=== PATIENT | male | born 1985 | race Two or more races ===

== ENCOUNTER 2024-06-27 13:08 | Outpatient (AMB) | payer MEDICAID, SELFPAY ==
[2024-06-27 13:15] VITALS: BP 140/90; PULSE 99; RESP 19; O2SAT 99
--- NOTE | 2024-06-27 13:26 | A.OFFVISCC_ITS ---
Vital Signs 06/27/24 13:15 BP 140/90 H Blood Pressure Location Rt brachial Position Sitting Respiration 19 Pulse 99 Pulse Source Pulse Oximeter Pulse Oximetry (%) 99 Intake Visit Reasons: Walk in Allergies No Known Allergies Allergy (Verified 06/27/24 13:39) HPI HPI Walk in: Details: Patient presents as walk for evaluation and treatment of alcohol use disorder He reports he was recently admitted to [facility] for severe alcohol withdrawal with DTs. He was discharged on 06/25. Reports he was drinking btwn 1-3 sleeves prior to admission Drinking more recently --over the last few months increased 15nips daily rumchata Reports he was on his way to [facility] --never admitted because he collapsed Reports history of pressed pills states his last was a month ago Reports IN use, denies any history of IV use denies heroin use Reports one lifetime overdose in 2015 from pressed pills Reports he entered treatment after that and abstained form opiate use for 4 years until he broke his ankle in 2019 and was prescribed pain medications. Denies any other substance use Review of Systems Const Reports difficulty sleeping and Reports malaise Psych Reports anxiety Physical Exam Vital Signs: Last Vital Signs Pulse 99 06/27/24 13:15 Resp 19 06/27/24 13:15 BP 140/90 H 06/27/24 13:15 Pulse Ox 99 06/27/24 13:15 Assessment & Plan Assessment & Plan (1) Alcohol use disorder, severe, dependence: Code(s): F10.20 - Alcohol dependence, uncomplicated Category: Medical Plan: * naltrexone 50mg QD--reviewed dosing, side effects, and medication interactions (opiates) * gabapentin 100mg BID PRN anxiety * follow up 2 weeks Orders: Orders AMB 14 Panel Urine Drug Screen 06/27/24 Z51.81 - Encounter for therapeutic drug level monitoring Medications: New naltrexone take 1/2 tab daily for 3 days, then increase to one tab daily 50 mg PO DAILY 30 tabs 0RF gabapentin 100 mg PO BEDTIME 10 caps 0RF MAT Intake Nursing Intake Reason for visit: establish care Are you currently using?: No What are you taking?: Patient states prior to his recent ICU stay at [facility] last week he was using pressed pills and drinking 1-2 sleeves of vodka a day. When was your last use?: 1 week ago What is your source of income?: unemployed Current PCP: During appt we made an appt with [facility] Primary [place] Referral Source: Family Substance Abuse History Substance Abuse History (includes route, frequency and quantity): Fentanyl, Buprenorphine/naloxone, Methadone, Cocaine and Alcohol Age of first use: 25 Details: Patient states he currently has only been using fake oxys and drinking daily. Has tried and used cocaine in the past but states A long time ago Social History Do you have a support system?: Family which he also acknowledges contributes to his anxiety Current mode of transportation?: Family Where are you currently residing?: In a home with his father IV Drug Use Have you ever shared needles?: No Have you ever belonged to a needle exchange program?: No Do you buy needles at a pharmacy?: No Have you ever overdosed?: No Have you ever been hospitalized for an overdose?: No Was Naloxone administered?: Not applicable Recovery History Have you had any periods of recovery?: Yes What is your longest time in recovery?: 3 1/2 years When was the last time you were in recovery?: Last year Have you ever had inpatient treatment for your substance abuse disorder?: Yes Have you been in an inpatient detoxification program?: Yes Have you been in an inpatient Rehab/[place] house?: No Have you been in an outpatient Methadone Maintenance program?: Yes Have you been in an outpatient Suboxone Maintenance program?: Yes Have you been in an AA/NA support program?: No Have you had a Recovery Support Call Taker?: No Have you had Peer Support?: No Behavioral Health History Do you have a current provider? If so, who?: No, patient endorces interest in a therapist History of self harming thoughts?: No History of homicidal or suicidal intentions?: No Medical Conditions Endocarditis?: No Skin Infection: No Seizure related to withdrawal or overdose: No Head or brain injury: No Hepatitis A (if yes, have you been treated?): No Hepatitis B (if yes, have you been treated?): No Hepatitis C (if yes, have you been treated?): No HIV (if yes, have you been treated?): No TB (if yes, have you been treated?): No Legal History History of incarceration: No Currently on parole or probation: No Court mandated programs: No Pending court cases: No DCF involvement: No
--- OUTSIDE RECORDS SUMMARY | 2024-06-27 15:29 | XMS_ITS | Clinical Summary ---
Author Organization [facility] Address [address] [place] [address] Care Team Providers Care Checker Name Role Phone Patient, Has No Pcp Or Ref Primary Care Provider Unavailable Allergies No known active allergies Medications folic acid (FOLVITE) 1 mg tablet Take 1 tablet (1 mg total) by mouth once a day. 30 tablet 5 07/26/19 25 Active sertraline (ZOLOFT) 50 mg tablet Take 1 tablet (50 mg total) by mouth once a day. 30 tablet 5 Active thiamine mononitrate (VITAMIN B1) 100 mg tablet Take 1 tablet (100 mg total) by mouth once a day. 30 tablet 5 Active thiamine HCl (VITAMIN B1) 100 mg tablet Take 100 mg by mouth once a day. 06/25/19 Discontinu ed(Stop Taking at Discharge) magnesium hydroxide (MILK OF MAGNESIA) 400 mg/5 mL suspension Take 2,400 mg by mouth once a day. 06/25/19 Discontinu ed(Stop Taking at Discharge) calcium carbonate (TUMS) 200 mg calcium (500 mg) chewable tablet Chew and swallow 1 tablet by mouth once a day. 06/25/19 Discontinu ed(Stop Taking at Discharge) acetaminophen (TYLENOL) 325 mg tablet Take 650 mg by mouth every 6 hours as needed for pain. 06/25/19 Discontinu ed(Stop Taking at Discharge) bismuth subsalicylate (PEPTO BISMOL) 262 mg/15 mL suspension Take 30 mL by mouth every 6 hours as needed for indigestion . 06/25/19 Discontinu ed(Stop Taking at Discharge) diphenoxylate-atr opine (LOMOTIL) 2.5-0.025 mg per tablet Take 1 tablet by mouth 4 times a day as needed for diarrhea. 06/25/19 Discontinu ed(Stop Taking at Discharge) guaiFENesin (ROBITUSSIN) 100 mg/5 mL syrup Take 200 mg by mouth 3 times a day as needed for congestion. 06/25/19 25 Discontinu ed(Stop Taking at Discharge) ondansetron (Zofran) 4 mg tablet Take 4 mg by mouth every 8 hours as needed for nausea or vomiting. 06/25/19 25 Discontinu ed(Stop Taking at Discharge) Active Problems No known active problems Resolved Problems Problem Noted Date Diagnosed Date Resolved Date Pancreatitis 06/16/2024 06/25/2024 Acute respiratory failure with hypoxia 06/16/2024 06/25/2024 Toxic metabolic encephalopathy 06/15/2024 06/25/2024 Alcohol withdrawal delirium 06/15/2024 06/25/2024 Hypokalemia 06/15/2024 06/25/2024 Hypomagnesemia 06/15/2024 06/25/2024 Hyponatremia 06/15/2024 06/25/2024 Encounters Date Type Department Care Team Description 06/16/2024 8:47 AM EST Anesthesia Event [facility] [id number] [facility] [address] [place] [id number] Aurora Beckett MD 06/15/2024 12:22 AM EST - 06/25/2024 6:18 PM EST Hospital Encounter [facility] [id number] [facility] [address] [place] [id number] Edvin Beck MD Sultan, Danielle A., Gabe Nobles MD Girgenrath, Tanya, MD Gallant, Joseph J., MD Jones, Evan W, MD Wong, William W., Delirium tremens (HCC) (Primary Dx); Hypomagnesemia; Hypokalemia; Toxic metabolic encephalopathy; Alcohol withdrawal syndrome with complication (HCC) Discharge Disposition: Home or Self Care () from Last 3 Months Immunizations Name Administration Dates Next Due INFLUENZA, SPLIT VIRUS, TRIVALENT, PF 06/25/2024 (Deferred: Patient Refused) Social History Tobacco Use Types Packs/Day Years Used Date Smoking Tobacco: Every Day Cigarettes Cigars Tobacco Cessation:Ready to Q uit: Not Asked Comments:Per family members Alcohol Use Standard Drinks/Week Comments Yes 0 (1 standard drink = 0.6 oz pur e alcohol) Sex and Gender Information Value Date Recorded Sex Assigned at Male 06/19/2024 3:20 PM EST Legal Sex Male 12:20 AM EST Gender Identity Not on file Sexual Orientation Not on file Last Filed Vital Signs Vital Sign Reading Time Taken Comments Blood Pressure 150/102 06/25/2024 4:00 PM EST Pulse 97 06/25/2024 4:00 PM EST Temperature 36.5 ??C (97.7 ??F) 06/25/2024 4:00 PM ES T Respiratory Rate 27 06/25/2024 4:00 PM EST Oxygen Saturation 100% 06/25/2024 4:00 PM EST Inhaled Oxygen Concentration - - Weight 61.9 kg (136 lb 7.4 oz) 06/25/2024 4:54 A M EST Height 175.3 cm (5' 9.02 ) 06/20/2024 8:20 AM ES T Body Mass Index 20.14 06/20/2024 8:20 AM EST Plan of Treatment Health Maintenance Due Date Last Done Comments HIV Screening 1986 Hepatitis C Screening 1986 Pneumococcal Vaccine: Pediat fabiana (0-5 Years) and At-Risk Patients (6-64 Years) (1 of 2 - PCV) 1992 Varicella Vaccines (1 of 2 - 13+ 2-dose series) 1999 Hepatitis B Vaccines (1 of 3 - 19+ 3-dose series) 2005 COVID-19 Vaccine (3 - 2023- season) 2024, 04/02/2021 Influenza Vaccine (#1) 2024 Alcohol/Substance Use Screening 06/05/2024 Depression Screening and Follow-Up 06/05/2024 Social Drivers of Health Annual Screening 06/05/2024 DTaP,Tdap,and Td Vaccines (2 - Td or Tdap) 05/18/2030 05/18/2020 RSV Vaccine (60+ years old a nd patients) (1 - 1-dose 75+ series) 2061 Procedures * Due to [place] state law, this organization might not be sharing negative HIV tests. Procedure Name Priority Date/Time Associated Diagnosis Comments MAGNESIUM STAT 06/25/2024 4:53 AM EST BASIC METABOLIC PANEL STAT 06/25/2024 4:53 AM EST SMEAR REVIEW Routine 06/24/2024 3:08 AM EST BASIC METABOLIC PANEL Routine 06/24/2024 3:08 AM EST MAGNESIUM Routine 06/24/2024 3:08 AM EST PHOSPHORUS Routine 06/24/2024 3:08 AM EST CBC Routine 06/24/2024 3:08 AM EST POCT GLUCOSE Routine 06/23/2024 11:19 AM EST POCT GLUCOSE Routine 06/23/2024 10:09 AM EST POCT GLUCOSE Routine 06/22/2024 12:03 PM EST BASIC METABOLIC PANEL Routine 06/22/2024 2:54 AM EST MAGNESIUM Routine 06/22/2024 2:54 AM EST PHOSPHORUS Routine 06/22/2024 2:54 AM EST SMEAR REVIEW Routine 06/21/2024 3:36 PM EST CBC Timed 06/21/2024 3:36 PM EST BASIC METABOLIC PANEL Timed 06/21/2024 3:36 PM EST PHOSPHORUS Routine 06/21/2024 3:06 AM EST MAGNESIUM Routine 06/21/2024 3:06 AM EST BASIC METABOLIC PANEL Routine 06/21/2024 3:06 AM EST POCT GLUCOSE Routine 06/21/2024 1:13 AM EST POCT GLUCOSE Routine 06/20/2024 8:14 PM EST EXTUBATE PATIENT Routine 06/20/2024 10:03 AM EST SMEAR REVIEW Routine 06/20/2024 3:35 AM EST PHOSPHORUS Routine 06/20/2024 3:35 AM EST MAGNESIUM Routine 06/20/2024 3:35 AM EST CBC AUTO DIFFERENTIAL Routine 06/20/2024 3:35 AM EST COMPREHENSIVE METABOLIC PANEL Routine 06/20/2024 3:35 AM EST MANUAL DIFFERENTIAL Routine 06/19/2024 3 :40 AM EST RENAL FUNCTION PANEL Routine 06/19/2024 3:40 AM EST MAGNESIUM Routine 06/19/2024 3:40 AM EST CBC AUTO DIFFERENTIAL Routine 06/19/2024 3:40 AM EST POCT GLUCOSE Routine 06/18/2024 8:19 PM EST SMEAR REVIEW Routine 06/18/2024 3:26 AM EST CBC Routine 06/18/2024 3:26 AM EST PHOSPHORUS Routine 06/18/2024 3:26 AM EST MAGNESIUM Routine 06/18/2024 3:26 AM EST BASIC METABOLIC PANEL Routine 06/18/2024 3:26 AM EST POCT I-STAT VENOUS BLOOD GAS Routine 06/17/2024 7:55 AM EST TRIGLYCERIDES Add-On 06/17/2024 7:52 AM EST LIPASE Add-On 06/17/2024 7:52 AM EST PHOSPHORUS Timed 06/17/2024 7:52 AM EST BASIC METABOLIC PANEL Timed 06/17/2024 7:52 AM EST MAGNESIUM Timed 06/17/2024 7:52 AM EST POCT GLUCOSE Routine 06/17/2024 4:16 AM EST POCT I-STAT VENOUS BLOOD GAS Routine 06/17/2024 4:15 AM EST PHOSPHORUS Timed 06/17/2024 12:06 AM EST CBC Timed 06/17/2024 12:06 AM EST BASIC METABOLIC PANEL Timed 06/17/2024 12:06 AM EST MAGNESIUM Timed 06/17/2024 12:06 AM EST POCT GLUCOSE Routine 06/17/2024 12:05 AM EST POCT GLUCOSE Routine 06/16/2024 9:06 PM EST URINE CULTURE (URETHRAL CATHETER), HOLD Routine 06/16/2024 6:25 PM EST URINALYSIS (URETHRAL CATHETER) W/REFLEX TO MICROSCOPIC Routine 06/16/2024 6:25 PM EST UA (URETHRAL CATHETER) W/REFLEX TO MICROSCOPIC PANEL (HOLD CULTURE) Routine 06/16/2024 6:25 PM EST MAGNESIUM Timed 06/16/2024 4:35 PM EST BASIC METABOLIC PANEL Timed 06/16/2024 4:35 PM EST POCT I-STAT VENOUS BLOOD GAS Routine 06/16/2024 11:48 AM EST POCT GLUCOSE Routine 06/16/2024 11:44 AM EST POCT GLUCOSE Routine 06/16/2024 11:41 AM EST BETAHYDROXYBUTYRATE Add-On 06/16/2024 10:28 AM EST CK STAT Add-on 06/16/2024 10:28 AM EST BASIC METABOLIC PANEL STAT 06/16/2024 10:28 AM EST PROPOXYPHENE SCREEN, URINE Add-On 06/16 9:37 AM EST METHADONE SCREEN W/CONFIRMATION, URINE Add-On 06/16/2024 9:37 AM EST BENZODIAZEPINE QUALITATIVE SCREEN, URINE Add-On 06/16/2024 9:37 AM EST BARBITURATE SCREEN, URINE Add-On 2024 9:37 AM EST PHENCYCLIDINE (PCP) SCREEN, URINE Add-On 06/16/2024 9:37 AM EST MARIJUANA (THC) SCREEN, URINE Add-On 06/16/2024 9:37 AM EST MORPHINE AND CODEINE CONFIRMATION, URINE Add-On 06/16/2024 9:37 AM EST COCAINE SCREEN, URINE Add-On 06/16/2024 9:37 AM EST AMPHETAMINE SCREEN, URINE Add-On 2024 9:37 AM EST COMPREHENSIVE DRUG SCREEN, URINE Routine 06/16/2024 9:37 AM EST OSMOLALITY STAT 06/16/2024 9:37 AM EST ACETAMINOPHEN LEVEL STAT 06/16/2024 9 :37 AM EST SALICYLATE LEVEL Routine 06/16/2024 9:37 AM EST OSMOLALITY GAP STAT 06/16/2024 9:37 AM EST POCT I-STAT ARTERIAL BLOOD GAS Routine 06/16/2024 9:29 AM EST MVL QS - COVID-19, FLU A/B & RSV RNA PCR, SYMPTOMATIC Routine 06/16/2024 9:29 AM EST POCT GLUCOSE Routine 06/16/2024 9:28 AM EST BLOOD CULTURE Routine 06/16/2024 9:00 AM EST BLOOD CULTURE Routine 06/16/2024 9:00 AM EST PROLACTIN STAT 06/16/2024 8:57 AM EST CK STAT 06/16/2024 8:57 AM EST MRSA/S AUREUS PCR, NASAL Routine 025 8:44 AM EST RESPIRATORY CULTURE W/GRAM STAIN STAT 06/16/2024 8:41 AM EST XR CHEST 1 VW STAT 06/16/2024 8:20 AM EST AN ETT DUMMY PERFORMABLE Routine 025 8:15 AM EST UT INSERT EMERGENCY ENDOTRACH AIRWAY Routine 06/16/2024 8:15 AM EST HC EMERGENCY INTUBATION Routine 06/16/19 25 8:15 AM EST LACTIC ACID, PLASMA STAT 06/16/2024 7 :34 AM EST POCT I-STAT VENOUS BLOOD GAS Routine 06/16/2024 7:21 AM EST POCT GLUCOSE Routine 06/16/2024 7:19 AM EST POCT GLUCOSE Routine 06/16/2024 4:36 AM EST LIPASE Add-On 06/16/2024 3:42 AM EST PROTIME-INR Routine 06/16/2024 3:42 AM EST PHOSPHORUS Routine 06/16/2024 3:42 AM EST MAGNESIUM Routine 06/16/2024 3:42 AM EST HEPATIC FUNCTION PANEL Routine 3:42 AM EST CBC Routine 06/16/2024 3:42 AM EST BASIC METABOLIC PANEL Routine 06/16/2024 3:42 AM EST POCT GLUCOSE Routine 06/16/2024 1:00 AM EST POCT GLUCOSE Routine 06/15/2024 8:04 PM EST ECG 12-LEAD STAT 06/15/2024 5:49 PM EST TROPONIN T HIGH SENSITIVITY Routine 06/15/2024 5:33 PM EST CBC AUTO DIFFERENTIAL Routine 06/15/2024 5:33 PM EST PHOSPHORUS Routine 06/15/2024 5:33 PM EST MAGNESIUM Routine 06/15/2024 5:33 PM EST BASIC METABOLIC PANEL Routine 06/15/2024 5:33 PM EST POCT GLUCOSE Routine 06/15/2024 5:06 PM EST BASIC METABOLIC PANEL STAT 06/15/2024 1:25 PM EST MAGNESIUM STAT 06/15/2024 10:07 AM EST BASIC METABOLIC PANEL STAT 06/15/2024 10:07 AM EST XR CHEST 1 VW STAT 06/15/2024 7:41 AM EST BASIC METABOLIC PANEL STAT 06/15/2024 7:[address] HEAD WO CONTRAST STAT 06/15/2024 1 :26 AM EST MAGNESIUM STAT 06/15/2024 12:50 AM EST COMPREHENSIVE METABOLIC PANEL STAT 06/15/2024 12:50 AM EST CBC AUTO DIFFERENTIAL STAT 06/15/2024 12:50 AM EST ECG 12-LEAD Routine 06/15/2024 12:36 AM EST HEART & VASCULAR - SCANNED 06/15/2024 from Last 3 Months Results * Due to [place] state law, this organization might not be sharing negative HIV tests. * Magnesium (06/25/2024 4:53 AM EST) Only the most recent of14 resultswithin the time period is included. MG 2.0 1.6 - 2.4 mg/dL 06/25/2024 5:55 AM EST [facility] Blood Structure of peripheral vein / Unknown Venipuncture / Unknown 06/25/2024 4:53 AM EST 06/25/2024 5:26 AM EST us Mikey Rivas NP LAB BLOOD ORDER MADELYN Final Result [facility] [address] [place] [id number], [place] * (ABNORMAL) Basic metabolic panel (06/25/2024 4:53 AM EST) Only the most recent of15 resultswithin the time period is included. NA 137 135 - 145 mmol/L 06/25/2024 5:55 AM EST [facility] K 3.6 3.5 - 5.3 mmol/L 06/25/2024 5:55 AM EST [facility] Cl 105 98 - 107 mmol/L 06/25/2024 5:55 AM EST [facility] CO2 21(L) 22 - 32 mmol/L 06/25/2024 5:55 AM EST [facility] BUN 8 7 - 23 mg/dL 06/25/2024 5:55 AM [facility] Creatinine 0.59(L) 0.60 - 1.30 mg/dL 06/25/2024 5:55 AM EST [facility] Glucose 103(H) 65 - 99 mg/dL 06/25/2024 5:55 AM [facility] Calcium 8.8 8.6 - 10.5 mg/dL 06/25/2024 5:55 AM [facility] Anion Gap 11 5 - 15 06/25/2024 5:55 AM [facility] eGFR >90 >=60 mL/min/1 .73m2 06/25/2024 5:55 AM [facility] Comment:The estimated glomer ular filtration rate (eGFR) is calculated using a new formula developed by the NKF-ASN task force to eliminate race-based correction factors. The new formula uses serum/plasma creatinine, age, and gender to determine eGFR. A value below 60mls/min might indicate kidney disease and will be flagged. For additional information, see Jewel nuñez al, Am J Kidney Dis. 2021;79(2):268- 288, A Unifying Approach for GFR estimation: Recommendations of the NKF-ASN Task Force on Reassessing the Inclusion of Race in Diagnosing Kidney Disease . Blood Structure of peripheral vein / Unknown Venipuncture / Unknown 06/25/2024 4:53 AM EST 06/25/2024 5:26 AM EST Mikey Rivas COMMUNITY ASSISTANT LAB BLOOD ORDER MADELYN Final Result Performing Organization Address City/[facility] Co de Phone Number [facility] [address] [place] [address], [place] * (ABNORMAL) Smear Review (06/24/2024 3:08 AM EST) Only the most recent of4 resultswithin the time period is included. Platelet Estimate Increase d(A) Adequate 06/24/2024 4:13 AM EST [facility] RBC Morphology Present( A) Normal, No clinically significant RBC morphology present (ICSH guidelines, 2015). 06/24/2024 4:13 AM EST [facility] Macrocytes 2+(A) Not Present 06/24/2024 4:13 AM EST [facility] Blood Structure of peripheral vein / Unknown Venipuncture / Unknown 06/24/2024 3:08 AM EST 06/24/2024 3:35 AM EST us Domonique Desai COMMUNITY ASSISTANT LAB BLOOD ORDERABLES Final R esult Performing Organization Address City/[facility] Co de Phone Number [facility] [address] [place] [id number], [place] * (ABNORMAL) CBC (06/24/2024 3:08 AM EST) Only the most recent of5 resultswithin the time period is included. WBC 7.4 3.8 - 10.8 10*3/uL 06/24/2024 4:13 AM EST [facility] RBC 3.84(L) 4.20 - 5.80 10*6/uL 06/24/2024 4:13 AM EST [facility] Hemoglobin 14.4 13.2 - 17.1 g/dL 06/24/2024 4:13 AM EST [facility] Hematocrit 39.7 38.5 - 50.0 % 06/24/2024 4:13 AM EST [facility] MCV 103.4(H) 80.0 - 100.0 fL 06/24/2024 4:13 AM EST [facility] MCH 37.5(H) 27.0 - 33.0 pg 06/24/2024 4:13 AM EST [facility] MCHC 36.3(H) 32.0 - 36.0 g/dL 06/24/2024 4:13 AM EST [facility] RDW 11.7 11.0 - 15.0 % 06/24/2024 4:13 AM EST [facility] Platelets 546(H) 140 - 400 10*3/uL 06/24/2024 4:13 AM EST [facility] MPV 8.8 7.5 - 12.5 fL 06/24/2024 4:13 AM EST [facility] Comment:A smear review has carmen medina added. Clinician review and interpretation will be needed once the report is final. Blood Structure of peripheral vein / Unknown Venipuncture / Unknown 06/24/2024 3:08 AM EST 06/24/2024 3:35 AM EST us Domonique Desai COMMUNITY ASSISTANT LAB BLOOD ORDERABLES Final R esult [facility] [address] [place] [address], * Phosphorus (06/24/2024 3:08 AM EST) Only the most recent of9 resultswithin the time period is included. Phosphorus 3.4 2.5 - 4.5 mg/dL 06/24/2024 4:20 AM EST [facility] Blood Structure of peripheral vein / Unknown Venipuncture / Unknown 06/24/2024 3:08 AM EST 06/24/2024 3:35 AM EST us Domonique Desai COMMUNITY ASSISTANT LAB BLOOD ORDERABLES Final R esult Performing Organization Address City/[facility]/ZIP Co de Phone Number [facility] [address] [place] [address], [place] * (ABNORMAL) POCT Glucose, interfaced (06/23/2024 11:19 AM EST) Only the most recent of17 resultswithin the time period is included. Glucose, POCT 167(H) 70 - 99 mg/dL 06/23/2024 11:20 AM EST [facility] Comment: The accountant property has not determined the efficacy of this test in Critically ill patients. ??[facility] defines Critically ill patients for the purpose of blood glucose monitoring (BGM) by glucometer, as patients meeting one or more of the following criteria: Hypotension- non-ICU patients (systolic blood pressure Less than 90 mmHg) due to shock Hypotension -ICU patients ??(Mean Arterial Pressure (MAP) <60 mmHg or systolic blood pressure < 90 mmHg due to shock Patients receiving Vasopressors (phenylephrine, vasopressin or norepinephrine) Anasarca In all locations, BGM test results should not be relied upon in the above situations, unless these results confirmed with lab-based glucose values. Blood 06/23/2024 11:1 9 AM EST 06/23/2024 11:20 AM EST us Alberto Rucker DO LAB POCT ORDERABLES - DEVICE Final Result Performing Organization Address City/[facility]/ZIP Co de Phone Number [facility] [address] [place] [address], [place] * (ABNORMAL) CBC Auto Differential (06/20/2024 3:35 AM EST) Only the most recent of4 resultswithin the time period is included. WBC 4.1 3.8 - 10.8 10*3/uL 06/20/2024 5:40 AM [facility] RBC 3.68(L) 4.20 - 5.80 10*6/uL 06/20/2024 5:40 AM [facility] Hemoglobin 13.5 13.2 - 17.1 g/dL 06/20/2024 5:40 AM [facility] Hematocrit 39.4 38.5 - 50.0 % 06/20/2024 5:40 AM [facility] MCV 107.1(H) 80.0 - 100.0 fL 06/20/2024 5:40 AM [facility] MCH 36.7(H) 27.0 - 33.0 pg 06/20/2024 5:40 AM [facility] MCHC 34.3 32.0 - 36.0 g/dL 06/20/2024 5:40 AM [facility] RDW 11.7 11.0 - 15.0 % 06/20/2024 5:40 AM [facility] Platelets 274 140 - 400 10*3/uL 06/20/2024 5:40 AM [facility] MPV 9.4 7.5 - 12.5 fL 06/20/2024 5:40 AM [facility] Neutrophil % 49.9 % 06/20/2024 5:40 AM [facility] Immature Grans % 0.5 0.0 - 0.9 % 06/20/2024 5:40 AM [facility] Lymphocyte % 21.5 % 06/20/2024 5:40 AM [facility] Monocyte % 23.7 % 06/20/2024 5:40 AM [facility] Eosinophil % 3.4 % 06/20/2024 5:40 AM EST [facility] Basophil % 1.0 % 06/20/2024 5:40 AM EST [facility] Neutrophil # 2.06 1.50 - 7.80 10*3/uL 06/20/2024 5:40 AM EST [facility] Immature Grans # <0.03 <=0.03 10*3/uL 06/20/2024 5:40 AM EST [facility] Lymphocyte # 0.90 0.85 - 3.90 10*3/uL 06/20/2024 5:40 AM EST [facility] Monocyte # 1.00(H) 0.20 - 0.95 10*3/uL 06/20/2024 5:40 AM EST [facility] Eosinophil # 0.10 0.02 - 0.50 10*3/uL 06/20/2024 5:40 AM EST [facility] Basophil # <0.03 0.00 - 0.20 10*3/uL 06/20/2024 5:40 AM EST [facility] nRBC % 0.0 /100 WBCs 06/20/2024 5:40 AM EST [facility] nRBC # <0.01 <0.01 10*3/uL 06/20/2024 5:40 AM EST [facility] Blood Structure of peripheral vein / Unknown Venipuncture / Unknown 06/20/2024 3:35 AM EST 06/20/2024 4:12 AM EST us Darrel Blackwell NP LAB BLOOD ORDERABLES Fi nal Result [facility] [address] [place] [address], * (ABNORMAL) Comprehensive metabolic panel (06/20/2024 3:35 AM EST) Only the most recent of2 resultswithin the time period is included. NA 139 135 - 145 mmol/L 06/20/2024 4:47 AM [facility] K 4.0 3.5 - 5.3 mmol/L 06/20/2024 4:47 AM [facility] Cl 107 98 - 107 mmol/L 06/20/2024 4:47 AM [facility] CO2 23 22 - 32 mmol/L 06/20/2024 4:47 AM [facility] Anion Gap 9 5 - 15 06/20/2024 4:47 AM [facility] Glucose 161(H) 65 - 99 mg/dL 06/20/2024 4:47 AM [facility] Creatinine 0.55(L) 0.60 - 1.30 mg/dL 06/20/2024 4:47 AM [facility] Calcium 8.6 8.6 - 10.5 mg/dL 06/20/2024 4:47 AM [facility] Total Protein 6.8 6.0 - 8.0 g/dL 06/20/2024 4:47 AM [facility] Albumin 3.2(L) 3.5 - 5.2 g/dL 06/20/2024 4:47 AM [facility] Bilirubin, Total 0.2 0.2 - 1.2 mg/dL 06/20/2024 4:47 AM [facility] Alkaline Phosphatase 104 35 - 129 U/L 06/20/2024 4:47 AM [facility] AST 20 10 - 40 U/L 06/20/2024 4:47 AM [facility] ALT 16 10 - 40 U/L 06/20/2024 4:47 AM [facility] BUN 11 7 - 23 mg/dL 06/20/2024 4:47 AM [facility] eGFR >90 >=60 mL/min/1 .73m2 06/20/2024 4:47 AM EST [facility] Comment:The estimated glomer ular filtration rate (eGFR) is calculated using a new formula developed by the NKF-ASN task force to eliminate race-based correction factors. The new formula uses serum/plasma creatinine, age, and gender to determine eGFR. A value below 60mls/min might indicate kidney disease and will be flagged. For additional information, see Jewel et al, Am J Kidney Dis. 2021;79(2):268- 288, A Unifying Approach for GFR estimation: Recommendations of the [employer]-ASN Task Force on Reassessing the Inclusion of Race in Diagnosing Kidney Disease . Globulin, Total 3.6 2.1 - 4.2 g/dL 06/20/2024 4:47 AM EST [facility] A/G Ratio 0.9(L) 1.5 - 3.0 06/20/2024 4:47 AM EST [facility] Blood Structure of peripheral vein / Unknown Venipuncture / Unknown 06/20/2024 3:35 AM EST 06/20/2024 4:11 AM EST us Darrel Blackwell NP LAB BLOOD ORDERABLES Fi nal Result [facility] [address] [place] [address], [place] * (ABNORMAL) Manual Differential (06/19/2024 3:40 AM EST) Neutrophil %, Manual 61 % 06/19/2024 5:22 AM EST [facility] Comment:WBC: vacuolated poly s Lymphocyte %, Manual 17 % 06/19/2024 5:22 AM EST [facility] Monocyte %, Manual 12 % 06/19/2024 5:22 AM EST [facility] Eosinophil %, Manual 5 % 06/19/2024 5:22 AM EST [facility] Basophil %, Manual 1 % 06/19/2024 5:22 AM [facility] Reactive Lymphocyte % 4 0 - 6 % 06/19/2024 5:22 AM EST [facility] Total Neutrophil #, Manual 3.48 1.50 - 7.80 10*3/uL 06/19/2024 5:22 AM EST [facility] Total Lymph #, Manual 1.20 0.85 - 3.90 10*3/uL 06/19/2024 5:22 AM EST [facility] Monocyte #, Manual 0.68 0.20 - 0.95 10*3/uL 06/19/2024 5:22 AM EST [facility] Eosinophil #, Manual 0.29 0.02 - 0.50 10*3/uL 06/19/2024 5:22 AM EST [facility] Basophil #, Manual 0.06 0.00 - 0.20 10*3/uL 06/19/2024 5:22 AM [facility] Reactive Lymphocytes # 0.23 10*3/uL 06/19/2024 5:22 AM [facility] Platelet Estimate Adequate Adequate 06/19/2024 5:22 AM [facility] RBC Morphology Present(A) Normal, No clinically significant RBC morphology present (ICSH guidelines, 2015). 06/19/2024 5:22 AM EST [facility] Anisocytosis 2+(A) Not Present 06/19/2024 5:22 AM [facility] Macrocytes 2+(A) Not Present 06/19/2024 5:22 AM [facility] Total Cells Counted 117 06/19/2024 5:22 AM [facility] Blood Structure of peripheral vein / Unknown Venipuncture / Unknown 06/19/2024 3:40 AM EST 06/19/2024 3:48 AM EST us Winston ESTRADA LAB BLOOD ORDERABLES Fi nal Result [facility] [address] [place] [address], * (ABNORMAL) Renal Function Panel (06/19/2024 3:40 AM EST) NA 139 135 - 145 mmol/L 06/19/2024 4:34 AM EST [facility] K 4.1 3.5 - 5.3 mmol/L 06/19/2024 4:34 AM EST [facility] Cl 105 98 - 107 mmol/L 06/19/2024 4:34 AM EST [facility] CO2 21(L) 22 - 32 mmol/L 06/19/2024 4:34 AM EST [facility] Anion Gap 13 5 - 15 06/19/2024 4:34 AM EST [facility] Glucose 161(H) 65 - 99 mg/dL 06/19/2024 4:34 AM EST [facility] BUN 9 7 - 23 mg/dL 06/19/2024 4:34 AM EST [facility] Creatinine 0.61 0.60 - 1.30 mg/dL 06/19/2024 4:34 AM EST [facility] Calcium 8.6 8.6 - 10.5 mg/dL 06/19/2024 4:34 AM EST [facility] Phosphorus 3.8 2.5 - 4.5 mg/dL 06/19/2024 4:34 AM EST [facility] Albumin 3.3(L) 3.5 - 5.2 g/dL 06/19/2024 4:34 AM EST [facility] eGFR >90 >=60 mL/min/1. 73m2 06/19/2024 4:34 AM EST [facility] Comment:The estimated glomer ular filtration rate (eGFR) is calculated using a new formula developed by the NKF-ASN task force to eliminate race-based correction factors. The new formula uses serum/plasma creatinine, age, and gender to determine eGFR. A value below 60mls/min might indicate kidney disease and will be flagged. For additional information, see Jewel et al, Am J Kidney Dis. 2021;79(2):268- 288, A Unifying Approach for GFR estimation: Recommendations of the NKF-ASN Task Force on Reassessing the Inclusion of Race in Diagnosing Kidney Disease . Blood Structure of peripheral vein / Unknown Venipuncture / Unknown 06/19/2024 3:40 AM EST 06/19/2024 3:48 AM EST us Winston ESTRADA LAB BLOOD ORDERABLES Fi nal Result [facility] [address] [place] [id number], [place] * (ABNORMAL) POCT I-STAT Venous Blood Gas, interfaced (06/17/2024 7:55 AM EST) Only the most recent of4 resultswithin the time period is included. Sample Type, POCT Venous 06/17/2024 7:57 AM EST [facility] pH, POCT 7.43(H) 7.31 - 7.41 pH 06/17/2024 7:57 AM EST [facility] pCO2, POCT 33.0(L) 41 - 51 mm Hg 06/17/2024 7:57 AM EST [facility] pO2, POCT 42(H) 35 - 40 mm Hg 06/17/2024 7:57 AM EST [facility] Base Excess, POCT -3(L) 0 - 3 mmol/L 06/17/2024 7:57 AM EST [facility] HCO3, POCT 21.8(L) 23 - 28 mmol/L 06/17/2024 7:57 AM EST [facility] TCO2, POCT 23(L) 24 - 29 mmol/L 06/17/2024 7:57 AM EST [facility], [facility] Saturated O2, POCT 79(H) 70 - 75 % 06/17/2024 7:57 AM EST [facility], [facility] FIO2, POCT 30 % 06/17/2024 7:57 AM EST [facility], [facility] Patient Temp, POCT 38.1 degrees 06/17/2024 7:57 AM EST [facility], [facility] Isaias's Test, POCT N/A 06/17/2024 7:57 AM EST [facility], [facility] Blood 06/17/2024 7:55 AM EST 06/17/2024 7:57 AM EST us Jeison Hogue MD LAB POCT ORDERABLES - DEVICE Fin al Result Performing Organization Address City/[facility]/ZIP Co de Phone Number [facility], [facility]OC [address] [place] [address], [place] * Triglyceride (06/17/2024 7:52 AM EST) Triglycerides 69 <=149 mg/dL 06/17/2024 12:32 PM EST [facility] Blood Structure of peripheral vein / Unknown Venipuncture / Unknown 06/17/2024 7:52 AM EST 06/17/2024 7:55 AM EST us Mikey Rivas NP LAB BLOOD ORDER MADELYN Final Result [facility] [address] [place] [address], [place] * (ABNORMAL) Lipase (06/17/2024 7:52 AM EST) Only the most recent of2 resultswithin the time period is included. Lipase 150(H) 13 - 60 U/L 06/17/2024 12:32 PM EST [facility] Blood Structure of peripheral vein / Unknown Venipuncture / Unknown 06/17/2024 7:52 AM EST 06/17/2024 7:55 AM EST us Mikey Rivas COMMUNITY ASSISTANT LAB BLOOD ORDER MADELYN Final Result [facility] [address] [place] [address], [place] * (ABNORMAL) Urinalysis (Urethral Catheter) w/Reflex to Microscopic (Hold Culture). (06/16/2024 6:25 PM EST) Color, Urine Dark Yellow Colorless, Light Yellow, Yellow, Dark Yellow 06/16/2024 7:12 PM EST [facility] Clarity, Urine Clear Clear 06/16/2024 7:12 PM EST [facility] Specific [place], Urine 1.028 1.005 - 1.030 06/16/2024 7:12 PM EST [facility] pH, Urine 5.0 4.6 - 8.0 06/16/2024 7:12 PM EST [facility] Protein, Urine 1+(A) Negative 06/16/2024 7:12 PM EST [facility] Glucose, Urine Negative Negative 06/16/2024 7:12 PM EST [facility] Ketones, Urine Negative Negative 06/16/2024 7:12 PM EST [facility] Bilirubin, Urine Negative Negative 06/16/2024 7:12 PM EST [facility] Blood, Urine Negative Negative 06/16/2024 7:12 PM EST [facility] Nitrite, Urine Negative Negative 06/16/2024 7:12 PM EST [facility] Urobilinogen, Urine Normal Normal 06/16/2024 7:12 PM EST [facility] Leukocyte Esterase, Urine 1+(A) Negative 06/16/2024 7:12 PM EST [facility] WBC, Urine 16(H) 0 - 2 /HPF 06/16/2024 7:12 PM EST [facility] RBC, Urine 7(H) 0 - 2 /HPF 06/16/2024 7:12 PM EST [facility] Hyaline Casts, Urine 0 0 - 2 /LPF 06/16/2024 7:12 PM EST [facility] Squamous Epithelial Cells, Urine <1 /HPF 06/16/2024 7:12 PM EST [facility] Bacteria, Urine Rare(A) None /HPF /HPF 06/16/2024 7:12 PM EST [facility] Mucus, Urine Rare /LPF 06/16/2024 7:12 PM EST [facility] Urine Indwelling urinary catheter / Unknown Non-Blood Collection / Unknown 06/16/2024 6:25 PM EST 06/16/2024 6:45 PM EST Mikey Rivas COMMUNITY ASSISTANT LAB URINE ORDER MADELYN Final Result [facility] [address] [place] [address], * Urine Culture (Urethral Catheter), HOLD (06/16/2024 6:25 PM EST) Extra Tube Hold for add-ons. 06/16/2024 11:05 PM EST [facility] Comment:Auto resulted. Urine Indwelling urinary catheter / Unknown Non-Blood Collection / Unknown 06/16/2024 6:25 PM EST 06/16/2024 6:45 PM EST Mikey Rivas COMMUNITY ASSISTANT LAB URINE ORDER MADELYN Final Result [facility] [address] [place] [id number], * (ABNORMAL) Betahydroxybutyrate (06/16/2024 10:28 AM EST) Pathologist [facility] Beta-Hydroxybu tyrate 1.00(H) <=0.27 mmol/L 06/16/2024 12:27 PM EST [facility] Blood Structure of peripheral vein / Unknown Venipuncture / Unknown 06/16/2024 10:28 AM EST 06/16/2024 10:28 AM EST Mikey Rivas COMMUNITY ASSISTANT LAB BLOOD ORDER MADELYN Final Result Performing Organization Address [facility] Co de Phone Number [facility] [address] [place] [address], * Creatine Kinase (06/16/2024 10:28 AM EST) Only the most recent of2 resultswithin the time period is included. Pathologist [facility] CK 342 49 - 348 U/L 06/16/2024 11:00 AM EST [facility] Blood Structure of peripheral vein / Unknown Venipuncture / Unknown 06/16/2024 10:28 AM EST 06/16/2024 10:28 AM EST Mikey Rivas COMMUNITY ASSISTANT LAB BLOOD ORDER MADELYN Final Result Performing Organization Address City/[facility]/ZIP Co de Phone Number [facility] [address] [place] [address], * (ABNORMAL) Methadone Screen w/Confirmation, Urine (06/16/2024 9:37 AM EST) Pathologist [facility] Methadone Metabolite Screen, Urine POSITIVE( A) <100 ng/mL 06/19/2024 6:34 AM EST [facility] EDDP, Urine 1608(H) <100 ng/mL 06/19/2024 6:34 AM EST [employer] Comment: See Note 1 Methadone, Urine 948(H) <100 ng/mL 06/19/2024 6:34 AM EST [employer] Comment: See Note 1 See Note 2 Note 1 This test was developed and its analytical performance characteristics have been determined by [employer]. It has not been cleared or approved by the FDA. This assay has been validated pursuant to the CLIA regulations and is used for clinical purposes. Note 2 This drug testing is for medical treatment only. ?? Analysis was performed as non-forensic testing and these results should be used only by healthcare providers to render diagnosis or treatment, or to monitor progress of medical conditions. For assistance with interpreting these drug results, please contact a [employer] Toxicology Specialist: [phone] ( ), M-F, 8am-6pm EST. Urine Catheter / Unknown Non-Blood Collection / Unknown 06/16/2024 9:37 AM EST 06/16/2024 9:55 AM EST [facility] - 06/19/2024 6:34 AM EST [facility] Received Date: Mikey Rivas COMMUNITY ASSISTANT LAB URINE ORDER MADELYN Final Result [facility] [address] [facility] [address], [place] [address], [place] [phone] [facility] [address] [facility] [address], [place] [address], * Morphine and Codeine Confirmation, Urine (06/16/2024 9:37 AM EST) Codeine, Urine NEGATIVE <50 ng/mL 06/19/2024 3:19 PM EST [employer] Comment: See Note 1 Hydrocodone, Urine NEGATIVE <50 ng/mL 06/19/2024 3:19 PM EST [employer] Comment: See Note 1 Hydromorphone, Urine NEGATIVE <50 ng/mL 06/19/2024 3:19 PM EST [employer] Comment: See Note 1 Morphine, Urine NEGATIVE <50 ng/mL 01/15/202 5 3:19 PM EST [employer] Comment: See Note 1 Norhydrocodone, Urine NEGATIVE <50 ng/mL 06/19/2024 3:19 PM EST [employer] Comment: See Note 1 See Note 2 Note 1 This test was developed and its analytical performance characteristics have been determined by [employer]. It has not been cleared or approved by the FDA. This assay has been validated pursuant to the CLIA regulations and is used for clinical purposes. Note 2 This drug testing is for medical treatment only. ?? Analysis was performed as non-forensic testing and these results should be used only by healthcare providers to render diagnosis or treatment, or to monitor progress of medical conditions. For assistance with interpreting these drug results, please contact a [employer] Toxicology Specialist: [phone] ( ), M-F, 8am-6pm EST. Urine Catheter / Unknown Non-Blood Collection / Unknown 06/16/2024 9:37 AM EST 06/16/2024 9:55 AM EST Narrative [facility] [place] - 06/19/2024 3:19 PM EST [facility] Received Date: Mikey Rivas NP LAB URINE ORDER MADELYN Final Result [facility] [place] [address] [facility] [address] [address], [place] [address], [facility] [address] [facility] [address], [place] [address], [place] [phone] * Comprehensive Drug Panel, Urine (06/16/2024 9:37 AM EST) [facility] Comprehensive Drug Screen Urine DRUGS DETECTED 06/16/2024 4:36 PM EST [employer] Comment: DIPHENHYDRAMINE PHENOBARBITAL METHADONE AND METABOLITE Urine Catheter / Unknown Non-Blood Collection / Unknown 06/16/2024 9:37 AM EST 06/16/2024 9:55 AM EST Narrative [facility] [place] - 06/16/2024 4:36 PM EST [facility] Received Date: Cj Jackson COMMUNITY ASSISTANT LAB URINE ORDERABLES Final Resul t [facility] [address] [facility] [address], [place] [address], [place] [phone] [facility] [address] [facility] [address], [place] [address], [place] [phone] * (ABNORMAL) Barbiturate Screen, Urine (06/16/2024 9:37 AM EST) Barbiturate Screen, Urine Presumptive Positive(A) Negative 06/16/2024 1:30 PM EST [facility] Comment: Detection limit of 200 ng/mL of Secobarbital. Drug results are to be used only for medical purposes. ??Unconfirmed screening results must not be used for non-medical purposes. Detection limit of 200 ng/mL of Secobarbital. Drug results are to be used only for medical purposes. ??Unconfirmed screening results must not be used for non-medical purposes. Urine Catheter / Unknown Non-Blood Collection / Unknown 06/16/2024 9:37 AM EST 06/16/2024 9:55 AM EST Mikey Rivas COMMUNITY ASSISTANT LAB URINE ORDER MADELYN Final Result [facility] [address] [place] [address], * Propoxyphene Screen, Urine (06/16/2024 9:37 AM EST) Propoxyphene Screen, Urine NEGATIVE <300 ng/mL 06/17/2024 5:52 AM EST [employer] Comment: See Note 2 Note 1 This drug testing is for medical treatment only. ?? Analysis was performed as non-forensic testing and these results should be used only by healthcare providers to render diagnosis or treatment, or to monitor progress of medical conditions. For assistance with interpreting these drug results, please contact a [employer] Toxicology Specialist: [phone] ( ), M-F, 8am-6pm EST. Note 2 This drug testing is for medical treatment only. ?? The results are presumptive; based only on screening methods, and they have not been confirmed by a definitive method. Analysis was performed as non-forensic testing and these results should be used only by healthcare providers to render diagnosis or treatment, or to monitor progress of medical conditions. For assistance with interpreting these drug results, please contact a [employer] Toxicology Specialist: [phone] ( ), M-F, 8am-6pm EST. Urine Catheter / Unknown Non-Blood Collection / Unknown 06/16/2024 9:37 AM EST 06/16/2024 9:55 AM EST Narrative [facility] [place] - 06/17/2024 5:52 AM EST [facility] Received Date: Mikey Rivas NP LAB URINE ORDER MADELYN Final Result Performing Organization Address City/[facility] Co de Phone Number [facility] [address] [facility] [address] [facility] [address], [place] [address], [place] [phone] [employer] [facility] [address] [facility] [address], [place] [address], [place] [phone] * Marijuana Qualitative Screen, Urine (06/16/2024 9:37 AM EST) Marijuana Screen, Urine Negative Negative 06/16/2024 1:30 PM EST [facility] Comment: Detection limit of 50 ng/mL of 69-Ixm-aqxup-4-JCM-9-carboxylic acid. Drug results are to be used only for medical purposes. ??Unconfirmed screening results must not be used for non-medical purposes. Urine Catheter / Unknown Non-Blood Collection / Unknown 06/16/2024 9:37 AM EST 06/16/2024 9:55 AM EST Mikey Rivas NP LAB URINE ORDER MADELYN Final Result Performing Organization Address City/[facility]/ZIP Co de Phone Number [facility] [address] [place] [address], * Osmolality Gap (06/16/2024 9:37 AM EST) NA 137 135 - 145 mmol/L 06/16/2024 11:08 AM EST [facility] BUN 10 7 - 23 mg/dL 06/16/2024 11:08 AM EST [facility] Glucose 95 65 - 99 mg/dL 06/16/2024 11:08 AM EST [facility] Osmolality 282 279 - 295 mOsm/kg 06/16/2024 11:08 AM EST [facility] Osmolality Calculated 283 mOSM/kg 06/16/2024 11:08 AM EST [facility] Osmolality Gap <10 <10 mOSM/kg 06/16/2024 11:08 AM EST [facility] Blood Structure of peripheral vein / Unknown Venipuncture / Unknown 06/16/2024 9:37 AM EST 06/16/2024 9:54 AM EST Cj Paz COMMUNITY ASSISTANT LAB BLOOD ORDERABLES Final Resul t Performing Organization Address City/[facility]/ZIP Co de Phone Number [facility] [address] [place] [address], * Phencyclidine (PCP) Screen, Urine (06/16/2024 9:37 AM EST) Phencyclidine Screen, Urine NEGATIVE <25 ng/mL 06/17/2024 5:52 AM EST [facility] [employer] [facility] [facility] Comment: See Note 2 Urine Catheter / Unknown Non-Blood Collection / Unknown 06/16/2024 9:37 AM EST 06/16/2024 9:55 AM EST Narrative [facility] [place] - 06/17/2024 5:52 AM EST [facility] Received Date: Mikey Rivas COMMUNITY ASSISTANT LAB URINE ORDER MADELYN Final Result [facility] [address] [facility] [address], [place] [address], [place] [phone] [employer] [facility] [address], [place] [address], [place] [phone] * Cocaine Qualitative, Urine (06/16/2024 9:37 AM EST) Cocaine Metabolite Screen, Urine Negative Negative 06/16/2024 1:30 PM EST [facility] [facility] Comment: Detection limit of 300 ng/mL of Benzoylecgonine. Drug results are to be used only for medical purposes. ??Unconfirmed screening results must not be used for non-medical purposes. Urine Catheter / Unknown Non-Blood Collection / Unknown 06/16/2024 9:37 AM EST 06/16/2024 9:55 AM EST Mikey Rivas COMMUNITY ASSISTANT LAB URINE ORDER MADELYN Final Result Performing Organization Address [facility]/ZIP Co de Phone Number [facility] [facility] [address] [place] [address], * (ABNORMAL) Benzodiazepine Qualitative Screen, Urine (06/16/2024 9:37 AM EST) Benzodiazepine Screen, Urine Presumptive Positive(A) Negative 06/16/2024 1:30 PM EST [facility] [facility] Comment: Detection limit of 200 ng/mL of Nordiazepam. Drug results are to be used only for medical purposes. ??Unconfirmed screening results must not be used for non-medical purposes. Urine Catheter / Unknown Non-Blood Collection / Unknown 06/16/2024 9:37 AM EST 06/16/2024 9:55 AM EST Mikey Rivas COMMUNITY ASSISTANT LAB URINE ORDER MADELYN Final Result [facility] [address] [place] [address], [place] * Amphetamine Qualitative, Urine (06/16/2024 9:37 AM EST) Amphetamine Screen, Urine Negative Negative 06/16/2024 1:30 PM EST [facility] Comment: Detection limit of 1000 ng/mL of d-Methamphetamine. Drug results are to be used only for medical purposes. ??Unconfirmed screening results must not be used for non-medical purposes. Urine Catheter / Unknown Non-Blood Collection / Unknown 06/16/2024 9:37 AM EST 06/16/2024 9:55 AM EST Mikey Rivas COMMUNITY ASSISTANT LAB URINE ORDER MADELYN Final Result Performing Organization Address City/[facility]/ZIP Co de Phone Number [facility] [address] [place] [address], * Osmolality, Serum (06/16/2024 9:37 AM EST) Osmolality 280 279 - 295 mOsm/kg 06/16/2024 10:46 AM EST [facility] Blood Structure of peripheral vein / Unknown Venipuncture / Unknown 06/16/2024 9:37 AM EST 06/16/2024 9:54 AM EST Cj Paz COMMUNITY ASSISTANT LAB BLOOD ORDERABLES Final Resul t [facility] [address] [place] [address], [place] * Acetaminophen Level (06/16/2024 9:37 AM EST) Acetaminophen <5.0 <10.0 ug/mL 06/16/2024 10:41 AM EST [facility] Comment:Expected Range with Therapeutic Dosin-30 ug/mL Blood Structure of peripheral vein / Unknown Venipuncture / Unknown 06/16/2024 9:37 AM EST 06/16/2024 9:54 AM EST Cj Paz NP LAB BLOOD ORDERABLES Final Resul t Performing Organization Address City/[facility] Co de Phone Number [facility] [address] [place] [phone], [place] * Salicylate Level (06/16/2024 9:37 AM EST) Salicylate <1 <3 mg/dL 06/16/2024 10:41 AM EST [facility] Comment:Expected Range with Therapeutic Dosin-30 mg/dL Blood Structure of peripheral vein / Unknown Venipuncture / Unknown 06/16/2024 9:37 AM EST 06/16/2024 9:54 AM EST Cj Paz NP LAB BLOOD ORDERABLES Final Resul t Performing Organization Address [facility] Co de Phone Number [facility] [address] [place] [phone], [place] * COVID-19, Flu A/B & RSV RNA PCR, Symptomatic (06/16/2024 9:29 AM EST) PCR, SARS CoV-2 RNA Not Detected Not Detected [employer] 06/16/2024 11:18 AM EST [facility] Comment:A Not Detected (Nega tive) test result is indicative of the absence of SARS-CoV-2 RNA at the level of LoD (Limit of Detection). A negative result does not rule out the possibility of COVID-19 and should not be used as the sole basis for treatment or patient management decisions. If COVID-19 is still suspected, based on exposure history together with other clinical findings, re-testing should be considered. Flu A RNA PCR Not Detected Not Detected [employer] 06/16/2024 11:18 AM EST [facility] Comment:Negative results do not preclude infection and should not be used as the sole basis for diagnosis, treatment or other patient management decisions. Negative results must be combined with clinical observations, patient history, and/or epidemiological information. Flu B RNA PCR Not Detected Not Detected [employer] 06/16/2024 11:18 AM EST [facility] Comment:Negative results do not preclude infection and should not be used as the sole basis for diagnosis, treatment or other patient management decisions. Negative results must be combined with clinical observations, patient history, and/or epidemiological information. RSV RNA PCR Not Detected Not Detected [employer] 06/16/2024 11:18 AM EST [facility] Comment:Negative results do not preclude infection and should not be used as the sole basis for diagnosis, treatment or other patient management decisions. Negative results must be combined with clinical observations, patient history, and/or epidemiological information. Swab (Nares) Non-Blood Collection / Unknown 06/16/2024 9:29 AM EST 06/16/2024 9:54 AM EST Narrative [facility] - 06/16/2024 11:18 AM EST This test was developed, validated and its performance characteristics determined by [facility] Clinical Labs. This test has not been cleared or approved by the U.S. Food and Drug Administration (FDA). FDA Policy for Diagnostic Tests for Coronavirus Disease-2019 during the Public Health Emergency issued August 19, 2019, is followed. Cj Paz NP LAB BODY FLUIDS AND STOOLS ORDER MADELYN Final Result [facility] CLINICAL PATHOLOGY LABORATORY [address] [place] [id number], * (ABNORMAL) POCT I-STAT Arterial Blood Gas, interfaced (06/16/2024 9:29 AM EST) Sample Type, POCT Arterial 06/16/2024 9:32 AM EST [facility], POC pH, POCT 7.47(H) 7.35 - 7.45 06/16/2024 9:32 AM EST [facility], POC pCO2, POCT 26.8(L) 35 - 45 mmHg 06/16/2024 9:32 AM EST [facility] pO2, POCT 116(H) 80 - 105 mmHg 06/16/2024 9:32 AM EST [facility] Base Excess, POCT -4(L) 0 - 3 mmol/L 06/16/2024 9:32 AM EST [facility] HCO3, POCT 19.4(L) 21 - 28 mmol/L 06/16/2024 9:32 AM EST [facility] TCO2, POCT 20(L) 23 - 27 mmol/L 06/16/2024 9:32 AM EST [facility] Saturated O2, POCT 99(H) 95 - 98 % 06/16/2024 9:32 AM EST [facility] FIO2, POCT 50 % 06/16/2024 9:32 AM EST [facility], POC Tidal Volume, POCT 450 ml 06/16/2024 9:32 AM EST [facility], [facility] Isaias's Test, POCT PASS 06/16/2024 9:32 AM EST [facility], [facility] Blood 06/16/2024 9:29 AM EST 06/16/2024 9:32 AM EST us Sal Adler MD LAB POCT ORDERABLES - DEVIC E Final Result Performing Organization Address City/State/[facility] Co de Phone Number [facility] [address] [place] [address], * Blood Culture, Peripheral #2 (06/16/2024 9:00 AM EST) Only the most recent of2 resultswithin the time period is included. Culture No growth after 5 days 06/21/2024 1:31 PM EST [facility] Blood Structure of peripheral vein / Unknown Venipuncture / Unknown 06/16/2024 9:00 AM EST 06/16/2024 9:12 AM EST Narrative [facility] - 06/21/2024 1:31 PM EST [facility] Received Date: MICRO NUMBER: [id number] SPECIMEN QUALITY: Adequate SOURCE: BLOOD VENOUS, PERIPHERAL STATUS: FINAL COMMENT: Aerobic and anaerobic bottle received. Mikey Rivas NP LAB MICROBIOLOG Y - GENERAL ORDERABLES Final Result [facility] [address], [place] [address], [facility] [address] [facility] [address], [place] [address], * Prolactin (06/16/2024 8:57 AM EST) Pathologist [facility] Prolactin 9.10 4.04 - 15.20 ng/mL 06/16/2024 11:22 AM EST [facility] Blood Structure of peripheral vein / Unknown Venipuncture / Unknown 06/16/2024 8:57 AM EST 06/16/2024 9:12 AM EST Mikey Rivas NP LAB BLOOD ORDER MADELYN Final Result [facility] LABORATORY [address] [place] [address], * MRSA/S aureus PCR, Nasal (06/16/2024 8:44 AM EST) [facility] MRSA PCR, Nasal NOT DETECTED NOT DETECTED 06/17/2024 3:29 PM EST [facility] S. aureus PCR, Nasal NOT DETECTED NOT DETECTED 06/17/2024 3:29 PM EST [facility] Swab Nasal structure / Unknown Non-Blood Collection / Unknown 06/16/2024 8:44 AM EST 06/16/2024 9:12 AM EST Narrative [facility] - 06/17/2024 3:29 PM EST [facility] Received Date: Mikey Rivas COMMUNITY ASSISTANT LAB BODY FLUIDS AND STOOLS ORDERABLES Final Result [facility] [address] [facility], [place] [address], [place] [phone] [facility] [employer] [facility] [address] [facility] [address], [place] [address], [place] [phone] * (ABNORMAL) Respiratory Culture w/Gram Stain (06/16/2024 8:41 AM EST) Culture Growth of normal oropharyngeal yayo 06/18/2024 2:14 PM EST [facility] [employer] Gram Stain Many White Blood Cells Seen(A) 06/18/2024 2:14 PM EST [facility] [facility] Gram Stain No epithelial cells seen(A) 06/18/2024 2:14 PM EST [facility] Gram Stain Few Gram Positive Cocci(A) 06/18/2024 2:14 PM EST [facility] Sputum Sputum / Unknown Non-Blood Collection / Unknown 06/16/2024 8:41 AM EST 06/16/2024 9:11 AM EST Narrative [facility] [facility] - 06/18/2024 2:14 PM EST [facility] Received Date: MICRO NUMBER: [id number] SPECIMEN QUALITY: Adequate SOURCE: SPUTUM EXPECTORATED SPUTUM STATUS: FINAL Mikey Rivas COMMUNITY ASSISTANT LAB MICROBIOLOG Y - GENERAL ORDERABLES Final Result [facility] [address] [facility] [address], [place] [address], [place] [phone] [facility] [address] [facility] [address], [place] [address], [place] [phone] * X-Ray Chest 1 View (06/16/2024 8:20 AM EST) Only the most recent of2 resultswithin the time period is included. Anatomical Region Laterality Modality Body Computed Radiogr aphy 06/16/2024 3:59 PM EST Impressions 06/16/2024 4:00 PM EST Devices: New ETT 2.5 cm above the mariam. New OGT with tip in the lateral gastric fundus and directed cephalad. Side-port 3 cm below the EG junction. Slightly worse consolidation collapse LLL. No effusions. Right lung clear. If this radiology report contains a blank impression section, it is an incomplete radiology report. ??Please contact the interpreting radiologist or applicable radiology division as soon as possible to obtain the completed interpretation. ? Workstation ID: [id number] Narrative 06/16/2024 4:00 PM EST COMPARISON: ??One day ago FINDINGS AND Resulting Agency Comment [id number] Procedure Note Sal Goodman MD - 06/16/2024 COMPARISON: One day ago FINDINGS AND IMPRESSION: Devices: New ETT 2.5 cm above the mariam. New OGT with tip in the lateralgastric fundus and directed cephalad. Side-port 3 cm below the EGjunction. Slightly worse consolidation collapse LLL. No effusions. Rightlung clear. If this radiology report contains a blank impression section, it is anincomplete radiology report. Please contact the interpreting radiologistor applicable radiology division as soon as possible to obtain thecompleted interpretation. Workstation ID: [id number] Betina Granados Sabino COMMUNITY ASSISTANT IMG XR PROCEDURES Final Result * HC EMERGENCY INTUBATION, UT INSERT EMERGENCY ENDOTRACH AIRWAY, AN ETT DUMMY PERFORMABLE (06/16/2024 8:15 AM EST) Aurora Schuster MD - 06/16/2024 8:15 AM EST Aurora Beckett MD ? 06/16/2024 ??8:58 AM Airway Date/Time: 06/16/2024 8:15 AM Urgency: emergent Airway not difficult Tube change: no Patient location at the time of the procedure: ICU Anesthesia Staff: Authorized by: Aurora Beckett MD ?? Performed by: Aurora Beckett MD Anesthesiologist: Aurora Beckett MD INTERMODAL OWNER OPERATOR TRUCK DRIVER: Rut Petersen CRNA Performed: anesthesiologist I was present during this procedure. Preanesthetic Checklist 2 patient identifiers IV checked site marked monitors and equipment checked pre-op evaluation all elements of maximal sterile barrier technique followed patient position confirmed Emergent Airway Documentation The procedure was performed in an emergent situation Verbal consent not obtained Patient identity confirmed by: arm band Consent given by: Indications and Patient Condition Indications for airway management: airway protection and respiratory distress Spontaneous ventilation: present Preoxygenated: yes Patient position: sniffing MILS not maintained throughout Mask difficulty assessment: 1 - vent by mask No planned trial extubation Final Airway Details Final airway type: endotracheal airway Successful airway: ETT Cuffed: yes Successful intubation technique: video laryngoscopy Endotracheal tube insertion site: oral Blade: Tacos Blade size: #4 ETT size (mm): 8.0 Measured from: gums ETT to gums (cm): 23 Number of attempts at approach: 1 Ventilation between attempts: none Number of other approaches attempted: 0 Medications Given propofol (DIPRIVAN) bolus - intravenous 130 mg - 06/16/2024 8:15:00 AM succinylcholine (ANECTINE) 200 mg/10 mL IV syringe - intravenous 120 mg - 06/16/2024 8:15:00 AM Additional Comments Vital signs stable post intubation Patient is negative for COVID-19. Aurora Beckett MD ANESTHESIA ORDERABLES Final Resu lt * Lactic Acid, Plasma (06/16/2024 7:34 AM EST) Lactic Acid 1.0 0.5 - 1.9 mmol/L 06/16/2024 8:06 AM EST [facility] Comment: Sepsis Screening: Initial Lactate Level >2.0 mmol/L - Repeat Lactate Level within 3 hours. Initial Lactate Level >4.0 mmol/L - Repeat Lactate Level within 3 hours, Initiate Septic Shock Protocol. Blood Structure of peripheral vein / Unknown Venipuncture / Unknown 06/16/2024 7:34 AM EST 06/16/2024 7:36 AM EST Mikey Rivas COMMUNITY ASSISTANT LAB BLOOD ORDER MADELYN Final Result [facility] PATHOLOG[facility] LAB[facility] [address] [place] [address], [place] * Protime-INR (06/16/2024 3:42 AM EST) Pathologist [facility] PT 11.0 9.6 - 12.4 Seconds 06/16/2024 4:19 AM EST [facility] LAB[facility] INR 1.0 0.9 - 1.1 06/16/2024 4:19 AM EST [facility] LAB[facility] Comment:The optimal therapeu tic INR range for patients treated with Vitamin K antagonists (VKAS, e.g., Warfarin) is 2.0 to 3.5. Discuss the desired range with your doctor/care team. Blood Structure of peripheral vein / Unknown Venipuncture / Unknown 06/16/2024 3:42 AM EST 06/16/2024 3:46 AM EST us Marci ESTRADA LAB BLOOD ORDERABLES Final Res ult Performing Organization Address City/State/[facility] Co de Phone Number [facility] PATHOLOG[facility] LABOR[facility]ORY [address] [place] [phone], [place] * (ABNORMAL) Hepatic Function Panel (06/16/2024 3:42 AM EST) Pathologist [facility] Total Protein 6.9 6.0 - 8.0 g/dL 06/16/2024 4:27 AM EST [facility] Albumin 3.7 3.5 - 5.2 g/dL 06/16/2024 4:27 AM EST [facility] Globulin, Total 3.2 2.1 - 4.2 g/dL 06/16/2024 4:27 AM EST [facility] Bilirubin, Total 1.2 0.2 - 1.2 mg/dL 06/16/2024 4:27 AM EST [facility] Bilirubin, Direct 0.5(H) <=0.4 mg/dL 06/16/2024 4:27 AM EST [facility] Alkaline Phosphatase 112 35 - 129 U/L 06/16/2024 4:27 AM EST [facility] AST 47(H) 10 - 40 U/L 06/16/2024 4:27 AM EST [facility] ALT 43(H) 10 - 40 U/L 06/16/2024 4:27 AM EST [facility] Bilirubin, Indirect 0.70 <=0.70 mg/dL 06/16/2024 4:27 AM EST [facility] A/G Ratio 1.2(L) 1.5 - 3.0 06/16/2024 4:27 AM EST [facility] Blood Structure of peripheral vein / Unknown Venipuncture / Unknown 06/16/2024 3:42 AM EST 06/16/2024 3:46 AM EST Marci ESTRADA LAB BLOOD ORDERABLES Final Res ult Performing Organization Address [facility] Co de Phone Number [facility] PATHOLOG[facility] LAB[facility]ORY [address] [place] [address], * ECG 12 lead (06/15/2024 5:49 PM EST) Only the most recent of2 resultswithin the time period is included. Ventricular Rate EKG 97 BPM MUSE EKG Atrial Rate 97 BPM MUSE EKG UT Interval 136 ms MUSE EKG QRS Interval 72 ms MUSE EKG QT Interval 390 ms MUSE EKG QTC Interval 495 ms MUSE EKG P Veyo 67 degrees MUSE EKG R Veyo 26 degrees MUSE EKG T Wave Veyo -26 degrees MUSE EKG 06/15/2024 5:49 PM EST 06/16/2024 5:47 PM EST Impressions MUSE EKG - 06/16/2024 5:47 PM EST NORMAL SINUS RHYTHM ST-T ABNORMALITIES CONSIDER ISCHEMIA PROLONGED QTC ABNORMAL ECG Confirmed by Heath Williamson ([id number]) on 06/16/2024 5:47:05 PM Quita Augustine PA ECG ORDERABLES Final Res ult Performing Organization Address City/[facility] Co de Phone Number MUSE EKG * Troponin T, High Sensitivity (06/15/2024 5:33 PM EST) Troponin T High Sensitivity <6 <=21 ng/L 06/15/2024 6:30 PM EST [facility] Comment: 3+ hemolysis; the result may be Falsely Decreased. Oh-[id number]-T level of 52 ng/L or higher at 0-hour at presentation is recommended by the ESC 0/1-hour algorithm for identifying patients at high risk for ruling in acute myocardial infarction (AMI) in the appropriate clinical context. Repeat troponin testing 1-3 hours after the initial sample may be helpful in assessing for ongoing myocardial injury. Troponin elevations can be seen in several other non-infarct conditions, and the change (delta) should be evaluated in line with the 4th [place] Definition of AMI. Troponin baseline and serial elevation for a significant delta should be interpreted with clinical presentation, history, signs and symptoms, ECG, and biomarker concentrations. For inpatient setting: Value <12ng/L is considered negative for all genders. 0-1hr: A delta change of <3 will be considered negative/flat if chest pain onset >3 hours 0-3hr: A delta change of <7 will be considered negative/flat Blood Structure of peripheral vein / Unknown Venipuncture / Unknown 06/15/2024 5:33 PM EST 06/15/2024 5:40 PM EST Quita ESTRADA LAB BLOOD ORDERABLES Rachel boyer Result [facility] [address] [place] [address], * CT Head WO Contrast (06/15/2024 1:26 AM EST) Anatomical Region Laterality Modality Head and Neck Computed Tomogra phy 06/15/2024 1:37 AM EST Impressions 06/15/2024 1:39 AM EST Evaluation is markedly degraded by motion and streak artifact. ??Within these limitations no intraparenchymal hemorrhage or large territorial infarct is noted.. If this radiology report contains a blank impression section, it is an incomplete radiology report. ??Please contact the interpreting radiologist or applicable radiology division as soon as possible to obtain the completed interpretation. ? Workstation ID: [id number] Up-to-date CT equipment and radiation dose reduction techniques were employed. CTDIvol: 48.0 mGy. DLP: 868 mGy-cm. Narrative 06/15/2024 1:39 AM EST EXAMINATION: ?? CT head without contrast INDICATION: Altered mental status. TECHNIQUE: Noncontrast CT head was performed. Coronal and sagittal reformats were created. COMPARISON: None. FINDINGS: Evaluation is markedly degraded by motion and streak artifact. There is no midline shift. There is no evidence of intracranial hemorrhage or focal mass lesion. The ventricles, cisterns and other CSF containing spaces are normal in size. The parenchyma is normal in contour and moore-white matter differentiation is preserved. There are no focal osseous lesions. The visualized paranasal sinuses are well-aerated. Resulting Agency Comment [id number] Procedure Note Joseph Corona - 06/15/2024 EXAMINATION: CT head without contrast INDICATION: Altered mental status. TECHNIQUE: Noncontrast CT head was performed. Coronal and sagittal reformats werecreated. COMPARISON: None. FINDINGS: Evaluation is markedly degraded by motion and streak artifact. There is no midline shift. There is no evidence of intracranial hemorrhageor focal mass lesion. The ventricles, cisterns and other CSF containing spaces are normal insize. The parenchyma is normal in contour and moore-white matterdifferentiation is preserved. There are no focal osseous lesions. The visualized paranasal sinuses arewell- aerated. IMPRESSION: Evaluation is markedly degraded by motion and streak artifact. Withinthese limitations no intraparenchymal hemorrhage or large territorialinfarct is noted.. If this radiology report contains a blank impression section, it is anincomplete radiology report. Please contact the interpreting radiologistor applicable radiology division as soon as possible to obtain thecompleted interpretation. Workstation ID: [id number] Up-to-date CT equipment and radiation dose reduction techniques wereemployed. CTDIvol: 48.0 mGy. DLP: 868 mGy-cm. 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
--- OUTSIDE RECORDS SUMMARY | 2024-06-27 15:29 | XMS_ITS | Clinical Summary ---
Author Organization [facility] Address [address] [place] [address] Phone Care Team Providers Care Lawnmower Mechanic Name Role Phone Physician, Pcp Unknown Primary Care Provider Vivian vailable Allergies No known active allergies Medications No known medications Encounters Date Type Department Care Team Description 06/12/2024 3:46 PM EST - 06/12/2024 3:57 PM EST Emergency [facility] Emergency [address] [place] [address] Discharge Disposition: Home or Self Care from Last 3 Months Social History Tobacco Use Types Packs/Day Years Used Date Smoking Tobacco: Never Assessed Sex and Gender Information Value Date Recorded Sex Assigned at Not on file Gender Identity Not on file Sexual Orientation Not on file Obstetrics History Plan of Treatment Health Maintenance Due Date Last Done Comments Hepatitis B Vaccines (1 of 3 - 19+ 3-dose series) 2005 Cholesterol Screening (Lipid Panel) 05/03/2022 Depression Screening 05/03/2022 Hepatitis C Screening 05/03/2022 Social Influencers of Health Screening 05/03/2022 COVID-19 Vaccine (3 - 2023-2 5 season) 2024 04/23/2021, 04/02/2021 Influenza Vaccine (#1) 2024 DTaP,Tdap,and Td Vaccines (2 - Td or Tdap) 05/18/2030 05/18/2020 HIV Screening Completed 01/01/2009 HIB Vaccines Aged Out No longer eligi ble based on patient's age to complete this topic HPV Vaccines Aged Out No longer eligi ble based on patient's age to complete this topic Hepatitis A Vaccines Aged Out No long er eligible based on patient's age to complete this topic IPV Vaccines Aged Out No longer eligi ble based on patient's age to complete this topic MMR Vaccines Aged Out No longer eligi ble based on patient's age to complete this topic Meningococcal ACWY Vaccine Aged Out N o longer eligible based on patient's age to complete this topic Pneumococcal Vaccine: Pediatrics (0 to 5 Years) and At-Risk Patients (6 to 64 Years) Aged Out No longer eligible b ased on patient's age to complete this topic RSV Immunization Patients Under 20 months Aged Out No longer eligible b ased on patient's age to complete this topic Varicella Vaccines Aged Out No longer eligible based on patient's age to complete this topic Care Teams Lawnmower Mechanic Relationship Specialty Start Date End Date Physician, Pcp Unknown PCP - General 06/12/24
--- OUTSIDE RECORDS SUMMARY | 2024-06-27 15:29 | XMS_ITS | Encounter Summary ---
Author Organization [facility] Address [address] [place] [address] Care Team Providers Care Gateman Name Role Phone Physician, Pcp Unknown Primary Care Provider Vivian vailable Reason for Visit * Reason Comments Alcohol Intoxication Encounter Details Date Type Department Care Team (Late st Contact Info) Description 06/12/2024 3:46 PM EST - 06/12/2024 3:57 PM EST Emergency [facility] Emergency [address] [place] [address] Discharge Disposition: Home or Self Care Social History Tobacco Use Types Packs/Day Years Used Date Smoking Tobacco: Never Assessed Sex and Gender Information Value Date Recorded Sex Assigned at Not on file Gender Identity Not on file Sexual Orientation Not on file documented as of this encounter Discharge Disposition Disposition Code Departure Means Destination Comment s Home or Self Care documented in this encounter Progress Notes * Demi Paz RN - 06/12/2024 3:51 PM EST Pt refusing to stay on stretcher, states he wants to leave, sister is in waiting room to bring him home, pt ambulating to exit of ER without difficulty * Demi Paz RN - 06/12/2024 3:46 PM EST Pt brought in by ambulance stating his friend was worried about him because he was tweaking out and having difficulty walking, pt admits to two nips prior to arrival documented in this encounter Plan of Treatment Not on file documented as of this encounter Visit Diagnoses Not on filedocumented in this encounter Care Teams Gateman Relationship Specialty Start Date End Date Physician, Pcp Unknown PCP - General 06/12/24 documented as of this encounter
--- OUTSIDE RECORDS SUMMARY | 2024-06-27 15:29 | XMS_ITS | Referral Summary ---
Author Organization [facility] Address [address] [place] [address] Care Team Providers Care Career Development Coordinator Name Role Phone Patient, Has No Pcp Or Ref Primary Care Provider Unavailable Encounters Date Type Department Care Team Description 06/15/2024 12:22 AM EST - 06/25/2024 6:18 PM EST Hospital Encounter [place] [address] [facility] [address] [place] [id number] Edvin Beck MD Sultan, Danielle A., Gabe Nobles MD Girgenrath, Tanya, MD Gallant, Joseph J., MD Jones, Evan W, MD Wong, William W., Delirium tremens (HCC) (Primary Dx); Hypomagnesemia; Hypokalemia; Toxic metabolic encephalopathy; Alcohol withdrawal syndrome with complication (HCC) Discharge Disposition: Home or Self Care () 06/16/2024 8:47 AM EST Anesthesia Event [place] [address] [facility] [address] [place] [id number] Aurora Beckett MD from Last 3 Months Allergies No known active allergies Medications folic [...] mg by mouth once a day. 06/25/19 25 Discontinu ed(Stop Taking at Discharge) magnesium hydroxide [...] a day as needed for congestion. 06/25/19 Discontinu ed(Stop Taking at Discharge) ondansetron (Zofran) 4 mg tablet Take 4 mg by mouth every 8 hours as needed for nausea or vomiting. 06/25/19 Discontinu ed(Stop Taking at Discharge) Active Problems No known active problems Resolved Problems Problem Noted Date Diagnosed Date Resolved Date Pancreatitis 06/16/2024 06/25/2024 Acute respiratory failure with hypoxia 06/16/2024 06/25/2024 Toxic metabolic encephalopathy 06/15/2024 06/25/2024 Alcohol withdrawal delirium 06/15/2024 06/25/2024 Hypokalemia 06/15/2024 06/25/2024 Hypomagnesemia 06/15/2024 06/25/2024 Hyponatremia 06/15/2024 06/25/2024 Immunizations Name Administration Dates Next Due INFLUENZA, [...] 36.5 ??C (97.7 ??F) 06/25/2024 4:[address] Respiratory Rate 27 06/25/2024 4:00 PM EST Oxygen Saturation 100% 06/25/2024 4:00 PM EST Inhaled Oxygen Concentration - - Weight 61.9 kg (136 lb 7.4 oz) 06/25/2024 4:54 A M EST Height 175.3 cm (5' 9.02 ) 06/20/2024 8:20 AM ES T Body Mass Index 20.14 06/20/2024 8:20 AM EST Plan of Treatment Not on file Procedures * Due to [place] state law, this organization might not be [...] AM EST MRSA/S AUREUS PCR, NASAL Routine 8:44 AM EST RESPIRATORY CULTURE W/GRAM STAIN STAT 06/16/2024 8:41 AM EST XR CHEST 1 VW STAT 06/16/2024 8:20 AM EST AN ETT DUMMY PERFORMABLE Routine 8:15 AM EST IN INSERT EMERGENCY ENDOTRACH AIRWAY Routine 06/16/2024 8:15 AM EST HC EMERGENCY INTUBATION Routine 06/16/19 8:15 AM EST LACTIC ACID, PLASMA STAT [...] Last 3 Months Results * Due to [place] state law, this organization might not be sharing negative HIV tests. * Magnesium (06/25/2024 4:53 AM EST) Only the most recent of14 resultswithin the time period is included. MG 2.0 1.6 - 2.4 mg/dL 06/25/2024 5:55 AM EST [facility] Blood Structure of peripheral vein / Unknown Venipuncture / Unknown 06/25/2024 4:53 AM EST 06/25/2024 5:26 AM EST us Mikey Rivas REPTILE KEEPER LAB BLOOD ORDER MADELYN Final Result Performing Organization Address City/State/[facility] Co de Phone Number [facility] [address] [place] [id number], * (ABNORMAL) Basic metabolic panel (06/25/2024 4:53 AM EST) Only the most recent of15 resultswithin the time period is included. NA 137 135 - 145 mmol/L 06/25/2024 5:55 AM EST [facility] K 3.6 3.5 - 5.3 mmol/L 06/25/2024 5:55 AM EST [facility] Cl 105 98 - 107 mmol/L 06/25/2024 5:55 AM EST [facility] CO2 21(L) 22 - 32 mmol/L 06/25/2024 5:55 AM EST [facility] BUN 8 7 - 23 mg/dL 06/25/2024 5:55 AM EST [facility] Creatinine 0.59(L) 0.60 - 1.30 mg/dL 06/25/2024 5:55 AM EST [facility] Glucose 103(H) 65 - 99 mg/dL 06/25/2024 5:55 AM EST [facility] Calcium 8.8 8.6 - 10.5 mg/dL 06/25/2024 5:55 AM EST [facility] Anion Gap 11 5 - 15 06/25/2024 5:55 AM EST [facility] eGFR >90 >=60 mL/min/1 .73m2 06/25/2024 5:55 AM EST [facility] Comment:The estimated glomer ular filtration rate (eGFR) is calculated using a new formula developed by the NKF-ASN task force to eliminate race-based correction factors. The new formula uses serum/plasma creatinine, age, and gender to determine eGFR. A value below 60mls/min might indicate kidney disease and will be flagged. For additional information, see Holloway et al, Am J Kidney Dis. 2021;79(2):268- 288, A Unifying Approach for GFR estimation: Recommendations of the NKF-ASN Task Force on Reassessing the Inclusion of Race in Diagnosing Kidney Disease . Blood Structure of peripheral vein / Unknown Venipuncture / Unknown 06/25/2024 4:53 AM EST 06/25/2024 5:26 AM EST us Mikey Rivas REPTILE KEEPER LAB BLOOD ORDER MADELYN Final Result [facility] [address] [place] [address], * (ABNORMAL) Smear Review (06/24/2024 3:08 AM EST) Only the most recent of4 resultswithin the time period is included. Platelet Estimate Increase d(A) Adequate 06/24/2024 4:13 AM EST [facility] RBC Morphology Present( A) Normal, No clinically significant RBC morphology present (ICSH guidelines, 2015). 06/24/2024 4:13 AM EST [facility] Macrocytes 2+(A) Not Present 06/24/2024 4:13 AM EST [facility] Blood Structure of peripheral vein / Unknown Venipuncture / Unknown 06/24/2024 3:08 AM EST 06/24/2024 3:35 AM EST Domonique Desai REPTILE KEEPER LAB BLOOD ORDERABLES Final R esult [facility] [address] [place] [address], [place] * (ABNORMAL) CBC (06/24/2024 3:08 AM EST) Only the most recent of5 resultswithin the time period is included. WBC 7.4 3.8 - 10.8 10*3/uL 06/24/2024 4:13 AM [facility] RBC 3.84(L) 4.20 - 5.80 10*6/uL 06/24/2024 4:13 AM [facility] Hemoglobin 14.4 13.2 - 17.1 g/dL 06/24/2024 4:13 AM [facility] Hematocrit 39.7 38.5 - 50.0 % 06/24/2024 4:13 AM [facility] MCV 103.4(H) 80.0 - 100.0 fL 06/24/2024 4:13 AM EST [facility] MCH 37.5(H) 27.0 - 33.0 pg 06/24/2024 4:13 AM [facility] MCHC 36.3(H) 32.0 - 36.0 g/dL 06/24/2024 4:13 AM [facility] RDW 11.7 11.0 - 15.0 % 06/24/2024 4:13 AM [facility] Platelets 546(H) 140 - 400 10*3/uL 06/24/2024 4:13 AM EST [facility] MPV 8.8 7.5 - 12.5 fL 06/24/2024 4:13 AM EST [facility] Comment:A smear review has b een added. Clinician review and interpretation will be needed once the report is final. Blood Structure of peripheral vein / Unknown Venipuncture / Unknown 06/24/2024 3:08 AM EST 06/24/2024 3:35 AM EST Domonique Desai REPTILE KEEPER LAB BLOOD ORDERABLES Final R [facility] Performing Organization Address City/[facility]/ZIP Co de Phone Number [facility] [address] [place] [id number], [place] * Phosphorus (06/24/2024 3:08 AM EST) Only the most recent of9 resultswithin the time period is included. Phosphorus 3.4 2.5 - 4.5 mg/dL 06/24/2024 4:20 AM EST [facility] Blood Structure of peripheral vein / Unknown Venipuncture / Unknown 06/24/2024 3:08 AM EST 06/24/2024 3:35 AM EST Domonique Desai REPTILE KEEPER LAB BLOOD ORDERABLES Final R [facility] Performing Organization Address City/[facility]/ZIP Co de Phone Number [facility] [address] [place] [id number], [place] * (ABNORMAL) POCT Glucose, interfaced (06/23/2024 11:19 AM EST) Only the most recent of17 resultswithin the time period is included. Glucose, POCT 167(H) 70 - 99 mg/dL 06/23/2024 11:20 AM EST [facility] Comment: The rn l and d has not determined the efficacy of this test in Critically ill patients. ??[facility] defines Critically ill patients for the purpose [...] LAB POCT ORDERABLES - DEVICE Final Result [facility] [address] [place] [address], [place] * (ABNORMAL) CBC Auto Differential (06/20/2024 3:35 AM EST) Only the most recent of4 resultswithin the time period is included. WBC 4.1 3.8 - 10.8 10*3/uL 06/20/2024 5:40 AM EST [facility] RBC 3.68(L) 4.20 - 5.80 10*6/uL 06/20/2024 5:40 AM EST [facility] Hemoglobin 13.5 13.2 - 17.1 g/dL 06/20/2024 5:40 AM EST [facility] Hematocrit 39.4 38.5 - 50.0 % 06/20/2024 5:40 AM EST [facility] MCV 107.1(H) 80.0 - 100.0 fL 06/20/2024 5:40 AM EST [facility] MCH 36.7(H) 27.0 - 33.0 pg 06/20/2024 5:40 AM EST [facility] MCHC 34.3 32.0 - 36.0 g/dL 06/20/2024 5:40 AM [facility] RDW 11.7 11.0 - 15.0 % 06/20/2024 5:40 AM [facility] Platelets 274 140 - 400 10*3/uL 06/20/2024 5:40 AM [facility] MPV 9.4 7.5 - 12.5 fL 06/20/2024 5:40 AM [facility] Neutrophil % 49.9 % 06/20/2024 5:40 AM [facility] Immature Grans % 0.5 0.0 - 0.9 % 06/20/2024 5:40 AM [facility] Lymphocyte % 21.5 % 06/20/2024 5:40 AM [facility] Monocyte % 23.7 % 06/20/2024 5:40 AM [facility] Eosinophil % 3.4 % 06/20/2024 5:40 AM [facility] Basophil % 1.0 % 06/20/2024 5:40 AM [facility] Neutrophil # 2.06 1.50 - 7.80 10*3/uL 06/20/2024 5:40 AM [facility] Immature Grans # <0.03 <=0.03 10*3/uL 06/20/2024 5:40 AM [facility] Lymphocyte # 0.90 0.85 - 3.90 10*3/uL 06/20/2024 5:40 AM [facility] Monocyte # 1.00(H) 0.20 - 0.95 10*3/uL 06/20/2024 5:40 AM [facility] Eosinophil # 0.10 0.02 - 0.50 10*3/uL 06/20/2024 5:40 AM EST [facility] Basophil # <0.03 0.00 - 0.20 10*3/uL 06/20/2024 5:40 AM EST [facility] nRBC % 0.0 /100 WBCs 06/20/2024 5:40 AM EST [facility] nRBC # <0.01 <0.01 10*3/uL 06/20/2024 5:40 AM EST [facility] Blood Structure of peripheral vein / Unknown Venipuncture / Unknown 06/20/2024 3:35 AM EST 06/20/2024 4:12 AM EST us Darrel Blackwell NP LAB BLOOD ORDERABLES Fi nal Result [facility] [address] [place] [address], [place] * (ABNORMAL) Comprehensive metabolic panel (06/20/2024 3:35 AM EST) Only the most recent of2 resultswithin the time period is included. NA 139 135 - 145 mmol/L 06/20/2024 4:47 AM EST [facility] K 4.0 3.5 - 5.3 mmol/L 06/20/2024 4:47 AM EST [facility] Cl 107 98 - 107 mmol/L 06/20/2024 4:47 AM EST [facility] CO2 23 22 - 32 mmol/L 06/20/2024 4:47 AM EST [facility] Anion Gap 9 5 - 15 06/20/2024 4:47 AM EST [facility] Glucose 161(H) 65 - 99 mg/dL 06/20/2024 4:47 AM EST [facility] Creatinine 0.55(L) 0.60 - 1.30 mg/dL 06/20/2024 4:47 AM EST [facility] Calcium 8.6 8.6 - 10.5 mg/dL 06/20/2024 4:47 AM [facility] Total Protein 6.8 6.0 - 8.0 g/dL 06/20/2024 4:47 AM [facility] Albumin 3.2(L) 3.5 - 5.2 g/dL 06/20/2024 4:47 AM [facility] Bilirubin, Total 0.2 0.2 - 1.2 mg/dL 06/20/2024 4:47 AM [facility] Alkaline Phosphatase 104 35 - 129 U/L 06/20/2024 4:47 AM [facility] AST 20 10 - 40 U/L 06/20/2024 4:47 AM [facility] ALT 16 10 - 40 U/L 06/20/2024 4:47 AM [facility] BUN 11 7 - 23 mg/dL 06/20/2024 4:47 AM [facility] eGFR >90 >=60 mL/min/1 .73m2 06/20/2024 4:47 AM [facility] Comment:The estimated glomer ular filtration [...] 2.1 - 4.2 g/dL 06/20/2024 4:47 AM [facility] A/G Ratio 0.9(L) 1.5 - 3.0 06/20/2024 4:47 AM EST [facility] Blood Structure of peripheral vein / Unknown Venipuncture / Unknown 06/20/2024 3:35 AM EST 06/20/2024 4:11 AM EST us Darrel Blackwell REPTILE KEEPER LAB BLOOD ORDERABLES Fi nal Result [facility] [address] [place] [address], [place] * (ABNORMAL) Manual Differential (06/19/2024 3:40 AM EST) Neutrophil %, Manual 61 % 06/19/2024 5:22 AM EST [facility] Comment:WBC: vacuolated poly s Lymphocyte %, Manual 17 % 06/19/2024 5:22 AM EST [facility] Monocyte %, Manual 12 % 06/19/2024 5:22 AM EST [facility] Eosinophil %, Manual 5 % 06/19/2024 5:22 AM EST [facility] Basophil %, Manual 1 % 06/19/2024 5:22 AM EST [facility] Reactive Lymphocyte % 4 0 - 6 % 06/19/2024 5:22 AM EST [facility] Total Neutrophil #, Manual 3.48 1.50 - 7.80 10*3/uL 06/19/2024 5:22 AM EST [facility] Total Lymph #, Manual 1.20 0.85 - 3.90 10*3/uL 06/19/2024 5:22 AM EST [facility] Monocyte #, Manual 0.68 0.20 - 0.95 10*3/uL 06/19/2024 5:22 AM EST [facility] Eosinophil #, Manual 0.29 0.02 - 0.50 10*3/uL 06/19/2024 5:22 AM EST [facility] Basophil #, Manual 0.06 0.00 - 0.20 10*3/uL 06/19/2024 5:22 AM EST [facility] Reactive Lymphocytes # 0.23 10*3/uL 06/19/2024 5:22 AM EST [facility] Platelet Estimate Adequate Adequate 06/19/2024 5:22 AM EST [facility] RBC Morphology Present(A) Normal, No clinically significant RBC morphology present (ICSH guidelines, 2015). 06/19/2024 5:22 AM EST [facility] Anisocytosis 2+(A) Not Present 06/19/2024 5:22 AM EST [facility] Macrocytes 2+(A) Not Present 06/19/2024 5:22 AM EST [facility] Total Cells Counted 117 06/19/2024 5:22 AM EST [facility] Blood Structure of peripheral vein / Unknown Venipuncture / Unknown 06/19/2024 3:40 AM EST 06/19/2024 3:48 AM EST us Winston ESTRADA LAB BLOOD ORDERABLES Fi nal Result [facility] [address] [place] [address], * (ABNORMAL) Renal Function Panel (06/19/2024 3:40 AM EST) NA 139 135 - 145 mmol/L 06/19/2024 4:34 AM EST [facility] K 4.1 3.5 - 5.3 mmol/L 06/19/2024 4:34 AM EST [facility] Cl 105 98 - 107 mmol/L 06/19/2024 4:34 AM EST [facility] CO2 21(L) 22 - 32 mmol/L 06/19/2024 4:34 AM EST [facility] Anion Gap 13 5 - 15 06/19/2024 4:34 AM EST [facility] Glucose 161(H) 65 - 99 mg/dL 06/19/2024 4:34 AM EST [facility] BUN 9 7 - 23 mg/dL 06/19/2024 4:34 AM EST [facility] Creatinine 0.61 0.60 - 1.30 mg/dL 06/19/2024 4:34 AM EST [facility] Calcium 8.6 8.6 - 10.5 mg/dL 06/19/2024 4:34 AM EST [facility] Phosphorus 3.8 2.5 - 4.5 mg/dL 06/19/2024 4:34 AM EST [facility] Albumin 3.3(L) 3.5 - 5.2 g/dL 06/19/2024 4:34 AM EST [facility] eGFR >90 >=60 mL/min/1. 73m2 06/19/2024 4:34 AM EST [facility] Comment:The estimated glomer ular filtration rate (eGFR) is calculated using a new formula developed by the NKF-ASN task force to eliminate race-based correction factors. The new formula uses serum/plasma creatinine, age, and gender to determine eGFR. A value below 60mls/min might indicate kidney disease and will be flagged. For additional information, see Holloway et al, Am J Kidney Dis. 2021;79(2):268- 288, A Unifying Approach for GFR estimation: Recommendations of the NKF-ASN Task Force on Reassessing the Inclusion of Race in Diagnosing Kidney Disease . Blood Structure of peripheral vein / Unknown Venipuncture / Unknown 06/19/2024 3:40 AM EST 06/19/2024 3:48 AM EST us Winston ESTRADA LAB BLOOD ORDERABLES Fi nal Result [facility] [address] [facility] [place] [address], [place] * (ABNORMAL) POCT I-STAT Venous Blood Gas, interfaced (06/17/2024 7:55 AM EST) Only the most recent of4 resultswithin the time period is included. Sample Type, POCT Venous 06/17/2024 7:57 AM EST [facility] pH, POCT 7.43(H) 7.31 - 7.41 pH 06/17/2024 7:57 AM EST [facility] pCO2, POCT 33.0(L) 41 - 51 mm Hg 06/17/2024 7:57 AM EST [facility] pO2, POCT 42(H) 35 - 40 mm Hg 06/17/2024 7:57 AM EST [facility] Base Excess, POCT -3(L) 0 - 3 mmol/L 06/17/2024 7:57 AM EST [facility] HCO3, POCT 21.8(L) 23 - 28 mmol/L 06/17/2024 7:57 AM EST [facility] TCO2, POCT 23(L) 24 - 29 mmol/L 06/17/2024 7:57 AM EST [facility] Saturated O2, POCT 79(H) 70 - 75 % 06/17/2024 7:57 AM EST [facility] FIO2, POCT 30 % 06/17/2024 7:57 AM EST [facility] Patient Temp, POCT 38.1 degrees 06/17/2024 7:57 AM EST [facility] Isaias's Test, POCT N/A 06/17/2024 7:57 AM EST [facility] Blood 06/17/2024 7:55 AM EST 06/17/2024 7:57 AM EST us Jeison Houge MD LAB POCT ORDERABLES - DEVICE Fin al Result Performing Organization Address [facility] de Phone Number [facility] [address] [place] [address], [place] * Triglyceride (06/17/2024 7:52 AM EST) Triglycerides 69 <=149 mg/dL 06/17/2024 12:32 PM EST [facility] Blood Structure of peripheral vein / Unknown Venipuncture / Unknown 06/17/2024 7:52 AM EST 06/17/2024 7:55 AM EST Mikey Rivas REPTILE KEEPER LAB BLOOD ORDER MADELYN Final Result Performing Organization Address [facility] de Phone Number [facility] [address] [place] [address], [place] * (ABNORMAL) Lipase (06/17/2024 7:52 AM EST) Only the most recent of2 resultswithin the time period is included. Lipase 150(H) 13 - 60 U/L 06/17/2024 12:32 PM EST [facility] Blood Structure of peripheral vein / Unknown Venipuncture / Unknown 06/17/2024 7:52 AM EST 06/17/2024 7:55 AM EST Mikey Rivas REPTILE KEEPER LAB BLOOD ORDER MADELYN Final Result Performing Organization Address [facility] Co de Phone Number [facility] [address] [place] [address], [place] * (ABNORMAL) Urinalysis (Urethral Catheter) w/Reflex to Microscopic (Hold Culture). (06/16/2024 6:25 PM EST) Color, Urine Dark Yellow Colorless, Light Yellow, Yellow, Dark Yellow 06/16/2024 7:12 PM EST [facility] Clarity, Urine Clear Clear 06/16/2024 7:12 PM EST [facility] Specific [place], Urine 1.028 1.005 - 1.030 06/16/2024 7:12 PM [facility] pH, Urine 5.0 4.6 - 8.0 06/16/2024 7:12 PM [facility] Protein, Urine 1+(A) Negative 06/16/2024 7:12 PM [facility] Glucose, Urine Negative Negative 06/16/2024 7:12 PM EST [facility] Ketones, Urine Negative Negative 06/16/2024 7:12 PM [facility] Bilirubin, Urine Negative Negative 06/16/2024 7:12 PM [facility] Blood, Urine Negative Negative 06/16/2024 7:12 PM [facility] Nitrite, Urine Negative Negative 06/16/2024 7:12 PM [facility] Urobilinogen, Urine Normal Normal 06/16/2024 7:12 PM [facility] Leukocyte Esterase, Urine 1+(A) Negative 06/16/2024 7:12 PM [facility] WBC, Urine 16(H) 0 - 2 /HPF 06/16/2024 7:12 PM [facility] RBC, Urine 7(H) 0 - 2 /HPF 06/16/2024 7:12 PM [facility] Hyaline Casts, Urine 0 0 - 2 /LPF 06/16/2024 7:12 PM [facility] Squamous Epithelial Cells, Urine <1 /HPF 06/16/2024 7:12 PM [facility] Bacteria, Urine Rare(A) None /HPF /HPF 06/16/2024 7:12 PM [facility] Mucus, Urine Rare /LPF 06/16/2024 7:12 PM EST [facility] Urine Indwelling urinary catheter / Unknown Non-Blood Collection / Unknown 06/16/2024 6:25 PM EST 06/16/2024 6:45 PM EST Mikey Rivas [facility] URINE ORDER MADELYN Final Result Performing Organization Address City/[facility]/ZIP Co de Phone Number [facility] [address] [place] [id number], [place] * Urine Culture (Urethral Catheter), HOLD (06/16/2024 6:25 PM EST) Extra Tube Hold for add-ons. 06/16/2024 11:05 PM EST [facility] Comment:Auto resulted. Urine Indwelling urinary catheter / Unknown Non-Blood Collection / Unknown 06/16/2024 6:25 PM EST 06/16/2024 6:45 PM EST Mikey Rivas [facility] URINE ORDER MADELYN Final Result Performing Organization Address [facility] Co de Phone Number [facility] PATHOLOGY LABORATORY [address] [place] [address], [place] * (ABNORMAL) Betahydroxybutyrate (06/16/2024 10:28 AM EST) Beta-Hydroxybu tyrate 1.00(H) <=0.27 mmol/L 06/16/2024 12:27 PM EST [facility] PATHOLOGY LABORAT[facility] Blood Structure of peripheral vein / Unknown Venipuncture / Unknown 06/16/2024 10:28 AM EST 06/16/2024 10:28 AM EST Mikey Rivas REPTILE KEEPER LAB BLOOD ORDER MADELYN Final Result Performing Organization Address City/[facility]/ZIP Co de Phone Number [facility] CLINICAL PATHOLOGY LABORATORY [address] [place] [address], [place] * Creatine Kinase (06/16/2024 10:28 AM EST) Only the most recent of2 resultswithin the time period is included. CK 342 49 - 348 U/L 06/16/2024 11:00 AM EST [facility]ICAL PATH[facility] LABORAT[facility] Blood Structure of peripheral vein / Unknown Venipuncture / Unknown 06/16/2024 10:28 AM EST 06/16/2024 10:28 AM EST Mikey Rivas REPTILE KEEPER LAB BLOOD ORDER MADELYN Final Result [facility] CL[facility]ICAL PATHOLOGY LABORATORY [address] [place] [address], * (ABNORMAL) Methadone Screen w/Confirmation, Urine (06/16/2024 9:37 AM EST) Pathologist [facility] Methadone Metabolite Screen, Urine POSITIVE( A) <100 ng/mL 06/19/2024 6:34 AM EST [facility] EDDP, Urine 1608(H) <100 ng/mL 06/19/2024 6:34 AM EST [facility] Comment: See Note 1 Methadone, Urine 948(H) <100 ng/mL 06/19/2024 6:34 AM EST [facility] Comment: See Note 1 See Note 2 Note 1 This test was developed and its analytical performance characteristics have been determined by [employer]. It has not been cleared or approved [...] interpreting these drug results, please contact a [facility] Toxicology Specialist: [phone] ( ), M-F, 8am-6pm EST. Urine Catheter / Unknown Non-Blood Collection / Unknown 06/16/2024 9:37 AM EST 06/16/2024 9:55 AM EST Narrative [facility] [place] - 06/19/2024 6:34 AM EST [facility] Received Date: Mikey Rivas NP LAB URINE ORDER MADELYN Final Result [facility] [address] [facility] 3rd Floor, [place] [address], [facility] 200 [facility] [address] Floor, [place] [address], * Morphine and Codeine Confirmation, Urine (06/16/2024 9:37 AM EST) Codeine, Urine NEGATIVE <50 ng/mL 06/19/2024 3:19 PM EST [facility] Comment: See Note 1 Hydrocodone, Urine NEGATIVE <50 ng/mL 06/19/2024 3:19 PM EST [facility] Comment: See Note 1 Hydromorphone, Urine NEGATIVE <50 ng/mL 06/19/2024 3:19 PM EST [facility] Comment: See Note 1 Morphine, Urine NEGATIVE <50 ng/mL 3:19 PM EST [facility] Comment: See Note 1 Norhydrocodone, Urine NEGATIVE <50 ng/mL 06/19/2024 3:19 PM EST [facility] Comment: See Note 1 See Note 2 Note 1 This test was developed and its analytical performance characteristics have been determined by [employer]. It has not been cleared or approved [...] interpreting these drug results, please contact a [facility] Toxicology Specialist: [phone] ( ), M-F, 8am-6pm EST. Urine Catheter / Unknown Non-Blood Collection / Unknown 06/16/2024 9:37 AM EST 06/16/2024 9:55 AM EST Narrative [facility] - 06/19/2024 3:19 PM EST [facility] Received Date:[id number] Mikey Rivas REPTILE KEEPER LAB URINE ORDER MADELYN Final Result Performing Organization Address City/[facility]/ZIP Co de Phone Number [facility] [place] [address], [place] [address], [place] [phone] [facility] [address], [place] [address], [place] [phone] * Comprehensive Drug Panel, Urine (06/16/2024 9:37 AM EST) Comprehensive Drug Screen Urine DRUGS DETECTED 06/16/2024 4:36 PM EST [facility] Comment: DIPHENHYDRAMINE PHENOBARBITAL METHADONE AND METABOLITE Urine Catheter / Unknown Non-Blood Collection / Unknown 06/16/2024 9:37 AM EST 06/16/2024 9:55 AM EST Narrative [facility] - 06/16/2024 4:36 PM EST [facility] Received Date:[id number] Cj Paz REPTILE KEEPER LAB URINE ORDERABLES Final Resul t Performing Organization Address City/[facility]/ZIP Co de Phone Number [facility] [address], [place] [address], [place] [phone] [facility] [address], [place] [address], [place] [phone] * (ABNORMAL) Barbiturate Screen, Urine (06/16/2024 9:37 AM EST) Barbiturate Screen, Urine Presumptive Positive(A) Negative 06/16/2024 1:30 PM EST [facility] Comment: Detection limit of [...] EST 06/16/2024 9:55 AM EST Mikey Rivas REPTILE KEEPER LAB URINE ORDER MADELYN Final Result [facility] PATH[facility] LABORATORY [address] [place] [address], * Propoxyphene Screen, Urine (06/16/2024 9:37 AM EST) Propoxyphene Screen, Urine NEGATIVE <300 ng/mL 06/17/2024 5:52 AM EST [facility] Comment: See Note 2 Note 1 This drug testing is for medical treatment only. ?? Analysis was performed as non-forensic testing and these results should be used only by healthcare providers to render diagnosis or treatment, or to monitor progress of medical conditions. For assistance with interpreting these drug results, please contact a [facility] Toxicology Specialist: [phone] ( ), M-F, 8am-6pm EST. Note [...] interpreting these drug results, please contact a [facility] Toxicology Specialist: [phone] ( ), M-F, 8am-6pm EST. Urine Catheter / Unknown Non-Blood Collection / Unknown 06/16/2024 9:37 AM EST 06/16/2024 9:55 AM EST Narrative [facility] [place] - 06/17/2024 5:52 AM EST [facility] Received Date: Mikey Rivas REPTILE KEEPER LAB URINE ORDER MADELYN Final Result [facility]IEGLER [address] [facility] [address] Floor, [place] [address], [place] [phone] [facility] 200 [facility] [address]rd Floor, [place] [address], [place] [phone] * Marijuana Qualitative Screen, Urine (06/16/2024 9:37 AM EST) Marijuana Screen, Urine Negative Negative 06/16/2024 1:30 PM EST [facility] CL[facility]ICAL PATHOLOG[facility] LABORAT[facility] Comment: Detection limit of 50 ng/mL of 04-Vfd-[id number]-4-FKD-0-carboxylic acid. Drug results are to be used only for medical purposes. ??Unconfirmed screening results must not be used for non-medical purposes. Urine Catheter / Unknown Non-Blood Collection / Unknown 06/16/2024 9:37 AM EST 06/16/2024 9:55 AM EST Mikey Rivas REPTILE KEEPER LAB URINE ORDER MADELYN Final Result [facility] CL[facility]ICAL PATHOLOGY LABORATORY [address] [place] [address], * Osmolality Gap (06/16/2024 9:37 AM EST) NA 137 135 - 145 mmol/L 06/16/2024 11:08 AM EST [facility] BUN 10 7 - 23 mg/dL 06/16/2024 11:08 AM EST [facility] Glucose 95 65 - 99 mg/dL 06/16/2024 11:08 AM EST [facility] Osmolality 282 279 - 295 mOsm/kg 06/16/2024 11:08 AM EST [facility] LAB[facility] Osmolality Calculated 283 mOSM/kg 06/16/2024 11:08 AM EST [facility] PATH[facility] LABORATORY Osmolality Gap <10 <10 mOSM/kg 06/16/2024 11:08 AM EST [facility] PATH[facility] LAB[facility]AT[facility] Blood Structure of peripheral vein / Unknown Venipuncture / Unknown 06/16/2024 9:37 AM EST 06/16/2024 9:54 AM EST Cj Jackson REPTILE KEEPER LAB BLOOD ORDERABLES Final Resul t [facility] PATHOLOGY LABORATORY [address] [place] [address], [place] * Phencyclidine (PCP) Screen, Urine (06/16/2024 9:37 AM EST) Phencyclidine Screen, Urine NEGATIVE <25 ng/mL 06/17/2024 5:52 AM EST [facility] Comment: See Note 2 Urine Catheter / Unknown Non-Blood Collection / Unknown 06/16/2024 9:37 AM EST 06/16/2024 9:55 AM EST Narrative [facility] 06/17/2024 5:52 AM EST [facility] Received Date: Mikey Rivas REPTILE KEEPER LAB URINE ORDER MADELYN Final Result [facility] [place] [address] [facility] [address], [place] [address], [place] [phone] [facility] 200 [facility] [address] Floor, [place] [address], [place] [phone] * Cocaine Qualitative, Urine (06/16/2024 9:37 AM EST) Cocaine Metabolite Screen, Urine Negative Negative 06/16/2024 1:30 PM EST [facility] Comment: Detection limit of 300 ng/mL of Benzoylecgonine. Drug results are to be used only for medical purposes. ??Unconfirmed screening results must not be used for non-medical purposes. Urine Catheter / Unknown Non-Blood Collection / Unknown 06/16/2024 9:37 AM EST 06/16/2024 9:55 AM EST Mikey Rivas REPTILE KEEPER LAB URINE ORDER MADELYN Final Result Performing Organization Address [facility] Co de Phone Number [facility] [address] [place] [address], * (ABNORMAL) Benzodiazepine Qualitative Screen, Urine (06/16/2024 9:37 AM EST) Benzodiazepine Screen, Urine Presumptive Positive(A) Negative 06/16/2024 1:30 PM EST [facility] Comment: Detection limit of 200 ng/mL of Nordiazepam. Drug results are to be used only for medical purposes. ??Unconfirmed screening results must not be used for non-medical purposes. Urine Catheter / Unknown Non-Blood Collection / Unknown 06/16/2024 9:37 AM EST 06/16/2024 9:55 AM EST Mikey Rivas REPTILE KEEPER LAB URINE ORDER MADELYN Final Result Performing Organization Address [facility] de Phone Number [facility] [address] [place] [address], * Amphetamine Qualitative, Urine (06/16/2024 9:37 AM EST) Amphetamine Screen, Urine Negative Negative 06/16/2024 1:30 PM EST [facility] Comment: Detection limit of 1000 ng/mL of d-Methamphetamine. Drug results are to be used only for medical purposes. ??Unconfirmed screening results must not be used for non-medical purposes. Urine Catheter / Unknown Non-Blood Collection / Unknown 06/16/2024 9:37 AM EST 06/16/2024 9:55 AM EST Mikey Rivas REPTILE KEEPER LAB URINE ORDER MADELYN Final Result Performing Organization Address [facility] Co de Phone Number [facility] [address] [place] [address], * Osmolality, Serum (06/16/2024 9:37 AM EST) Osmolality 280 279 - 295 mOsm/kg 06/16/2024 10:46 AM EST [facility] PATH[facility] LABORAT[facility] Blood Structure of peripheral vein / Unknown Venipuncture / Unknown 06/16/2024 9:37 AM EST 06/16/2024 9:54 AM EST us Cj Paz NP LAB BLOOD ORDERABLES Final Resul t Performing Organization Address [facility] Co de Phone Number [facility] CL[facility]ICAL PATHOLOGY LABORATORY [address] [place] [address], * Acetaminophen Level (06/16/2024 9:37 AM EST) Acetaminophen <5.0 <10.0 ug/mL 06/16/2024 10:41 AM EST [facility] Comment:Expected Range with Therapeutic Dosin-30 ug/mL Blood Structure of peripheral vein / Unknown Venipuncture / Unknown 06/16/2024 9:37 AM EST 06/16/2024 9:54 AM EST us Cj Paz NP LAB BLOOD ORDERABLES Final Resul t Performing Organization Address [facility]/ZIP Co de Phone Number [facility] PATH[facility] LABORATORY [address] [place] [address], [place] * Salicylate Level (06/16/2024 9:37 AM EST) Salicylate <1 <3 mg/dL 06/16/2024 10:41 AM EST [facility] Comment:Expected Range with Therapeutic Dosin-30 mg/dL Blood Structure of peripheral vein / Unknown Venipuncture / Unknown 06/16/2024 9:37 AM EST 06/16/2024 9:54 AM EST us Cj Paz NP LAB BLOOD ORDERABLES Final Resul t [facility] LABORATORY [address] [place] [address], [place] * COVID-19, Flu A/B & RSV RNA PCR, Symptomatic (06/16/2024 9:29 AM EST) PCR, SARS CoV-2 RNA Not Detected Not Detected [employer] 06/16/2024 11:18 AM EST [facility] Comment:A Not Detected (Nega [...] Detected [employer] 06/16/2024 11:18 AM EST [facility] Comment:Negative results do not preclude infection and should not be used as the sole basis for diagnosis, treatment or other patient management decisions. Negative results must be combined with clinical observations, patient history, and/or epidemiological information. Flu B RNA PCR Not Detected Not Detected [employer] GEN[employer] 06/16/2024 11:18 AM EST [facility] Comment:Negative results do not preclude infection and should not be used as the sole basis for diagnosis, treatment or other patient management decisions. Negative results must be combined with clinical observations, patient history, and/or epidemiological information. RSV RNA PCR Not Detected Not Detected [employer] 06/16/2024 11:18 AM EST [facility] Comment:Negative results do not preclude infection and should not be used as the sole basis for diagnosis, treatment or other patient management decisions. Negative results must be combined with clinical observations, patient history, and/or epidemiological information. Swab (Nares) Non-Blood Collection / Unknown 06/16/2024 9:29 AM EST 06/16/2024 9:54 AM EST [facility] CLINICAL PATHOLOGY LABORATORY - 06/16/2024 11:18 AM EST This test was developed, validated and its performance characteristics determined by [facility] Clinical Labs. This test has not been cleared or approved by the U.S. Food and Drug Administration (FDA). FDA Policy for Diagnostic Tests for Coronavirus Disease-2019 during the Public Health Emergency issued August 19, 2019, is followed. us Cj Paz NP LAB BODY FLUIDS AND STOOLS ORDER MADELYN Final Result [facility] [address] [place] [address], [place] * (ABNORMAL) POCT I-STAT Arterial Blood Gas, interfaced (06/16/2024 9:29 AM EST) Sample Type, POCT Arterial 06/16/2024 9:32 AM EST [facility] pH, POCT 7.47(H) 7.35 - 7.45 06/16/2024 9:32 AM EST [facility] pCO2, POCT 26.8(L) 35 - 45 mmHg 06/16/2024 9:32 AM EST [facility] pO2, POCT 116(H) 80 - 105 mmHg 06/16/2024 9:32 AM EST [facility] Base Excess, POCT -4(L) 0 - 3 mmol/L 06/16/2024 9:32 AM EST [facility] HCO3, POCT 19.4(L) 21 - 28 mmol/L 06/16/2024 9:32 AM EST [facility] TCO2, POCT 20(L) 23 - 27 mmol/L 06/16/2024 9:32 AM EST [facility] Saturated O2, POCT 99(H) 95 - 98 % 06/16/2024 9:32 AM EST [facility] FIO2, POCT 50 % 06/16/2024 9:32 AM EST [facility] Tidal Volume, POCT 450 ml 06/16/2024 9:32 AM EST [facility] Isaias's Test, POCT PASS 06/16/2024 9:32 AM EST [facility] Blood 06/16/2024 9:29 AM EST 06/16/2024 9:32 AM EST Sal Adler MD LAB POCT ORDERABLES - DEVIC E Final Result Performing Organization Address City/[facility] Co de Phone Number [facility] [address] [place] [address], * Blood Culture, Peripheral #2 (06/16/2024 9:00 AM EST) Only the most recent of2 resultswithin the time period is included. Culture No growth after 5 days 06/21/2024 1:31 PM EST [facility] Blood Structure of peripheral vein / Unknown Venipuncture / Unknown 06/16/2024 9:00 AM EST 06/16/2024 9:12 AM EST Narrative [facility] [place] - 06/21/2024 1:31 PM EST [facility] Received Date: MICRO NUMBER: [id number] SPECIMEN QUALITY: Adequate SOURCE: BLOOD VENOUS, PERIPHERAL STATUS: FINAL COMMENT: Aerobic and anaerobic bottle received. Mikey Rivas NP LAB MICROBIOLOG Y - GENERAL ORDERABLES Final Result Performing Organization Address City/[facility]/ZIP Co de Phone Number [facility] [place] [address] [facility] [address], [place] [address], [place] [phone] [facility] [address] [facility] [address], [place] [address], [place] [phone] * Prolactin (06/16/2024 8:57 AM EST) Prolactin 9.10 4.04 - 15.20 ng/mL 06/16/2024 11:22 AM EST [facility] PATHOLOGY LABORATORY Blood Structure of peripheral vein / Unknown Venipuncture / Unknown 06/16/2024 8:57 AM EST 06/16/2024 9:12 AM EST Mikey Rivas REPTILE KEEPER LAB BLOOD ORDER MADELYN Final Result [facility] [address] [place] [address], * MRSA/S aureus PCR, Nasal (06/16/2024 8:44 AM EST) MRSA PCR, Nasal NOT DETECTED NOT DETECTED 06/17/2024 3:29 PM EST [facility] S. aureus PCR, Nasal NOT DETECTED NOT DETECTED 06/17/2024 3:29 PM EST [facility] Swab Nasal structure / Unknown Non-Blood Collection / Unknown 06/16/2024 8:44 AM EST 06/16/2024 9:12 AM EST [facility]arrative [facility] - 06/17/2024 3:29 PM EST [facility] Received Date: Mikey Rivas REPTILE KEEPER LAB BODY FLUIDS AND STOOLS ORDERABLES Final Result [facility] [address] [facility] [address], [place] [address], [place] [phone] [facility] [address] [facility] [address]rd Floor, [place] [address], [place] [phone] * (ABNORMAL) Respiratory Culture w/Gram Stain (06/16/2024 8:41 AM EST) Culture Growth of normal oropharyngeal yayo 06/18/2024 2:14 PM EST [facility] Gram Stain Many White Blood Cells Seen(A) 06/18/2024 2:14 PM EST [facility] Gram Stain No epithelial cells seen(A) 06/18/2024 2:14 PM EST [facility] [employer] Gram Stain Few Gram Positive Cocci(A) 06/18/2024 2:14 PM EST [facility] Sputum Sputum / Unknown Non-Blood Collection / Unknown 06/16/2024 8:41 AM EST 06/16/2024 9:11 AM EST Narrative [facility] - 06/18/2024 2:14 PM EST [facility] Received Date: MICRO NUMBER: [id number] SPECIMEN QUALITY: Adequate SOURCE: SPUTUM EXPECTORATED SPUTUM STATUS: FINAL Mikey Rivas NP LAB MICROBIOLOG Y - GENERAL ORDERABLES Final Result [facility] [address] [facility] [address]rd Floor, [place] [address], [facility] [address] [facility] [address], [place] [address], * X-Ray Chest 1 View (06/16/2024 8:20 [...] obtain the completed interpretation. ? Workstation ID: [id number] Narrative 06/16/2024 4:00 PM EST COMPARISON: ??One day ago FINDINGS AND Resulting Agency Comment [id number] Procedure Note Sal Goodman MD - 06/16/2024 [...] possible to obtain thecompleted interpretation. Workstation ID: [id number] us Betinali Stewartmanuel Gallo REPTILE KEEPER IMG XR PROCEDURES Final Result * HC EMERGENCY INTUBATION, IN INSERT EMERGENCY ENDOTRACH AIRWAY, AN ETT DUMMY PERFORMABLE (58:15 AM EST) Aurroa Schuster MD - 06/16/2024 8:15 AM EST Aurora Beckett MD ? 06/16/2024 ??8:58 AM Airway Date/Time: 06/16/2024 8:15 AM Urgency: emergent Airway not difficult Tube change: no Patient location at the time of the procedure: ICU Anesthesia Staff: Authorized by: Aurora Beckett MD ?? Performed by: Aurora Beckett MD Anesthesiologist: Aurora Beckett MD PADDING GLUER: Rut Petersen CRNA Performed: anesthesiologist I was [...] - 1.9 mmol/L 06/16/2024 8:06 AM EST [facility] Comment: Sepsis Screening: Initial Lactate Level >2.0 mmol/L - Repeat Lactate Level within 3 hours. Initial Lactate Level >4.0 mmol/L - Repeat Lactate Level within 3 hours, Initiate Septic Shock Protocol. Blood Structure of peripheral vein / Unknown Venipuncture / Unknown 06/16/2024 7:34 AM EST 06/16/2024 7:36 AM EST Mikey Rivas REPTILE KEEPER LAB BLOOD ORDER MADELYN Final Result Performing Organization Address [facility] Co de Phone Number [facility] LAB[facility]ATORY [address] [place] [address], * Protime-INR (06/16/2024 3:42 AM EST) PT 11.0 9.6 - 12.4 Seconds 06/16/2024 4:19 AM EST [facility] INR 1.0 0.9 - 1.1 06/16/2024 4:19 AM EST [facility] Comment:The optimal therapeu tic INR range for patients treated with Vitamin K antagonists (VKAS, e.g., Warfarin) is 2.0 to 3.5. Discuss the desired range with your doctor/care team. Blood Structure of peripheral vein / Unknown Venipuncture / Unknown 06/16/2024 3:42 AM EST 06/16/2024 3:46 AM EST Marci Huitron PA LAB BLOOD ORDERABLES Final Res ult [facility] [address] [place] [address], [place] * (ABNORMAL) Hepatic Function Panel (06/16/2024 3:42 AM EST) Total Protein 6.9 6.0 - 8.0 g/dL 06/16/2024 4:27 AM EST [facility] Albumin 3.7 3.5 - 5.2 g/dL 06/16/2024 4:27 AM EST [facility] Globulin, Total 3.2 2.1 - 4.2 g/dL 06/16/2024 4:27 AM EST [facility] Bilirubin, Total 1.2 0.2 - 1.2 mg/dL 06/16/2024 4:27 AM EST [facility] Bilirubin, Direct 0.5(H) <=0.4 mg/dL 06/16/2024 4:27 AM EST [facility] Alkaline Phosphatase 112 35 - 129 U/L 06/16/2024 4:27 AM EST [facility] AST 47(H) 10 - 40 U/L 06/16/2024 4:27 AM EST [facility] ALT 43(H) 10 - 40 U/L 06/16/2024 4:27 AM EST [facility] Bilirubin, Indirect 0.70 <=0.70 mg/dL 06/16/2024 4:27 AM EST [facility] A/G Ratio 1.2(L) 1.5 - 3.0 06/16/2024 4:27 AM EST [facility] Blood Structure of peripheral vein / Unknown Venipuncture / Unknown 06/16/2024 3:42 AM EST 06/16/2024 3:46 AM EST us Marci ESTRADA LAB BLOOD ORDERABLES Final Res ult [facility] [address] [place] [address], [place] * ECG 12 lead (06/15/2024 5:49 PM EST) Only the most recent of2 resultswithin the time period is included. Ventricular Rate EKG 97 BPM MUSE EKG Atrial Rate 97 BPM MUSE EKG IN Interval 136 ms MUSE EKG QRS Interval 72 ms MUSE EKG QT Interval 390 ms MUSE EKG QTC Interval 495 ms MUSE EKG P [place] 67 degrees MUSE EKG R [place] 26 degrees MUSE EKG T Wave [place] -26 degrees MUSE EKG 06/15/2024 5:49 PM EST 06/16/2024 5:47 PM EST Impressions MUSE EKG - 06/16/2024 5:47 PM EST NORMAL SINUS RHYTHM ST-T ABNORMALITIES CONSIDER ISCHEMIA PROLONGED QTC ABNORMAL ECG Confirmed by Heath Williamson ([id number]) on 06/16/2024 5:47:05 PM [facility] ESTRADA ECG ORDERABLES Final Res ult MUSE EKG * Troponin T, High Sensitivity (06/15/2024 5:33 PM EST) Pathologist [facility] Troponin T High Sensitivity <6 <=21 ng/L 06/15/2024 6:30 PM EST [facility] Comment: 3+ hemolysis; the result may be Falsely Decreased. Bj-[id number]-B level of 52 ng/L or higher at [...] be evaluated in line with the 4th Home Definition of AMI. Troponin baseline and serial [...] [facility] BLOOD ORDERABLES Rachel boyer Result [facility] [address] [place] [address], [place] * CT Head WO Contrast (06/15/2024 1:26 [...] obtain the completed interpretation. ? Workstation ID: [id number] Up-to-date CT equipment and radiation dose reduction [...] paranasal sinuses are well-aerated. Resulting Agency Comment [id number] Procedure Note Joseph Corona 06/15/2024 EXAMINATION: CT head without contrast INDICATION: [...] possible to obtain thecompleted interpretation. Workstation ID: [id number] Up-to-date CT equipment and radiation dose reduction techniques wereemployed. CTDIvol: 48.0 mGy. DLP: 868 mGy-cm. Edvin Beck MD IM CT PROCEDURES Final Result * HEART & VASCULAR - SCANNED (06/15/2024) Anatomical Region Laterality Modality Other Onbase Scan [place] SCANNED PROCEDURES Final Resu lt from Last 3 Months Insurance [facility] Advance Directives Documents on File Type Date Recorded Patient Automatic Vulcanizing Lead Operator Expl [facility] Health Care Proxy 06/25/2024 2:59 PM 06-25 * Full Code (Latest Code Status on File) Date Activated Date Inactivated Comments 06/15/2024 5:11 PM 06/25/2024 8:23 PM Care Teams Career Development Coordinator Relationship Specialty Start Date End Date Patient, Has No Pcp Or Ref DO NOT EDIT THIS RECORD VIA PROVIDER ON THE FLY PCP - General Blood Coordinator 06/19/24
--- OUTSIDE RECORDS SUMMARY | 2024-06-27 15:30 | XMS_ITS | Encounter Summary ---
Author Organization [facility] Address [address] [place] [address] Care Team Providers Care Hide Trimmer Name Role Phone Unavailable Primary Care Provider Unavailabl e Reason for Visit * Auth/Cert (Routine) Specialty Diagnoses / Procedures Referred By Contac t Referred To Contact Diagnoses Hypokalemia Hypomagnesemia Delirium tremens (HCC) Toxic metabolic encephalopathy Referral ID Status Reason Start Date Expiration Date Visits Re quested Visits Authorized [id number] Encounter Details Date Type Department Care Team (Late st Contact Info) Description 06/16/2024 8:47 AM EST Anesthesia Event [facility] Critical Care Unit [address] [place], [place] [id number] Aurora Beckett MD [address] [place] [address] [id number] Anesthesia Record Procedure Summary Procedure Name Responsible Anesthesiologist Anesthesia Start Time Anesthesia Stop Time INTUBATION Events Date Time Event Comment 06/16/2024 0848 An Intubation Meds Name Total propofol (DIPRIVAN) bolus 130 mg succinylcholine (ANECTINE) 200 mg/10 mL IV syringe 120 mg * Agents No agents on file. * Blood No blood administrations on file. Lines, Drains, and Airways No LDAs on file. documented in this encounter Social History Tobacco Use Types Packs/Day Years Used Date Smoking Tobacco: Unknown Alcohol Use Standard Drinks/Week Comments Yes 0 (1 standard drink = 0.6 oz pur e alcohol) Sex and Gender Information Value Date Recorded Sex Assigned at Male 06/19/2024 3:20 PM EST Legal Sex Male 12:20 AM EST Gender Identity Not on file Sexual Orientation Not on file documented as of this encounter OR Notes * Anesthesia Procedure Notes - Aurora Beckett MD - 06/16/2024 8:54 AM EST Associated Order(s): Airway Patient: Brooks Mullen : 1985 Airway Date/Time: 06/16/2024 8:15 AM Urgency: emergent Airway not difficult Tube change: no Patient location at the time of the procedure: ICU Anesthesia Staff: Authorized by: Aurora Beckett MD Performed by: Aurora Beckett MD Anesthesiologist: Aurora Beckett MD PHARMACEUTICAL COMPOUNDING SUPERVISOR: Rut Petersen CRNA Performed: anesthesiologist I was [...] is negative for COVID-19. Aurora Beckett MD Date: 06/16/2024 Time: 8:54 AM documented in this encounter Plan of Treatment Not on file documented as of this encounter Procedures * Due to [place] state law, this organization might not be sharing negative HIV tests. Procedure Name Priority Date/Time Associated Diagnosis Comments AN ETT DUMMY PERFORMABLE Routine 06/16/2024 8:15 AM EST MT INSERT EMERGENCY ENDOTRACH AIRWAY Routine 06/16/2024 8:15 AM EST HC EMERGENCY INTUBATION Routine 06/16/2024 8:15 AM EST documented in this encounter Results * Due to [place] state law, this organization might not be sharing negative HIV tests. * HC EMERGENCY INTUBATION, MT INSERT EMERGENCY ENDOTRACH AIRWAY, AN ETT DUMMY PERFORMABLE (58:15 AM EST) Aurora Schuster MD - 06/16/2024 8:15 AM EST Aurora Beckett MD ? 06/16/2024 ??8:58 AM Airway Date/Time: 06/16/2024 8:15 AM Urgency: emergent Airway not difficult Tube change: no Patient location at the time of the procedure: ICU Anesthesia Staff: Authorized by: Aurora Beckett MD ?? Performed by: Aurora Beckett MD Anesthesiologist: Aurora Beckett MD PHARMACEUTICAL COMPOUNDING SUPERVISOR: Rut Petersen CRNA Performed: anesthesiologist I was [...] post intubation Patient is negative for COVID-19. us Aurora Beckett MD ANESTHESIA ORDERABLES Final Resu lt documented in this encounter Visit Diagnoses Not on filedocumented in this encounter Administered Medications Inactive Administered Medications - up to 3 most recent administrations Medication Order MAR Action Action Date Dose Rate Site propofoL (DIPRIVAN) injection intravenous, One-time injection, Starting on 06/16/24 at 0815, Until 06/16/24 at 0815, Anesthesia Intra-op Given 06/16/2024 8:15 AM EST 130 mg succinylcholine (ANECTINE) injection intravenous, One-time injection, Starting on 06/16/24 at 0815, Until 06/16/24 at 0815, Anesthesia Intra-op Given 06/16/2024 8:15 AM EST 120 mg documented in this encounter
--- OUTSIDE RECORDS SUMMARY | 2024-06-27 15:30 | XMS_ITS | Encounter Summary ---
Author Organization [facility] Address [address] [place] [address] Care Team Providers Care Instructor Private Name Role Phone Patient, Has No Pcp Or Ref Primary Care Provider Unavailable Reason for Referral * Physical Therapy (Routine) - Pending Review Specialty Diagnoses / Procedures Referred By Chetna martinez Referred To Contact Physical Therapy Diagnoses Delirium tremens (HCC) Quita Augustine PA [address] [place], [place] [id number] Phone: tel: fax: Referral ID Status Reason Start Date Expiration Date Visits Requested Visits Authorized [id number] Pending Review Specialty Services Required 06/25/2024 12/25/2025 6 6 Reason for Visit * Reason Comments Alcohol Intoxication * Auth/Cert (Routine) Specialty Diagnoses / Procedures Referred By Chetna martinez Referred To Contact Diagnoses Hypokalemia Hypomagnesemia Delirium tremens (HCC) Toxic metabolic encephalopathy Referral ID Status Reason Start Date Expiration Date Visits Re quested Visits Authorized [id number] [phone] Encounter Details Date Type Department Care Team (Latest Contact Info) Description 06/15/2024 12:22 AM EST - 06/25/2024 6:18 PM EST Hospital Encounter [facility] 2 Critical Care Unit [address] [place] [address] Edvin Beck MD [address] [place] [phone] Anaya Carias DO [address] [place] [phone] Gabe Lorenzo MD [address] [place] [phone] Charissa Dimas MD [address] [place], [place] [id number] Sal Adler MD [address] [place] [address] Jeison Hogue MD [address] [place] [address] Alberto Rucker DO [address] [place] [phone] Delirium tremens (HCC) (Primary Dx); Hypomagnesemia; Hypokalemia; Toxic metabolic encephalopathy; Alcohol withdrawal syndrome with complication (HCC) Discharge Disposition: Home or Self Care () Social History Tobacco Use Types Packs/Day Years [...] on file documented as of this encounter Last Filed Vital Signs Vital Sign Reading [...] Mass Index 20.14 06/20/2024 8:20 AM EST documented in this encounter Discharge Summaries * NATALIE Alves - 06/25/2024 4:02 PM EST Images from the original note were not included. DISCHARGE SUMMARY [facility] DISCHARGE INFORMATION: Date and Time of Admission: 06/15/2024 5:11 PM Date of Discharge: 06/25/2023 5:00 PM DISCHARGE DIAGNOSIS: Problem List Resolved Problems * (Principal) RESOLVED: Toxic metabolic encephalopathy RESOLVED: Acute respiratory failure with hypoxia (HCC) RESOLVED: Alcohol withdrawal delirium (HCC) RESOLVED: Hypokalemia RESOLVED: Hypomagnesemia RESOLVED: Hyponatremia RESOLVED: Pancreatitis ATTENDING PHYSICIAN ON DISCHARGE: Attending Provider: Jeison Hogue MD [phone] FOLLOW-UPS AND SCHEDULED APPOINTMENTS: No future appointments. 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 None DISCHARGE MEDICATIONS: Discharge Medication list: Discharge Medications New Medications Sig Disp Refill folic acid 1 mg tablet Commonly known as: FOLVITE Start taking on: June 26, 2024 Take 1 tablet (1 mg total) by mouth once a day. 30 tablet 0 sertraline 50 mg tablet Commonly known as: ZOLOFT Start taking on: June 26, 2024 Take 1 tablet (50 mg total) by mouth once a day. 30 tablet 0 thiamine mononitrate 100 mg tablet Commonly known as: VITAMIN B1 Start taking on: June 26, 2024 Take 1 tablet (100 mg total) by mouth once a day. 30 tablet 0 Stopped Medications acetaminophen 325 mg tablet Commonly known as: TYLENOL bismuth subsalicylate 262 mg/15 mL suspension Commonly known as: PEPTO BISMOL calcium carbonate 200 mg calcium (500 mg) chewable tablet Commonly known as: TUMS diphenoxylate-atropine 2.5-0.025 mg per tablet Commonly known as: LOMOTIL guaiFENesin 100 mg/5 mL syrup Commonly known as: ROBITUSSIN magnesium hydroxide 400 mg/5 mL suspension Commonly known as: MILK OF MAGNESIA thiamine HCl 100 mg tablet Commonly known as: VITAMIN B1 Zofran 4 mg tablet Generic drug: ondansetron ALLERGIES: Patient has no known allergies. IMMUNIZATION HISTORY: There is no immunization history for the selected administration types on file for this patient. PRESENTATION INFORMATION: HISTORY OF PRESENT ILLNESS: HISTORY OF PRESENT ILLNESS: 39 y/o M with a history of alcohol use disorder who presents from [facility] in [place] with concern for acute alcohol withdrawal. Patient noted to be altered with tremors refractory to Ativan 6mg IM prior to transport. Found to be tachycardic, hypertensive, and altered on arrival to the ED. Head CT negative for acute intracranial process. Labs notable for hypokalemia, hypomagnesemia, and hyponatremia s/p repletion. AGMA s/p 2L LR, gap subsequently closed. Started on CIWA w/ Valium and received ~85 mg. Escalated to severe CIWA with phenobarbital for scores >30 with improvement in symptoms and mentation. Admitted to CCU for further management of severe ETOH withdrawal. PAST MEDICAL HISTORY: Past Medical History: Diagnosis Date Alcohol use disorder PAST SURGICAL HISTORY: History reviewed. No pertinent surgical history. PAST FAMILY HISTORY: No family history on file. PAST SOCIAL HISTORY: Social History Socioeconomic History Marital status: Unknown Spouse name: Not on file Number of children: Not on file Years of education: Not on file Highest education level: Not on file Occupational History Not on file Tobacco Use Smoking status: Every Day Types: Cigarettes, Cigars Smokeless tobacco: Not on file Tobacco comments: Per family members Vaping Use Vaping status: Every Day Substance and Sexual Activity Alcohol use: Yes Drug use: Not on file Sexual activity: Not on file Other Topics Concern Not on file Social History Narrative Not on file HOSPITAL COURSE: ICU Course by System from 06/15/2024 to 06/25/24 Nervous Hx of AUD, unknown quantity of consumption or last drink given severe encephalopathy on admission. Presenting from [facility] with concern for alcohol withdrawal after he was found to be altered and tremulous. Received Ativan 6 mg IM without improvement prior to transport by EMS. A&Ox1 on arrival and noted to be tremulous with tongue fasciculations. Low concern for seizure activity contributing to ams, prolactin and CK (-). Received ~85 mg Valium and started on severe CIWA with phenobarbital for scores >30. Head CT limited by motion artifact but otherwise grossly unremarkable. Continued severe CIWA protocol with phenobarb. Given high dose thiamine and folic acid. Noted to have bilateral c onjunctivitis, treated with erythromycin ointment. Intubated 06/16 for worsening mentation and respiratory alkalosis. Sedated with propofol/fentanyl initially. Fentanyl D/C'd. Precedex added, weaned off Propofol as able. PRN APAP. Standing Valium changed to chlordiazepoxide then back to valium once extubated, now weaned off all benzodiazepines. Awake, follows commands. PT recommending discharge home with walker and assist from family, and outpatient PT. Medications to start on discharge - folic acid, thiamine, Zoloft Respiratory Initially presented oxygenating appropriately on 2L. Course complicated by worsening neurologic suppression, ultimately requiring intubation for severe metabolic alkalosis pH 7.64/18. CXR with retrocardiac infiltrate suspicious for aspiration pneumonia. Failed SBT for tachypnea, increased WOB, and low Vt.. Successfully extubated on 06/20. Stable on room air. Circulatory No known Hx. Tachycardic and hypertensive iso alcohol W/D. Lactate deferred. HS trop flat. EKG withNSR, T wave inversions in V3-V5. VS improved on ICU admission. Given 2L IVF resuscitation. Hemodynamically stable. Digestive Presents with elevated alk phos 136, AST/ALT 88/66, tbili 1.5, lipase 199 - unclear if pt is havingabd pain given encephalopathy, though will treat empirically as pancreatitis 2nd to ETOH abuse, given LFTs downtrending on repeat OGT placed and TF started with intubation. UP: famotidine bid. Bowel regimen: on hold due to diarrhea, ? opiate withdrawal. Continue Imodium prn for diarrhea. Added Banatrol 1pkt 3 times a day. Diarrhea now resolved. Renal/Genitourinary No known Hx. Baseline Cr unknown. Labs on presentation notable for multiple electrolyte derangements including hypokalemia with K 2.9, hypomagnesemia, and hyponatremia likely iso chronic alcohol use.Also noted to have AG 19 which subsequently closed. Received 2L LR and electrolyte repletion in theED. Monitored electrolytes and repleted PRN. Developed severe AGMA with pH 7.65/18/19, AG 16, [id number], etiology unclear with ASA, APAP, LA, osmolar gap, and BUN all normal, could be related to significant diarrhea coupled with mild starvation ketoacidosis with BHB 1.0. Electrolyte derangements resolved. Mandujano removed following extubation. Endocrine/Metabolic No known Hx. At risk for stress hyperglycemia in the setting of acute illness. Glucose maintained on ICU glycemic protocol. No insulin requirement. Hematologic No known Hx. H&H slightly elevated on presentation. Thrombocytopenic with plts 99 likely iso chronic alcohol use. No evidence of active bleeding on exam. CBC and coags monitored. DVT prophylaxis with Lovenox. Infectious/Inflammatory Initially presented afebrile without leukocytosis. Course complicated worsening mentation leading to aspiration, febrile to 102.6, tachycardia, CXR with retrocardiac infiltrate. Mini RVP (-). Suspectsevere sepsis iso aspiration pneumonia. Blood NGTD. Sputum nml yayo. Unasyn from 06/16 to 06/21. DISCHARGE DAY INFORMATION: DISCHARGE PHYSICAL EXAM: Vital signs: Blood pressure 151/94, pulse 92, temperature 36.5 ??C (97.7 ??F), temperature source Oral, resp. rate 20, height 1.753 m (5' 9.02 ), weight 61.9 kg (136 lb 7.4 oz), SpO2 100%. General appearance: No acute distress, resting comfortable in bed HEENT: Normocephalic, atraumatic. PERRL, EOMI. Mucous membranes moist Neck: Supple, no JVD Lungs: No respiratory distress. CTA B/L Cardiovascular: Regular rate and rhythm. No murmurs. 2+ radial and DP pulses Abdomen: Soft, non-tender, non-distended. Normoactive bowel sounds Extremities: Moves all four extremities spontaneously. No LE edema. Skin: Warm & dry. No rashes Neuro: Alert, oriented to self, hospital, date, situation. Full strength throughout LAB AND RADIOLOGY: LABS: Results from last 7 days Lab Units 06/24/24 0308 06/21/24 1536 06/20/24 0335 06/19/24 0340 WBC 10*3/uL 7.4 6.4 4.1 5.7 HEMOGLOBIN g/dL 14.4 13.2 13.5 13.7 HEMATOCRIT % 39.7 37.8* 39.4 40.3 PLATELETS 10*3/uL 546* 379 274 162 Results from last 7 days Lab Units 06/25/24 0453 06/24/24 0308 06/22/24 0254 06/21/24 1536 06/21/24 0306 06/20/24 0335 06/19/24 0340 SODIUM mmol/L 137 138 137 138 139 139 139 POTASSIUM mmol/L 3.6 3.1* 4.0 3.7 4.0 4.0 4.1 CHLORIDE mmol/L 105 104 106 105 101 107 105 CARBON DIOXIDE mmol/L 21* 20* 20* 21* 20* 23 21* BUN mg/dL 8 8 12 12 12 11 9 CREATININE mg/dL 0.59* 0.59* 0.61 0.58* 0.58* 0.55* 0.61 GLUCOSE mg/dL 103* 95 153* 114* 110* 161* 161* Results from last 7 days Lab Units 06/20/24 0335 06/19/24 0340 ALBUMIN g/dL 3.2* 3.3* TOTAL BILIRUBIN mg/dL 0.2 -- ALKALINE PHOSPHATASE U/L 104 -- ALT U/L 16 -- AST U/L 20 -- IMAGING: No results found. GLOBAL PLAN OF CARE CONSULTS: IP CONSULT TO SOCIAL WORK IP CONSULT TO NUTRITION SERVICES IP CONSULT TO IV THERAPY NURSE IP CONSULT TO IV THERAPY NURSE PROCEDURES: . Active Lines Name Placement date Placement time Site Days Peripheral IV 06/21/24 Ultrasound-Guided Anterior;Right Upper arm 06/21/24 0939 Upper arm 4 , Active Drains None , Active Airways None VENT SETTINGS (LAST 12 HOURS): QUALITY Telemetry: plan to discontinue telemetry today CONDITION: Good ADVANCED CARE PLANNING Code Status: Full Code Medical Decision Maker: Medical Decision Maker: Patient Why does patient lack capacity?: Encephalopathy/Delirium What is the anticipated duration the HCP will be invoked?: Unknown/Until condition resolves I spent 40 minutes performing discharge day services (e.g. examination, discussion of hospital course, follow up care and planning) as appropriate Signature: NATALIE Alves Electronic Signature Cosigned by Jeison Hogue MD at 06/26/2024 6:51 AM EST Associated attestation - Jeison Hogue MD - 06/26/2024 6:51 AM EST I saw and evaluated the patient on the date of discharge. I reviewed and agree with the SKID WRAPPER/PA's documentation. Brooks Mullen : 1985 CSN: [id number] documented in this encounter Discharge Instructions * Discharge Instructions* NATALIE Alves - 06/25/2024 4:00 PM EST You were provided resources for additional assistance with alcohol cessation. You were started on Zoloft due to self-reported depression and anxiety. You should call the referral number provided to arrange an appointment with a new PCP for continuation of this medication. You should also contact anoutpatient physical therapy office for continued treatment. * Discharge Instr - Diet* NATALIE Alves - 06/25/2024 3:15 PM EST Regular Diet * Attachments The following attachments cannot be sent through Care Everywhere. * Alcohol Abuse and Alcoholism Discharge Instructions (Iranian) * Alcohol Withdrawal Discharge Instructions (Iranian) * Alcohol Withdrawal (Iranian) documented in this encounter Medications at Time of Discharge folic acid (FOLVITE) 1 mg tablet Take 1 tablet (1 mg total) by mouth once a day. 30 tablet 06/26/2024 07/26/2024 sertraline (ZOLOFT) 50 mg tablet Take 1 tablet (50 mg total) by mouth once a day. 30 tablet 06/26/2024 thiamine mononitrate (VITAMIN B1) 100 mg tablet Take 1 tablet (100 mg total) by mouth once a day. 30 tablet 06/26/2024 documented as of this encounter Progress Notes * Jeison Hogue MD - 06/25/2024 9:48 AM EST ICU ATTENDING PROGRESS NOTE PATIENT SUMMARY: 39M w/ PMHx ETOH use disorder who presented from [facility] in [place] w/ CC of ETOH withdrawal delirium refractory to outpatient management. Admitted to CCU for further management. 06/25/24 Hospital LOS: 10 days Subjective 24 HOUR INTERVAL HISTORY: 06/24 Days: - on transfer - pt reports chronic anxiety/depression, started on zoloft - transitioned to PO valium CIWA, d/c'd standing valium - PT recc'd several more sessions inpatient - highest ciwa 8 Seen and examined at bedside. No new acute complaints on 12 system ROS. Objective VS Past 24 Hours ([High] [Low] (Last Recorded Value)): Temp: [36 ??C (96.8 ??F)-37.4 ??C (99.4 ??F)] 36.5 ??C (97.7 ??F) Heart Rate: [83-120] 97 Resp: [13-34] 30 BP: (109-166)/(76-107) 151/93 SpO2: [98 %-100 %] 99 % Physical Exam Constitutional: General: He is not in acute distress. Appearance: He is ill-appearing. He is not toxic-appearing. Eyes: General: No scleral icterus. Right eye: No discharge. Left eye: No discharge. Conjunctiva/sclera: Conjunctivae normal. Cardiovascular: Rate and Rhythm: Normal rate and regular rhythm. Heart sounds: No murmur heard. No gallop. Pulmonary: Effort: Pulmonary effort is normal. No respiratory distress. Breath sounds: No stridor. No wheezing, rhonchi or rales. Abdominal: General: Bowel sounds are normal. There is no distension. Palpations: Abdomen is soft. Tenderness: There is no abdominal tenderness. There is no guarding. Musculoskeletal: Cervical back: Normal range of motion. No rigidity. Right lower leg: No edema. Left lower leg: No edema. Skin: General: Skin is warm. Capillary Refill: Capillary refill takes less than 2 seconds. Coloration: Skin is not jaundiced. Neurological: General: No focal deficit present. Mental Status: He is alert and oriented to person, place, and time. Mental status is at baseline. Psychiatric: Mood and Affect: Mood normal. Behavior: Behavior normal. : I/Os 24 Hours: I/O this shift: In: 200 [P.O.:200] Out: - I/O last 3 completed shifts: In: 960 [P.O.:960] Out: 550 [Urine:550] Labs: I have personally reviewed the patient???s laboratory results from the last 24 hours. Diagnostics & Labs Component Value Date WBC 7.4 06/24/2024 HGB 14.4 06/24/2024 HCT 39.7 06/24/2024 PLT 546 (H) 06/24/2024 Diagnostics & Labs Component Value Date NA 137 06/25/2024 K 3.6 06/25/2024 CL 105 06/25/2024 CO2 21 (L) 06/25/2024 BUN 8 06/25/2024 CREATININE 0.59 (L) 06/25/2024 GLUCOSE 103 (H) 06/25/2024 Diagnostics & Labs Component Value Date AST 20 06/20/2024 ALT 16 06/20/2024 INR 1.0 06/16/2024 BILITOT 0.2 06/20/2024 BILIDIR 0.5 (H) 06/16/2024 TP 6.8 06/20/2024 Imaging: I have personally reviewed the patient???s chest imaging from the last 24 hours. Today, I have personally visualized the real-time EKG tracing and pulse oximetry tracing. HOSPITAL PROBLEMS: Principal Problem: Toxic metabolic encephalopathy Active Problems: Alcohol withdrawal delirium (HCC) Hypokalemia Hypomagnesemia Hyponatremia Pancreatitis Acute respiratory failure with hypoxia (HCC) ASSESSMENT AND PLAN: * 39M with delirium tremens, significantly improved since admission to the ICU. NEUROLOGY #ETOH withdrawal #Opioid withdrawal #Acute encephalopathy Severe withdrawal and persistent scores > 30 requiring high doses of phenobarbital and valium, ultimately with reduced LOC leading to ETT to maintain airway patency. Now extubated and back to baseline mental status. PT evaluated 06/24 and did not clear for discharge. -follow-up -stop clonidine patch -stop CIWA protocol, now >10 days since presentation -continue maintenance dose folic acid and thiamine daily -completed 3 days high dose thiamine on 06/18 -continue sertraline 50 daily (new med this admission) RESPIRATORY #Acute hypoxemic respiratory failure - intubated 06/16, extubated 06/20 #Aspiration PNA/pneumonitis -now weaned to room air CARDIAC -hemodynamic monitoring GASTROINTESTINAL #Alcoholic transaminitis #Pancreatitis, mild -tolerating regular PO diet -continues with loose stools GENITOURINARY #AGMA - resolved #NAGMA likely due to GI losses -BMP MWF -correct electrolytes as indicated INFECTIOUS DISEASE #Sepsis #Aspiration PNA BCX 06/16 sterile. SCX 06/16 with normal yayo. MRSA pcr negative. MiniRVP negative. No fever for >72 hours -completed 5 days of Unasyn on 06/21/24 -completed 7 days of erythromycin ointment to eyes ENDOCRINE -daily glucose checks -CBC MWF HEMATOLOGY #Macrocytosis #Thrombocytopenia - resolved -dvt prophylaxis with lovenox -CBC tomorrow * Full Code I have discussed the plan of care with: Inter-professional team The complexity of management and decision making for the subsequent care of this patient was of high intensity. Care during the described time interval was provided by me. I have reviewed this patient's available data, including medical history, events of note, physical examination and test results, and have overseen the activities of other members of the care team under my direct supervision (e.g. house officers, physician assistants, nurse practitioners). Jeison Hogue M.D. Pulmonary and Critical Care * Alberto Rucker DO - 06/24/2024 9:51 AM EST ICU ATTENDING DAILY PROGRESS NOTE 06/24/24 Hospital LOS: 9 days Code Status: Full Code Medical Decision Maker: Medical Decision Maker: Other - Reviewed/Updated Capacity to make own decisions and HCA Why does patient lack capacity?: Encephalopathy/Delirium What is the anticipated duration the HCP will be invoked?: Unknown/Until condition resolves PATIENT SUMMARY: 39M w/ PMHx ETOH use disorder who presented from [facility] in [place] w/ CC of ETOH withdrawal delirium refractory to outpatient management. Admitted to CCU for further management. Subjective 24 HOUR INTERVAL HISTORY: 06/24 -more lucid this morning, OOB to chair Objective VS FOR PAST 24 Hours ([High] [Low] (Last Recorded Value)): Temp: [37 ??C (98.6 ??F)-37.5 ??C (99.5 ??F)] 37.5 ??C (99.5 ??F) Heart Rate: [98-127] 98 Resp: [15-36] 35 BP: (127-175)/(76-106) 154/101 SpO2: [96 %-100 %] 100 % I/Os LAST 24 HOURS: I/O last 3 completed shifts: In: 1050.5 [P.O.:600; I.V.:250.5; IV Piggyback:200] Out: 350 [Urine:350] Physical Exam: Constitutional: Appearance: He is normal weight. HENT: Head: Normocephalic. Mouth/Throat: Mouth: Mucous membranes are moist. Eyes: Pupils: Pupils are equal, round, and reactive to light. Cardiovascular: Rate and Rhythm: Normal rate and regular rhythm. Heart sounds: Normal heart sounds. Pulmonary: Effort: Pulmonary effort is normal. No respiratory distress. Breath sounds: Normal breath sounds. No wheezing. Abdominal: General: Abdomen is flat. Bowel sounds are normal. Palpations: Abdomen is soft. Musculoskeletal: Right lower leg: No edema. Left lower leg: No edema. Skin: General: Skin is warm. Neurological: Mental Status: He is disoriented. Active Airways None . Active Lines Name Placement date Placement time Site Days Peripheral IV 06/21/24 Ultrasound-Guided Anterior;Right Upper arm 06/21/24 0939 Upper arm 3 Peripheral IV 06/23/24 Anterior;Right Hand 06/23/24 1641 Hand less than 1 Active Drains None MEDICATIONS: acetaminophen, 650 mg, oral, q6h PRN cloNIDine, 1 patch, transdermal, Every Monday And Patch Placement, 1 patch, transdermal, 3x daily diazePAM, 10 mg, intravenous, q2h PRN diazePAM, 20 mg, intravenous, q1h PRN diazePAM, 5 mg, intravenous, q8h BONG diazePAM, 5 mg, intravenous, q2h PRN enoxaparin, 40 mg, subcutaneous, Daily folic acid, 1 mg, oral, Daily haloperidol lactate, 5 mg, intravenous, q6h PRN influenza, 0.5 mL, intramuscular, Prior to Discharge loperamide, 2 mg, oral, 4x daily PRN melatonin, 9 mg, oral, Nightly PRN sodium chloride, 2.5-10 mL, intravenous, See admin instructions And sodium chloride, 2.5-10 mL, intravenous, q12h BONG thiamine, 100 mg, oral, Daily LAB: I have personally reviewed the patient???s laboratory results from the last 24 hours. Diagnostics & Labs Component Value Date WBC 7.4 06/24/2024 HGB 14.4 06/24/2024 HCT 39.7 06/24/2024 PLT 546 (H) 06/24/2024 Diagnostics & Labs Component Value Date NA 138 06/24/2024 K 3.1 (L) 06/24/2024 CL 104 06/24/2024 CO2 20 (L) 06/24/2024 BUN 8 06/24/2024 CREATININE 0.59 (L) 06/24/2024 GLUCOSE 95 06/24/2024 Diagnostics & Labs Component Value Date AST 20 06/20/2024 ALT 16 06/20/2024 INR 1.0 06/16/2024 BILIDIR 0.5 (H) 06/16/2024 BILITOT 0.2 06/20/2024 TP 6.8 06/20/2024 IMAGING: I have personally reviewed the patient???s chest imaging from the last 24 hours. Today I have personally visualized the real-time EKG tracing and pulse oximetry tracing. HOSPITAL PROBLEMS: Principal Problem: Toxic metabolic encephalopathy Active Problems: Alcohol withdrawal delirium (HCC) Hypokalemia Hypomagnesemia Hyponatremia Pancreatitis Acute respiratory failure with hypoxia (HCC) ASSESSMENT AND PLAN: * 39M with delirium tremens, significantly improved since admission to the ICU. NEUROLOGY #ETOH withdrawal #Opioid withdrawal #Acute encephalopathy Severe withdrawal and persistent scores > 30 requiring high doses of phenobarbital and valium, ultimately with reduced LOC leading to ETT to maintain airway patency, since extubated -cont clonidine patch 0.3 -continue CIWA protocol with prn valium -continue valium 5 q8h scheduled -continue maintenance dose folic acid and thiamine daily -completed 3 days high dose thiamine on 06/18 RESPIRATORY #Acute hypoxemic respiratory failure - intubated 06/16, extubated 06/20 #Aspiration PNA/pneumonitis -wean supplemental oxygen for goal SpO2 92-96% -antibiotics as below CARDIAC -hemodynamic monitoring GASTROINTESTINAL #Alcoholic transaminitis #Pancreatitis, mild -advance diet GENITOURINARY #AGMA - resolved #NAGMA likely due to GI losses -CMP tomorrow -correct electrolytes as indicated INFECTIOUS DISEASE #Sepsis #Aspiration PNA BCX 06/16 NGTD. SCX 06/16 with normal yayo. MRSA pcr negative. MiniRVP negative. Fever curve downtrending. -continue Unasyn, completed 5 days 06/21/24 -erythromycin ointment to eyes ENDOCRINE -daily glucose checks HEMATOLOGY #Macrocytosis #Thrombocytopenia - resolved -dvt prophylaxis with lovenox -CBC tomorrow * Global Plan of Care: Global Issues Mobility Level That Needs to Be Ordered: 7 Medical Decision Maker: Patient Disposition: Transfer IV Infusions Reviewed?: Yes I have discussed the plan of care with: Inter-professional team The complexity of management and decision making for the subsequent care of this patient was of moderate intensity. I have seen and evaluated the patient. Time reflects my time spent in full attention to the management of this patient's care where I was immediately available to the patient. It is exclusive of any time spent teaching or performing procedures. I agree with the resident/fellow's documentation as derrick nded/augmented. Alberto Rucker DO Brooks Melendezsterling : 1985 CSN: [id number] * NATALIE Gomez - 06/24/2024 8:07 AM EST CRITICAL CARE PROGRESS NOTE PATIENT SUMMARY: 39M w/ PMHx ETOH use disorder who presented from [facility] in [place] w/ CC of ETOH withdrawal delirium refractory to outpatient management. Admitted to CCU for further management. Hospital LOS: 9 days Subjective 24 HOUR INTERVAL HISTORY: 06/23 Days: - weaned off precedex - passed bedside swallow, regular diet - stopped IVF - d/c'd ICU glycemic, will assess with BMP - recurrent diarrhea, low K+ -- added immodium Objective VITAL SIGNS FOR PAST 24 Hours ([High] [Low] (Last Recorded Value)): Temp: [37 ??C (98.6 ??F)-37.4 ??C (99.3 ??F)] 37.4 ??C (99.3 ??F) Heart Rate: [81-127] 102 Resp: [15-36] 31 BP: (127-175)/(76-106) 157/100 SpO2: [96 %-100 %] 97 % I/Os LAST 24 HOURS: No intake/output data recorded. I/O last 3 completed shifts: In: 1050.5 [P.O.:600; I.V.:250.5; IV Piggyback:200] Out: 350 [Urine:350] PHYSICAL EXAM: Physical Exam Vitals and nursing note reviewed. Constitutional: General: He is not in acute distress. Appearance: He is ill-appearing. He is not toxic-appearing. HENT: Head: Normocephalic and atraumatic. Cardiovascular: Rate and Rhythm: Normal rate and regular rhythm. Pulses: Normal pulses. Heart sounds: Normal heart sounds. No murmur heard. Pulmonary: Effort: Pulmonary effort is normal. No respiratory distress. Breath sounds: Normal breath sounds. Abdominal: General: Bowel sounds are normal. There is no distension. Palpations: Abdomen is soft. Tenderness: There is no abdominal tenderness. Musculoskeletal: Right lower leg: No edema. Left lower leg: No edema. Skin: General: Skin is warm and dry. Neurological: General: No focal deficit present. Mental Status: He is alert and oriented to person, place, and time. . Active Lines Name Placement date Placement time Site Days Peripheral IV 06/21/24 Ultrasound-Guided Anterior;Right Upper arm 06/21/24 0939 Upper arm 2 Peripheral IV 06/23/24 Anterior;Right Hand 06/23/24 1641 Hand less than 1 MEDICATIONS: All medications reviewed. LAB: I have personally reviewed the patient's lab results from the past 24 hours. Results from last 7 days Lab Units 06/24/24 0308 06/22/24 0254 06/21/24 1536 06/21/24 0306 SODIUM mmol/L 138 137 138 139 POTASSIUM mmol/L 3.1* 4.0 3.7 4.0 CHLORIDE mmol/L 104 106 105 101 CARBON DIOXIDE mmol/L 20* 20* 21* 20* BUN mg/dL 8 12 12 12 CREATININE mg/dL 0.59* 0.61 0.58* 0.58* GLUCOSE mg/dL 95 153* 114* 110* ANION GAP 14 11 12 18* MAGNESIUM mg/dL 1.9 2.1 -- 2.1 PHOSPHORUS mg/dL 3.4 3.6 -- 3.9 CALCIUM mg/dL 8.7 8.5* 8.6 9.3 Results from last 7 days Lab Units 06/24/24 0308 06/21/24 1536 06/20/24 0335 WBC 10*3/uL 7.4 6.4 4.1 HEMOGLOBIN g/dL 14.4 13.2 13.5 HEMATOCRIT % 39.7 37.8* 39.4 PLATELETS 10*3/uL 546* 379 274 Results from last 7 days Lab Units 06/20/24 0335 06/19/24 0340 ALBUMIN g/dL 3.2* 3.3* TOTAL BILIRUBIN mg/dL 0.2 -- AST U/L 20 -- ALT U/L 16 -- ALKALINE PHOSPHATASE U/L 104 -- IMAGING/OTHER STUDIES: I have personally reviewed the patient's imaging results None to report HOSPITAL PROBLEMS: Principal Problem: Toxic metabolic encephalopathy Active Problems: Alcohol withdrawal delirium (HCC) Hypokalemia Hypomagnesemia Hyponatremia Pancreatitis Acute respiratory failure with hypoxia (HCC) Assessment & Plan Nervous History of alcohol use disorder -- last drink 06/14, unknown how much daily, or if any prior withdrawal seizures. Presenting from [facility] with concern for alcohol withdrawal after he was found altered,hallucinating and tremulous, with rising CIWA scores. CTH negative for acute process. Received multiple doses of valium and phenobarb, ultimately required intubation due to worsening mentation and severe metabolic alkalosis. Suspect toxic metabolic encephalopathy secondary to ETOH withdrawal. Weaned off sedation and extubated 06/20. Became increasingly agitated, delirious overnight 06/20, requiringprecedex. Later weaned off precedex 06/23, mentation has since been clearing. Of note, pt stated they take methadone and was positive on his drug screen. However he was found tohave received a dose at [facility] prior to presentation, and there is no record of him having it dispensed previously. - wean off precedex as able - continue haldol PRN, clonidine patch 0.3 - d/c standing valium - continue CIWA with PO valium - continue folic acid/thiamine - erythromycin eye ointment for B/L conjunctivitis - d/c 1:1 Respiratory Initially presented oxygenating appropriately on 2L. Course complicated by worsening neurologic suppression, ultimately requiring intubation for severe metabolic alkalosis pH 7.64/. CXR with retrocardiac infiltrate suspicious for aspiration pneumonia. Initially failing SBT for tachypnea, was able to be extubated to [place] 06/20. - Maintain SpO2 > 92% Circulatory Presents tachycardic, hypertensive in the setting of severe ETOH withdrawal and dehydration. Troponin <6, EKG with sinus tach, TWI V1-V4. Given 2L IVF resuscitation. Since HDS. - Maintain SBP >90 Digestive Presents with abnormal LFTs, likely iso chronic ETOH abuse - downtrending on repeat. Developed diarrhea, possibly iso opiate withdrawal. Responding well to imodium and banatrol. Passed repeat bedsideswallow 06/23, tolerating a diet. - Regular diet Renal / Genitourinary Presents with baseline sCr 0.9, severe electrolyte derangements with hypokalemia, hypomagnesemia, and hypocalcemia. Severe AGMA with pH 7.65/, GAP 16, sHCO3 13 on arrival -- etiology unclear with asa, apap, LA, osmolar gap, bun are all normal, could be related to significant diarrhea coupled with mild starvation ketoacidosis with bhb 1.0. - BMP, Mg, Phos MWF Musculoskeletal Skin wound was found as per physical exam findings. WOCN consulted and recomendations have been appreciated. Please refer to WOCN notes for accurate staging and tx plan. All tx recommendations are confirmed on the patient's active orders list. Endocrine / Metabolic Without known endocrinopathies. At risk for derangements in the setting of critical illness. Has not had any insulin requirements while inpatient, monitoring glucose on BMP. - glucose as per BMP Hematologic Macrocytic anemia, with elevated MCV. H/H 17/46 -- likely 2/2 hemoconcentration. Thrombocytopenic to 90s w/ normal INR. Low concern for active bleeding. - MWF CBC - DVT prophy w/ lovenox Infectious / Inflammatory Initially presented afebrile without leukocytosis. Course complicated by worsening mentation leading to aspiration, febrile to 102.6, tachycardia, CXR with retrocardiac infiltrate. Mini RVP negative.MRSA negative. Suspect severe sepsis iso aspiration pneumonia, started on unasyn. Respiratory culture w/ growth of normal yayo. Blood cultures negative. Completed course of unasyn 06/21. - Monitor off abx GLOBAL PLAN OF CARE: Code Status: Full Code Global Issues Mobility Level That Needs to Be Ordered: 7 Medical Decision Maker: Patient Disposition: Transfer IV Infusions Reviewed?: Yes FLUIDS/ELECTROLYTES/NUTRITION VTE PROPHYLAXIS Current Facility-Administered Medications Medication enoxaparin DISCHARGE PLANNING/PLACEMENT: I have discussed the plan of care with: Patient and Attending The complexity of management and decision making for the subsequent care of this patient was of high intensity. Care during the described time interval was provided by me. I have reviewed this patient's available data, including medical history, events of note, physical examination and test results as part of my evaluation SIGNATURE: NATALIE Gomez Electronic Signature Brooks Mullen : 1985 CSN: [id number] * Alberto Ruckre DO - 06/23/2024 9:37 AM EST ICU ATTENDING DAILY PROGRESS NOTE 06/23/24 Hospital LOS: 8 days Code Status: Full Code Medical Decision Maker: Medical Decision Maker: Other - Reviewed/Updated Capacity to make own decisions and HCA Why does patient lack capacity?: Encephalopathy/Delirium What is the anticipated duration the HCP will be invoked?: Unknown/Until condition resolves PATIENT SUMMARY: 39M w/ PMHx ETOH use disorder who presented from [facility] in [place] w/ CC of ETOH withdrawal delirium refractory to outpatient management. Admitted to CCU for further management. Subjective 24 HOUR INTERVAL HISTORY: 06/23 He is hungry this morning Objective VS FOR PAST 24 Hours ([High] [Low] (Last Recorded Value)): Temp: [36 ??C (96.8 ??F)-37 ??C (98.6 ??F)] 36.9 ??C (98.4 ??F) Heart Rate: [66-88] 81 Resp: [17-33] 19 BP: (135-167)/(76-103) 157/101 SpO2: [95 %-99 %] 98 % I/Os LAST 24 HOURS: I/O last 3 completed shifts: In: 2251.8 [I.V.:2051.8; IV Piggyback:200] Out: 1275 [Urine:1275] Physical Exam: Constitutional: Appearance: He is normal weight. HENT: Head: Normocephalic. Mouth/Throat: Mouth: Mucous membranes are moist. Eyes: Pupils: Pupils are equal, round, and reactive to light. Cardiovascular: Rate and Rhythm: Normal rate and regular rhythm. Heart sounds: Normal heart sounds. Pulmonary: Effort: Pulmonary effort is normal. No respiratory distress. Breath sounds: Normal breath sounds. No wheezing. Abdominal: General: Abdomen is flat. Bowel sounds are normal. Palpations: Abdomen is soft. Musculoskeletal: Right lower leg: No edema. Left lower leg: No edema. Skin: General: Skin is warm. Neurological: Mental Status: He is disoriented. Active Airways None . Active Lines Name Placement date Placement time Site Days Peripheral IV 06/21/24 Ultrasound-Guided Anterior;Right Upper arm 06/21/24 0939 Upper arm 1 Active Drains None MEDICATIONS: acetaminophen (OFIRMEV) IV, 1,000 mg, intravenous, q8h PRN cloNIDine, 1 patch, transdermal, Every Monday And Patch Placement, 1 patch, transdermal, 3x daily dexmedetomidine, 0.2-1.5 mcg/kg/hr, intravenous, Titrated dextrose, 15 g, oral, q15min PRN Or dextrose, 6.25 g, intravenous, q15min PRN Or dextrose, 12.5 g, intravenous, q15min PRN Or dextrose, 25 g, intravenous, q15min PRN dextrose 5% and lactated Ringer's (LR), , intravenous, Continuous dextrose 5% and sodium chloride 0.9% (NS), , intravenous, Continuous PRN diazePAM, 10 mg, intravenous, q2h PRN diazePAM, 20 mg, intravenous, q1h PRN diazePAM, 5 mg, intravenous, q8h BONG diazePAM, 5 mg, intravenous, q2h PRN enoxaparin, 40 mg, subcutaneous, Daily folic acid injection, 1 mg, intravenous, Daily haloperidol lactate, 5 mg, intravenous, q6h PRN influenza, 0.5 mL, intramuscular, Prior to Discharge insulin lispro, 1-20 Units, subcutaneous, See admin instructions insulin regular (ICU infusion guideline), 0.5-20 Units/hr, intravenous, Continuous PRN sodium chloride, 2.5-10 mL, intravenous, See admin instructions And sodium chloride, 2.5-10 mL, intravenous, q12h BONG LAB: I have personally reviewed the patient???s laboratory results from the last 24 hours. Diagnostics & Labs Component Value Date WBC 6.4 06/21/2024 HGB 13.2 06/21/2024 HCT 37.8 (L) 06/21/2024 PLT 379 06/21/2024 Diagnostics & Labs Component Value Date NA 137 06/22/2024 K 4.0 06/22/2024 CL 106 06/22/2024 CO2 20 (L) 06/22/2024 BUN 12 06/22/2024 CREATININE 0.61 06/22/2024 GLUCOSE 153 (H) 06/22/2024 Diagnostics & Labs Component Value Date AST 20 06/20/2024 ALT 16 06/20/2024 INR 1.0 06/16/2024 BILIDIR 0.5 (H) 06/16/2024 BILITOT 0.2 06/20/2024 TP 6.8 06/20/2024 IMAGING: I have personally reviewed the patient???s chest imaging from the last 24 hours. Today I have personally visualized the real-time EKG tracing and pulse oximetry tracing. HOSPITAL PROBLEMS: Principal Problem: Toxic metabolic encephalopathy Active Problems: Alcohol withdrawal delirium (HCC) Hypokalemia Hypomagnesemia Hyponatremia Pancreatitis Acute respiratory failure with hypoxia (HCC) ASSESSMENT AND PLAN: * 39M with delirium tremens. NEUROLOGY #ETOH withdrawal #Opioid withdrawal #Acute encephalopathy Severe withdrawal and persistent scores > 30 requiring high doses of phenobarbital and valium, ultimately with reduced LOC leading to ETT to maintain airway patency, since extubated -wean off precedex gtt today -cont clonidine patch 0.3 -continue CIWA protocol with prn valium -continue valium 5 q8h scheduled -haldol prn -continue maintenance dose folic acid and thiamine daily -completed 3 days high dose thiamine on 06/18 RESPIRATORY #Acute hypoxemic respiratory failure - intubated 06/16, extubated 06/20 #Aspiration PNA/pneumonitis -wean supplemental oxygen for goal SpO2 92-96% -antibiotics as below CARDIAC -hemodynamic monitoring GASTROINTESTINAL #Alcoholic transaminitis #Pancreatitis, mild -advance diet GENITOURINARY #AGMA - resolved #NAGMA likely due to GI losses -repeat BMP this afternoon -CMP tomorrow -correct electrolytes as indicated -mandujano removed 06/20 INFECTIOUS DISEASE #Sepsis #Aspiration PNA BCX 06/16 NGTD. SCX 06/16 with normal yayo. MRSA pcr negative. MiniRVP negative. Fever curve downtrending. -continue Unasyn, completed 5 days 06/21/24 -erythromycin ointment to eyes ENDOCRINE -daily glucose checks HEMATOLOGY #Macrocytosis #Thrombocytopenia - resolved -dvt prophylaxis with lovenox -CBC tomorrow * Global Plan of Care: Global Issues Mobility Level That Needs to Be Ordered: 7 Ready to Start Nutrition: Will start nutrition today Medical Decision Maker: Other - Reviewed/Updated Capacity to make own decisions and HCA Why does patient lack capacity?: Encephalopathy/Delirium What is the anticipated duration the HCP will be invoked?: Unknown/Until condition resolves Disposition: Keep IV Infusions Reviewed?: Yes I have discussed the plan of care with: Inter-professional team The complexity of management and decision making for the subsequent care of this patient was of high intensity. I have seen and evaluated the patient. Time reflects my time spent in full attention to the management of this patient's care where I was immediately available to the patient. It is exclusive of any time spent teaching or performing procedures. I agree with the resident/fellow's documentation as derrick nded/augmented. DO Brooks Salazar : 1985 CSN: [id number] * NATALIE Gomez - 06/23/2024 6:38 AM EST CRITICAL CARE PROGRESS NOTE PATIENT SUMMARY: 39M w/ PMHx ETOH use disorder who presented from [facility] in [place] w/ CC of ETOH withdrawal delirium refractory to outpatient management. Admitted to CCU for further management. Hospital LOS: 8 days Subjective 24 HOUR INTERVAL HISTORY: 06/22 Days: - slowly weaning precedex - very delirious, requiring frequent redirection - R. Leg pain, APAP w/o effect, trialled 1x dose of toradol w/ effect - PT eval ordered - highest ciwa overnight 3 Objective VITAL SIGNS FOR PAST 24 Hours ([High] [Low] (Last Recorded Value)): Temp: [36 ??C (96.8 ??F)-37 ??C (98.6 ??F)] 36.5 ??C (97.7 ??F) Heart Rate: [66-88] 70 Resp: [17-34] 27 BP: (135-167)/(76-103) 167/103 SpO2: [95 %-99 %] 97 % I/Os LAST 24 HOURS: I/O this shift: In: 597.2 [I.V.:597.2] Out: 700 [Urine:700] I/O last 3 completed shifts: In: 2270 [I.V.:2070; IV Piggyback:200] Out: 975 [Urine:975] PHYSICAL EXAM: Physical Exam Constitutional: General: He is not in acute distress. Appearance: He is ill-appearing. He is not toxic-appearing. HENT: Head: Normocephalic and atraumatic. Mouth/Throat: Mouth: Mucous membranes are moist. Cardiovascular: Rate and Rhythm: Regular rhythm. Tachycardia present. Pulses: Normal pulses. Heart sounds: Normal heart sounds. No murmur heard. Pulmonary: Effort: Pulmonary effort is normal. No respiratory distress. Breath sounds: Normal breath sounds. Abdominal: General: Bowel sounds are normal. There is no distension. Palpations: Abdomen is soft. Tenderness: There is no abdominal tenderness. Musculoskeletal: Right lower leg: No edema. Left lower leg: No edema. Skin: General: Skin is warm and dry. Neurological: General: No focal deficit present. Mental Status: He is alert. He is disoriented. . Active Lines Name Placement date Placement time Site Days Peripheral IV 06/21/24 Ultrasound-Guided Anterior;Right Upper arm 06/21/24 0939 Upper arm 2 MEDICATIONS: All medications reviewed. LAB: I have personally reviewed the patient's lab results from the past 24 hours. Results from last 7 days Lab Units 06/22/24 0254 06/21/24 1536 06/21/24 0306 06/20/24 0335 SODIUM mmol/L 137 138 139 139 POTASSIUM mmol/L 4.0 3.7 4.0 4.0 CHLORIDE mmol/L 106 105 101 107 CARBON DIOXIDE mmol/L 20* 21* 20* 23 BUN mg/dL 12 12 12 11 CREATININE mg/dL 0.61 0.58* 0.58* 0.55* GLUCOSE mg/dL 153* 114* 110* 161* ANION GAP 11 12 18* 9 MAGNESIUM mg/dL 2.1 -- 2.1 2.1 PHOSPHORUS mg/dL 3.6 -- 3.9 3.3 CALCIUM mg/dL 8.5* 8.6 9.3 8.6 Results from last 7 days Lab Units 06/21/24 1536 06/20/24 0335 06/19/24 0340 WBC 10*3/uL 6.4 4.1 5.7 HEMOGLOBIN g/dL 13.2 13.5 13.7 HEMATOCRIT % 37.8* 39.4 40.3 PLATELETS 10*3/uL 379 274 162 Results from last 7 days Lab Units 06/20/24 0335 06/19/24 0340 ALBUMIN g/dL 3.2* 3.3* TOTAL BILIRUBIN mg/dL 0.2 -- AST U/L 20 -- ALT U/L 16 -- ALKALINE PHOSPHATASE U/L 104 -- IMAGING/OTHER STUDIES: I have personally reviewed the patient's imaging results None to report HOSPITAL PROBLEMS: Principal Problem: Toxic metabolic encephalopathy Active Problems: Alcohol withdrawal delirium (HCC) Hypokalemia Hypomagnesemia Hyponatremia Pancreatitis Acute respiratory failure with hypoxia (HCC) Assessment & Plan Nervous History of alcohol use disorder -- last drink 06/14, unknown how much daily, or if any prior withdrawal seizures. Presenting from [facility] with concern for alcohol withdrawal after he was found altered,hallucinating and tremulous, with rising CIWA scores. CTH negative for acute process. Received multiple doses of valium and phenobarb, ultimately required intubation due to worsening mentation and severe metabolic alkalosis. Suspect toxic metabolic encephalopathy secondary to ETOH withdrawal. Weaned off sedation and extubated 06/20. Became increasingly agitated, delirious overnight 06/20, requiringprecedex. Of note, pt stated they take methadone and was positive on his drug screen. However he was found tohave received a dose at [facility] prior to presentation, and there is no record of him having it dispensed previously. - wean off precedex as able - continue haldol PRN, clonidine patch 0.3, standing Valium 5mg q8h - continue CIWA with IV valium - transition to folic acid PO - erythromycin eye ointment for B/L conjunctivitis - 1:1 for safety Respiratory Initially presented oxygenating appropriately on 2L. Course complicated by worsening neurologic suppression, ultimately requiring intubation for severe metabolic alkalosis pH 7.64/. CXR with retrocardiac infiltrate suspicious for aspiration pneumonia. Initially failing SBT for tachypnea, was able to be extubated to [place] 06/20. - Maintain SpO2 > 92% Circulatory Presents tachycardic, hypertensive in the setting of severe ETOH withdrawal and dehydration. Troponin <6, EKG with sinus tach, TWI V1-V4. Given 2L IVF resuscitation. Since HDS. - monitor hemodynamics Digestive Presents with abnormal LFTs, likely iso chronic ETOH abuse - downtrending on repeat. Developed diarrhea, possibly iso opiate withdrawal. Responding well to imodium and banatrol. Passed repeat bedsideswallow 06/23, tolerating a diet. - Regular diet Renal / Genitourinary Presents with baseline sCr 0.9, severe electrolyte derangements with hypokalemia, hypomagnesemia, and hypocalcemia. Severe AGMA with pH 7.65/, GAP 16, sHCO3 13 -- etiology unclear with asa, apap, LA, osmolar gap, bun are all normal, could be related to significant diarrhea coupled with mild sta rvation ketoacidosis with bhb 1.0. - BMP, Mg, Phos MWF - d/c D5LR Musculoskeletal Skin wound was found as per physical exam findings. WOCN consulted and recomendations have been appreciated. Please refer to WOCN notes for accurate staging and tx plan. All tx recommendations are confirmed on the patient's active orders list. Endocrine / Metabolic Without known endocrinopathies. At risk for derangements in the setting of critical illness. - d/c ICU glycemic, monitor on BMP Hematologic Macrocytic anemia, with elevated MCV. H/H 17/46 -- likely 2/2 hemoconcentration. Thrombocytopenic to 90s w/ normal INR. Low concern for active bleeding. - MWF CBC - DVT prophy w/ lovenox Infectious / Inflammatory Initially presented afebrile without leukocytosis. Course complicated by worsening mentation leading to aspiration, febrile to 102.6, tachycardia, CXR with retrocardiac infiltrate. Mini RVP negative.MRSA negative. Suspect severe sepsis iso aspiration pneumonia, started on unasyn. Respiratory culture w/ growth of normal yayo. Blood cultures NGTD. Completed course of unasyn 06/21. - Monitor off abx - Follow-up blood cultures GLOBAL PLAN OF CARE: Code Status: Full Code Global Issues Mobility Level That Needs to Be Ordered: 7 Ready to Start Nutrition: Will start nutrition today Medical Decision Maker: Other - Reviewed/Updated Capacity to make own decisions and HCA Why does patient lack capacity?: Encephalopathy/Delirium What is the anticipated duration the HCP will be invoked?: Unknown/Until condition resolves Disposition: Keep FLUIDS/ELECTROLYTES/NUTRITION Current Fluids/Electrolytes/TPN Stop dextrose 5% and lactated Ringer's (LR) premix infusion intravenous, Continuous -- VTE PROPHYLAXIS Current Facility-Administered Medications Medication enoxaparin DISCHARGE PLANNING/PLACEMENT: I have discussed the plan of care with: Patient and Attending This patient is critically ill with acute organ failure, present and threatened. Today, I personally spent 90 minutes performing and managing evaluation and management services for this critically ill patient with life-threatening organ failure, Neurological Failure: I performed frequent, serial assessments to enable emergent intervention in managing acute neurological deterioration. Care during the described time interval was provided by me. I have reviewed this patient's available data, including medical history, events of note, physical examination and test results as part of my evaluation SIGNATURE: NATALIE Gomez Electronic Signature Brooks Mullen : 1985 CSN: [id number] * Alberto Rucker DO - 06/22/2024 10:24 AM EST ICU ATTENDING DAILY PROGRESS NOTE 06/22/24 Hospital LOS: 7 days Code Status: Full Code Medical Decision Maker: Medical Decision Maker: Other - Reviewed/Updated Capacity to make own decisions and HCA Why does patient lack capacity?: Encephalopathy/Delirium What is the anticipated duration the HCP will be invoked?: Unknown/Until condition resolves PATIENT SUMMARY: 39M w/ PMHx ETOH use disorder who presented from [facility] in [place] w/ CC of ETOH withdrawal delirium refractory to outpatient management. Admitted to CCU for further management. Subjective 24 HOUR INTERVAL HISTORY: 06/22 -awake and calm Objective VS FOR PAST 24 Hours ([High] [Low] (Last Recorded Value)): Temp: [36.1 ??C (97 ??F)-38.1 ??C (100.6 ??F)] 36.1 ??C (97 ??F) Heart Rate: [76-95] 82 Resp: [17-40] 21 BP: (126-161)/(83-108) 159/97 SpO2: [94 %-98 %] 97 % I/Os LAST 24 HOURS: I/O last 3 completed shifts: In: 1939.8 [I.V.:1839.8; IV Piggyback:100] Out: 700 [Urine:700] Physical Exam Constitutional: Appearance: He is normal weight. HENT: Head: Normocephalic. Mouth/Throat: Mouth: Mucous membranes are moist. Eyes: Pupils: Pupils are equal, round, and reactive to light. Cardiovascular: Rate and Rhythm: Normal rate and regular rhythm. Heart sounds: Normal heart sounds. Pulmonary: Effort: Pulmonary effort is normal. No respiratory distress. Breath sounds: Normal breath sounds. No wheezing. Abdominal: General: Abdomen is flat. Bowel sounds are normal. Palpations: Abdomen is soft. Musculoskeletal: Right lower leg: No edema. Left lower leg: No edema. Skin: General: Skin is warm. Neurological: Mental Status: He is disoriented. : Active Airways None . Active Lines Name Placement date Placement time Site Days Peripheral IV 06/21/24 Ultrasound-Guided Anterior;Right Upper arm 06/21/24 0939 Upper arm 1 Peripheral IV 06/22/24 Anterior;Left Forearm 06/22/24 0959 Forearm less than 1 Active Drains Drain Duration External Urinary Catheter external male catheter 1 day MEDICATIONS: cloNIDine, 1 patch, transdermal, Every Monday And Patch Placement, 1 patch, transdermal, 3x daily dexmedetomidine, 0.2-1.5 mcg/kg/hr, intravenous, Titrated dextrose, 15 g, oral, q15min PRN Or dextrose, 6.25 g, intravenous, q15min PRN Or dextrose, 12.5 g, intravenous, q15min PRN Or dextrose, 25 g, intravenous, q15min PRN dextrose 5% and lactated Ringer's (LR), , intravenous, Continuous dextrose 5% and sodium chloride 0.9% (NS), , intravenous, Continuous PRN diazePAM, 10 mg, intravenous, q2h PRN diazePAM, 20 mg, intravenous, q1h PRN diazePAM, 5 mg, intravenous, q8h BONG diazePAM, 5 mg, intravenous, q2h PRN enoxaparin, 40 mg, subcutaneous, Daily erythromycin, 0.5 inch, both eyes, q6h BONG folic acid injection, 1 mg, intravenous, Daily haloperidol lactate, 5 mg, intravenous, q6h PRN influenza, 0.5 mL, intramuscular, Prior to Discharge insulin lispro, 1-20 Units, subcutaneous, See admin instructions insulin regular (ICU infusion guideline), 0.5-20 Units/hr, intravenous, Continuous PRN sodium chloride, 2.5-10 mL, intravenous, See admin instructions And sodium chloride, 2.5-10 mL, intravenous, q12h BONG thiamine, 100 mg, intravenous, Daily LAB: I have personally reviewed the patient???s laboratory results from the last 24 hours. Diagnostics & Labs Component Value Date WBC 6.4 06/21/2024 HGB 13.2 06/21/2024 HCT 37.8 (L) 06/21/2024 PLT 379 06/21/2024 Diagnostics & Labs Component Value Date NA 137 06/22/2024 K 4.0 06/22/2024 CL 106 06/22/2024 CO2 20 (L) 06/22/2024 BUN 12 06/22/2024 CREATININE 0.61 06/22/2024 GLUCOSE 153 (H) 06/22/2024 Diagnostics & Labs Component Value Date AST 20 06/20/2024 ALT 16 06/20/2024 INR 1.0 06/16/2024 BILIDIR 0.5 (H) 06/16/2024 BILITOT 0.2 06/20/2024 TP 6.8 06/20/2024 IMAGING: I have personally reviewed the patient???s chest imaging from the last 24 hours. Today I have personally visualized the real-time EKG tracing and pulse oximetry tracing. HOSPITAL PROBLEMS: Principal Problem: Toxic metabolic encephalopathy Active Problems: Alcohol withdrawal delirium (HCC) Hypokalemia Hypomagnesemia Hyponatremia Pancreatitis Acute respiratory failure with hypoxia (HCC) ASSESSMENT AND PLAN: * 39M with delirium tremens. NEUROLOGY #ETOH withdrawal #Opioid withdrawal #Acute encephalopathy Severe withdrawal and persistent scores > 30 requiring high doses of phenobarbital and valium, ultimately with reduced LOC leading to ETT to maintain airway patency. CTH negative at the time of admission though degraded by motion artifact. Remains encephalopathic/delirious since extubation. Appears to be hallucinating. Precedex started overnight. 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 -repeat BMP this afternoon -CMP tomorrow -correct electrolytes as indicated -mandujano removed 06/20 INFECTIOUS DISEASE #Sepsis #Aspiration PNA BCX 06/16 NGTD. SCX 06/16 with normal yayo. MRSA pcr negative. MiniRVP negative. Fever curve downtrending. -continue Unasyn, completed 5 days 06/21/24 -erythromycin ointment to eyes ENDOCRINE -daily glucose checks HEMATOLOGY #Macrocytosis #Thrombocytopenia - resolved -dvt prophylaxis with lovenox -CBC tomorrow * Global Plan of Care: Global Issues Mobility Level That Needs to Be Ordered: 6 Ready to Start Nutrition: Enteral nutrition is not indicated while awaiting dysphagia evaluation Medical Decision Maker: Other - Reviewed/Updated Capacity to make own decisions and HCA Why does patient lack capacity?: Encephalopathy/Delirium What is the anticipated duration the HCP will be invoked?: Unknown/Until condition resolves Disposition: Keep IV Infusions Reviewed?: Yes I have discussed the plan of care with: Inter-professional team This patient is critically ill with acute organ failure, present and threatened. Today, I personally spent 37 minutes performing and managing evaluation and management services for this critically ill patient with life-threatening organ failure, Neurological Failure: I performed frequent, serial assessments to enable emergent intervention in the prevention and management of intracranial pressure with risk of imminent neurological compromise and . I have seen and evaluated the patient. Time reflects my time spent in full attention to the management of this patient's care where I was immediately available to the patient. It is exclusive of any time spent teaching or performing procedures. I agree with the resident/fellow's documentation as derrick nded/augmented. Alberto Rucker DO Brooks Mullen : 1985 CSN: [id number] * NATALIE Gomez - 06/22/2024 8:27 AM EST CRITICAL CARE PROGRESS NOTE PATIENT SUMMARY: 39M w/ PMHx ETOH use disorder who presented from [facility] in [place] w/ CC of ETOH withdrawal delirium refractory to outpatient management. Admitted to CCU for further management. Hospital LOS: 7 days Subjective 24 HOUR INTERVAL HISTORY: 06/21 - weaning precedex - hallucinating - started haldol - started clonidine patch - D5LR at 75 while NPO - cbc holiday - higher ciwa 7 Objective VITAL SIGNS FOR PAST 24 Hours ([High] [Low] (Last Recorded Value)): Temp: [36.1 ??C (97 ??F)-38.1 ??C (100.6 ??F)] 36.1 ??C (97 ??F) Heart Rate: [76-95] 78 Resp: [17-40] 34 BP: (126-161)/(83-108) 157/99 SpO2: [94 %-99 %] 97 % I/Os LAST 24 HOURS: I/O this shift: In: 97.6 [I.V.:97.6] Out: - I/O last 3 completed shifts: In: 193.8 [I.V.:1839.8; IV Piggyback:100] Out: 700 [Urine:700] PHYSICAL EXAM: Physical Exam Vitals and nursing note reviewed. Constitutional: General: He is not in acute distress. Appearance: He is ill-appearing. He is not toxic-appearing. Comments: Drowsy, wakes to voice HENT: Head: Normocephalic and atraumatic. Mouth/Throat: Mouth: Mucous membranes are dry. Eyes: Pupils: Pupils are equal, round, and reactive to light. Cardiovascular: Rate and Rhythm: Normal rate and regular rhythm. Pulses: Normal pulses. Heart sounds: Normal heart sounds. No murmur heard. Pulmonary: Effort: Pulmonary effort is normal. No respiratory distress. Breath sounds: Normal breath sounds. Abdominal: General: Bowel sounds are normal. There is no distension. Palpations: Abdomen is soft. Tenderness: There is no abdominal tenderness. Musculoskeletal: Right lower leg: No edema. Left lower leg: No edema. Skin: General: Skin is warm and dry. Neurological: General: No focal deficit present. Mental Status: He is disoriented. Comments: Answers orientation questions appropriately however stated he just went out to smoke a pack . Active Lines Name Placement date Placement time Site Days Peripheral IV 06/21/24 Anterior;Proximal;Right Forearm 06/21/24 0312 Forearm 1 Peripheral IV 06/21/24 Ultrasound-Guided Anterior;Right Upper arm 06/21/24 0939 Upper arm less than1 , Active Drains Drain Duration External Urinary Catheter external male catheter 1 day MEDICATIONS: All medications reviewed. LAB: I have personally reviewed the patient's lab results from the past 24 hours. Results from last 7 days Lab Units 06/22/24 0254 06/21/24 1536 06/21/24 0306 06/20/24 0335 SODIUM mmol/L 137 138 139 139 POTASSIUM mmol/L 4.0 3.7 4.0 4.0 CHLORIDE mmol/L 106 105 101 107 CARBON DIOXIDE mmol/L 20* 21* 20* 23 BUN mg/dL 12 12 12 11 CREATININE mg/dL 0.61 0.58* 0.58* 0.55* GLUCOSE mg/dL 153* 114* 110* 161* ANION GAP 11 12 18* 9 MAGNESIUM mg/dL 2.1 -- 2.1 2.1 PHOSPHORUS mg/dL 3.6 -- 3.9 3.3 CALCIUM mg/dL 8.5* 8.6 9.3 8.6 Results from last 7 days Lab Units 06/21/24 1536 06/20/24 0335 06/19/24 0340 WBC 10*3/uL 6.4 4.1 5.7 HEMOGLOBIN g/dL 13.2 13.5 13.7 HEMATOCRIT % 37.8* 39.4 40.3 PLATELETS 10*3/uL 379 274 162 Results from last 7 days Lab Units 06/20/24 0335 06/19/24 0340 06/16/24 0342 ALBUMIN g/dL 3.2* 3.3* 3.7 TOTAL BILIRUBIN mg/dL 0.2 -- 1.2 DIRECT BILIRUBIN mg/dL -- -- 0.5* AST U/L 20 -- 47* ALT U/L 16 -- 43* ALKALINE PHOSPHATASE U/L 104 -- 112 Results from last 7 days Lab Units 06/16/24 0342 INR 1.0 Results from last 7 days Lab Units 06/16/24 0734 LACTIC ACID mmol/L 1.0 IMAGING/OTHER STUDIES: I have personally reviewed the patient's imaging results None to report HOSPITAL PROBLEMS: Principal Problem: Toxic metabolic encephalopathy Active Problems: Alcohol withdrawal delirium (HCC) Hypokalemia Hypomagnesemia Hyponatremia Pancreatitis Acute respiratory failure with hypoxia (HCC) Assessment & Plan Nervous History of alcohol use disorder -- last drink 06/14, unknown how much daily, or if any prior withdrawal seizures. Presenting from [facility] with concern for alcohol withdrawal after he was found altered,hallucinating and tremulous, with rising CIWA scores. CTH negative for acute process. Received multiple doses of valium and phenobarb, ultimately required intubation due to worsening mentation and severe metabolic alkalosis. Suspect toxic metabolic encephalopathy secondary to ETOH withdrawal. Weaned off sedation and extubated 06/20. Became increasingly agitated, delirious overnight 06/20, requiringprecedex. Patient states that he takes methadone, and was positive on his drug screen. Found to have receiveda dose at [facility] prior to presentation, and there is no record of him receiving prior doses at other facilities. - wean off precedex as able - continue haldol PRN, clonidine patch 0.3, standing Valium 5mg q8h - continue CIWA with IV valium - continue IV folic and thiamine supplementation - erythromycin eye ointment for B/L conjunctivitis - 1:1 for safety Respiratory Initially presented oxygenating appropriately on 2L. Course complicated by worsening neurologic suppression, ultimately requiring intubation for severe metabolic alkalosis pH 7.64/18/19. CXR with retrocardiac infiltrate suspicious for aspiration pneumonia. Initially failing SBT for tachypnea, was able to be extubated to [place] 06/20. - Maintain SpO2 > 92% Circulatory Presents tachycardic, hypertensive in the setting of severe ETOH withdrawal and dehydration. Troponin <6, EKG with sinus tach, TWI V1-V4. Given 2L IVF resuscitation. Since HDS. - monitor hemodynamics Digestive Presents with abnormal LFTs, likely iso chronic ETOH abuse - downtrending on repeat. Developed diarrhea, possibly iso opiate withdrawal. Responding well to imodium and banatrol. 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 Severe AGMA with pH 7.65/18/19, GAP 16, sHCO3 13 -- etiology unclear with asa, apap, LA, osmolar gap, bun are all normal, could be related to significant diarrhea coupled with mild sta rvation ketoacidosis with bhb 1.0. - BMP, Mg, Phos daily, replete PRN - Continue D5LR 75/hr Musculoskeletal Skin wound was found as per physical exam findings. [facility] consulted and recomendations have been appreciated. Please refer to [facility] notes for accurate staging and tx plan. All tx recommendations are confirmed on the patient's active orders list. Endocrine / Metabolic Without known endocrinopathies. At risk for derangements in the setting of critical illness. - ICU glycemic protocol Hematologic Macrocytic anemia, with elevated MCV. H/H 17/46 -- likely 2/2 hemoconcentration. Thrombocytopenic to 90s w/ normal INR. Low concern for active bleeding. - MWF CBC - DVT prophy w/ enoxaparin Infectious / Inflammatory Initially presented afebrile without leukocytosis. Course complicated by worsening mentation leading to aspiration, febrile to 102.6, tachycardia, CXR with retrocardiac infiltrate. Mini RVP negative.MRSA negative. Suspect severe sepsis iso aspiration pneumonia, started on unasyn. Respiratory culture w/ growth of normal yayo. Blood cultures NGTD. Completed course of unasyn 06/21. - Monitor off abx - Follow-up blood cultures GLOBAL PLAN OF CARE: Code Status: Full Code Global Issues Mobility Level That Needs to Be Ordered: 6 Ready to Start Nutrition: Enteral nutrition is not indicated while awaiting dysphagia evaluation Medical Decision Maker: Other - Reviewed/Updated Capacity to make own decisions and HCA Why does patient lack capacity?: Encephalopathy/Delirium What is the anticipated duration the HCP will be invoked?: Unknown/Until condition resolves Disposition: Keep IV Infusions Reviewed?: Yes FLUIDS/ELECTROLYTES/NUTRITION Current Fluids/Electrolytes/TPN Stop dextrose 5% and lactated Ringer's (LR) premix infusion intravenous, Continuous -- VTE PROPHYLAXIS Current Facility-Administered Medications Medication enoxaparin DISCHARGE PLANNING/PLACEMENT: I have discussed the plan of care with: Attending This patient is critically ill with acute organ failure, present and threatened. Today, I personally spent 80 minutes performing and managing evaluation and management services for this critically ill patient with life-threatening organ failure, Neurological Failure: I performed frequent, serial assessments to enable emergent intervention in managing acute neurological deterioration. Care during the described time interval was provided by me. I have reviewed this patient's available data, including medical history, events of note, physical examination and test results as part of my evaluation SIGNATURE: NATALIE Gomez Electronic Signature Brooks Mullen : 1985 CSN: [id number] * Jeison Hogue MD - 06/21/2024 10:09 AM EST ICU ATTENDING PROGRESS NOTE PATIENT SUMMARY: 39M w/ PMHx ETOH use disorder who presented from [facility] in [place] w/ CC of ETOH withdrawal delirium refractory to outpatient management. Admitted to CCU for further management. 06/21/24 Hospital LOS: 6 days Subjective 24 HOUR INTERVAL HISTORY: 06/20 - extubated to [place] - restarted CIWA - added standing valium in place of librium - added 1:1 for safety Overnight: -Fentanyl x2 -Started Precedex Objective VS Past 24 Hours ([High] [Low] (Last Recorded Value)): Temp: [36.8 ??C (98.2 ??F)-38.3 ??C (100.9 ??F)] 38.3 ??C (100.9 ??F) Heart Rate: [83-135] 95 Resp: [18-41] 25 BP: (129-169)/(94-123) 149/99 SpO2: [92 %-100 %] 99 % Physical Exam Constitutional: General: He is not in acute distress. Appearance: He is normal weight. He is ill-appearing and toxic-appearing. Eyes: General: No scleral icterus. Right eye: No discharge. Left eye: No discharge. Conjunctiva/sclera: Conjunctivae normal. Cardiovascular: Rate and Rhythm: Regular rhythm. Tachycardia present. Heart sounds: No murmur heard. No gallop. Pulmonary: Effort: Pulmonary effort is normal. No respiratory distress. Breath sounds: No stridor. Rhonchi and rales present. No wheezing. Abdominal: General: Bowel sounds are normal. There is no distension. Palpations: Abdomen is soft. Tenderness: There is no abdominal tenderness. There is no guarding. Musculoskeletal: Cervical back: Normal range of motion. No rigidity. Right lower leg: No edema. Left lower leg: No edema. Skin: General: Skin is warm. Capillary Refill: Capillary refill takes less than 2 seconds. Coloration: Skin is not jaundiced. Neurological: Mental Status: He is alert. Comments: Awake and intermittently interactive but overall delirious with intermittent hallucinations : I/Os 24 Hours: I/O this shift: In: 144.2 [I.V.:44.2; IV Piggyback:100] Out: - I/O last 3 completed shifts: In: 1243.4 [I.V.:236.7; IV Piggyback:626.7] Out: 990 [Urine:990] Labs: I have personally reviewed the patient???s laboratory results from the last 24 hours. Diagnostics & Labs Component Value Date WBC 4.1 06/20/2024 HGB 13.5 06/20/2024 HCT 39.4 06/20/2024 PLT 274 06/20/2024 Diagnostics & Labs Component Value Date NA 139 06/21/2024 K 4.0 06/21/2024 CL 101 06/21/2024 CO2 20 (L) 06/21/2024 BUN 12 06/21/2024 CREATININE 0.58 (L) 06/21/2024 GLUCOSE 110 (H) 06/21/2024 Diagnostics & Labs Component Value Date AST 20 06/20/2024 ALT 16 06/20/2024 INR 1.0 06/16/2024 BILITOT 0.2 06/20/2024 BILIDIR 0.5 (H) 06/16/2024 TP 6.8 06/20/2024 Imaging: I have personally reviewed the patient???s chest imaging from the last 24 hours. Today, I have personally visualized the real-time EKG tracing and pulse oximetry tracing. HOSPITAL PROBLEMS: Principal Problem: Toxic metabolic encephalopathy Active Problems: Alcohol withdrawal delirium (HCC) Hypokalemia Hypomagnesemia Hyponatremia Pancreatitis Acute respiratory failure with hypoxia (HCC) ASSESSMENT AND PLAN: * NEUROLOGY #ETOH withdrawal #Opioid withdrawal #Acute encephalopathy Severe withdrawal and persistent scores > 30 requiring high doses of phenobarbital and valium, ultimately with reduced LOC leading to ETT to maintain airway patency. CTH negative at the time of admission though degraded by motion artifact. Remains encephalopathic/delirious since extubation. Appears to be hallucinating. Precedex started overnight. 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 -start D5LR 75/hr while NPO -repeat BMP this afternoon -CMP tomorrow -correct electrolytes as indicated -mandujano removed 06/20 INFECTIOUS DISEASE #Sepsis #Aspiration PNA BCX 06/16 NGTD. SCX 06/16 with normal yayo. MRSA pcr negative. MiniRVP negative. Fever curve downtrending. -continue Unasyn, completes 5 days today -erythromycin ointment to eyes ENDOCRINE -daily glucose checks HEMATOLOGY #Macrocytosis #Thrombocytopenia - resolved -dvt prophylaxis with lovenox -CBC tomorrow * Global Issues Restraint Need Reviewed: Not needed Mobility Level That Needs to Be Ordered: 6 Urinary Catheter Indicated Today: Not Needed Medical Decision Maker: Other - Reviewed/Updated Capacity to make own decisions and HCA Why does patient lack capacity?: Encephalopathy/Delirium What is the anticipated duration the HCP will be invoked?: Unknown/Until condition resolves Disposition: Keep IV Infusions Reviewed?: Yes Full Code I have discussed the plan of care with: Inter-professional team This patient is critically ill with acute organ failure, present and threatened. Today, I personally spent 38 minutes performing and managing evaluation and management services for this critically ill patient with life-threatening organ failure, Neurological Failure: I performed frequent, serial assessments to enable emergent intervention in managing acute neurological deterioration. Care during the described time interval was provided by me. I have reviewed this patient's available data, including medical history, events of note, physical examination and test results, and have overseen the activities of other members of the care team under my direct supervision (e.g. house officers, physician assistants, nurse practitioners). Jeison Hogue M.D. Pulmonary and Critical Care * NATALIE North - 06/21/2024 8:04 AM EST CRITICAL CARE PROGRESS NOTE PATIENT SUMMARY: 39M w/ PMHx ETOH use disorder who presented from [facility] in [place] w/ CC of ETOH withdrawal delirium refractory to outpatient management. Admitted to CCU for further management. Hospital LOS: 6 days Subjective 24 HOUR INTERVAL HISTORY: 06/20 - extubated to [place] - restarted CIWA - added standing valium in place of librium - added 1:1 for safety Overnight: -Fentanyl x2 -Started Precedex Objective VITAL SIGNS FOR PAST 24 Hours ([High] [Low] (Last Recorded Value)): Temp: [36.8 ??C (98.2 ??F)-38.2 ??C (100.8 ??F)] 37.5 ??C (99.5 ??F) Heart Rate: [83-135] 123 Resp: [18-41] 33 BP: (129-169)/(94-123) 164/96 SpO2: [92 %-100 %] 97 % Set FiO2 (O2%): [30 %] 30 % I/Os LAST 24 HOURS: No intake/output data recorded. I/O last 3 completed shifts: In: 1232.8 [I.V.:226.1; IV Piggyback:626.7] Out: 990 [Urine:990] PHYSICAL EXAM: Physical Exam Vitals and nursing note reviewed. HENT: Head: Normocephalic and atraumatic. Right Ear: External ear normal. Left Ear: External ear normal. Eyes: Pupils: Pupils are equal, round, and reactive to light. Comments: Conjunctivitis Cardiovascular: Rate and Rhythm: Normal rate and regular rhythm. Heart sounds: Normal heart sounds. Pulmonary: Breath sounds: Rhonchi present. Comments: Tachypnea, rhonchi present Abdominal: General: Bowel sounds are normal. Genitourinary: Comments: deferred Musculoskeletal: Cervical back: Neck supple. Right lower leg: No edema. Left lower leg: No edema. Skin: General: Skin is warm and dry. Capillary Refill: Capillary refill takes less than 2 seconds. Neurological: Mental Status: He is alert. Comments: Alert, hallucinating, intermittently following commands . Active Lines Name Placement date Placement time Site Days Peripheral IV 06/20/24 Anterior;Left Forearm 06/20/24 0130 Forearm 1 Peripheral IV 06/21/24 Anterior;Proximal;Right Forearm 06/21/24 0312 Forearm less than 1 Peripheral IV 06/21/24 Posterior;Right;Lateral Forearm 06/21/24 0558 Forearm less than 1 , Active Drains None , Active Airways None VENT SETTINGS (LAST 12 HOURS): MEDICATIONS: Scheduled Meds:diazePAM, 5 mg, intravenous, q8h BONG enoxaparin, 40 mg, subcutaneous, Daily erythromycin, 0.5 inch, both eyes, q6h BONG folic acid injection, 1 mg, intravenous, Daily influenza, 0.5 mL, intramuscular, Prior to Discharge insulin lispro, 1-20 Units, subcutaneous, See admin instructions sodium chloride, 2.5-10 mL, intravenous, See admin instructions And sodium chloride, 2.5-10 mL, intravenous, q12h BONG thiamine, 100 mg, intravenous, Daily Continuous Infusions:dexmedetomidine, 0.2-1.5 mcg/kg/hr, Last Rate: 1.1 mcg/kg/hr (06/21/24 0714) dextrose 5% and sodium chloride 0.9% (NS), , Last Rate: Stopped (06/16/24 1745) insulin regular (ICU infusion guideline), 0.5-20 Units/hr PRN Meds:.PRN medications: dextrose OR dextrose OR dextrose OR dextrose, dextrose 5% and sodium chloride 0.9% (NS), diazePAM, diazePAM, diazePAM, haloperidol lactate, insulin regular (ICUinfusion guideline) LAB: I have personally reviewed the patient's lab results from the past 24 hours. Results from last 7 days Lab Units 06/20/24 0335 06/19/24 0340 06/18/24 0326 06/17/24 0006 06/16/24 0342 WBC 10*3/uL 4.1 5.7 7.0 7.9 7.7 HEMOGLOBIN g/dL 13.5 13.7 12.2* 12.8* 15.8 HEMATOCRIT % 39.4 40.3 36.1* 35.9* 42.4 PLATELETS 10*3/uL 274 162 97* 71* 86* Results from last 7 days Lab Units 06/21/24 0306 06/20/24 0335 06/19/24 0340 06/18/24 0326 06/17/24 0752 SODIUM mmol/L 139 139 139 136 139 POTASSIUM mmol/L 4.0 4.0 4.1 4.1 4.6 CHLORIDE mmol/L 101 107 105 106 108* CARBON DIOXIDE mmol/L 20* 23 21* 18* 21* BUN mg/dL 12 11 9 9 10 CREATININE mg/dL 0.58* 0.55* 0.61 0.54* 0.61 GLUCOSE mg/dL 110* 161* 161* 140* 107* Results from last 7 days Lab Units 06/20/24 0335 06/19/24 0340 06/16/24 0342 06/15/24 0050 ALBUMIN g/dL 3.2* 3.3* 3.7 4.2 TOTAL BILIRUBIN mg/dL 0.2 -- 1.2 1.5* DIRECT BILIRUBIN mg/dL -- -- 0.5* -- ALKALINE PHOSPHATASE U/L 104 -- 112 136* ALT U/L 16 -- 43* 66* AST U/L 20 -- 47* 88* Results from last 7 days Lab Units 06/16/24 0342 INR 1.0 Results from last 7 days Lab Units 06/16/24 0734 LACTIC ACID mmol/L 1.0 IMAGING/OTHER STUDIES: I have personally reviewed the patient's imaging results No radiology results in the last 2 days HOSPITAL PROBLEMS: Principal Problem: Toxic metabolic encephalopathy Active Problems: Alcohol withdrawal delirium (HCC) Hypokalemia Hypomagnesemia Hyponatremia Pancreatitis Acute respiratory failure with hypoxia (HCC) Assessment & Plan Nervous History of alcohol use disorder -- last drink 06/14, unknown how much daily, or if any prior withdrawal seizures. Presenting from [facility] with concern for alcohol withdrawal after he was found altered,hallucinating and tremulous, with rising CIWA scores. CTH negative for acute process. Received multiple doses of valium and phenobarb, ultimately required intubation due to worsening mentation and severe metabolic alkalosis. Suspect toxic metabolic encephalopathy secondary to ETOH withdrawal. Weaned off sedation and extubated 06/20. Became increasingly agitated, delirious overnight 06/20, requiringprecedex. Patient states that he takes methadone, and was positive on his drug screen. Found to have receiveda dose at [facility] prior to presentation, and there is no record of him receiving prior doses at other facilities. - wean off precedex as able - start haldol PRN - start clonidine patch 0.3 - continue standing Valium 5mg q8h - restart CIWA with IV valium - continue IV folic and thiamine supplementation - erythromycin eye ointment for B/L conjunctivitis - 1:1 for his safety Respiratory Initially presented oxygenating appropriately on 2L. Course complicated by worsening neurologic suppression, ultimately requiring intubation for severe metabolic alkalosis pH 7.64/18/19. CXR with retrocardiac infiltrate suspicious for aspiration pneumonia. Initially failing SBT for tachypnea, was able to be extubated to [place] 06/20. - Maintain SpO2 > 92%, requiring 2L at this time Circulatory Presents tachycardic, hypertensive in the setting of severe ETOH withdrawal and dehydration. Troponin <6, EKG with sinus tach, TWI V1-V4. Given 2L IVF resuscitation. Since HDS. - monitor hemodynamics Digestive Presents with abnormal LFTs, likely iso chronic ETOH abuse - downtrending on repeat. Developed diarrhea, possibly iso opiate withdrawal. Responding well to imodium and banatrol. 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 Severe AGMA with pH 7.65/18/19, GAP 16, sHCO3 13 -- etiology unclear with asa, apap, LA, osmolar gap, bun are all normal, could be related to significant diarrhea coupled with mild sta rvation ketoacidosis with bhb 1.0. - BMP, Mg, Phos daily, replete PRN - repeat this afternoon - D5LR at 75/hr today Musculoskeletal Skin wound was found as per physical exam findings. WOCN consulted and recomendations have been appreciated. Please refer to WOCN notes for accurate staging and tx plan. All tx recommendations are confirmed on the patient's active orders list. Endocrine / Metabolic Without known endocrinopathies. At risk for derangements in the setting of critical illness. - ICU glycemic protocol Hematologic Macrocytic anemia, with elevated MCV. H/H -- likely 2/2 hemoconcentration. Thrombocytopenic to 90s w/ normal INR. Low concern for active bleeding. - Daily CBC - DVT prophy w/ enoxaparin Infectious / Inflammatory Initially presented afebrile without leukocytosis. Course complicated by worsening mentation leading to aspiration, febrile to 102.6, tachycardia, CXR with retrocardiac infiltrate. Mini RVP negative.MRSA negative. Suspect severe sepsis iso aspiration pneumonia, started on unasyn. Respiratory culture w/ growth of normal yayo. Blood cultures NGTD. - finished unasyn 06/21 - Follow up blood cultures GLOBAL PLAN OF CARE: Code Status: Full Code Global Issues Mobility Level That Needs to Be Ordered: 6 Medical Decision Maker: Other - Reviewed/Updated Capacity to make own decisions and HCA Why does patient lack capacity?: Encephalopathy/Delirium What is the anticipated duration the HCP will be invoked?: Unknown/Until condition resolves Disposition: Keep IV Infusions Reviewed?: Yes FLUIDS/ELECTROLYTES/NUTRITION VTE PROPHYLAXIS Current Facility-Administered Medications Medication enoxaparin DISCHARGE PLANNING/PLACEMENT: I have discussed the plan of care with: Patient, Attending, and Inter- professional team This patient is critically ill with acute organ failure, present and threatened. Today, I personally spent 72 minutes performing and managing evaluation and management services for this critically ill patient with life-threatening organ failure, Neurological Failure: I performed frequent, serial assessments to enable emergent intervention in managing acute neurological deterioration. Care during the described time interval was provided by me. I have reviewed this patient's available data, including medical history, events of note, physical examination and test results as part of my evaluation SIGNATURE: NATALIE North Electronic Signature Brooks Mullen : 1985 CSN: [id number] * Jeison Hogue MD - 06/20/2024 10:39 AM EST ICU ATTENDING PROGRESS NOTE PATIENT SUMMARY: 39M w/ PMHx ETOH use disorder who presented from [facility] in [place] w/ CC of ETOH withdrawal delirium refractory to outpatient management. Admitted to CCU for further management. 06/20/24 Hospital LOS: 5 days Subjective 24 HOUR INTERVAL HISTORY: 06/19 Days: - tolerating SBT however tachypneic to 30s so deferred extubation - restarted prop, continued precedex - d/c'd phenobarb protocol - decreased banatrol to BID, pt had 500cc stool output, increased to TID Overnight: -Back on vent due to tachypnea and decreased Vt Objective VS Past 24 Hours ([High] [Low] (Last Recorded Value)): Temp: [37.5 ??C (99.5 ??F)-38.3 ??C (100.9 ??F)] 38.1 ??C (100.6 ??F) Heart Rate: [69-93] 90 Resp: [14-38] 38 BP: (122-157)/(80-117) 147/117 SpO2: [92 %-100 %] 99 % Set FiO2 (O2%): [30 %] 30 % Physical Exam: PE prior to extubation Constitutional: General: He is not in acute distress. Appearance: He is normal weight. He is ill-appearing. HENT: Head: Normocephalic and atraumatic. Nose: Nose normal. Mouth/Throat: Mouth: Mucous membranes are moist. Pharynx: Oropharynx is clear. Comments: ETT Eyes: General: No scleral icterus. Conjunctiva/sclera: Conjunctivae normal. Pupils: Pupils are equal, round, and reactive to light. Cardiovascular: Rate and Rhythm: Normal rate and regular rhythm. Pulses: Normal pulses. Heart sounds: No murmur heard. Pulmonary: Effort: Pulmonary effort is normal. Breath sounds: Rhonchi present. Comments: Intubated, ventilated, coarse breath sounds at the bases Abdominal: General: Abdomen is flat. Bowel sounds are normal. There is no distension. Palpations: Abdomen is soft. Tenderness: There is no abdominal tenderness. Musculoskeletal: Right lower leg: No edema. Left lower leg: No edema. Skin: General: Skin is warm and dry. Neurological: Comments: Sedated, opens eyes to voice, follows commands I/Os 24 Hours: I/O this shift: In: 639.2 [I.V.:159.2; IV Piggyback:100] Out: 190 [Urine:190] I/O last 3 completed shifts: In: 2359.5 [I.V.:577.5; IV Piggyback:300] Out: 1617 [Urine:1092; Stool:525] Labs: I have personally reviewed the patient???s laboratory results from the last 24 hours. Diagnostics & Labs Component Value Date WBC 4.1 06/20/2024 HGB 13.5 06/20/2024 HCT 39.4 06/20/2024 PLT 274 06/20/2024 Diagnostics & Labs Component Value Date NA 139 06/20/2024 K 4.0 06/20/2024 CL 107 06/20/2024 CO2 23 06/20/2024 BUN 11 06/20/2024 CREATININE 0.55 (L) 06/20/2024 GLUCOSE 161 (H) 06/20/2024 Diagnostics & Labs Component Value Date AST 20 06/20/2024 ALT 16 06/20/2024 INR 1.0 06/16/2024 BILITOT 0.2 06/20/2024 BILIDIR 0.5 (H) 06/16/2024 TP 6.8 06/20/2024 Imaging: I have personally reviewed the patient???s chest imaging from the last 24 hours. Today, I have personally visualized the real-time EKG tracing and pulse oximetry tracing. HOSPITAL PROBLEMS: Principal Problem: Toxic metabolic encephalopathy Active Problems: Alcohol withdrawal delirium (HCC) Hypokalemia Hypomagnesemia Hyponatremia Pancreatitis Acute respiratory failure with hypoxia (HCC) ASSESSMENT AND PLAN: * NEUROLOGY #ETOH withdrawal #Opioid withdrawal #Acute encephalopathy #Sedation Severe withdrawal and persistent scores > 30 requiring high doses of phenobarbital and valium, ultimately with reduced LOC leading to ETT to maintain airway patency. CTH negative at the time of admission though degraded by motion artifact. -stopped propofol with extubation this morning -wean off precedex gtt as tolerated -restart CIWA protocol with prn valium -start valium 5 q8h scheduled. Had to stop librium taper with loss of enteral access -continue maintenance dose folic acid and thiamine daily -completed 3 days high dose thiamine on 06/18 RESPIRATORY #Acute hypoxemic respiratory failure - intubated 06/16, extubated 06/20 #Aspiration PNA/pneumonitis Intubated 06/16 in the setting of respiratory distress due to polysubstance withdrawal. Evidence of blood in the mouth per anesthesia at time of intubation. There is a retrocardiac consolidation on repeat CXR and there are copious purulent secretions in in the ETT. -passed SBT this morning and extubated to nasal cannula -wean supplemental oxygen for goal SpO2 92-96% CARDIAC -hemodynamic monitoring GASTROINTESTINAL #Alcoholic transaminitis #Pancreatitis, mild -stop SUP with extubation -NPO, EXPEDITION SUPERVISOR tomorrow 24 hours post-extubation -remove rectal tube GENITOURINARY #AGMA - resolved #NAGMA likely due to GI losses -remove mandujano -CMP tomorrow -correct electrolytes as indicated INFECTIOUS DISEASE #Sepsis #Aspiration PNA BCX 06/16 NGTD. SCX 06/16 with normal yayo. MRSA pcr negative. MiniRVP negative. Fever curve downtrending. -continue Unasyn, day 1 06/16, planned to end 06/21 -erythromycin ointment to eyes ENDOCRINE -daily glucose checks HEMATOLOGY #Macrocytosis #Thrombocytopenia -dvt prophylaxis with lovenox -CBC tomorrow * Global Issues Restraint Need Reviewed: Not needed Mobility Level That Needs to Be Ordered: 6 Urinary Catheter Indicated Today: Not Needed Medical Decision Maker: Patient Disposition: Keep IV Infusions Reviewed?: Yes Full Code I have discussed the plan of care with: Inter-professional team This patient is critically ill with acute organ failure, present and threatened. Today, I personally spent 42 minutes performing and managing evaluation and management services for this critically ill patient with life-threatening organ failure, Neurological Failure: I performed frequent, serial assessments to enable emergent intervention in managing acute neurological deterioration. Respiratory Failure: I made serial acute adjustments, and evaluations for further adjustments, to life saving oxygenation support to manage, prevent worsening and/or hasten recovery of acute life-threatening hypoxemia. Care during the described time interval was provided by me. I have reviewed this patient's available data, including medical history, events of note, physical examination and test results, and have overseen the activities of other members of the care team under my direct supervision (e.g. house officers, physician assistants, nurse practitioners). Jeison Hogue M.D. Pulmonary and Critical Care * NATALIE North - 06/20/2024 7:23 AM EST CRITICAL CARE PROGRESS NOTE PATIENT SUMMARY: 39M w/ PMHx ETOH use disorder who presented from [facility] in [place] w/ CC of ETOH withdrawal delirium refractory to outpatient management. Admitted to CCU for further management. Hospital LOS: 5 days Subjective 24 HOUR INTERVAL HISTORY: 06/19 Days: - tolerating SBT however tachypneic to 30s so deferred extubation - restarted prop, continued precedex - d/c'd phenobarb protocol - decreased banatrol to BID, pt had 500cc stool output, increased to TID Overnight: -Back on vent due to tachypnea and decreased Vt Objective VITAL SIGNS FOR PAST 24 Hours ([High] [Low] (Last Recorded Value)): Temp: [37.3 ??C (99.1 ??F)-38.1 ??C (100.6 ??F)] 38 ??C (100.4 ??F) Heart Rate: [64-87] 84 Resp: [14-38] 24 BP: (122-152)/(80-104) 142/93 SpO2: [92 %-100 %] 94 % Set FiO2 (O2%): [30 %] 30 % I/Os LAST 24 HOURS: No intake/output data recorded. I/O last 3 completed shifts: In: 2359.5 [I.V.:577.5; IV Piggyback:300] Out: 1617 [Urine:1092; Stool:525] PHYSICAL EXAM: Physical Exam Vitals and nursing note reviewed. HENT: Head: Normocephalic and atraumatic. Right Ear: External ear normal. Left Ear: External ear normal. Mouth/Throat: Comments: ETT and OGT in place Eyes: Pupils: Pupils are equal, round, and reactive to light. Cardiovascular: Rate and Rhythm: Normal rate and regular rhythm. Heart sounds: Normal heart sounds. Pulmonary: Comments: tachypnea Abdominal: General: Bowel sounds are normal. Genitourinary: Comments: Mandujano in place Musculoskeletal: Cervical back: Neck supple. Right lower leg: No edema. Left lower leg: No edema. Skin: General: Skin is warm and dry. Capillary Refill: Capillary refill takes less than 2 seconds. Neurological: Mental Status: He is alert. Comments: Alert, follows commands appropriately while sedated . Active Lines Name Placement date Placement time Site Days Peripheral IV 06/16/24 Posterior;Right Forearm 06/16/24 1222 Forearm 3 Peripheral IV 06/19/24 Anterior;Right Forearm 06/19/24 0400 Forearm 1 Peripheral IV 06/20/24 Anterior;Left Forearm 06/20/24 0130 Forearm less than 1 , Active Drains Drain Duration GASTROINTESTINAL TUBES (Single Lumen) OG - Bryan Sump 16 Center mouth 3 days Rectal tube fecal management system 3 days Urethral Catheter 16 Fr. 3 days , Active Airways Airway Duration ETT 3 days VENT SETTINGS (LAST 12 HOURS): Ventilation Day(s): 4 Vent Mode: Volume control/assist control S RR: 14 breaths per minute A RR: 23 Per Minute Set PEEP/CPAP (cm H2O): 5 cm H2O Set FiO2 (O2%): 30 % S VT: 450 mL NE SUP: 5 cm H20 Set I:E: 1:2.9 MV Exp: 9.6 L/min MAP (cm H2O): 13.26 cm H2O Plateau Pressure (cm H2O): 17 cm H2O PEEP (cm H2O): 4.7 cm H2O I:E Ratio: 1:1.2 Set Tinsp: 1.1 sec Vt Spontaneous (mL): 0 mL A VT: 477 mL MEDICATIONS: Scheduled Meds:amino acids-protein hydrolysate, 1 packet, gastric tube, Daily ampicillin-sulbactam, 3 g, intravenous, q6h BONG banana ahhchp-CZQ-rapiq, 1 packet, gastric tube, 3x daily chlordiazePOXIDE, 25 mg, gastric tube, q6h BONG enoxaparin, 40 mg, subcutaneous, Daily erythromycin, 0.5 inch, both eyes, q6h BONG famotidine, 20 mg, oral, 2x daily folic acid, 1 mg, oral, Daily influenza, 0.5 mL, intramuscular, Prior to Discharge insulin lispro, 1-20 Units, subcutaneous, See admin instructions sodium chloride, 2.5-10 mL, intravenous, See admin instructions And sodium chloride, 2.5-10 mL, intravenous, q12h BONG thiamine, 100 mg, gastric tube, Daily Continuous Infusions:dexmedetomidine, 0.2-1.5 mcg/kg/hr, Last Rate: 1.2 mcg/kg/hr (06/20/24 0410) dextrose 5% and sodium chloride 0.9% (NS), , Last Rate: Stopped (06/16/24 1745) insulin regular (ICU infusion guideline), 0.5-20 Units/hr propofol, 5-50 mcg/kg/min, Last Rate: 30 mcg/kg/min (06/20/24 0706) PRN Meds:.PRN medications: acetaminophen, dextrose OR dextrose OR dextrose OR dextrose,dextrose 5% and sodium chloride 0.9% (NS), insulin regular (ICU infusion guideline), propofol LAB: I have personally reviewed the patient's lab results from the past 24 hours. Results from last 7 days Lab Units 06/20/24 0335 06/19/24 0340 06/18/24 0326 06/17/24 0006 06/16/24 0342 WBC 10*3/uL 4.1 5.7 7.0 7.9 7.7 HEMOGLOBIN g/dL 13.5 13.7 12.2* 12.8* 15.8 HEMATOCRIT % 39.4 40.3 36.1* 35.9* 42.4 PLATELETS 10*3/uL 274 162 97* 71* 86* Results from last 7 days Lab Units 06/20/24 0335 06/19/24 0340 06/18/24 0326 06/17/24 0752 06/17/24 0006 SODIUM mmol/L 139 139 136 139 137 POTASSIUM mmol/L 4.0 4.1 4.1 4.6 3.3* CHLORIDE mmol/L 107 105 106 108* 108* CARBON DIOXIDE mmol/L 23 21* 18* 21* 18* BUN mg/dL 11 9 9 10 9 CREATININE mg/dL 0.55* 0.61 0.54* 0.61 0.65 GLUCOSE mg/dL 161* 161* 140* 107* 114* Results from last 7 days Lab Units 06/20/24 0335 06/19/24 0340 06/16/24 0342 06/15/24 0050 ALBUMIN g/dL 3.2* 3.3* 3.7 4.2 TOTAL BILIRUBIN mg/dL 0.2 -- 1.2 1.5* DIRECT BILIRUBIN mg/dL -- -- 0.5* -- ALKALINE PHOSPHATASE U/L 104 -- 112 136* ALT U/L 16 -- 43* 66* AST U/L 20 -- 47* 88* Results from last 7 days Lab Units 06/16/24 0342 INR 1.0 Results from last 7 days Lab Units 06/16/24 0734 LACTIC ACID mmol/L 1.0 IMAGING/OTHER STUDIES: I have personally reviewed the patient's imaging results No radiology results in the last 2 days HOSPITAL PROBLEMS: Principal Problem: Toxic metabolic encephalopathy Active Problems: Alcohol withdrawal delirium (HCC) Hypokalemia Hypomagnesemia Hyponatremia Pancreatitis Acute respiratory failure with hypoxia (HCC) Assessment & Plan Nervous History of alcohol use disorder -- last drink 06/14, unknown how much daily, or if any prior withdrawal seizures. Presenting from [facility] with concern for alcohol withdrawal after he was found altered,hallucinating and tremulous, with rising CIWA scores. CTH negative for acute process. Received multiple doses of valium and phenobarb, ultimately required intubation due to worsening mentation and severe metabolic alkalosis. Suspect toxic metabolic encephalopathy secondary to ETOH withdrawal. Weaned off sedation and extubated 06/20. - weaned off sedation - transition from librium to standing Valium IV, 5 q8h - restart CIWA with IV valium - continue IV folic and thiamine supplementation - erythromycin eye ointment for B/L conjunctivitis Respiratory Initially presented oxygenating appropriately on 2L. Course complicated by worsening neurologic suppression, ultimately requiring intubation for severe metabolic alkalosis pH 7.64/1819. CXR with retrocardiac infiltrate suspicious for aspiration pneumonia. Initially failing SBT for tachypnea, was able to be extubated to [place] 06/20. - Maintain SpO2 > 92% - extubated to [place] Circulatory Presents tachycardic, hypertensive in the setting of severe ETOH withdrawal and dehydration. Troponin <6, EKG with sinus tach, TWI V1-V4. Given 2L IVF resuscitation. Since HDS. - Maintain MAP > 65 Digestive Presents with abnormal LFTs, likely iso chronic ETOH abuse - downtrending on repeat. Developed diarrhea, possibly iso opiate withdrawal. Responding well to imodium and banatrol. - Diet:EXPEDITION SUPERVISOR tomorrow morning - d/c SUP - Bowel regimen: on hold d/t diarrhea, remove rectal tube if able Renal / Genitourinary Presents with baseline sCr 0.9, severe electrolyte derangements with hypokalemia, hypomagnesemia, and hypocalcemia. Severe AGMA with pH 7.65/, GAP 16, sHCO3 13 -- etiology unclear with asa, apap, LA, osmolar gap, bun are all normal, could be related to significant diarrhea coupled with mild sta rvation ketoacidosis with bhb 1.0. -BMP, Mg, Phos daily, replete PRN - remove mandujano today Musculoskeletal Skin wound was found as per physical exam findings. WOCN consulted and recomendations have been appreciated. Please refer to WOCN notes for accurate staging and tx plan. All tx recommendations are confirmed on the patient's active orders list. Endocrine / Metabolic Without known endocrinopathies. At risk for derangements in the setting of critical illness. -ICU glycemic protocol Hematologic Macrocytic anemia, with elevated MCV. H/H 17/46 -- likely 2/2 hemoconcentration. Thrombocytopenic to 90s w/ normal INR. Low concern for active bleeding. -Daily CBC -DVT prophy w/ enoxaparin Infectious / Inflammatory Initially presented afebrile without leukocytosis. Course complicated by worsening mentation leading to aspiration, febrile to 102.6, tachycardia, CXR with retrocardiac infiltrate. Mini RVP negative.MRSA negative. Suspect severe sepsis iso aspiration pneumonia, started on unasyn. Respiratory culture w/ growth of normal yayo. Blood cultures NGTD. -Continue unasyn- ends 06/22 -Follow up blood cultures GLOBAL PLAN OF CARE: Code Status: Full Code Global Issues Restraint Need Reviewed: Not needed Mobility Level That Needs to Be Ordered: 6 Urinary Catheter Indicated Today: Not Needed Medical Decision Maker: Patient Disposition: Keep IV Infusions Reviewed?: Yes FLUIDS/ELECTROLYTES/NUTRITION VTE PROPHYLAXIS Current Facility-Administered Medications Medication enoxaparin DISCHARGE PLANNING/PLACEMENT: I have discussed the plan of care with: Patient, Attending, and Inter- professional team This patient is critically ill with acute organ failure, present and threatened. Today, I personally spent 68 minutes performing and managing evaluation and management services for this critically ill patient with life-threatening organ failure, Respiratory Failure: I made serial acute adjustments, and evaluations for further adjustments, to life saving oxygenation support to manage, prevent worsening and/or hasten recovery of acute life-threatening hypoxemia. Care during the described time interval was provided by me. I have reviewed this patient's available data, including medical history, events of note, physical examination and test results as part of my evaluation SIGNATURE: NATALIE North Electronic Signature Brooks Mullen : 1985 CSN: [id number] * Jeison Hogue MD - 06/19/2024 9:34 AM EST ICU ATTENDING + FELLOW PROGRESS NOTE PATIENT SUMMARY: 39M w/ PMHx ETOH use disorder who presented from [facility] in [place] w/ CC of ETOH withdrawal delirium refractory to outpatient management. Admitted to CCU for further management. 06/19/24 Hospital LOS: 4 days Subjective 24 HOUR INTERVAL HISTORY: 06/18 -failed SBT due to tachypnea -weaning propofol off -starting precedex -changed BZD Valium to Librium -start Banatrol Awakens some this AM, denies pain, follows some commands. ROS otherwise unobtainable. Objective VS Past 24 Hours ([High] [Low] (Last Recorded Value)): Temp: [37.3 ??C (99.1 ??F)-38 ??C (100.4 ??F)] 37.4 ??C (99.3 ??F) Heart Rate: [63-93] 69 Resp: [14-32] 18 BP: (113-145)/(81-99) 128/94 SpO2: [97 %-100 %] 98 % Set FiO2 (O2%): [30 %] 30 % I/Os 24 Hours: I/O this shift: In: 398.6 [I.V.:44.6] Out: 150 [Urine:150] I/O last 3 completed shifts: In: 2500.4 [I.V.:420.4; IV Piggyback:500] Out: 2470 [Urine:2170; Stool:300] Physical Exam Vitals reviewed. Constitutional: General: He is not in acute distress. Appearance: He is normal weight. He is ill-appearing. HENT: Head: Normocephalic and atraumatic. Nose: Nose normal. Mouth/Throat: Mouth: Mucous membranes are moist. Pharynx: Oropharynx is clear. Comments: ETT Eyes: General: No scleral icterus. Conjunctiva/sclera: Conjunctivae normal. Pupils: Pupils are equal, round, and reactive to light. Cardiovascular: Rate and Rhythm: Normal rate and regular rhythm. Pulses: Normal pulses. Heart sounds: No murmur heard. Pulmonary: Effort: Pulmonary effort is normal. Breath sounds: Rhonchi present. Comments: Intubated, ventilated, coarse breath sounds at the bases Abdominal: General: Abdomen is flat. Bowel sounds are normal. There is no distension. Palpations: Abdomen is soft. Tenderness: There is no abdominal tenderness. Musculoskeletal: Right lower leg: No edema. Left lower leg: No edema. Skin: General: Skin is warm and dry. Neurological: Comments: Sedated, opens eyes to voice, follows commands : . Active Lines Name Placement date Placement time Site Days Peripheral IV 06/16/24 Left;Posterior Hand 06/16/24 0752 Hand 3 Peripheral IV 06/16/24 Posterior;Right Forearm 06/16/24 1222 Forearm 2 Peripheral IV 06/19/24 Anterior;Right Forearm 06/19/24 0400 Forearm less than 1 Active Drains Drain Duration GASTROINTESTINAL TUBES (Single Lumen) OG - Bryan Sump 16 Center mouth 3 days Urethral Catheter 16 Fr. 3 days Rectal tube fecal management system 2 days Ventilation Day(s): 3 Vent Mode: Continuous positive airway pressure/pressure support S RR: 14 breaths per minute A RR: 29 Per Minute Set PEEP/CPAP (cm H2O): 5 cm H2O Set FiO2 (O2%): 30 % S VT: 450 mL NE SUP: 5 cm H20 Set I:E: 1:2.9 MV Exp: 6.6 L/min MAP (cm H2O): 7.65 cm H2O Plateau Pressure (cm H2O): 16 cm H2O PEEP (cm H2O): 5.3 cm H2O I:E Ratio: 1:1.4 Set Tinsp: 1.1 sec Static Compliance (mL/cm H2O): 42 Vt Spontaneous (mL): 377 mL A VT: 249 mL acetaminophen, 650 mg, gastric tube, q6h PRN amino acids-protein hydrolysate, 1 packet, gastric tube, Daily ampicillin-sulbactam, 3 g, intravenous, q6h BONG banana [id number], 1 packet, gastric tube, 3x daily chlordiazePOXIDE, 25 mg, gastric tube, q6h BONG dexmedetomidine, 0.2-1.5 mcg/kg/hr, intravenous, Titrated dextrose, 15 g, oral, q15min PRN Or dextrose, 6.25 g, intravenous, q15min PRN Or dextrose, 12.5 g, intravenous, q15min PRN Or dextrose, 25 g, intravenous, q15min PRN dextrose 5% and sodium chloride 0.9% (NS), , intravenous, Continuous PRN enoxaparin, 40 mg, subcutaneous, Daily erythromycin, 0.5 inch, both eyes, q6h BONG famotidine, 20 mg, oral, 2x daily folic acid, 1 mg, oral, Daily influenza, 0.5 mL, intramuscular, Prior to Discharge insulin lispro, 1-20 Units, subcutaneous, See admin instructions insulin regular (ICU infusion guideline), 0.5-20 Units/hr, intravenous, Continuous PRN loperamide, 2 mg, oral, 4x daily PRN PHENobarbital, 32.5 mg, intravenous, q30min PRN Or PHENobarbital, 65 mg, intravenous, q30min PRN Or PHENobarbital, 130 mg, intravenous, q30min PRN Or PHENobarbital, 260 mg, intravenous, q30min PRN propofol, 5-50 mcg/kg/min, intravenous, Continuous PRN sodium chloride, 2.5-10 mL, intravenous, See admin instructions And sodium chloride, 2.5-10 mL, intravenous, q12h BONG thiamine, 100 mg, gastric tube, Daily Labs: I have personally reviewed the patient???s laboratory results from the last 24 hours. Diagnostics & Labs Component Value Date WBC 5.7 06/19/2024 HGB 13.7 06/19/2024 HCT 40.3 06/19/2024 PLT 162 06/19/2024 Diagnostics & Labs Component Value Date NA 139 06/19/2024 K 4.1 06/19/2024 CL 105 06/19/2024 CO2 21 (L) 06/19/2024 BUN 9 06/19/2024 CREATININE 0.61 06/19/2024 GLUCOSE 161 (H) 06/19/2024 Diagnostics & Labs Component Value Date AST 47 (H) 06/16/2024 ALT 43 (H) 06/16/2024 INR 1.0 06/16/2024 BILITOT 1.2 06/16/2024 BILIDIR 0.5 (H) 06/16/2024 TP 6.9 06/16/2024 Imaging: I have personally reviewed the patient???s chest imaging from the last 24 hours. Today, I have personally visualized the real-time EKG tracing and pulse oximetry tracing. HOSPITAL PROBLEMS: Principal Problem: Toxic metabolic encephalopathy Active Problems: Alcohol withdrawal delirium (HCC) Hypokalemia Hypomagnesemia Hyponatremia Pancreatitis Acute respiratory failure with hypoxia (HCC) ASSESSMENT AND PLAN: * NEUROLOGY #ETOH withdrawal #Opioid withdrawal #Acute encephalopathy #Sedation Severe withdrawal and persistent scores > 30 requiring high doses of phenobarbital and valium, ultimately with reduced LOC leading to ETT to maintain airway patency. CTH negative at the time of admission though degraded by motion artifact. -RASS goal -1 -current sedation - propofol gtt 10, weaned off but became agitated so continuing low dose for now.Precedex gtt titrated for goal RASS. -started chlordiazepoxide 25 q6h on 06/18 with planned taper pending response; will transition to IVvalium once loses PO access with extubation -continue maintenance dose folic acid and thiamine daily -completed 3 days high dose thiamine on 06/18 RESPIRATORY #Acute hypoxemic respiratory failure - intubated 06/16 #Aspiration PNA/pneumonitis Intubated 06/16 in the setting of respiratory distress due to polysubstance withdrawal. Evidence of blood in the mouth per anesthesia at time of intubation. There is a retrocardiac consolidation on repeat CXR and there are copious purulent secretions in in the ETT. -minimal vent settings - VCAC 14/450/5/30%. Adjust settings for goal SpO2>92% -failed SBT today due to tachypnea and agitation -continue daily SBT CARDIAC -hemodynamic monitoring GASTROINTESTINAL #Alcoholic transaminitis #Pancreatitis, mild -SUP with pepcid -tolerating tube feeds at goal -banatrol scheduled -bowel reg on hold -rectal tube for liquid stools GENITOURINARY #AGMA - resolved #NAGMA likely due to GI losses -continue mandujano per ICU sedation protocol -CMP tomorrow -correct electrolytes as indicated INFECTIOUS DISEASE #Sepsis #Aspiration PNA BCX 06/16 NGTD. SCX 06/16 with normal yayo to date. MRSA pcr negative. MiniRVP negative. Fever curveimproving. -continue Unasyn, day 1 06/16, planned to end 06/21 -erythromycin ointment to eyes ENDOCRINE -ICU glycemic protocol HEMATOLOGY #Macrocytosis #Thrombocytopenia -dvt prophylaxis with lovenox -CBC tomorrow * Global Issues Restraint Need Reviewed: Needed based on comprehensive team assessment as less restrictive options insufficient Mobility Level That Needs to Be Ordered: 3 Urinary Catheter Indicated Today: Indicated Reason for Continuing Urinary Catheter: ICU sedation protocol Medical Decision Maker: Other - Reviewed/Updated Capacity to make own decisions and HCA Why does patient lack capacity?: Encephalopathy/Delirium What is the anticipated duration the HCP will be invoked?: Unknown/Until condition resolves Disposition: Keep IV Infusions Reviewed?: Yes Full Code I have discussed the plan of care with: Inter-professional team This patient is critically ill with acute organ failure, present and threatened. Today, I personally spent 41 minutes performing and managing evaluation and management services for this critically ill patient with life-threatening organ failure, Neurological Failure: I performed frequent, serial assessments to enable emergent intervention in managing acute neurological deterioration. Respiratory Failure: I made serial acute adjustments, and evaluations for further adjustments, to life saving oxygenation support to manage, prevent worsening and/or hasten recovery of acute life-threatening hypoxemia. Care during the described time interval was provided by me. I have reviewed this patient's available data, including medical history, events of note, physical examination and test results, and have overseen the activities of other members of the care team under my direct supervision (e.g. house officers, physician assistants, nurse practitioners). Jeison Hogue M.D. Pulmonary and Critical [facility] : 1985 CSN: [id number] * NATALIE Gomez - 06/19/2024 7:36 AM EST CRITICAL CARE PROGRESS NOTE PATIENT SUMMARY: 39M w/ PMHx ETOH use disorder who presented from [facility] in [place] w/ CC of ETOH withdrawal delirium refractory to outpatient management. Admitted to CCU for further management. Hospital LOS: 4 days Subjective 24 HOUR INTERVAL HISTORY: 06/18 -failed SBT due to tachypnea -weaning propofol off -starting precedex -changed BZD Valium to Librium -start Banatrol Objective VITAL SIGNS FOR PAST 24 Hours ([High] [Low] (Last Recorded Value)): Temp: [37.3 ??C (99.1 ??F)-38.3 ??C (100.9 ??F)] 37.3 ??C (99.1 ??F) Heart Rate: [63-109] 64 Resp: [14-32] 16 BP: (113-145)/(81-99) 126/83 SpO2: [97 %-100 %] 99 % Set FiO2 (O2%): [30 %] 30 % I/Os LAST 24 HOURS: No intake/output data recorded. I/O last 3 completed shifts: In: 2500.4 [I.V.:420.4; IV Piggyback:500] Out: 2470 [Urine:2170; Stool:300] PHYSICAL EXAM: Physical Exam Vitals and nursing note reviewed. Constitutional: General: He is not in acute distress. Appearance: He is not ill-appearing or toxic-appearing. HENT: Head: Normocephalic and atraumatic. Mouth/Throat: Mouth: Mucous membranes are moist. Eyes: Pupils: Pupils are equal, round, and reactive to light. Cardiovascular: Rate and Rhythm: Normal rate and regular rhythm. Pulses: Normal pulses. Heart sounds: Normal heart sounds. No murmur heard. Pulmonary: Effort: Pulmonary effort is normal. No respiratory distress. Breath sounds: Normal breath sounds. Abdominal: General: Bowel sounds are normal. There is distension. Palpations: Abdomen is soft. Tenderness: There is no abdominal tenderness. Musculoskeletal: Right lower leg: No edema. Left lower leg: No edema. Skin: General: Skin is warm and dry. Neurological: General: No focal deficit present. Comments: Moving all extremities appropriately, following commands . Active Lines Name Placement date Placement time Site Days Peripheral IV 06/16/24 Left;Posterior Hand 06/16/24 0752 Hand 3 Peripheral IV 06/16/24 Posterior;Right Forearm 06/16/24 1222 Forearm 2 Peripheral IV 06/19/24 Anterior;Right Forearm 06/19/24 0400 Forearm less than 1 , Active Drains Drain Duration GASTROINTESTINAL TUBES (Single Lumen) OG - Bryan Sump 16 Center mouth 3 days Urethral Catheter 16 Fr. 3 days Rectal tube fecal management system 2 days , Active Airways Airway Duration ETT 3 days VENT SETTINGS (LAST 12 HOURS): Ventilation Day(s): 3 Vent Mode: Continuous positive airway pressure/pressure support S RR: 14 breaths per minute A RR: 29 Per Minute Set PEEP/CPAP (cm H2O): 5 cm H2O Set FiO2 (O2%): 30 % S VT: 450 mL NE SUP: 5 cm H20 Set I:E: 1:2.9 MV Exp: 6.6 L/min MAP (cm H2O): 7.65 cm H2O Plateau Pressure (cm H2O): 16 cm H2O PEEP (cm H2O): 5.3 cm H2O I:E Ratio: 1:1.4 Set Tinsp: 1.1 sec Static Compliance (mL/cm H2O): 42 Vt Spontaneous (mL): 377 mL A VT: 249 mL MEDICATIONS: All medications reviewed. LAB: I have personally reviewed the patient's lab results from the past 24 hours. Results from last 7 days Lab Units 06/19/24 0340 06/18/24 0326 06/17/24 0752 SODIUM mmol/L 139 136 139 POTASSIUM mmol/L 4.1 4.1 4.6 CHLORIDE mmol/L 105 106 108* CARBON DIOXIDE mmol/L 21* 18* 21* BUN mg/dL 9 9 10 CREATININE mg/dL 0.61 0.54* 0.61 GLUCOSE mg/dL 161* 140* 107* ANION GAP 13 12 10 MAGNESIUM mg/dL 2.1 1.8 2.1 PHOSPHORUS mg/dL 3.8 3.4 2.4* CALCIUM mg/dL 8.6 7.7* 8.0* Results from last 7 days Lab Units 06/19/24 0340 06/18/24 0326 06/17/24 0006 WBC 10*3/uL 5.7 7.0 7.9 HEMOGLOBIN g/dL 13.7 12.2* 12.8* HEMATOCRIT % 40.3 36.1* 35.9* PLATELETS 10*3/uL 162 97* 71* Results from last 7 days Lab Units 06/19/24 0340 06/16/24 0342 06/15/24 0050 ALBUMIN g/dL 3.3* 3.7 4.2 TOTAL BILIRUBIN mg/dL -- 1.2 1.5* DIRECT BILIRUBIN mg/dL -- 0.5* -- AST U/L -- 47* 88* ALT U/L -- 43* 66* ALKALINE PHOSPHATASE U/L -- 112 136* Results from last 7 days Lab Units 06/16/24 0342 INR 1.0 Results from last 7 days Lab Units 06/16/24 0734 LACTIC ACID mmol/L 1.0 IMAGING/OTHER STUDIES: I have personally reviewed the patient's imaging results None to report HOSPITAL PROBLEMS: Principal Problem: Toxic metabolic encephalopathy Active Problems: Alcohol withdrawal delirium (HCC) Hypokalemia Hypomagnesemia Hyponatremia Pancreatitis Acute respiratory failure with hypoxia (HCC) Assessment & Plan Nervous History of alcohol use disorder -- last drink 06/14, unknown how much daily, or if any prior withdrawal seizures. Presenting from [facility] with concern for alcohol withdrawal after he was found altered,hallucinating and tremulous, with rising CIWA scores. CTH negative for acute process. Received multiple doses of valium and phenobarb, ultimately required intubation due to worsening mentation and severe metabolic alkalosis. Suspect toxic metabolic encephalopathy secondary to ETOH withdrawal. Comp tox +EDDP and methadone. -analgesia/sedation: Continue Propofol - wean as able Continue Precedex D/c phenobarb protocol PRN Tylenol -RASS 0 -continue librium 25mg q6h - consider transition to valium if planning to extubate -completed high-dose thiamine, continues on regular supplementation -continue folic acid -erythromycin eye ointment for B/L conjunctivitis Respiratory Initially presented oxygenating appropriately on 2L. Course complicated by worsening neurologic suppression, ultimately requiring intubation for severe metabolic alkalosis pH 7.64/18. CXR with retrocardiac infiltrate suspicious for aspiration pneumonia. Failing daily SBT for tachypnea. -Maintain SpO2 > 92% -Daily SBT Circulatory Presents tachycardic, hypertensive in the setting of severe ETOH withdrawal and dehydration. Troponin <6, EKG with sinus tach, TWI V1-V4. Given 2L IVF resuscitation. Since HDS. -Maintain MAP > 65 Digestive Presents with abnormal LFTs, likely iso chronic ETOH abuse - downtrending on repeat. Developed diarrhea, possibly iso opiate withdrawal. Responding well to imodium and banatrol. -Diet: Osmolite continuous 40cc/hr -SUP w/ famotidine BID -Bowel regimen: on hold d/t diarrhea -Continue banatrol TID for diarrhea -Repeat HFP in AM Renal / Genitourinary Presents with baseline sCr 0.9, severe electrolyte derangements with hypokalemia, hypomagnesemia, and hypocalcemia. Severe AGMA with pH 7.65/18, GAP 16, sHCO3 13 -- etiology unclear with asa, apap, LA, osmolar gap, bun are all normal, could be related to significant diarrhea coupled with mild sta rvation ketoacidosis with bhb 1.0. Currently with NAGMA likely 2/2 GI losses -BMP, Mg, Phos daily, replete PRN -Maintain mandujano Musculoskeletal Skin wound was found as per physical exam findings. [facility] consulted and recomendations have been appreciated. Please refer to [facility] notes for accurate staging and tx plan. All tx recommendations are confirmed on the patient's active orders list. Endocrine / Metabolic Without known endocrinopathies. At risk for derangements in the setting of critical illness. -ICU glycemic protocol Hematologic Macrocytic anemia, with elevated MCV. H/H 17/46 -- likely 2/2 hemoconcentration. Thrombocytopenic to 90s w/ normal INR. Low concern for active bleeding. -Daily CBC -DVT prophy w/ enoxaparin Infectious / Inflammatory Initially presented afebrile without leukocytosis. Course complicated by worsening mentation leading to aspiration, febrile to 102.6, tachycardia, CXR with retrocardiac infiltrate. Mini RVP negative.MRSA negative. Suspect severe sepsis iso aspiration pneumonia, started on unasyn. Respiratory culture w/ growth of normal yayo. Blood cultures NGTD. -Continue unasyn -Follow up blood cultures GLOBAL PLAN OF CARE: Code Status: Full Code Global Issues Restraint Need Reviewed: Needed based on comprehensive team assessment as less restrictive options insufficient Mobility Level That Needs to Be Ordered: 3 Urinary Catheter Indicated Today: Indicated Reason for Continuing Urinary Catheter: ICU sedation protocol Medical Decision Maker: Other - Reviewed/Updated Capacity to make own decisions and HCA Why does patient lack capacity?: Encephalopathy/Delirium What is the anticipated duration the HCP will be invoked?: Unknown/Until condition resolves Disposition: Keep IV Infusions Reviewed?: Yes FLUIDS/ELECTROLYTES/NUTRITION VTE PROPHYLAXIS Current Facility-Administered Medications Medication enoxaparin DISCHARGE PLANNING/PLACEMENT: I have discussed the plan of care with: Family, Fellow, and Attending This patient is critically ill with acute organ failure, present and threatened. Today, I personally spent 90 minutes performing and managing evaluation and management services for this critically ill patient with life-threatening organ failure, Respiratory Failure: I made serial acute adjustments, and evaluations for further adjustments, to life saving oxygenation support to manage, prevent worsening and/or hasten recovery of acute life-threatening hypoxemia. Care during the described time interval was provided by me. I have reviewed this patient's available data, including medical history, events of note, physical examination and test results as part of my evaluation SIGNATURE: NATALIE Gomez Electronic Signature [facility] Mullen : 1985 CSN: [id number] * Jeison Hogue MD - 06/18/2024 9:49 AM EST ICU ATTENDING + FELLOW PROGRESS NOTE PATIENT SUMMARY: 39M w/ PMHx ETOH use disorder who presented from [facility] in [place] w/ CC of ETOH withdrawal delirium refractory to outpatient management. Admitted to CCU for further management. 06/18/24 Hospital LOS: 3 days Subjective 24 HOUR INTERVAL HISTORY: 13AM: -imodium to decrease HCO3 losses -stop fent -chem daily Unable to obtain ROS while intubated. Objective VS Past 24 Hours ([High] [Low] (Last Recorded Value)): Temp: [37.8 ??C (100 ??F)-38.3 ??C (100.9 ??F)] 38 ??C (100.4 ??F) Heart Rate: [82-109] 109 Resp: [17-29] 29 BP: (78-123)/(55-90) 123/90 SpO2: [97 %-100 %] 100 % Set FiO2 (O2%): [30 %] 30 % I/Os 24 Hours: I/O this shift: In: 380.3 [I.V.:41.3] Out: 375 [Urine:100; Stool:275] I/O last 3 completed shifts: In: 2121 [I.V.:303; IV Piggyback:740] Out: 1630 [Urine:1030; Stool:600] Physical Exam Vitals reviewed. Constitutional: General: He is not in acute distress. Appearance: He is ill-appearing. HENT: Head: Normocephalic and atraumatic. Nose: Nose normal. Mouth/Throat: Mouth: Mucous membranes are moist. Pharynx: Oropharynx is clear. Comments: ETT Eyes: General: No scleral icterus. Conjunctiva/sclera: Conjunctivae normal. Pupils: Pupils are equal, round, and reactive to light. Cardiovascular: Rate and Rhythm: Normal rate and regular rhythm. Heart sounds: No murmur heard. Pulmonary: Effort: No respiratory distress. Breath sounds: No wheezing or rales. Comments: intubated Abdominal: General: Bowel sounds are normal. There is no distension. Palpations: Abdomen is soft. Tenderness: There is no abdominal tenderness. Musculoskeletal: Right lower leg: No edema. Left lower leg: No edema. Skin: General: Skin is warm and dry. Neurological: Comments: Intubated, sedated : . Active Lines Name Placement date Placement time Site Days Peripheral IV 06/15/24 Anterior;Distal;Right Forearm 06/15/24 1326 Forearm 2 Peripheral IV 06/16/24 Left;Posterior Hand 06/16/24 4472 Hand 2 Peripheral IV 06/16/24 Posterior;Right Forearm 06/16/24 1222 Forearm 1 Active Drains Drain Duration GASTROINTESTINAL TUBES (Single Lumen) OG - Bryan Sump 16 Center mouth 2 days Urethral Catheter 16 Fr. 2 days Rectal tube fecal management system 1 day Vent Mode: Volume control/assist control S RR: 14 breaths per minute A RR: 22 Per Minute Set PEEP/CPAP (cm H2O): 5 cm H2O Set FiO2 (O2%): 30 % S VT: 450 mL Set I:E: 1:2.9 MV Exp: 9.1 L/min MAP (cm H2O): 9.69 cm H2O Plateau Pressure (cm H2O): 15 cm H2O PEEP (cm H2O): 5.2 cm H2O I:E Ratio: 1:1.5 Set Tinsp: 1.1 sec Static Compliance (mL/cm H2O): 48 A VT: 486 mL acetaminophen, 650 mg, gastric tube, q6h PRN amino acids-protein hydrolysate, 1 packet, gastric tube, Daily ampicillin-sulbactam, 3 g, intravenous, q6h BONG cloNIDine, 0.2 mg, gastric tube, 3x daily dextrose, 15 g, oral, q15min PRN Or dextrose, 6.25 g, intravenous, q15min PRN Or dextrose, 12.5 g, intravenous, q15min PRN Or dextrose, 25 g, intravenous, q15min PRN dextrose 5% and sodium chloride 0.9% (NS), , intravenous, Continuous PRN diazePAM, 5 mg, gastric tube, q6h BONG enoxaparin, 40 mg, subcutaneous, Daily erythromycin, 0.5 inch, both eyes, q6h BONG famotidine, 20 mg, oral, 2x daily folic acid, 1 mg, oral, Daily insulin lispro, 1-20 Units, subcutaneous, See admin instructions insulin regular (ICU infusion guideline), 0.5-20 Units/hr, intravenous, Continuous PRN loperamide, 2 mg, oral, 4x daily PRN PHENobarbital, 32.5 mg, intravenous, q30min PRN Or PHENobarbital, 65 mg, intravenous, q30min PRN Or PHENobarbital, 130 mg, intravenous, q30min PRN Or PHENobarbital, 260 mg, intravenous, q30min PRN propofol, 5-50 mcg/kg/min, intravenous, Continuous PRN sodium chloride, 2.5-10 mL, intravenous, See admin instructions And sodium chloride, 2.5-10 mL, intravenous, q12h BONG thiamine, 500 mg, intravenous, q8h BONG Labs: I have personally reviewed the patient???s laboratory results from the last 24 hours. Diagnostics & Labs Component Value Date WBC 7.0 06/18/2024 HGB 12.2 (L) 06/18/2024 HCT 36.1 (L) 06/18/2024 PLT 97 (L) 06/18/2024 Diagnostics & Labs Component Value Date NA 136 06/18/2024 K 4.1 06/18/2024 CL 106 06/18/2024 CO2 18 (L) 06/18/2024 BUN 9 06/18/2024 CREATININE 0.54 (L) 06/18/2024 GLUCOSE 140 (H) 06/18/2024 Diagnostics & Labs Component Value Date AST 47 (H) 06/16/2024 ALT 43 (H) 06/16/2024 INR 1.0 06/16/2024 BILITOT 1.2 06/16/2024 BILIDIR 0.5 (H) 06/16/2024 TP 6.9 06/16/2024 Imaging: I have personally reviewed the patient???s chest imaging from the last 24 hours. Today, I have personally visualized the real-time EKG tracing and pulse oximetry tracing. HOSPITAL PROBLEMS: Principal Problem: Toxic metabolic encephalopathy Active Problems: Alcohol withdrawal delirium (HCC) Hypokalemia Hypomagnesemia Hyponatremia Pancreatitis Acute respiratory failure with hypoxia (HCC) ASSESSMENT AND PLAN: * NEUROLOGY #ETOH withdrawal #Opioid withdrawal #Acute encephalopathy #Sedation Severe withdrawal and persistent scores > 30 requiring high doses of phenobarbital and valium, ultimately with reduced LOC leading to ETT to maintain airway patency. CTH negative at the time of admission though degraded by motion artifact. -RASS goal -1 -current sedation - propofol gtt 10, attempt to wean off as tolerated -transition to chlordiazepoxide 25 q6h for today with planned taper pending response -dc clonidine, start precedex gtt to optimize sedation -completes 3 days of high dose thiamine 500 q8h today -maintenance dose folic acid daily RESPIRATORY #Acute hypoxemic respiratory failure #Aspiration PNA/pneumonitis Marked alkalosis driven by ?central signals rather than need for oxygenation. Intubated 06/16. Evidence of blood in the mouth per anesthesia. There is a retrocardiac consolidation on repeat CXR and there are copious purulent secretions in in the ETT. -minimal vent settings - VCAC 14/450/5/30% -infectious management as below -failed SBT due to tachypnea this AM, adjustments to sedation and will repeat trial tomorrow CARDIAC -hemodynamic monitoring GASTROINTESTINAL #Alcoholic transaminitis #Pancreatitis, mild -SUP with pepcid -advance tube feeds to goal -imodium prn, add banatrol -bowel reg on hold -rectal tube for liquid stools GENITOURINARY #AGMA - resolved #NAGMA likely due to GI losses -continue mandujano per ICU sedation protocol -BMP tomorrow -correct electrolytes as indicated INFECTIOUS DISEASE #Sepsis #Aspiration PNA BCX 06/16 NGTD. SCX 06/16 with normal yayo to date. MRSA pcr negative. MiniRVP negative. Continues to have low grade fevers. -continue Unasyn, day 1 06/16, planned to end 06/21 -erythromycin ointment to eyes ENDOCRINE -ICU glycemic protocol HEMATOLOGY #Macrocytosis #Thrombocytopenia -dvt prophylaxis with lovenox -CBC tomorrow * Global Issues Mobility Level That Needs to Be Ordered: 2 Ready for Spontaneous Breathing Trial: Spontaneous Breathing Trial is not indicated at this Time Urinary Catheter Indicated Today: Indicated Reason for Continuing Urinary Catheter: ICU sedation protocol Rectal Tube Ready for Removal: Rectal Tube removal is not indicated Medical Decision Maker: Other - Reviewed/Updated Capacity to make own decisions and HCA Why does patient lack capacity?: Sedated What is the anticipated duration the HCP will be invoked?: Unknown/Until condition resolves Disposition: Keep PCP was notified about ICU admission, major condition changes, and code status changes?: Yes IV Infusions Reviewed?: Yes Full Code I have discussed the plan of care with: Inter-professional team This patient is critically ill with acute organ failure, present and threatened. Today, I personally spent 41 minutes performing and managing evaluation and management services for this critically ill patient with life-threatening organ failure, Neurological Failure: I performed frequent, serial assessments to enable emergent intervention in managing acute neurological deterioration. Respiratory Failure: I made serial acute adjustments, and evaluations for further adjustments, to life saving oxygenation support to manage, prevent worsening and/or hasten recovery of acute life-threatening hypoxemia. Care during the described time interval was provided by me. I have reviewed this patient's available data, including medical history, events of note, physical examination and test results, and have overseen the activities of other members of the care team under my direct supervision (e.g. house officers, physician assistants, nurse practitioners). Jeison Hogue M.D. Pulmonary and Critical Care [facility] : 1985 CSN: [id number] * NATALIE Love - 06/18/2024 8:11 AM EST CRITICAL CARE PROGRESS NOTE PATIENT SUMMARY: 39M w/ PMHx ETOH use disorder who presented from [facility] in [place] w/ CC of ETOH withdrawal delirium refractory to outpatient management. Admitted to CCU for further management. Hospital LOS: 3 days Subjective 24 HOUR INTERVAL HISTORY: 06/17AM: -imodium to decrease HCO3 losses -stop fent -chem daily Objective VITAL SIGNS FOR PAST 24 Hours ([High] [Low] (Last Recorded Value)): Temp: [37.8 ??C (100 ??F)-38.3 ??C (100.9 ??F)] 38.3 ??C (100.9 ??F) Heart Rate: [82-103] 96 Resp: [17-30] 20 BP: (78-121)/(55-83) 121/78 SpO2: [97 %-100 %] 98 % Set FiO2 (O2%): [30 %] 30 % I/Os LAST 24 HOURS: No intake/output data recorded. I/O last 3 completed shifts: In: 2120 [I.V.:303; IV Piggyback:740] Out: 1590 [Urine:990; Stool:600] PHYSICAL EXAM: Physical Exam Constitutional: Appearance: He is ill-appearing and toxic-appearing. HENT: Head: Atraumatic. Mouth/Throat: Mouth: Mucous membranes are dry. Pharynx: Oropharynx is clear. Eyes: Pupils: Pupils are equal, round, and reactive to light. Cardiovascular: Rate and Rhythm: Regular rhythm. Tachycardia present. Pulmonary: Breath sounds: Rhonchi present. No wheezing. Abdominal: General: Bowel sounds are normal. There is no distension. Palpations: Abdomen is soft. Tenderness: There is no abdominal tenderness. Musculoskeletal: Right lower leg: No edema. Left lower leg: No edema. Skin: General: Skin is warm and dry. Capillary Refill: Capillary refill takes less than 2 seconds. Coloration: Skin is not jaundiced. Neurological: Mental Status: He is alert. Comments: Pupils equal and reactive, +cough/gag Withdraws to noxious stimuli . Active Lines Name Placement date Placement time Site Days Peripheral IV 06/15/24 Anterior;Distal;Right Forearm 06/15/24 1326 Forearm 2 Peripheral IV 06/16/24 Left;Posterior Hand 06/16/24 0752 Hand 2 Peripheral IV 06/16/24 Posterior;Right Forearm 06/16/24 1222 Forearm 1 , Active Drains Drain Duration GASTROINTESTINAL TUBES (Single Lumen) OG - Bryan Sump 16 Center mouth 2 days Urethral Catheter 16 Fr. 2 days Rectal tube fecal management system 1 day , Active Airways Airway Duration ETT 2 days VENT SETTINGS (LAST 12 HOURS): Ventilation Day(s): 2 Vent Mode: Volume control/assist control S RR: 14 breaths per minute A RR: 19 Per Minute Set PEEP/CPAP (cm H2O): 5 cm H2O Set FiO2 (O2%): 30 % S VT: 450 mL NE SUP: 5 cm H20 Set I:E: 1:2.9 MV Exp: 8.1 L/min MAP (cm H2O): 14.28 cm H2O Plateau Pressure (cm H2O): 27 cm H2O PEEP (cm H2O): 4.6 cm H2O I:E Ratio: 1:1.7 Set Tinsp: 1.1 sec Static Compliance (mL/cm H2O): 48 Vt Spontaneous (mL): 0 mL A VT: 495 mL MEDICATIONS: Current Facility-Administered Medications: acetaminophen (TYLENOL) 650 mg/20.3 mL solution 650 mg, 650 mg, gastric tube, q6h PRN amino acids-protein hydrolysate (PROSOURCE TF20) 20 gram-80 kcal/60 mL liquid 60 mL, 1 packet, gastric tube, Daily ampicillin-sulbactam (UNASYN) 3 g in 0.9% NaCl 100 mL Mini-Bag Plus, 3 g, intravenous, q6h [facility] banana fxpcjy-VQP-soojm (BANATROL TF) 5 gram-45 kcal/60 mL liquid 60 mL, 1 packet, gastric tube, 3xdaily chlordiazePOXIDE (LIBRIUM) capsule 25 mg, 25 mg, gastric tube, q6h BONG dexMEDEtomidine (PRECEDEX) 400 mcg in 0.9% NaCl 100 mL infusion solution, 0.2- 1.5 mcg/kg/hr, intravenous, Titrated dextrose (GLUTOSE) gel 15 g, 15 g, oral, q15min PRN OR dextrose (D50W) IV injection 6.25 g, 6.25 g, intravenous, q15min PRN OR dextrose (D50W) IV injection 12.5 g, 12.5 g, intravenous, [id number] OR dextrose (D50W) IV injection 25 g, 25 g, intravenous, q15min PRN dextrose 5% and sodium chloride 0.9% (NS) premix infusion, , intravenous, Continuous PRN enoxaparin (LOVENOX) subcutaneous injection 40 mg, 40 mg, subcutaneous, Daily erythromycin (ILOTYCIN) 0.5% ophthalmic ointment 0.5 inch, 0.5 inch, both eyes, q6h [facility] famotidine (PEPCID) tablet 20 mg, 20 mg, oral, 2x daily folic acid (FOLVITE) tablet 1 mg, 1 mg, oral, Daily insulin lispro (ADMELOG/HumaLOG - 100 units/mL) injection 1-20 Units, 1-20 Units, subcutaneous, Seeadmin instructions insulin regular in 0.9 % NaCl (MYXREDLIN) premix infusion, 0.5-20 Units/hr, intravenous, ContinuousPRN loperamide (IMODIUM) capsule 2 mg, 2 mg, oral, 4x daily PRN PHENobarbital injection 32.5 mg, 32.5 mg, intravenous, q30min PRN OR PHENobarbital injection 65mg, 65 mg, intravenous, q30min PRN OR PHENobarbital injection 130 mg, 130 mg, intravenous, q30min PRN OR PHENobarbital injection 260 mg, 260 mg, intravenous, q30min PRN propofol (DIPRIVAN) 1,000 mg in 100 mL infusion, 5-50 mcg/kg/min, intravenous, Continuous PRN IV Peripheral Line Care, , , Until discontinued AND sodium chloride 0.9% flush 2.5-10 mL, 2.5-10 mL, intravenous, See admin instructions AND sodium chloride 0.9% flush 2.5-10 mL, 2.5-10 mL, intravenous, q12h BONG thiamine (VITAMIN B1) 500 mg in 0.9% NaCl 100 mL IVPB premix, 500 mg, intravenous, q8h BONG LAB: I have personally reviewed the patient's lab results from the past 24 hours. Results from last 7 days Lab Units 06/18/24 0326 06/17/24 0006 06/16/24 0342 06/15/24 1733 06/15/24 0050 WBC 10*3/uL 7.0 7.9 7.7 7.0 7.4 HEMATOCRIT % 36.1* 35.9* 42.4 44.0 46.9 PLATELETS 10*3/uL 97* 71* 86* 85* 99* Results from last 7 days Lab Units 06/18/24 0326 06/17/24 0752 06/17/24 0006 06/16/24 1635 06/16/24 1028 06/16/24 0937 06/16/24 0342 06/15/24 1733 SODIUM mmol/L 136 139 137 138 138 137 137 133* POTASSIUM mmol/L 4.1 4.6 3.3* 3.9 2.9* -- 2.8* 4.8 CHLORIDE mmol/L 106 108* 108* 109* 109* -- 100 98 CARBON DIOXIDE mmol/L 18* 21* 18* 17* 13* -- 21* 22 BUN mg/dL 9 10 9 9 9 10 10 10 CREATININE mg/dL 0.54* 0.61 0.65 0.58* 0.49* -- 0.67 0.75 GLUCOSE mg/dL 140* 107* 114* 164* 87 95 99 101* Results from last 7 days Lab Units 06/16/24 0342 06/15/24 0050 ALBUMIN g/dL 3.7 4.2 TOTAL BILIRUBIN mg/dL 1.2 1.5* DIRECT BILIRUBIN mg/dL 0.5* -- ALKALINE PHOSPHATASE U/L 112 136* ALT U/L 43* 66* AST U/L 47* 88* Results from last 7 days Lab Units 06/16/24 0342 INR 1.0 IMAGING/OTHER STUDIES: I have personally reviewed the patient's imaging results No radiology results in the last 2 days HOSPITAL PROBLEMS: Principal Problem: Toxic metabolic encephalopathy Active Problems: Alcohol withdrawal delirium (HCC) Hypokalemia Hypomagnesemia Hyponatremia Pancreatitis Acute respiratory failure with hypoxia (HCC) Assessment & Plan Nervous History of alcohol use disorder -- unclear to what extent, or if any prior withdraw seizures. Presenting from [facility] with concern for alcohol withdrawal after found to be altered, hallucinating and tremulous, with rising CIWA scores requiring ICU level of care. HCT unrevealing. Received multiple doses of valium and phenobarb, ultimately required intubation due to worsening mentation and severe metabolic alkalosis. Suspect toxic metabolic encephalopathy secondary to etoh withdraw Last drink 06/14 and opiate withdraw -analgesia/sedation: propofol - wean as able start Precedex Prn Tylenol -rass -1 -clonidine 0.2 3 times a day - discontinue -valium 5mg 3 times a day bong - change to chlordiazepoxide 25mg q6h -high dose thiamine 500mg 3 times a day x3 days (ends 06/18), folic acid -erythromycin eye ointment for B/L conjunctivitis noted on admission -low concern for seizure activity contributing to ams, prolactin and cK negative Respiratory Initially presented oxygenating appropriately on 2L. Course complicated by worsening neurologic suppression, ultimately requiring intubation for severe metabolic alkalosis pH 7.64/18/19. CXR with retrocardiac infiltrate suspicious for aspiration pneumonia. -titrate FiO2 to maintain SpO2 > 92% - trial CPAP/PS -closely monitor vent mechanics and make appropriate adjustments to maintain pH Circulatory Presents tachycardic, hypertensive in the setting of severe etoh withdraw and dehydration. Troponin<6, EKG with sinus tach, TWI V1-V4. Given 2L IVF resuscitation. -maintain map > 65 Digestive Presents with elevated alk phos 136, AST/ALT 88/66, tbili 1.5, lipase 199 -- unclear if patient is having abdominal pain given encephalopathy, though will treat empirically as pancreatitis secondary to etoh abuse, given LFTs downtrending on repeat -diet: Osmolite continuous 40cc/hr -sup: famotidine bid -bowel regimen: on hold d/t diarrhea -continue imodium prn for diarrhea -start Banatrol 1packet 3 times a day Renal / Genitourinary Presents with baseline sCr 0.9, severe electrolyte derangements with hypokalemia, hypomagnesemia, and hypocalcemia. Severe AGMA with pH 7.65/18/19, GAP 16, sHCO3 13 -- etiology unclear with asa, apap, LA, osmolar gap, bun are all normal, could be related to significant diarrhea coupled with mild sta rvation ketoacidosis with bhb 1.0. Currently with NAGMA likely 2/2 GI losses -bmp daily -maintain mandujano Musculoskeletal I performed a complete examination of the dorsal surface of the patient's body, plus the sites of any medical devices plus all sites of potential wound on the ventral surface. There were no wounds found unless listed below. Endocrine / Metabolic Without known endocrinopathies -ICU glycemic protocol Hematologic Macrocytic anemia, with elevated MCV. H/H 17/46 -- likley hemoconcentrated with poor oral intake, thrombocytopenia 9 - INR normal -daily cbc -dvtppx: enoxaparin Infectious / Inflammatory Initially presented afebrile without leukocytosis. Course complicated worsening mentation leading to aspiration, febrile to 102.6, tachycardia, CXR with retrocardiac infiltrate. Mini rvp negative. Suspect severe sepsis iso aspiration pneumonia -unasyn -follow up mrsa pcr, blood cultures, sputum GLOBAL PLAN OF CARE: Code Status: Full Code Global Issues Restraint Need Reviewed: Needed based on comprehensive team assessment as less restrictive options insufficient Mobility Level That Needs to Be Ordered: 1 Urinary Catheter Indicated Today: Indicated Reason for Continuing Urinary Catheter: ICU sedation protocol Medical Decision Maker: Other - Reviewed/Updated Capacity to make own decisions and HCA Why does patient lack capacity?: Sedated What is the anticipated duration the HCP will be invoked?: Unknown/Until condition resolves Disposition: Keep IV Infusions Reviewed?: Yes FLUIDS/ELECTROLYTES/NUTRITION VTE PROPHYLAXIS Current Facility-Administered Medications Medication enoxaparin DISCHARGE PLANNING/PLACEMENT: I have discussed the plan of care with: Attending and Inter-professional team This patient is critically ill with acute organ failure, present and threatened. Today, I personally spent 90 minutes performing and managing evaluation and management services for this critically ill patient with life-threatening organ failure, Respiratory Failure: I made serial acute adjustments, and evaluations for further adjustments, to life saving oxygenation support to manage, prevent worsening and/or hasten recovery of acute life-threatening hypoxemia. Care during the described time interval was provided by me. I have reviewed this patient's available data, including medical history, events of note, physical examination and test results as part of my evaluation SIGNATURE: NATALIE Love Electronic Signature Brooks Mullen : 1985 CSN: [id number] * Jeison Hogue MD - 06/17/2024 10:38 AM EST ICU ATTENDING PROGRESS NOTE PATIENT SUMMARY: 39M w/ PMHx ETOH use disorder who presented from [facility] in [place] w/ CC of ETOH withdrawal delirium refractory to outpatient management. Admitted to CCU for further management. 06/17/24 Hospital LOS: 2 days Subjective 24 HOUR INTERVAL HISTORY: 06/17AM: -imodium to decrease HCO3 losses -stop fent -chem daily Objective VS Past 24 Hours ([High] [Low] (Last Recorded Value)): Temp: [37.4 ??C (99.3 ??F)-38.8 ??C (101.8 ??F)] 38 ??C (100.4 ??F) Heart Rate: [83-113] 99 Resp: [17-30] 22 BP: (90-117)/(53-83) 114/82 SpO2: [95 %-100 %] 100 % Set FiO2 (O2%): [30 %-40 %] 30 % Physical Exam Constitutional: General: He is not in acute distress. Appearance: He is ill-appearing and toxic-appearing. HENT: Head: Normocephalic. Eyes: General: No scleral icterus. Right eye: No discharge. Left eye: No discharge. Cardiovascular: Rate and Rhythm: Regular rhythm. Tachycardia present. Heart sounds: No murmur heard. No gallop. Pulmonary: Effort: Pulmonary effort is normal. No respiratory distress. Breath sounds: Rhonchi present. No wheezing or rales. Abdominal: General: Bowel sounds are normal. There is no distension. Palpations: Abdomen is soft. Tenderness: There is no abdominal tenderness. There is no guarding. Musculoskeletal: Cervical back: Normal range of motion. No rigidity. Right lower leg: No edema. Left lower leg: No edema. Skin: General: Skin is warm. Capillary Refill: Capillary refill takes less than 2 seconds. Coloration: Skin is not jaundiced. Neurological: Comments: Intubated, deep sedation, minimally arousable : I/Os 24 Hours: I/O this shift: In: 680.9 [I.V.:103.9; IV Piggyback:100] Out: 335 [Urine:335] I/O last 3 completed shifts: In: 4279 [I.V.:839; IV Piggyback:2850] Out: 1475 [Urine:1175; Stool:300] Labs: I have personally reviewed the patient???s laboratory results from the last 24 hours. Diagnostics & Labs Component Value Date WBC 7.9 06/17/2024 HGB 12.8 (L) 06/17/2024 HCT 35.9 (L) 06/17/2024 PLT 71 (L) 06/17/2024 Diagnostics & Labs Component Value Date NA 139 06/17/2024 K 4.6 06/17/2024 CL 108 (H) 06/17/2024 CO2 21 (L) 06/17/2024 BUN 10 06/17/2024 CREATININE 0.61 06/17/2024 GLUCOSE 107 (H) 06/17/2024 Diagnostics & Labs Component Value Date AST 47 (H) 06/16/2024 ALT 43 (H) 06/16/2024 INR 1.0 06/16/2024 BILITOT 1.2 06/16/2024 BILIDIR 0.5 (H) 06/16/2024 TP 6.9 06/16/2024 Imaging: I have personally reviewed the patient???s chest imaging from the last 24 hours. Today, I have personally visualized the real-time EKG tracing and pulse oximetry tracing. HOSPITAL PROBLEMS: Principal Problem: Toxic metabolic encephalopathy Active Problems: Alcohol withdrawal delirium (HCC) Hypokalemia Hypomagnesemia Hyponatremia Pancreatitis Acute respiratory failure with hypoxia (HCC) ASSESSMENT AND PLAN: * NEUROLOGY #ETOH withdrawal #Opioid withdrawal #Acute encephalopathy #Sedation Severe withdrawal and persistent scores > 30 requiring high doses of phenobarbital and valium, ultimately with reduced LOC leading to ETT to maintain airway patency. CTH negative at the time of admission though degraded by motion artifact. -RASS goal -1 -current sedation - propofol gtt 35, fentanyl gtt 25. Stop fentanyl gtt and monitor -continue valium 5 TID -start clonidine 0.2 3 times a day for opioid withdrawal -continue high dose thiamine 500 q8h -maintenance dose folic acid daily RESPIRATORY #Acute hypoxemic respiratory failure #Aspiration PNA/pneumonitis Marked alkalosis driven by ?central signals rather than need for oxygenation. Intubated 06/16. Evidence of blood in the mouth per anesthesia. There is a retrocardiac consolidation on repeat CXR and there are copious purulent secretions in in the ETT. -minimal vent settings - VCAC 14/450/5/30% -infectious management as below CARDIAC -hemodynamic monitoring GASTROINTESTINAL #Alcoholic transaminitis #Pancreatitis, mild -SUP with pepcid -advance tube feeds to goal GENITOURINARY #AGMA - resolved #NAGMA -continue mandujano per ICU sedation protocol -BMP daily -replete electrolytes as indicated INFECTIOUS DISEASE #Sepsis #Aspiration PNA BCX 06/16 ngtd. SCX 06/16 pending. MRSA pcr pending. MiniRVP negative. -continue Unasyn, day 1 06/16 -erythromycin ointment to eyes ENDOCRINE -ICU glycemic protocol HEMATOLOGY #Macrocytosis #Thrombocytopenia -dvt prophylaxis with lovenox -daily cbc MUSCULOSKELETAL/SKIN I performed a complete examination of the dorsal surface of the patient's body, plus the sites of any medical devices plus all sites of potential pressure injury on the ventral surface. There were nopressure injuries found unless listed below. * Global Issues Mobility Level That Needs to Be Ordered: 2 Ready for Spontaneous Breathing Trial: Spontaneous Breathing Trial is not indicated at this Time Urinary Catheter Indicated Today: Indicated Reason for Continuing Urinary Catheter: ICU sedation protocol Rectal Tube Ready for Removal: Rectal Tube removal is not indicated Medical Decision Maker: Other - Reviewed/Updated Capacity to make own decisions and HCA Why does patient lack capacity?: Sedated What is the anticipated duration the HCP will be invoked?: Unknown/Until condition resolves Disposition: Keep PCP was notified about ICU admission, major condition changes, and code status changes?: Yes IV Infusions Reviewed?: Yes Full Code I have discussed the plan of care with: Inter-professional team This patient is critically ill with acute organ failure, present and threatened. Today, I personally spent 43 minutes performing and managing evaluation and management services for this critically ill patient with life-threatening organ failure, Neurological Failure: I performed frequent, serial assessments to enable emergent intervention in managing acute neurological deterioration. Respiratory Failure: I made serial acute adjustments, and evaluations for further adjustments, to life saving oxygenation support to manage, prevent worsening and/or hasten recovery of acute life-threatening hypoxemia. Care during the described time interval was provided by me. I have reviewed this patient's available data, including medical history, events of note, physical examination and test results, and have overseen the activities of other members of the care team under my direct supervision (e.g. house officers, physician assistants, nurse practitioners). Jeison Hogue M.D. Pulmonary and Critical Care * Mikey Rivas NP - 06/17/2024 6:37 AM EST CRITICAL CARE PROGRESS NOTE PATIENT SUMMARY: 39M w/ PMHx ETOH use disorder who presented from [facility] in [place] w/ CC of ETOH withdrawal delirium refractory to outpatient management. Admitted to CCU for further management. Hospital LOS: 2 days Subjective 24 HOUR INTERVAL HISTORY: 06/16 night - K repleted, repeat BMP for noon - VBG 7.51/27.4, decreased RR to 20 1/12AM -worsening mentation and work of breathing -- pH 7.65 > intubated -work up for AGMA unrevealing -2L IVF -started TF Objective VITAL SIGNS FOR PAST 24 Hours ([High] [Low] (Last Recorded Value)): Temp: [37.4 ??C (99.3 ??F)-39.2 ??C (102.6 ??F)] 37.9 ??C (100.2 ??F) Heart Rate: [83-132] 98 Resp: [17-48] 20 BP: (84-148)/(53-106) 112/78 SpO2: [95 %-100 %] 99 % Set FiO2 (O2%): [30 %-50 %] 30 % I/Os LAST 24 HOURS: I/O this shift: In: 816.3 [I.V.:100.3; IV Piggyback:300] Out: 490 [Urine:190; Stool:300] I/O last 3 completed shifts: In: 3548.8 [I.V.:724.8; IV Piggyback:2650] Out: 1335 [Urine:1335] PHYSICAL EXAM: Physical Exam Constitutional: Appearance: He is ill-appearing and toxic-appearing. HENT: Head: Atraumatic. Mouth/Throat: Mouth: Mucous membranes are dry. Pharynx: Oropharynx is clear. Eyes: Pupils: Pupils are equal, round, and reactive to light. Cardiovascular: Rate and Rhythm: Regular rhythm. Tachycardia present. Pulmonary: Breath sounds: Rhonchi present. No wheezing. Abdominal: General: Bowel sounds are normal. There is no distension. Palpations: Abdomen is soft. Tenderness: There is no abdominal tenderness. Musculoskeletal: Right lower leg: No edema. Left lower leg: No edema. Skin: General: Skin is warm and dry. Capillary Refill: Capillary refill takes less than 2 seconds. Coloration: Skin is not jaundiced. Neurological: Mental Status: He is alert. Comments: Pupils equal and reactive, +cough/gag Withdraws to noxious stimuli . Active Lines Name Placement date Placement time Site Days Peripheral IV 06/15/24 Anterior;Distal;Right Forearm 06/15/24 1326 Forearm 2 Peripheral IV 06/16/24 Left;Posterior Hand 06/16/24 0752 Hand 1 Peripheral IV 06/16/24 Posterior;Right Forearm 06/16/24 1222 Forearm 1 , Active Drains Drain Duration GASTROINTESTINAL TUBES (Single Lumen) OG - Bryan Sump 16 Center mouth 1 day Rectal tube fecal management system 1 day Urethral Catheter 16 Fr. 1 day , Active Airways Airway Duration ETT 1 day VENT SETTINGS (LAST 12 HOURS): Ventilation Day(s): 1 Vent Mode: Volume control/assist control S RR: 14 breaths per minute A RR: 22 Per Minute Set PEEP/CPAP (cm H2O): 5 cm H2O Set FiO2 (O2%): 30 % S VT: 450 mL Set I:E: 1:2.9 MV Exp: 9 L/min MAP (cm H2O): 11.22 cm H2O Plateau Pressure (cm H2O): 18 cm H2O PEEP (cm H2O): 5.1 cm H2O I:E Ratio: 1:1.5 Set Tinsp: 1.1 sec Static Compliance (mL/cm H2O): 35 Vt Spontaneous (mL): 0 mL A VT: 449 mL MEDICATIONS: acetaminophen, 650 mg, gastric tube, q6h PRN amino acids-protein hydrolysate, 1 packet, gastric tube, Daily ampicillin-sulbactam, 3 g, intravenous, q6h BONG chlorhexidine, 15 mL, mucous membrane, q12h BONG cloNIDine, 0.2 mg, gastric tube, 3x daily dextrose, 15 g, oral, q15min PRN Or dextrose, 6.25 g, intravenous, q15min PRN Or dextrose, 12.5 g, intravenous, q15min PRN Or dextrose, 25 g, intravenous, q15min PRN dextrose 5% and sodium chloride 0.9% (NS), , intravenous, Continuous PRN diazePAM, 5 mg, gastric tube, q6h BONG enoxaparin, 40 mg, subcutaneous, Daily erythromycin, 0.5 inch, both eyes, q6h BONG famotidine, 20 mg, oral, 2x daily folic acid, 1 mg, oral, Daily insulin lispro, 1-20 Units, subcutaneous, See admin instructions insulin regular (ICU infusion guideline), 0.5-20 Units/hr, intravenous, Continuous PRN loperamide, 2 mg, oral, 4x daily PRN PHENobarbital, 32.5 mg, intravenous, q30min PRN Or PHENobarbital, 65 mg, intravenous, q30min PRN Or PHENobarbital, 130 mg, intravenous, q30min PRN Or PHENobarbital, 260 mg, intravenous, q30min PRN propofol, 5-50 mcg/kg/min, intravenous, Continuous PRN sodium chloride, 2.5-10 mL, intravenous, See admin instructions And sodium chloride, 2.5-10 mL, intravenous, q12h BONG thiamine, 500 mg, intravenous, q8h BONG LAB: Results from last 7 days Lab Units 06/17/24 0752 06/17/24 0006 06/16/24 1635 06/16/24 0937 06/16/24 0342 SODIUM mmol/L 139 137 138 < > 137 POTASSIUM mmol/L 4.6 3.3* 3.9 < > 2.8* CHLORIDE mmol/L 108* 108* 109* < > 100 CARBON DIOXIDE mmol/L 21* 18* 17* < > 21* BUN mg/dL 10 9 9 < > 10 CREATININE mg/dL 0.61 0.65 0.58* < > 0.67 GLUCOSE mg/dL 107* 114* 164* < > 99 ANION GAP 10 11 12 < > 16* MAGNESIUM mg/dL 2.1 2.7* 1.5* -- 1.8 PHOSPHORUS mg/dL 2.4* 2.4* -- -- 3.3 CALCIUM mg/dL 8.0* 7.9* 7.8* < > 8.7 < > = values in this interval not displayed. Results from last 7 days Lab Units 06/17/24 0006 06/16/24 0342 06/15/24 1733 WBC 10*3/uL 7.9 7.7 7.0 HEMOGLOBIN g/dL 12.8* 15.8 15.9 HEMATOCRIT % 35.9* 42.4 44.0 PLATELETS 10*3/uL 71* 86* 85* Results from last 7 days Lab Units 06/16/24 0342 06/15/24 0050 ALBUMIN g/dL 3.7 4.2 TOTAL BILIRUBIN mg/dL 1.2 1.5* DIRECT BILIRUBIN mg/dL 0.5* -- AST U/L 47* 88* ALT U/L 43* 66* ALKALINE PHOSPHATASE U/L 112 136* Results from last 7 days Lab Units 06/16/24 0342 INR 1.0 Results from last 7 days Lab Units 06/16/24 0734 LACTIC ACID mmol/L 1.0 IMAGING/OTHER STUDIES: ECG 12 lead Result Date: 06/16/[address]-T ABNORMALITIES CONSIDER ISCHEMIA PROLONGED QTC ABNORMAL ECG Confirmed by Heath Williamson ([id number]) on 06/16/2024 5:47:05 PM X-Ray Chest 1 View Result Date: 06/16/2024 Devices: New ETT 2.5 cm above the mariam. New OGT with tip in the lateral gastric fundus and directed cephalad. Side-port 3 cm below the EG junction. Slightly worse consolidation collapse LLL. No effusions. Right lung clear. If this radiology report contains a blank impression section, it is an incomplete radiology report. Please contact the interpreting radiologist or applicable radiology division as soon as possible to obtain the completed interpretation. Workstation ID: [id number] HOSPITAL PROBLEMS: Principal Problem: Toxic metabolic encephalopathy Active Problems: Alcohol withdrawal delirium (HCC) Hypokalemia Hypomagnesemia Hyponatremia Pancreatitis Acute respiratory failure with hypoxia (HCC) Assessment & Plan Nervous History of alcohol use disorder -- unclear to what extent, or if any prior withdraw seizures. Presenting from [facility] with concern for alcohol withdrawal after found to be altered, hallucinating and tremulous, with rising CIWA scores requiring ICU level of care. HCT unrevealing. Received multiple doses of valium and phenobarb, ultimately required intubation due to worsening mentation and severe metabolic alkalosis. Suspect toxic metabolic encephalopathy secondary to etoh withdraw Last drink 06/14 and opiate withdraw -analgesia/sedation: propofol - wean as able -rass -1 -clonidine 0.2 3 times a day -valium 5mg 3 times a day bong -high dose thiamine 500mg 3 times a day x3 days, folic acid -erythromycin eye ointment for B/L conjunctivitis noted on admission -low concern for seizure activity contributing to ams, prolactin and cK negative Respiratory Initially presented oxygenating appropriately on 2L. Course complicated by worsening neurologic suppression, ultimately requiring intubation for severe metabolic alkalosis pH 7.64/18/19. CXR with retrocardiac infiltrate suspicious for aspiration pneumonia. -titrate FiO2 to maintain SpO2 > 92% -closely monitor vent mechanics and make appropriate adjustments to maintain pH Circulatory Presents tachycardic, hypertensive in the setting of severe etoh withdraw and dehydration. Troponin<6, EKG with sinus tach, TWI V1-V4. Given 2L IVF resuscitation. -maintain map > 65 -give 1L LR Digestive Presents with elevated alk phos 136, AST/ALT 88/66, tbili 1.5, lipase 199 -- unclear if patient is having abdominal pain given encephalopathy, though will treat empirically as pancreatitis secondary to etoh abuse, given LFTs downtrending on repeat -diet: Osmolite continuous 40cc/hr -sup: famotidine bid -bowel regimen: on hold d/t diarrhea -imodium prn Renal / Genitourinary Presents with baseline sCr 0.9, severe electrolyte derangements with hypokalemia, hypomagnesemia, and hypocalcemia. Severe AGMA with pH 7.65/18/19, GAP 16, sHCO3 13 -- etiology unclear with asa, apap, LA, osmolar gap, bun are all normal, could be related to significant diarrhea coupled with mild sta rvation ketoacidosis with bhb 1.0. -bmp q8h -maintain mandujano -low threshold to initiate bicarb infusion Musculoskeletal I performed a complete examination of the dorsal surface of the patient's body, plus the sites of any medical devices plus all sites of potential wound on the ventral surface. There were no wounds found unless listed below. Endocrine / Metabolic Without known endocrinopathies -ICU glycemic protocol Hematologic Macrocytic anemia, with elevated MCV. H/H 17/46 -- likley hemoconcentrated with poor oral intake, thrombocytopenia 9 - INR normal -daily cbc -dvtppx: enoxaparin Infectious / Inflammatory Initially presented afebrile without leukocytosis. Course complicated worsening mentation leading to aspiration, febrile to 102.6, tachycardia, CXR with retrocardiac infiltrate. Mini rvp negative. Suspect severe sepsis iso aspiration pneumonia -unasyn -follow up mrsa pcr, blood cultures, sputum GLOBAL PLAN OF CARE: Code Status: Full Code Global Issues Mobility Level That Needs to Be Ordered: 2 Ready for Spontaneous Breathing Trial: Spontaneous Breathing Trial is not indicated at this Time Urinary Catheter Indicated Today: Indicated Reason for Continuing Urinary Catheter: ICU sedation protocol Rectal Tube Ready for Removal: Rectal Tube removal is not indicated Medical Decision Maker: Other - Reviewed/Updated Capacity to make own decisions and HCA Why does patient lack capacity?: Sedated What is the anticipated duration the HCP will be invoked?: Unknown/Until condition resolves Disposition: Keep PCP was notified about ICU admission, major condition changes, and code status changes?: Yes IV Infusions Reviewed?: Yes FLUIDS/ELECTROLYTES/NUTRITION VTE PROPHYLAXIS Current Facility-Administered Medications Medication enoxaparin DISCHARGE PLANNING/PLACEMENT: I have discussed the plan of care with: Patient, Fellow, and Attending This patient is critically ill with acute organ failure, present and threatened. Today, I personally spent 80 minutes performing and managing evaluation and management services for this critically ill patient with life-threatening organ failure, Neurological Failure: I performed frequent, serial assessments to enable emergent intervention in managing acute neurological deterioration. Respiratory Failure: I made serial acute adjustments, and evaluations for further adjustments, to life saving oxygenation support to manage, prevent worsening and/or hasten recovery of acute life-threatening hypoxemia. Imade serial acute adjustments, and evaluations for further adjustments, to life saving ventilatory support to manage, prevent worsening and/or hasten recovery of acute life-threatening hypercarbic respiratory failure. Care during the described time interval was provided by me. I have reviewed this patient's available data, including medical history, events of note, physical examination and test results as part of my evaluation SIGNATURE: Mikey Rivas NP Electronic Signature Brooks Mullen : 1985 CSN: [id number] * Sal Adler MD - 06/16/2024 8:39 AM EST ICU ATTENDING DAILY PROGRESS NOTE 06/16/24 Hospital LOS: 1 day Code Status: Full Code Medical Decision Maker: Medical Decision Maker: Patient Why does patient lack capacity?: Encephalopathy/Delirium What is the anticipated duration the HCP will be invoked?: Unknown/Until condition resolves PATIENT SUMMARY: 39M w/ PMHx ETOH use disorder who presented from [facility] in [place] w/ CC of ETOH withdrawal delirium refractory to outpatient management. Admitted to CCU for further management. Subjective 24 HOUR INTERVAL HISTORY: 06/15 night - trop negative, repeat EKG overall unchanged - CIWA persistently > 20 - additional 20 IV valium for RR > 40 and tremors despite multiple phenobarb doses - K 2.8, ordered 100 mEq repletion in 1L NS over 10 hrs for additional fluids Admitted - B/L conjunctival injection w/ green discharge. Ordered erythromycin - Spoke with [facility], confirmed admitted on 06/14 Objective VS FOR PAST 24 Hours ([High] [Low] (Last Recorded Value)): Temp: [36.9 ??C (98.4 ??F)-39.2 ??C (102.6 ??F)] 38.5 ??C (101.3 ??F) Heart Rate: [88-133] 101 Resp: [17-49] 24 BP: (84-149)/(60-112) 92/66 SpO2: [95 %-100 %] 100 % Set FiO2 (O2%): [30 %-50 %] 30 % I/Os LAST 24 HOURS: I/O last 3 completed shifts: In: 1688.6 [I.V.:438.6; IV Piggyback:1250] Out: 1190 [Urine:1190] Physical Exam Constitutional: General: He is not in acute distress. Appearance: He is ill-appearing and toxic-appearing. HENT: Head: Normocephalic. Mouth/Throat: Mouth: Mucous membranes are moist. Eyes: General: No scleral icterus. Pupils: Pupils are equal, round, and reactive to light. Cardiovascular: Rate and Rhythm: Regular rhythm. Tachycardia present. Heart sounds: No murmur heard. Pulmonary: Effort: Respiratory distress present. Breath sounds: No stridor. No wheezing. Abdominal: General: Bowel sounds are normal. There is no distension. Palpations: Abdomen is soft. There is no mass. Musculoskeletal: Right lower leg: No edema. Left lower leg: No edema. Skin: Capillary Refill: Capillary refill takes less than 2 seconds. Neurological: Comments: sedated : Active Airways Airway Duration ETT <1 day . Active Lines Name Placement date Placement time Site Days Peripheral IV 06/15/24 Anterior;Distal;Right Forearm 06/15/24 1326 Forearm 1 Peripheral IV 06/16/24 Left;Posterior Hand 06/16/24 0752 Hand less than 1 Peripheral IV 06/16/24 Posterior;Right Forearm 06/16/24 1222 Forearm less than 1 Active Drains Drain Duration GASTROINTESTINAL TUBES (Single Lumen) OG - Bryan Sump 16 Center mouth <1 day Urethral Catheter 16 Fr. <1 day Vent Mode: Volume control/assist control S RR: 24 breaths per minute A RR: 21 Per Minute Set PEEP/CPAP (cm H2O): 5 cm H2O Set FiO2 (O2%): 30 % S VT: 450 mL Set I:E: 1:1.5 MV Exp: 9.5 L/min MAP (cm H2O): 13.26 cm H2O Plateau Pressure (cm H2O): 18 cm H2O PEEP (cm H2O): 5.9 cm H2O I:E Ratio: 1:1.5 Set Tinsp: 1 sec Vt Spontaneous (mL): 0 mL A VT: 461 mL MEDICATIONS: acetaminophen, 650 mg, gastric tube, q6h PRN [START ON 06/17/2024] amino acids-protein hydrolysate, 1 packet, gastric tube, Daily ampicillin-sulbactam, 3 g, intravenous, q6h BONG dextrose, 15 g, oral, q15min PRN Or dextrose, 6.25 g, intravenous, q15min PRN Or dextrose, 12.5 g, intravenous, q15min PRN Or dextrose, 25 g, intravenous, q15min PRN dextrose 5% and sodium chloride 0.9% (NS), , intravenous, Continuous PRN diazePAM, 5 mg, gastric tube, q6h [facility] enoxaparin, 40 mg, subcutaneous, Daily erythromycin, 0.5 inch, both eyes, q6h [facility] famotidine, 20 mg, oral, 2x daily fentaNYL, 25 mcg, intravenous, q5min PRN Or fentaNYL, 50 mcg, intravenous, q5min PRN Or fentaNYL, 75 mcg, intravenous, q5min PRN Or fentaNYL, 100 mcg, intravenous, q5min PRN Or fentaNYL, 25-100 mcg, intravenous, q5min PRN fentaNYL, 25-100 mcg/hr, intravenous, Continuous PRN folic acid, 1 mg, oral, Daily insulin lispro, 1-20 Units, subcutaneous, See admin instructions insulin regular (ICU infusion guideline), 0.5-20 Units/hr, intravenous, Continuous PRN loperamide, 2 mg, oral, 4x daily PRN PHENobarbital, 32.5 mg, intravenous, q30min PRN Or PHENobarbital, 65 mg, intravenous, q30min PRN Or PHENobarbital, 130 mg, intravenous, q30min PRN Or PHENobarbital, 260 mg, intravenous, q30min PRN propofol, 5-50 mcg/kg/min, intravenous, Continuous PRN sodium chloride, 2.5-10 mL, intravenous, See admin instructions And sodium chloride, 2.5-10 mL, intravenous, q12h BONG thiamine, 500 mg, intravenous, q8h [facility]: I have personally reviewed the patient???s laboratory results from the last 24 hours. Diagnostics & Labs Component Value Date WBC 7.7 06/16/2024 HGB 15.8 06/16/2024 HCT 42.4 06/16/2024 PLT 86 (L) 06/16/2024 Diagnostics & Labs Component Value Date NA 138 06/16/2024 K 2.9 (LL) 06/16/2024 CL 109 (H) 06/16/2024 CO2 13 (LL) 06/16/2024 BUN 9 06/16/2024 CREATININE 0.49 (L) 06/16/2024 GLUCOSE 87 06/16/2024 Diagnostics & Labs Component Value Date AST 47 (H) 06/16/2024 ALT 43 (H) 06/16/2024 INR 1.0 06/16/2024 BILIDIR 0.5 (H) 06/16/2024 BILITOT 1.2 06/16/2024 TP 6.9 06/16/2024 IMAGING: I have personally reviewed the patient???s chest imaging from the last 24 hours. Today I have personally visualized the real-time EKG tracing and pulse oximetry tracing. HOSPITAL PROBLEMS: Principal Problem: Toxic metabolic encephalopathy Active Problems: Alcohol withdrawal delirium (HCC) Hypokalemia Hypomagnesemia Hyponatremia Pancreatitis Acute respiratory failure with hypoxia (HCC) ASSESSMENT AND PLAN: * NEUROLOGY #ETOH withdrawal #Encephalopathy due to withdrawal syndrome #Sedation Severe withdrawal and persistent scores > 30 requiring high doses of phenobarbital and valium, ultimately with reduced LOC leading to ETT to maintain airway patency. See below. CTH negative at thetime of admission though degraded by motion artifact. - RASS -1, propofol and fentanyl, will add 5mg Valium q6hrs now given resistance to benzo therapy - thiamine high dose, folate RESPIRATORY #Acute hypoxemic respiratory failure #Aspiration PNA/pneumonitis Marked alkalosis driven by ?central signals rather than need for oxygenation. Intubated, evidence of blood in the mouth per anesthesia. There is a retrocardiac consolidation on repeat CXR and there are copious purulent secretions in in the ETT. Temporarily drove high minute ventilation until ASA toxicity was ruled out. - Mechanical Ventilation ACVC and airway maintenance/protection to treat and prevent further life threatening hypoxemia/hypercapnea. - Daily SBT when appropriate - ICU light sedation protocol - Titrate oxygen to maintain sat 88-92% - Bronchodilators per respiratory protocol with albuterol - Airway secretion removal per ICU protocol - Dysphagia screen before oral feeding per protocol CARDIAC #Demand ischemia TWI v1v4, troponin flat, in the setting of marked tachycardia. - telemetry GASTROINTESTINAL #Mild ETOH hepatitis #Pancreatitis Given high fever, transaminitis, send lipase which is positive. - SUP with nexium - trickle feeds, nutrition consult GENITOURINARY #AGMA #NAGMA Initially non gap acidosis, now mild gap. Marked alkalosis (respiratory) with inadequate compensation. Given RR in the absence of clear hypoxemia, hyperthermia, hypokalemia, concern for salicylate toxicity: level negative, pH serially observed on blood gas to ensure no precipitous acidosis following intubation. - 2L LR - Mandujano catheter for measurement of urine flow - periodic monitoring of serum creatinine - continue to replete electrolytes INFECTIOUS DISEASE #Conjunctivitis #Aspiration PNA - Unasyn - blood, sputum cultures - erythromycin ointment to eyes ENDOCRINE ICU glycemic protocol HEMATOLOGY Daily CBC MUSCULOSKELETAL/SKIN I performed a complete examination of the dorsal surface of the patient's body, plus the sites of any medical devices plus all sites of potential pressure injury on the ventral surface. There were nopressure injuries found unless listed below. * Global Plan of Care: Global Issues Restraint Need Reviewed: Needed based on comprehensive team assessment as less restrictive options insufficient Mobility Level That Needs to Be Ordered: 2 Consider SUP: SUP added Urinary Catheter Indicated Today: Indicated Reason for Continuing Urinary Catheter: ICU sedation protocol Medical Decision Maker: Patient Why does patient lack capacity?: Encephalopathy/Delirium What is the anticipated duration the HCP will be invoked?: Unknown/Until condition resolves Disposition: Keep PCP was notified about ICU admission, major condition changes, and code status changes?: Yes IV Infusions Reviewed?: Yes I have discussed the plan of care with: Patient, Family, Resident, and Inter- professional team This patient is critically ill with acute organ failure, present and threatened. Today, I personally spent 38 minutes performing and managing evaluation and management services for this critically ill patient with life-threatening organ failure, Neurological Failure: I performed frequent, serial assessments to enable emergent intervention in managing acute neurological deterioration. Respiratory Failure: I made serial acute adjustments, and evaluations for further adjustments, to life saving oxygenation support to manage, prevent worsening and/or hasten recovery of acute life-threatening hypoxemia. Imade serial acute adjustments, and evaluations for further adjustments, to life saving ventilatory support to manage, prevent worsening and/or hasten recovery of acute life-threatening hypercarbic respiratory failure. MD Antonio Villalobosel Sebas : 1985 CSN: [id number] * Mikey Rivas NP - 06/16/2024 8:27 AM EST CRITICAL CARE PROGRESS NOTE PATIENT SUMMARY: 39M w/ PMHx ETOH use disorder who presented from [facility] in [place] w/ CC of ETOH withdrawal delirium refractory to outpatient management. Admitted to CCU for further management. Hospital LOS: 1 day Subjective 24 HOUR INTERVAL HISTORY: 06/15 night - trop negative, repeat EKG overall unchanged - CIWA persistently > 20 - additional 20 IV valium for RR > 40 and tremors despite multiple phenobarb doses - K 2.8, ordered 100 mEq repletion in 1L NS over 10 hrs for additional fluids Admitted - B/L conjunctival injection w/ green discharge. Ordered erythromycin - Spoke with [facility], confirmed admitted on 06/14 Objective VITAL SIGNS FOR PAST 24 Hours ([High] [Low] (Last Recorded Value)): Temp: [36.8 ??C (98.2 ??F)-38.1 ??C (100.6 ??F)] 38.1 ??C (100.6 ??F) Heart Rate: [88-133] 130 Resp: [16-49] 20 BP: (116-155)/(78-112) 122/93 SpO2: [95 %-100 %] 97 % Set FiO2 (O2%): [50 %] 50 % I/Os LAST 24 HOURS: No intake/output data recorded. I/O last 3 completed shifts: In: 1100 [IV Piggyback:1100] Out: 600 [Urine:600] PHYSICAL EXAM: Physical Exam Constitutional: Appearance: He is ill-appearing. HENT: Head: Normocephalic and atraumatic. Mouth/Throat: Mouth: Mucous membranes are dry. Eyes: Pupils: Pupils are equal, round, and reactive to light. Cardiovascular: Rate and Rhythm: Normal rate and regular rhythm. Pulses: Normal pulses. Heart sounds: Normal heart sounds. No murmur heard. Pulmonary: Breath sounds: Rhonchi present. No wheezing. Musculoskeletal: Right lower leg: No edema. Left lower leg: No edema. Skin: General: Skin is warm and dry. Capillary Refill: Capillary refill takes less than 2 seconds. Neurological: Comments: Patient stuporous on exam, minimal movement to noxious stimuli -- will not open eyes or answer questions . Active Lines Name Placement date Placement time Site Days Peripheral IV 06/15/24 Anterior;Distal;Right Forearm 06/15/24 1326 Forearm less than 1 Peripheral IV 06/16/24 Left;Posterior Hand 06/16/24 0752 Hand less than 1 Peripheral IV 06/16/24 Posterior;Right Forearm 06/16/24 1222 Forearm less than 1 , Active Drains Drain Duration GASTROINTESTINAL TUBES (Single Lumen) OG - Bryan Sump 16 Center mouth <1 day Urethral Catheter 16 Fr. <1 day , Active Airways Airway Duration ETT <1 day VENT SETTINGS (LAST 12 HOURS): Vent Mode: Volume control/assist control S RR: 24 breaths per minute A RR: 24 Per Minute Set PEEP/CPAP (cm H2O): 5 cm H2O Set FiO2 (O2%): 40 % S VT: 450 mL Set I:E: 1:1.5 MV Exp: 10.3 L/min MAP (cm H2O): 10.2 cm H2O Plateau Pressure (cm H2O): 17 cm H2O PEEP (cm H2O): 5.4 cm H2O I:E Ratio: 1:1.5 Set Tinsp: 1 sec Vt Spontaneous (mL): 0 mL A VT: 455 mL MEDICATIONS: acetaminophen, 650 mg, gastric tube, q6h PRN ampicillin-sulbactam, 3 g, intravenous, q6h BONG dextrose, 15 g, oral, q15min PRN Or dextrose, 6.25 g, intravenous, q15min PRN Or dextrose, 12.5 g, intravenous, q15min PRN Or dextrose, 25 g, intravenous, q15min PRN dextrose 5% and sodium chloride 0.9% (NS), , intravenous, Continuous PRN diazePAM, 5 mg, gastric tube, q6h BONG enoxaparin, 40 mg, subcutaneous, Daily erythromycin, 0.5 inch, both eyes, q6h BONG famotidine, 20 mg, oral, 2x daily fentaNYL, 25 mcg, intravenous, q5min PRN Or fentaNYL, 50 mcg, intravenous, q5min PRN Or fentaNYL, 75 mcg, intravenous, q5min PRN Or fentaNYL, 100 mcg, intravenous, q5min PRN Or fentaNYL, 25-100 mcg, intravenous, q5min PRN fentaNYL, 25-100 mcg/hr, intravenous, Continuous PRN folic acid, 1 mg, oral, Daily insulin lispro, 1-20 Units, subcutaneous, See admin instructions insulin regular (ICU infusion guideline), 0.5-20 Units/hr, intravenous, Continuous PRN loperamide, 2 mg, oral, 4x daily PRN PHENobarbital, 32.5 mg, intravenous, q30min PRN Or PHENobarbital, 65 mg, intravenous, q30min PRN Or PHENobarbital, 130 mg, intravenous, q30min PRN Or PHENobarbital, 260 mg, intravenous, q30min PRN potassium chloride, 40 mEq, gastric tube, q4h propofol, 5-50 mcg/kg/min, intravenous, Continuous PRN sodium chloride, 2.5-10 mL, intravenous, See admin instructions And sodium chloride, 2.5-10 mL, intravenous, q12h BONG thiamine, 500 mg, intravenous, q8h BONG LAB: Results from last 7 days Lab Units 06/16/24 03406/15/24 1733 06/15/24 1325 06/15/24 1007 SODIUM mmol/L 137 133* 135 133* POTASSIUM mmol/L 2.8* 4.8 3.1* 3.2* CHLORIDE mmol/L 100 98 98 96* CARBON DIOXIDE mmol/L 21* 22 23 22 BUN mg/dL 10 10 10 10 CREATININE mg/dL 0.67 0.75 0.75 0.79 GLUCOSE mg/dL 99 101* 105* 142* ANION GAP 16* 13 14 15 MAGNESIUM mg/dL 1.8 1.9 -- 1.9 PHOSPHORUS mg/dL 3.3 3.4 -- -- CALCIUM mg/dL 8.7 8.3* 8.7 8.7 Results from last 7 days Lab Units 06/16/24 03406/15/24 1733 06/15/24 0050 WBC 10*3/uL 7.7 7.0 7.4 HEMOGLOBIN g/dL 15.8 15.9 17.4* HEMATOCRIT % 42.4 44.0 46.9 PLATELETS 10*3/uL 86* 85* 99* Results from last 7 days Lab Units 06/16/24 0342 06/15/24 0050 ALBUMIN g/dL 3.7 4.2 TOTAL BILIRUBIN mg/dL 1.2 1.5* DIRECT BILIRUBIN mg/dL 0.5* -- AST U/L 47* 88* ALT U/L 43* 66* ALKALINE PHOSPHATASE U/L 112 136* Results from last 7 days Lab Units 06/16/24 0342 INR 1.0 Results from last 7 days Lab Units 06/16/24 0734 LACTIC ACID mmol/L 1.0 IMAGING/OTHER STUDIES: X-Ray Chest 1 View Result Date: 06/15/2024 FINDINGS and IMPRESSION: No focal consolidation, pleural effusion or pneumothorax. Cardiomediastinal silhouette is unremarkable. The bones appear intact. COMMUNICATION: Per this written report. If this radiology report contains a blank impression section, it is an incomplete radiology report. Please contact the interpreting radiologist or applicable radiology division as soon as possible to obtain the completed interpretation. Workstation ID: [id number] CT Head WO Contrast Result Date: 06/15/2024 Evaluation is markedly degraded by motion and streak artifact. Within these limitations no intraparenchymal hemorrhage or large territorial infarct is noted.. If this radiology report contains a blank impression section, it is an incomplete radiology report. Please contact the interpreting radiologist or applicable radiology division as soon as possible to obtain the completed interpretation. Workstation ID: [id number] Up-to-date CT equipment and radiation dose reduction techniques were employed. CTDIvol: 48.0 mGy. DLP: 868 mGy-cm. HOSPITAL PROBLEMS: Principal Problem: Toxic metabolic encephalopathy Active Problems: Alcohol withdrawal delirium (HCC) Hypokalemia Hypomagnesemia Hyponatremia Assessment & Plan Nervous History of alcohol use disorder -- unclear to what extent, or if any prior withdraw seizures. Presenting from [facility] with concern for alcohol withdrawal after found to be altered, hallucinating and tremulous, with rising CIWA scores requiring ICU level of care. HCT unrevealing. Received multiple doses of valium and phenobarb, ultimately required intubation due to worsening mentation and severe metabolic alkalosis. Suspect toxic metabolic encephalopathy secondary to etoh withdraw -analgesia/sedation: fentanyl, propofol -valium 5mg 3 times a day bong -high dose thiamine 500mg 3 times a day x3 days, folic acid -erythromycin eye ointment for B/L conjunctivitis noted on admission -low concern for seizure activity contributing to ams, prolactin and cK negative Respiratory Initially presented oxygenating appropriately on 2L. Course complicated by worsening neurologic suppression, ultimately requiring intubation for severe metabolic alkalosis pH 7.64/18/19. CXR with retrocardiac infiltrate suspicious for aspiration pneumonia. -titrate FiO2 to maintain SpO2 > 92% -closely monitor vent mechanics and make appropriate adjustments to maintain pH Circulatory Presents tachycardic, hypertensive in the setting of severe etoh withdraw and dehydration. Troponin<6, EKG with sinus tach, TWI V1-V4. Given 2L IVF resuscitation. -maintain map > 65 -give 1L LR Digestive Presents with elevated alk phos 136, AST/ALT 88/66, tbili 1.5, lipase 199 -- unclear if patient is having abdominal pain given encephalopathy, though will treat empirically as pancreatitis secondary to etoh abuse, given LFTs downtrending on repeat -diet: nutrition consult -sup: famotidine bid -bowel regimen: on hold d/t diarrhea -imodium prn Renal / Genitourinary Presents with baseline sCr 0.9, severe electrolyte derangements with hypokalemia, hypomagnesemia, and hypocalcemia. Severe AGMA with pH 7.65/18/19, GAP 16, sHCO3 13 -- etiology unclear with asa, apap, LA, osmolar gap, bun are all normal, could be related to significant diarrhea coupled with mild sta rvation ketoacidosis with bhb 1.0. -bmp q8h -maintain mandujano -low threshold to initiate bicarb infusion Musculoskeletal I performed a complete examination of the dorsal surface of the patient's body, plus the sites of any medical devices plus all sites of potential wound on the ventral surface. There were no wounds found unless listed below. Endocrine / Metabolic Without known endocrinopathies -ICU glycemic protocol Hematologic Macrocytic anemia, with elevated MCV. H/H 17/46 -- likley hemoconcentrated with poor oral intake, thrombocytopenia 9 - INR normal -daily cbc -dvtppx: enoxaparin Infectious / Inflammatory Initially presented afebrile without leukocytosis. Course complicated worsening mentation leading to aspiration, febrile to 102.6, tachycardia, CXR with retrocardiac infiltrate. Mini rvp negative. Suspect severe sepsis iso aspiration pneumonia -unasyn -follow up mrsa pcr, blood cultures, sputum GLOBAL PLAN OF CARE: Code Status: Full Code Global Issues Restraint Need Reviewed: Needed based on comprehensive team assessment as less restrictive options insufficient Mobility Level That Needs to Be Ordered: 2 Consider SUP: SUP added Urinary Catheter Indicated Today: Indicated Reason for Continuing Urinary Catheter: ICU sedation protocol Medical Decision Maker: Patient Why does patient lack capacity?: Encephalopathy/Delirium What is the anticipated duration the HCP will be invoked?: Unknown/Until condition resolves Disposition: Keep PCP was notified about ICU admission, major condition changes, and code status changes?: Yes IV Infusions Reviewed?: Yes FLUIDS/ELECTROLYTES/NUTRITION VTE PROPHYLAXIS Current Facility-Administered Medications Medication enoxaparin DISCHARGE PLANNING/PLACEMENT: I have discussed the plan of care with: Family and Attending This patient is critically ill with acute organ failure, present and threatened. Today, I personally spent 95 minutes performing and managing evaluation and management services for this critically ill patient with life-threatening organ failure, Respiratory Failure: I made serial acute adjustments, and evaluations for further adjustments, to life saving oxygenation support to manage, prevent worsening and/or hasten recovery of acute life-threatening hypoxemia. Imade serial acute adjustments, and evaluations for further adjustments, to life saving ventilatory support to manage, prevent worsening and/or hasten recovery of acute life-threatening hypercarbic respiratory failure. Life threatening metabolic derangements: I performed serial, frequent titrated management interventions to diagnose and manage life-threatening metabolic imbalance due to worsening metabolic alkalosis requiring serial blood gas analysis Care during the described time interval was provided by me. I have reviewed this patient's available data, including medical history, events of note, physical examination and test results as part of my evaluation SIGNATURE: Mikey Rivas NP Electronic Signature Brooks Mullen : 1985 CSN: [id number] documented in this encounter H&P Notes * NATALIE Alves - 06/15/2024 3:07 PM EST CRITICAL CARE HISTORY AND PHYSICAL PATIENT SUMMARY: 39M w/ PMHx ETOH use disorder who presented from [facility] w/ CC of ETOH withdrawal delirium refractory to outpatient management. Admitted to CCU for further management. Subjective HISTORY OF PRESENT ILLNESS: 39 y/o M with a history of alcohol use disorder who presents from [facility] in [place] with concern for acute alcohol withdrawal. Patient noted to be altered with tremors refractory to Ativan 6mg IM prior to transport. Found to be tachycardic, hypertensive, and altered on arrival to the ED. Head CT negative for acute intracranial process. Labs notable for hypokalemia, hypomagnesemia, and hyponatremia s/p repletion. AGMA s/p 2L LR, gap subsequently closed. Started on CIWA w/ Valium and received ~85 mg. Escalated to severe CIWA with phenobarbital for scores >30 with improvement in symptoms and mentation. Admitted to CCU for further management of severe ETOH withdrawal. Review of Systems Unable to perform ROS: Mental status change PAST MEDICAL HISTORY: Past Medical History: Diagnosis Date Alcohol use disorder PAST SURGICAL HISTORY: History reviewed. No pertinent surgical history. MEDICATIONS Prior to Admission medications Medication Sig Start Date End Date Taking? Authorizing Provider acetaminophen (TYLENOL) 325 mg tablet Take 650 mg by mouth every 6 hours as needed for pain. Unknown Provider, bismuth subsalicylate (PEPTO BISMOL) 262 mg/15 mL suspension Take 30 mL by mouth every 6 hours as needed for indigestion. Unknown Provider, calcium carbonate (TUMS) 200 mg calcium (500 mg) chewable tablet Chew and swallow 1 tablet by mouthonce a day. Unknown Provider, diphenoxylate-atropine (LOMOTIL) 2.5-0.025 mg per tablet Take 1 tablet by mouth 4 times a day as needed for diarrhea. Unknown Provider, guaiFENesin (ROBITUSSIN) 100 mg/5 mL syrup Take 200 mg by mouth 3 times a day as needed for congestion. Unknown Provider, magnesium hydroxide (MILK OF MAGNESIA) 400 mg/5 mL suspension Take 2,400 mg by mouth once a day. Unknown Provider, ondansetron (Zofran) 4 mg tablet Take 4 mg by mouth every 8 hours as needed for nausea or vomiting.Unknown Provider, thiamine HCl (VITAMIN B1) 100 mg tablet Take 100 mg by mouth once a day. Unknown Provider, and enoxaparin, 40 mg, subcutaneous, Daily [START ON 06/16/2024] folic acid, 1 mg, oral, Daily PHENobarbital, 32.5 mg, intravenous, q30min PRN Or PHENobarbital, 65 mg, intravenous, q30min PRN Or PHENobarbital, 130 mg, intravenous, q30min PRN Or PHENobarbital, 260 mg, intravenous, q30min PRN sodium chloride, 2.5-10 mL, intravenous, See admin instructions And sodium chloride, 2.5-10 mL, intravenous, q12h BONG thiamine, 500 mg, intravenous, q8h BONG ALLERGIES: Patient has no known allergies. SOCIAL HISTORY: Social Documentation No social documentation on file. FAMILY HISTORY: No family history on file. Objective VITAL SIGNS FOR PAST 24 Hours ([High] [Low] (Last Recorded Value)): Temp: [36.8 ??C (98.2 ??F)-36.8 ??C (98.3 ??F)] 36.8 ??C (98.2 ??F) Heart Rate: [89-141] 89 Resp: [16-32] 32 BP: (118-155)/(55-111) 139/87 SpO2: [97 %-100 %] 97 % . Active Lines Name Placement date Placement time Site Days Peripheral IV 06/14/24 Anterior;Left Forearm 06/14/24 2300 Forearm less than 1 Peripheral IV 06/15/24 Anterior;Distal;Right Forearm 06/15/24 1326 Forearm less than 1 , Active Drains None , Active Airways None VENT SETTINGS (LAST 12 HOURS): Physical Exam Vitals and nursing note reviewed. Constitutional: Appearance: He is ill-appearing. HENT: Mouth/Throat: Mouth: Mucous membranes are moist. Eyes: General: No scleral icterus. Right eye: Discharge present. Left eye: Discharge present. Extraocular Movements: Extraocular movements intact. Pupils: Pupils are equal, round, and reactive to light. Comments: Bilateral conjunctival injection with purulent drainage Cardiovascular: Rate and Rhythm: Normal rate and regular rhythm. Pulses: Normal pulses. Pulmonary: Effort: Pulmonary effort is normal. No respiratory distress. Breath sounds: Normal breath sounds. No wheezing, rhonchi or rales. Abdominal: General: There is no distension. Palpations: Abdomen is soft. Tenderness: There is no abdominal tenderness. There is no guarding or rebound. Musculoskeletal: General: Normal range of motion. Cervical back: Normal range of motion. Right lower leg: No edema. Left lower leg: No edema. Skin: General: Skin is warm and dry. Findings: No bruising or rash. Neurological: Comments: Oriented to self, unable to answer/mumbles to remainder of orientation questions. Continuously fidgeting with pulse ox. Appears to be having visual hallucinations. Moves all extremities symmetrically LAB: I have personally reviewed the patient's lab results from the past 24 hours. Results from last 7 days Lab Units 06/15/24 0050 WBC 10*3/uL 7.4 HEMOGLOBIN g/dL 17.4* HEMATOCRIT % 46.9 PLATELETS 10*3/uL 99* Results from last 7 days Lab Units 06/15/24 1325 06/15/24 1007 06/15/24 0722 06/15/24 0050 SODIUM mmol/L 135 133* 135 134* POTASSIUM mmol/L 3.1* 3.2* 3.1* 2.9* CHLORIDE mmol/L 98 96* 96* 94* CARBON DIOXIDE mmol/L 23 22 23 21* BUN mg/dL 10 10 11 13 CREATININE mg/dL 0.75 0.79 0.68 0.93 GLUCOSE mg/dL 105* 142* 105* 115* Results from last 7 days Lab Units 06/15/24 0050 ALBUMIN g/dL 4.2 TOTAL BILIRUBIN mg/dL 1.5* ALKALINE PHOSPHATASE U/L 136* ALT U/L 66* AST U/L 88* IMAGING /OTHER STUDIES: I have personally reviewed the patient's imaging results X-Ray Chest 1 View Result Date: 06/15/2024 FINDINGS and IMPRESSION: No focal consolidation, pleural effusion or pneumothorax. Cardiomediastinal silhouette is unremarkable. The bones appear intact. COMMUNICATION: Per this written report. If this radiology report contains a blank impression section, it is an incomplete radiology report. Please contact the interpreting radiologist or applicable radiology division as soon as possible to obtain the completed interpretation. Workstation ID: [id number] CT Head WO Contrast Result Date: 06/15/2024 Evaluation is markedly degraded by motion and streak artifact. Within these limitations no intraparenchymal hemorrhage or large territorial infarct is noted.. If this radiology report contains a blank impression section, it is an incomplete radiology report. Please contact the interpreting radiologist or applicable radiology division as soon as possible to obtain the completed interpretation. Workstation ID: [id number] Up-to-date CT equipment and radiation dose reduction techniques were employed. CTDIvol: 48.0 mGy. DLP: 868 mGy-cm. HOSPITAL PROBLEM LIST: Principal Problem: Toxic metabolic encephalopathy Active Problems: Alcohol withdrawal delirium (HCC) Hypokalemia Hypomagnesemia Hyponatremia Assessment & Plan Nervous History of alcohol use disorder. Unable to report how much he drinks daily or last drink given severe encephalopathy on admission. Presenting from [facility] with concern for alcohol withdrawal after found to be altered and tremulous. Received Ativan 6 mg IM without improvement prior to transport by EMS. A&Ox1 on arrival to the ED and noted to be tremulous with tongue fasciculations. Received ~85mg Valium and started on severe CIWA w/ phenobarbital for scores >30. Head CT limited by motion artifact but otherwise grossly unremarkable. Ongoing toxic metabolic encephalopathy in the setting of ETOH withdrawal with ongoing hallucinations, tremors. - Severe CIWA w/ phenobarbital - High dose thiamine + folic acid - Addiction psych consult when appropriate - Erythromycin eye ointment for B/L conjunctivitis noted on admission Respiratory No known history. CXR unremarkable. Stable on room air. - Goal SpO2 >92% Circulatory No known history. Tachycardic and hypertensive in the ED iso alcohol withdrawal. Lactate & troponin deferred. EKG w/ NSR, T wave inversions in V3-V5. VS improved on ICU admission. - Goal SBP >90 - Repeat EKG - Troponin given EKG changes in ED Digestive No known history. LFTs w/ elevated Alk Phos 136, transaminitis w/ AST 88 / ALT 66, elevated Tbili 1.5. Abdominal exam benign. - NPO for now - LFTs in AM - Bowel regimen: Senna + Miralax PRN Renal / Genitourinary No known history. Baseline Cr unknown. Labs on presentation notable for multipl electrolyte derangements including hypokalemia w/ K 2.9, hypomagnesemia, and hyponatremia likely iso chronic alcohol use. Also noted to have AG 19 which subsequently closed. Received 2L LR and electrolyte repletion in the ED. - Monitor I/O - Repeat BMP, Mg, Phos then daily - Replete electrolytes PRN Musculoskeletal I performed a complete examination of the dorsal surface of the patient's body, plus the sites of any medical devices plus all sites of potential wound on the ventral surface. There were no wounds found unless listed below. Endocrine / Metabolic No known history. At risk for stress hyperglycemia in the setting of acute illness. - ICU glycemic protocol Hematologic No known history. H&H slightly elevated on presentation. Thrombocytopenic w/ plts 99 likely isochronic alcohol use. No evidence of active bleeding on exam. - Repeat CBC then daily - INR in AM - DVT ppx: Lovenox Infectious / Inflammatory No recent infectious symptoms. Afebrile, no leukocytosis. CXR unremarkable. Low concern for active infectious process. - Monitor off abx GLOBAL PLAN OF CARE: Code Status: Full Code Medical Decision Maker: Global Issues Mobility Level That Needs to Be Ordered: 3 Medical Decision Maker: Other - Reviewed/Updated Capacity to make own decisions and HCA Why does patient lack capacity?: Encephalopathy/Delirium What is the anticipated duration the HCP will be invoked?: Unknown/Until condition resolves Disposition: Keep PCP was notified about ICU admission, major condition changes, and code status changes?: No PCP IV Infusions Reviewed?: Yes FLUIDS/ELECTROLYTES/NUTRITION VTE PROPHYLAXIS Current Facility-Administered Medications Medication enoxaparin DISCHARGE PLANNING/PLACEMENT: I have discussed the plan of care with: Attending. This patient is critically ill with acute organ failure, present and threatened. Today, I personally spent 87 minutes performing and managing evaluation and management services for this critically ill patient with life-threatening organ failure, Neurological Failure: I performed frequent, serial assessments to enable emergent intervention in managing acute neurological deterioration. Care during the described time interval was provided by me. I have reviewed this patient's available data, including medical history, events of note, physical examination and test results as part of my evaluation Signature: NATALIE Alves Electronic Signature Cosigned by Sal Adler MD at 06/15/2024 5:59 PM EST Associated attestation - Sal Adler MD - 06/15/2024 5:59 PM EST I saw and evaluated the patient. Case discussed with the resident/fellow and I agree with the findings and plan as documented in the resident's/fellow's note. documented in this encounter Nursing Notes * Anne Andrea RN - 06/21/2024 6:53 PM EST Pt remains disoriented x person, place and time, pt easily directable. Precedex gtt infusing titrating as follows. Sitter remains for patient safety - CIWA as ordered. Patient had multiple visit withfamily - reorientation needed. EXPEDITION SUPERVISOR at the bedside completed unsuccessfully. Patient remains hypertensive - LIP aware. Patient c/o right leg pain ( Chronic) - external male catheter applied. - pt remains incontinent of stool at this time. Plan of care is to continue to monitor and report off to oncoming RN documented in this encounter ED Notes * Edvin Beck MD - 06/15/2024 12:20 AM EST History HPI: Chief Complaint Patient presents with Alcohol Intoxication HPI Patient is a 39-year-old male presenting today for evaluation of alcohol withdrawal from [facility]. History is limited as patient appears to be altered. Per EMS, patient was sent in for back due to increasing alcohol withdrawal. Patient reported to the nurse that his last drink was a gallon of hard alcohol 4 days ago. Unable to get meaningful history from patient. Review of of medical records also is limited. Patient was at [facility] for alcohol intoxication on . Patient History History reviewed. No pertinent past medical history. History reviewed. No pertinent surgical history. No family history on file. Sexuality and Gender Identity Sexuality Legal Information Legal first name: Brooks Legal last name: Sebas Legal sex: Male Gender Identity Organ Inventory Organs the patient currently has: Organs present at or expected at to develop: Organs surgically enhanced or constructed: Organs hormonally enhanced or developed: breasts cervix ovaries uterus vagina penis prostate testes Review of Systems REVIEW OF SYSTEMS: Physical Exam Physical Exam ED Triage Vitals [06/15/24 0041] Temp Heart Rate Resp BP SpO2 36.8 ??C (98.3 ??F) 99 18 131/93 100 % Temp src Heart Rate Source Patient Position BP Location Set FiO2 (O2%) -- -- -- -- -- Physical Exam Vitals and nursing note reviewed. Constitutional: Comments: Appears very tremulous HENT: Head: Normocephalic. Right Ear: External ear normal. Left Ear: External ear normal. Mouth/Throat: Palate: Lesions present. Comments: Positive tongue fasciculation Eyes: General: Right eye: No discharge. Left eye: No discharge. Cardiovascular: Rate and Rhythm: Tachycardia present. Pulses: Normal pulses. Pulmonary: Effort: Pulmonary effort is normal. Abdominal: General: Abdomen is flat. Skin: General: Skin is warm. Capillary Refill: Capillary refill takes less than 2 seconds. Neurological: Motor: No weakness. Medical Decision Making and ED Course MDM Assessment/Plan 39-year-old male presenting today from [facility] for evaluation of alcohol withdrawal. On evaluation, patient appears mildly altered, unable to provide me with a detailed history. Patient did tell me that he is currently here in [facility]. Patient appears very tremulous. #Alcohol withdrawal, given timing, DT is also a possibility. Will need ICU level of care. Will start with CIWA protocol, valium and phenobarb here Critical Care Note - Edvin Beck MD Critical care: I spent 30 minutes of critical care time with this patient. This does not include time spent on separately billable procedures, treating other patients, and teaching time. The patient had a likelihood of decompensation and possible worsening of condition with out immediate intervention. Patient is critically ill with the following condition: severe alcohol withdrawal requiring significant amount of benzodiazepine and phenobarbital. Critical care time was spent personally by me on the following activities: development of treatment plan with patient, examination of patient, evaluation of patient's response to treatment, ordering and reviewing of laboratory and radiographic studies, ordering and performing treatments and interventions, discussions with other physicians, discussions with medical decision maker, pulse oximetry review, review of old charts, re-evaluation of patient's condition. Amount and/or Complexity of Data Reviewed (Previous Encounter or Outside Facility if available): Type of data reviewed: previous lab data reviewed, previous radiology data reviewed Type of external notes reviewed (if available): PCP notes, prior ED visit(s), specialist and hospitalization Brooks Mullen : 1985 CSN: [id number] Edvin Beck MD 06/20/24 4546 documented in this encounter Miscellaneous Notes * Plan of Care - Anne Knox RN - 06/25/2024 6:15 PM EST Problem: Adult Inpatient Plan of Care Goal: Plan of Care Review Outcome: Adequate for Discharge Flowsheets (Taken 06/25/20241811) Plan of Care Reviewed With: patient Plan of Care Summary: Pt is alert and oriented. Tolerated PO diet. Received PRN tylenol and motrin for pain management. Ambulated with PT, see note. Completed discharge education and verbalized understanding. Discharged with family, belongings and prescriptions left with patient, see flowsheet. Pt transferred into family vehicle without incident. Progress: improving Goal: Patient-Specific Goal (Individualized) Outcome: Adequate for Discharge Goal: Absence of Hospital-Acquired Illness or Injury Outcome: Adequate for Discharge Goal: Optimal Comfort and Wellbeing Outcome: Adequate for Discharge Goal: Readiness for Transition of Care Outcome: Adequate for Discharge Problem: Delirium Goal: Optimal Coping Outcome: Adequate for Discharge Goal: Improved Behavioral Control Outcome: Adequate for Discharge Goal: Improved Attention and Thought Clarity Outcome: Adequate for Discharge Goal: Improved Sleep Outcome: Adequate for Discharge Problem: Fall Injury Risk Goal: Absence of Fall and Fall-Related Injury Outcome: Adequate for Discharge Problem: Skin Injury Risk Increased Goal: Skin Health and Integrity Outcome: Adequate for Discharge Problem: Breathing Pattern Ineffective Goal: Effective Breathing Pattern Outcome: Adequate for Discharge Problem: Pneumonia Goal: Fluid Balance Outcome: Adequate for Discharge Goal: Resolution of Infection Signs and Symptoms Outcome: Adequate for Discharge Goal: Effective Oxygenation and Ventilation Outcome: Adequate for Discharge Problem: Alcohol Withdrawal Goal: Alcohol Withdrawal Symptom Control Outcome: Adequate for Discharge Goal: Optimal Neurologic Function Outcome: Adequate for Discharge Goal: Readiness for Change Identified Outcome: Adequate for Discharge Problem: Excessive Substance Use Goal: Optimized Energy Level (Excessive Substance Use) Outcome: Adequate for Discharge Goal: Improved Behavioral Control (Excessive Substance Use) Outcome: Adequate for Discharge Goal: Increased Participation and Engagement (Excessive Substance Use) Outcome: Adequate for Discharge Goal: Improved Physiologic Symptoms (Excessive Substance Use) Outcome: Adequate for Discharge Goal: Enhanced Social, Occupational or Functional Skills (Excessive Substance Use) Outcome: Adequate for Discharge Problem: Acute Rehab Services Goal & Intervention Plan Goal: Test Facility Engineer Speech Language Pathology Goal Description: Stand Alone Therapy Goal Outcome: Adequate for Discharge Plan of Care Reviewed With: patient Progress: improving * Plan of Care - Negrita Mohamud RN - 06/25/2024 3:02 PM EST Update: PT rec home with RW and services. Met with patient. Has no agency preference. However, patient has no PCP, lives in [place], and [employer] insurance. Discussed potential difficulty finding an agency with patient, PA Quita, and PT Ebenezer. Patient states there is an outpatient PT clinic closeto his house and has transportation to clinic. PT and PA agreeable to outpatient PT services and feel that it is a safe plan. RW delivered to patient's bedside. Plan to discharge today with outpatient PT services and RW. Patient in agreement with plan. * Plan of Care - Alexandra Arndt LCSW - 06/25/2024 2:37 PM EST Clinical Social Work was consulted by Gabe Lorenzo MD for ETOH/Substance use. This report writer reviewed medical record and met with pt at bedside. Pt is a 39 y.o. male who presents to the hospital with Delirium tremens (HCC) [F10.931]. he acknowledged concerns related to his ETOH use. 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 Pt would like to return to [facility] or another treatment option. Pt is recommended home with PT services. SW provided pt with treatment programs such as [facility] programs that accept his insurance. Pt also received recourses for AA meetings and [facility] in his area. Clinical social service manager reviewed Health Care Proxy document with pt. Pt demonstrated understanding of the document and when it would be used. Pt appointed the following: Primary Agent- Cherie Melendezsterling, sister; [phone] Alternate Agent- N/A Document signed, witnessed, and faxed into medical records for inclusion in chart. SINGLE NEEDLE TUFTING MACHINE OPERATOR also provided pt with copies of the document and encouraged pt to provide copies to pt's HCP(s) and PCP. Plan: Clinical Social Work remains available throughout this admission; no further needs identifiedat this time. . Alexandra Arndt LCSW * Plan of Care - Negrita Mohamud RN - 06/25/2024 12:21 PM EST Case Management Continued Stay Review Pertinent Clinical impacting hospitalization, level of care update, if indicated: Discussed in MDR. PT eval ordered. CIWA to be d/c'd today. Likely transfer to floor. Not ready for d/c today. Discharge Planning: Discharge Barrier: Medical stability Discharge Plan: Anticipate discharge home pending PT eval Choice list (with star ratings) provided / discussed, if indicated (Y or NA): NA * Plan of Care - Ebenezer Monet PT - 06/25/2024 12:11 PM EST Physical Therapy Problem: Adult Inpatient Plan of Care Goal: Plan of Care Review Flowsheets (Taken 06/25/2024 1211) Plan of Care Summary: Pt mod I with RW for all transfers and stairs, supervision with RW for ambulation. Pt cleared to DC home with supervision and PRN assist from family. Pt would also benefit from HHPT, if able, to cont to address mild functional deficits upon DC. DME needs: RW. Physical Therapy Treatment Note Patient Name: Brooks Mullen Treatment Received On : 06/25/2024 Clinical Impression PT Anticipated Equipment Needs at Discharge: walker, rolling PT Anticipated Discharge Disposition: home with family, home with assist, home PT Department [place]: Going home PT - OK to Discharge ?: Yes Plan of Care Review Plan of Care Reviewed With: patient Comments : Mobility section of whiteboard in patient's room has been updated to reflect patient's most recent mobility orders, assistive equipment, safety precautions, and current level of physical ability. Patient Active Problem List Diagnosis Toxic metabolic encephalopathy Alcohol withdrawal delirium (HCC) Hypokalemia Hypomagnesemia Hyponatremia Pancreatitis Acute respiratory failure with hypoxia (HCC) Past Medical History: Diagnosis Date Alcohol use disorder History reviewed. No pertinent surgical history. Treatment: Default Flowsheet Data (Last 12 Hours) Adult PT Focused Evaluation/Treatment Row Name 06/25/24 1211 General Information Patient Profile Review yes General Observations of Patient Pt received sitting up in chair. Agreeable to thearpy. RN cleared pt to be seen. Pt left seated in chair at end of session with all needs met/in reach. Precautions/Restrictions fall;safety Row Name 06/25/24 1211 Steak Tenderizer [employer] Services Steak Tenderizer Machine Needed No Row Name 06/25/24 1211 Transfer Assessment/Treatment Sit-Stand Webb level (Transfers) modified independence Stand-Sit Webb level(Transfers) modified independence [id number] Assistive Device (Transfers) gait belt;walker, rolling Comment (Transfers) Pt demo ability to perform sit<>stand mod I with use of RW. Row Name 06/25/24 1211 Gait Assessment/Treatment Webb (Gait) supervision required;verbal cues required Assistive Device (Gait) gait belt;walker, rolling Distance in Feet (Gait) 100' x2 Gait Pattern Analysis swing-through gait Gait Deviations toni, decreased;lateral sway, increased;step length, decreased Comment (Gait) Pt ambulated 100' with RW then 100' without AD. Pt demo improved gait speed and stride length with RW. Pt participated in head turns to R, L , and up during ambulation without AD. Milddecreased balance observed with L and R directions, 1 small post LOB noted when looking up. However, pt able to self correct via timely stepping strategy and no manual intervention from therapist required to prevent fall. Pt supervision with RW use and close SBA without RW at this time. Row Name 06/25/24 1211 Stairs Assessment/Treatment Number of Stairs (Stairs) 1 FOS Handrail Location (Stairs) right side (ascending) Webb (Stairs) verbal cues required;supervision required;modified independence Assistive Device (Stairs) gait belt;handrail;walker, rolling Technique (Stairs) [id number] (ascending);[id number] (descending) Comment (Stairs) Pt initially required supervision due to need for VC for improved safety and transition to step-to technique. By end of session pt able to manage stairs with RW (pt able to fold and unfold and carry up/down stairs without assist) at mod I level. Row Name 06/25/24 1211 AM-PAC AM-PAC With Stairs Row Name 06/25/24 1211 IP AM-PAC Basic Mobility '6 Clicks'(With Stairs) Turning in Bed Without Bedrails 4 Lying on Back to Sitting on Edge of Flat Bed 4 Moving Bed to Chair 4 Standing Up from Chair 4 Walk in Room 3 Climbs 3-5 Steps 4 IP Mobility Raw Score 23 CMS 0-100% Score 11.2 % CMS G Code Modifier:Current status (G8978) CI Standardized T-Scale Score 56.93 Row Name 06/25/24 1211 Clinical Impression PT Anticipated Equipment Needs at Discharge walker, rolling PT Anticipated Discharge Disposition home with family;home with assist;home PT PT - OK to Discharge ? Yes Row Name 06/25/24 1211 Plan of Care Review Plan of Care Reviewed With patient Row Name 06/25/24 1211 PT Eval/ Treat- Additional Details Document Type Therapy treatment note PT Treatment Received On 06/25/24 Patient Effort excellent Symptoms Noted During/After Treatment none PT Goal Summary (all recorded) PT Rehab Goal Summary Row Name 06/24/24 1400 Physical Therapy Goals Bed Mobility Goal Selection (PT) bed mobility, PT goal 1 Transfer Goal Selection (PT) transfer, PT goal 1 Gait Training Goal Selection (PT) gait training, PT goal 1 Row Name 06/24/24 1400 Bed Mobility Goal 1 (PT) Activity (Bed Mobility Goal 1, PT) bed mobility activities, all Webb Level/Cues Needed (Bed Mobility Goal 1, PT) independent Assitive Devices (Bed Mobility Goal 1, PT) none Time Frame (Bed Mobility Goal 1, PT) 10 days Row Name 06/24/24 1400 Transfer Goal 1 (PT) Activity (Transfer Goal 1, PT) transfers, all Webb Level/Cues Needed (Transfer Goal 1, PT) modified independence Assitive Devices (Transfer Goal 1, PT) walker, rolling Time Frame (Transfer Goal 1, PT) 10 days Row Name 06/24/24 1400 Gait Training Goal 1 (PT) Activity (Gait Training Goal 1, PT) gait (walking locomotion) Webb Level (Gait Training Goal 1, PT) modified independence Assistive Devices (Gait Training Goal 1, PT) walker, rolling Distance (Gait Goal 1, PT) >/=300ft Time Frame (Gait Training Goal 1, PT) 10 days Row Name 06/24/24 1400 Test Facility Engineer Goal (PT) Statement (Test Facility Engineer Goal, PT) Pt will be able to negoitate 1 FOS mod I with bilat HR Webb Level (Test Facility Engineer Goal, PT) modified independence Time Frame (Nursing Home Goal, PT) 4 weeks Ebenezer Monet PT Licensure: [place], [place]: [id number] * Plan of Care - Ebenezer Monet PT - 06/24/2024 10:59 AM EST Physical Therapy Problem: Adult Inpatient Plan of Care Goal: Plan of Care Review Flowsheets (Taken 06/24/2024 1059) Plan of Care Summary: Pt not cleared to DC home at this time. Anticipate DC home with supervision and PRN assist from family pending progress, ~1-2 additional sessions. DME needs: RW. Pt will required cont HH PT services upon DC to progress back to PLOF (indep with no AD). Physical Therapy Initial Assessment Patient Name: Brooks Mullen Date of Evaluation: 06/24/2024 Default Flowsheet Data (Last 12 Hours) PT Plan and Recommendation Row Name 06/24/24 1059 Clinical Impression Diagnosis Impaired functional mobility and gait secondary to toxic metabolic encephalopathy Patient/Family Goals Statement To go home Criteria for Skilled Therapeutic Interventions Met yes;treatment indicated Impairments Found (describe specific impairments) aerobic capacity/endurance;gait, locomotion, and balance;arousal, attention, and cognition;midline orientation;motor function;muscle performance;posture Rehab Potential excellent Therapy Frequency 5 times/wk PT Predicted Duration of Therapy Intervention by discharge PT Anticipated Equipment Needs at Discharge walker, rolling PT Anticipated Discharge Disposition home with family;home with assist;home PT Unable to Discharge from PT - Reason Goals not met for safe discharge Plan of Care Review Plan of Care Reviewed With: patient Physical therapy evaluation level based on elements of the patient???s history, examination of bodysystems, clinical presentation, and complexity of clinical decision making, as documented in the EMR, in accordance with CMS CPT code standards. Level of complexity of evaluation : Moderate Patient Active Problem List Diagnosis Toxic metabolic encephalopathy Alcohol withdrawal delirium (HCC) Hypokalemia Hypomagnesemia Hyponatremia Pancreatitis Acute respiratory failure with hypoxia (HCC) Past Medical History: Diagnosis Date Alcohol use disorder History reviewed. No pertinent surgical history. Vitals Sitting: BP 147/99 (113) Standing: BP 152/101 (117) Post ambulation semi hawkins in bed: BP 169/98 (120) Pt denied lightheadedness/dizziness throughout. RN notified and aware of HTN. Default Flowsheet Data (Last 12 Hours) Adult PT Focused Evaluation/Treatment Row Name 06/24/24 1059 General Information Patient Profile Review yes Onset of Illness/Injury or Date of Surgery 06/15/24 General Observations of Patient Pt received semi supine in bed, agreeable to therapy. RN cleared ptto be seen. Pt left semi hawkins in bed (declined up to chair) at end of session with bed alarm armed and all needs in reach. 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 Bilat HR on stairs. Walk in shower with no shower chair, x1 GB. Sister is currently caring for pt's son. Pt reports his father lives below him in the same apartment complex, pt reports his father would let him stay with him PRN if he required assist upon DC. Row Name 06/24/24 1059 Equipment Details Equipment in the home None Row Name 06/24/24 1059 Functional Level Prior Bed Mobility independent Bed Mobility Assistive Device none Transferring independent Transfer Assistive Device none Ambulation independent Ambulation Assistive Device none Stairs independent Stairs Assistive Device none Toileting independent Toileting Assistive Device none Bathing independent Bathing Assistive Device none Prior Functional Level Comment Pt reports indep without AD with all functional mobility, gait, and I/ADLs at OF. Row Name 06/24/24 1059 Hearing Hearing Status WF Row Name 06/24/24 1059 Vision Assessment/Intervention Visual Impairment/Limitations WF Row Name 06/24/24 1059 Cognitive Assessment/Intervention Attention (Cognitive) mild impairment;difficulty attending to task/directions;distractible Behavior/Mood Observations (Cognitive) alert;cooperative;distractible Follows Commands/Answers Questions (Cognitive) able to follow single-step instructions Personal Safety (Cognitive) mild impairment;impulsive Problem Solving (Cognitive) mild impairment Short/Nursing Home Memory (Cognitive) short term memory intact Orientation Status (Cognitive) oriented x 4 Row Name 06/24/24 1059 Sensory Assessment (Somatosensory) Sensory Assessment (Somatosensory) sensation intact Row Name 06/24/24 1059 Safety Issues, Functional Mobility Safety Issues Affecting Function impulsivity Impairments Affecting Function (Mobility) balance;endurance/activity tolerance;coordination;postural/trunk control;strength Row Name 06/24/24 1059 Pain Scale Pain Scale No/denies pain Row Name 06/24/24 1059 General UE Assessment Upper Extremity: Range of Motion LUE ROM was WFL;RUE ROM was WFL Row Name 06/24/24 1059 General LE Assessment Lower Extremity: Range of Motion LLE ROM was WFL;RLE ROM was WFL Row Name 06/24/24 1059 MMT (Manual Muscle Testing) Additional Documentation upper extremity strength deficits identified;lower extremity strength deficits identified Row Name 06/24/24 1059 MMT: Upper Extremity Upper Extremity: Manual Muscle Testing Detail BUE strength grossly 4/5 Row Name 06/24/24 1059 MMT: Lower Extremity Lower Extremity: Manual Muscle Testing Detail BLE strength grossly 4/5 Row Name 06/24/24 1059 Muscle Tone Assessment Left-Side Extremities Muscle Tone Assessment no abnormal tone noted Right-Side Extremities Muscle Tone Assessment no abnormal tone noted Row Name 06/24/24 1059 Motor Coordination Assessment/Training Gross Motor Skills Impairments Detail Pt with BUE tremors Row Name 06/24/24 1059 Bed Mobility Assessment/Treatment Assistive Device (Bed Mobility) none Roll Left Webb (Bed Mobility) supervision required Roll Right Webb (Bed Mobility) supervision required Scoot/Bridge Webb (Bed Mobility) supervision required Gpgfvz-fk-Egn Webb (Bed Mobility) supervision required Hgo-wa-Wkrizn Webb (Bed Mobility) supervision required Row Name 06/24/24 1059 Transfer Assessment/Treatment Sit-Stand Webb level (Transfers) supervision required Stand-Sit Webb level(Transfers) supervision required Vex-Xuwej-Qlg Assistive Device (Transfers) gait belt;walker, rolling Comment (Transfers) Pt able to perform sit<>stand with with RW and close SBA. Pt mildly unsteady but no LOB noted. Row Name 06/24/24 1059 Gait Assessment/Treatment Webb (Gait) contact guard assist;supervision required;verbal cues required Assistive Device (Gait) gait belt;walker, rolling Distance in Feet (Gait) 200ft Gait Pattern Analysis swing-through gait Gait Deviations toni, decreased;ataxic;step length, decreased Comment (Gait) Pt ambualted with RW, initially requiring CGA for steadying. Improved to close SBA with RW with increased repetition and practice. Pt mildly unsteady and mildly ataxic, however, no overt LOB observed. Row Name 06/24/24 1059 AM-PAC AM-PAC Without Stairs Row Name 06/24/24 1059 IP AM-PAC BASIC MOBILITY (Without Stair Climbing) Turning in Bed without Bedrails 4 Lying on Back to Sitting on Edge of Flat Bed 4 Moving Bed to Chair 3 Standing Up from Chair 4 Walk in Room 3 IP Mobility (no stairs) Raw Score 18 CMS 0-100% Score (no stairs) 23.26 % CMS G Code Modifier: current status (G8978) CJ T-Scale Score (No Stairs) 51.97 Row Name 06/24/24 1059 Clinical Impression Diagnosis Impaired functional mobility and gait secondary to toxic metabolic encephalopathy Patient/Family Goals Statement To go home Criteria for Skilled Therapeutic Interventions Met yes;treatment indicated Impairments Found (describe specific impairments) aerobic capacity/endurance;gait, locomotion, and balance;arousal, attention, and cognition;midline orientation;motor function;muscle performance;posture Rehab Potential excellent Therapy Frequency 5 times/wk PT Predicted Duration of Therapy Intervention by discharge PT Anticipated Equipment Needs at Discharge walker, rolling PT Anticipated Discharge Disposition home with family;home with assist;home PT Unable to Discharge from PT - Reason Goals not met for safe discharge Row Name 06/24/24 1059 Planned Therapy Interventions Planned Therapy Interventions balance training;bed mobility training;energy conservation education;gait training;home exercise program;motor coordination training;neuromuscular re-education;patient/family education;stair training;strengthening;stretching;transfer training Row Name 06/24/24 1059 Plan of Care Review Plan of Care Reviewed With patient Row Name 06/24/24 1059 PT Eval/ Treat- Additional Details Document Type Initial Evaluation PT Date of Initial Eval/Re-Eval 06/24/24 PT Ordered Same Day as RAD? No Patient Effort excellent Symptoms Noted During/After Treatment none PT Goal Summary (all recorded) PT Rehab Goal Summary Row Name 06/24/24 1400 Physical Therapy Goals Bed Mobility Goal Selection (PT) bed mobility, PT goal 1 Transfer Goal Selection (PT) transfer, PT goal 1 Gait Training Goal Selection (PT) gait training, PT goal 1 Row Name 06/24/24 1400 Bed Mobility Goal 1 (PT) Activity (Bed Mobility Goal 1, PT) bed mobility activities, all Webb Level/Cues Needed (Bed Mobility Goal 1, PT) independent Assitive Devices (Bed Mobility Goal 1, PT) none Time Frame (Bed Mobility Goal 1, PT) 10 days Row Name 06/24/24 1400 Transfer Goal 1 (PT) Activity (Transfer Goal 1, PT) transfers, all Webb Level/Cues Needed (Transfer Goal 1, PT) modified independence Assitive Devices (Transfer Goal 1, PT) walker, rolling Time Frame (Transfer Goal 1, PT) 10 days Row Name 06/24/24 1400 Gait Training Goal 1 (PT) Activity (Gait Training Goal 1, PT) gait (walking locomotion) Webb Level (Gait Training Goal 1, PT) modified independence Assistive Devices (Gait Training Goal 1, PT) walker, rolling Distance (Gait Goal 1, PT) >/=300ft Time Frame (Gait Training Goal 1, PT) 10 days Row Name 06/24/24 1400 Nursing Home Goal (PT) Statement (Nursing Home Goal, PT) Pt will be able to negoitate 1 FOS mod I with bilat HR Webb Level (Test Facility Engineer Goal, PT) modified independence Time Frame (Test Facility Engineer Goal, PT) 4 weeks Ebenezer Monet, PT Licensure: [place]: [id number] * Plan of Care - Jose F Bear RN - 06/24/2024 9:21 AM EST Continues on CIWA, not scoring for valium. OOB to chair and ambulating in unit with walker and stand-by assist, PT following. Plan of Care Reviewed With: patient Progress: improving * Plan of Care - Nancy Poole RN - 06/24/2024 6:30 AM EST Problem: Adult Inpatient Plan of Care Goal: Plan of Care Review Outcome: Ongoing (interventions implemented as appropriate) Flowsheets (Taken 06/24/2024 0627) Plan of Care Reviewed With: patient Plan of Care Summary: Patient is alert and oriented, cooperative with care. Restless and impulsive at times, easily redirected. Up to bedside commode, 1 episode diarrhea overnight. Chronic leg pain continues. Melatonin given for difficulty sleeping with fair effect. 1:1 constant observer discontinued. Progress: improving * Plan of Care - Day Cedeno CCC-EXPEDITION SUPERVISOR - 06/23/2024 10:19 AM EST Speech-Language Pathology Chart reviewed, contents noted. Clinical swallow eval completed on 06/21 with recommendation for NPOd/t lethargy, toxic metabolic encephalopathy, weak cough, and prolonged intubation; plan was for EXPEDITION SUPERVISOR to follow up with improvement in mental status. Pt has since been advanced to regular/thin liquid diet by Medical Team. MD/RN stated no further need for skilled EXPEDITION SUPERVISOR intervention, as pt is toleratingPO; therefore will sign off at this time. Please reconsult this service if there is any significantchange in swallow function. Day Cedeno M.A. [facility]-EXPEDITION SUPERVISOR Speech Pathology * Plan of Care - Jose F Bear RN - 06/23/2024 9:44 AM EST Continues on scheduled valium for alcohol withdrawal. Remains on 1:1 for impulsivity. Started on POdiet, tolerating well. IS use encouraged. OOB to chair with stand-by assist. Plan of Care Reviewed With: patient Progress: improving * Plan of Care - Tess Ferguson RN - 06/22/2024 1:58 PM EST Plan of Care Reviewed With: patient Progress: improving Patient continues on 1:1 observation for safety. Restless and impulsive at times but verbally redirectable. Continues on precedex, weaned as tolerated. CIWA assessment in place, see flowsheets. OOB to chair with assistance. Right leg pain controlled with tylenol and toradol. Remains NPO. Family at bedside. Patient safety maintained. * Plan of Care - Anna Gaspar CCC-EXPEDITION SUPERVISOR - 06/21/2024 12:04 PM EST Speech and Language Therapy Clinical Swallow Evaluation Patient Name: Brooks Mullen Date of Evaluation: 06/21/2024 Swallow Recommendation and Plan EXPEDITION SUPERVISOR IDDSI Level Recommendations: NPO Problem: Adult Inpatient Plan of Care Goal: Plan of Care Review Flowsheets (Taken 06/21/2024 1157) Plan of Care Reviewed With: patient family Plan of Care Summary: Bedside swallow evaluation completed. Recommend NPO pending EXPEDITION SUPERVISOR reassessment. HPI: 39 y/o M with a history of alcohol use disorder who presents from [facility] in [place] with concern for acute alcohol withdrawal. Patient noted to be altered with tremors refractory to Ativan 6mg IM prior to transport. Found to be tachycardic, hypertensive, and altered on arrival to the ED. Head CT negative for acute intracranial process. Labs notable for hypokalemia, hypomagnesemia, and hyponatremia s/p repletion. AGMA s/p 2L LR, gap subsequently closed. Started on CIWA w/ Valium and received ~85 mg. Escalated to severe CIWA with phenobarbital for scores >30 with improvement in symptoms and mentation. Admitted to CCU for further management of severe ETOH withdrawal. EXPEDITION SUPERVISOR Hx: Pt's family reports no history of dysphagia. The patient is not previously known to the Speech Pathology service and was on a regular baseline diet prior to admission. Relevant Imaging: CXR 06/16: INDINGS AND IMPRESSION: Devices: New ETT 2.5 cm above the mariam. New OGT with tip in the lateral gastric fundus and directed cephalad. Side-port 3 cm below the EG junction. Slightly worse consolidation collapse LLL. No effusions. Right lung clear. WBC: Results from last 7 days Lab Units 06/20/24 0335 06/19/24 0340 06/18/24 0326 WBC 10*3/uL 4.1 5.7 7.0 Reason for presentation: Prolonged intubation due to PNA Present Diet: Present IDDSI Diet Level: NPO Previous swallow study: Previous External Objective Swallow Study Done?: No Past Medical History: Diagnosis Date Alcohol use disorder Patient Active Problem List Diagnosis Toxic metabolic encephalopathy Alcohol withdrawal delirium (HCC) Hypokalemia Hypomagnesemia Hyponatremia Pancreatitis Acute respiratory failure with hypoxia (HCC) History reviewed. No pertinent surgical history. 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 Pt was unable to self feed. Pt was on room air without supplemental oxygen. Limited oral mechanism was unremarkable with natural dentition in overall good repair. Pt was presented the following po trials: ice chips, level 0/thin liquids, and level 4/pureed solids. Oral phase was notable for prolonged transfer of all trials but withfunctional clearing eventually appreciated. His pharyngeal swallow was subjectively weak to palpation with persistent upper airway congestion and vocal wetness noted post swallow. he patient was unable to clear this congestion with an extra swallow. His volitional cough was very weak and ineffective. No reflexive cough was appreciated during the assessment. Impressions: Pt presents with concern for pharyngeal dysphagia in the setting of acute respiratory failure with hypoxia and toxic metabolic encephalopathy. Pt currently appears at elevated risk for aspiration dueto lethargy, weak cough, and prolonged intubation. Should aspiration occur, the likelihood of developing aspiration PNA is currently elevated due to limited mobility due to ICU level of care, dependency for oral cares, lack of insight into deficits. Recommendations: EXPEDITION SUPERVISOR IDDSI Level Recommendations: NPO Recommended Diagnostics: reassess via clinical swallow (noninstrumental exam) Please re-consult Speech Pathology with any concern for respiratory, neurologic, or mental status decline. Pain Pain Scale: Pain Scale: FACES Pre/Post-Treatment (Group) Pain: During Treatment (FACES Scale): 2-->hurts little bit Problem: Acute Rehab Services Goal & Intervention Plan Goal: EXPEDITION SUPERVISOR Dysphagia Liquids Goal Description: Stand Alone Therapy Goal Note: Pt. will tolerate EXPEDITION SUPERVISOR liquid trials without signs of respiratory decline. Problem: Acute Rehab Services Goal & Intervention Plan Goal: EXPEDITION SUPERVISOR Dysphagia Solids Goal Description: Stand Alone Therapy Goal Note: Pt. will tolerate EXPEDITION SUPERVISOR solid trials without signs of respiratory decline. Problem: Acute Rehab Services Goal & Intervention Plan Goal: Nursing Home Speech Language Pathology Goal Description: Stand Alone Therapy Goal Flowsheets (Taken 06/21/2024 1202) EXPEDITION SUPERVISOR Goal, Activity Type: Swallowing EXPEDITION SUPERVISOR Goal, Measure to Achieve: Safe adequate PO nutrition/hydration. EXPEDITION SUPERVISOR Goal, Time to Achieve: 5-7 days EXPEDITION SUPERVISOR Goal, Date Established: 06/21/24 Anna Gaspar MS, [facility]/EXPEDITION SUPERVISOR Hospital Cell 06/21/2024 12:04 PM * Plan of Care - Stephanie Hamm - 06/21/2024 10:22 AM EST Case Management Continued Stay Review: Pertinent Clinical impacting hospitalization, level of care update, if indicated : Patient anticipated to remain in hospital over the weekend. +hallucinations requiring precedex gtt. Discharge Planning: Discharge Barrier: Medical stability Discharge Plan: Discharge dispo pending medical progression Choice list (with star ratings) provided / discussed, if indicated (Y or NA): n/a * Significant Event - Gaby Harmon RN - 06/21/2024 5:11 AM EST Pt. Trying to leave, states since has had fentanyl he can go, jenniffer Robbins NP into see, see order, precedex drip started * Significant Event - Gaby Harmon RN - 06/21/2024 4:55 AM EST Pt. Agitated trying to get OOB, c/o leg pain, wants to go home, banging on siderail, yelling for help, unable to answer any of orientation questions, Jenniffer Robbins NP aware, to order pain med * Plan of Care - Gaby Harmon RN - 06/21/2024 3:48 AM EST Plan of Care Summary: Pt. awake most of night, restless, see CIWA protocol, hallucinating at times,thought he saw someone being attacked,re-oriented multiple times, trying to get OOB, wants a shower, wants cola, fentanyl given once, appears calmer, frequent congested productive cough, pt. using yankar to suction mouth, inc. stool multiple times, voiding lay urine, will cont. to monitor, reportto be given to oncoming shift Plan of Care Reviewed With: patient Progress: no change * Plan of Care - Kristi Tolentino RN - 06/20/2024 4:56 PM EST Pt extubated this am after tolerating CPAP for >2hrs. Precedex gtt off and pt receiving prn doses of valium IVP following CIWA scale. Med w/ IV Tylenol for c/o chronic R leg/ankle pain. Pt confused on and off, restless, attempting to get OOB multiple times requiring 1:1 sitter. Delbert mann'romain, Remains DTV. Remains NPO till EXPEDITION SUPERVISOR tomorrow. * Plan of Care - Oly Riggins - 06/20/2024 2:22 PM EST Case Management Continued Stay Review: Pertinent Clinical impacting hospitalization, level of care update, if indicated : Discussed in MDR pt was extubated to 2L NC and is currently tolerating. BCX 06/16 NGTD. SCX 06/16 with normal yayo. MRSA pcr negative. MiniRVP negative. Fever curve downtrending. -continue Unasyn, day 1 06/16, planned to end 06/21 Discharge Planning: Discharge Barrier: medical stability Discharge Plan: Choice list (with star ratings) provided / discussed, if indicated (Y or NA): Plan TBD, CM will follow to assess discharge needs * Plan of Care - Lena Hill, RD - 06/20/2024 11:37 AM EST NUTRITION FOLLOW UP NOTE Interventions / Recommendations: Meals and snacks: NPO. Delmi medically able recommend advancing diet as tolerated to regular with texture/consistency per EXPEDITION SUPERVISOR recs. Medical Food Supplement: If pt continues with diarrhea and diet is advanced, continue the 1 pkt Banatrol 3 times a day. Nutrition Education: None provided at this time Assessment: Patient seen today for follow up visit. Reason For Assessment: follow up 39 y/o M w/ PMHx ETOH use disorder who presented from [facility] in [place] w/ CC of ETOH withdrawal delirium refractory to outpatient management. Admitted to CCU for further management. 06/19: pt extubated. TF stopped 06/20: Awaiting swallow eval. Pt continues with watery BMs. Banatrol is ordered, however pt is NPO. No N, V reported. Pt with 1+ generalized, dependant edema noted. No PIs noted. Current Nutrition Order: NPO While intubated pt received Osmolite 1.5 @ 40 ml/hr with 1 pkt ProSource daily and 1 pkt Banatrol 3times a day. TF volume (goal vol: 960 ml): 06/19: 892 ml 06/18: 930 ml 06/17: 738 ml 06/16: 340 ml (06/16-06/19) Average TF volume: 725 ml (76% - adequate nutrition) (06/16-06/19) ProSource: 3 out if 4 pkts given (06/18) Banatrol: 4 out of 6 given (67%) Food Allergies: NKFA NFPE: no changes since previous assessment Admission wt hx 06/20/24 0400 62.8 kg (138 lb 7.2 oz) Bed scale 06/19/24 0548 59.6 kg (131 lb 6.3 oz) Bed scale 06/18/24 0538 64.5 kg (142 lb 3.2 oz) Bed scale 06/17/24 0423 61.7 kg (136 lb 0.4 oz) Bed scale 06/16/24 0600 60.1 kg (132 lb 7.9 oz) Bed scale 06/15/24 1706 59.4 kg (130 lb 15.3 oz) Bed scale Labs 06/20/24: reviewed, pertinent changes: BG 161, Creat 0.55 Meds reviewed. Cultural/mandaeism/ethnic preferences addressed as able. BMI (Calculated): 20.44 Weight Used For Calculations: 60.1 kg (132 lb 7.9 oz) (bed scale) [place] Body Weight (IBW) (kg): 73.73 Estimated Needs: Energy Calorie Requirements: 6626-6994 kcal (27-32 kcal/kg) Protein (gms/day): 72-90 gm (1.2-1.5 gm/kg) Fluid Requirements: per team Nutrition Diagnosis: Inadequate Oral Intake related to Pulmonary Dysfunction as evidenced by NPO Status. Status: ongoing Goal: Enteral Nutrition to provide at least 75% estimated needs upon follow up. Status: Discontinued Goal: Diet advancement within next 24-48 hr. Status: New Monitoring/Evaluation: Food Intake: PO intake >/=50% consistently at each meal Electrolyte/Renal Profile: WNL Glucose/Endocrine Profile: WNL Gastrointestinal Profile: Bowel regularity Nutrition-Focused Physical Findings: Wound healing/Maintain skin integrity See flowsheets for additional information. Lena Hill RD Brooks Mullen : 1985 CSN: [id number] * Plan of Care - Molina Gan CRT - 06/20/2024 10:42 AM EST RESPIRATORY CARE NOTE 39 year old male w/ PMHx ETOH use disorder who presented from [facility] in [place] w/ CC of ETOH withdrawal delirium refractory to outpatient management. Admitted to CCU for further management. Patient was intubated 06/16 for severe withdrawal, tachypnea and increased doses of phenobarbital and valium. Today 06/20 after 2hours of SBT with psv5, the pt was extubated to 2L NC and is currently tolerating. Will continue to monitor pt resp status, and take corrective measures as needed. Molina Gan CRT * Plan of Care - Molina Gan CRT - 06/20/2024 8:32 AM EST RESPIRATORY CARE NOTE Pt. placed on SBT with psv5 and is currently tolerating. Will continue with SBT as minerva., but monitor pt closely for changes in resp status and take corrective measures as needed. Molina Gan CRT * Plan of Care - Anne Shelton RN - 06/20/2024 7:17 AM EST Plan of Care Summary: Pt unable to CPAP overnight, placed on AC before report writer assumed care of pt. Pt wakeful, restless, attempts to pull at ETT, Propofol increased to 30 with effect of pt compliant with ventilator and ETT. Plan to attempt extubation in AM. Plan of Care Reviewed With: other (see comments) (no family present, explained care to pt, but pt gave no indication of understanding.) Progress: no change * Plan of Care - Homa Braun RRT - 06/20/2024 5:37 AM EST RESPIRATORY CARE NOTE . Patient received intubated on SBT 5/5 30% patient tachypneic in the 30s and VT 200s switched to resting AC/VC settings, see flowsheet. Plan to continue daily SBTs with plan to extubate when patient is ready. Emergency equipment at bedside, plan of care ongoing. Homa Braun RRT * Plan of Care - Alison Campos RN - 06/19/2024 9:42 PM EST * Plan of Care - Tatyana Dubose RN - 06/19/2024 6:00 PM EST Plan of Care Summary: Pt remains sedated and intubated. Sedation weaned as tolerated. Pt unable to extubate today, tachypneic and agitated, unable to calm or redirect. Thick secretions from mouth, nose, and ETT, frequent mouth care. TF via OG tube. Mandujano and flexiseal intact. Turned and repositioned in bed. See flowsheet and MAR. Plan of Care Reviewed With: patient Progress: improving * Plan of Care - Stephanie Hamm - 06/19/2024 11:02 AM EST Case Management Continued Stay Review: Pertinent Clinical impacting hospitalization, level of care update, if indicated : Patient to remain at ICU level of care. Continued on IV abx, G-tube, IV precedex and propofol. Discharge Planning: Discharge Barrier: medical stability Discharge Plan: D/c pending medical progress Choice list (with star ratings) provided / discussed, if indicated (Y or NA): n/a * Plan of Care - Molina Gan CRT - 06/19/2024 8:50 AM EST RESPIRATORY CARE NOTE Pt. placed on SBT with psv5 and is currently tolerating. Will continue with SBT as minerva. With plan to extubate when medically appropriate. Molina Gan CRT * Plan of Care - Natalia Miller, JUDY - 06/18/2024 6:02 PM EST RESPIRATORY CARE NOTE 39 year old male w/ PMHx ETOH use disorder who presented from [facility] in [place] w/ CC of ETOH withdrawal delirium refractory to outpatient management. Admitted to CCU for further management. Patient was intubated 06/16 and remain intubated. Current Ventilator settings A/C 14, VT 450, FiO2 30% & 5 cm peep. Patient being suctioned for large amounts creamy reilly/yellow sputum. Patient failed SBT due to RR>35 sustained with increased wob/agitation. Patient to be placed on Presidex. Goal to liberate from mechanical ventilation when clinically able. Natalia Miller SENIOR SECURITY ENGINEER * Plan of Care - Tatyana Dubose RN - 06/18/2024 6:00 PM EST Plan of Care Summary: Pt remains sedated and intubated. Sedation weaned as tolerated. Thick secretions from mouth, nose, and ETT, frequent mouth care. TF via OG tube. Mandujano and flexiseal intact. Turned and repositioned in bed. See flowsheet and MAR. Plan of Care Reviewed With: patient Progress: no change * Plan of Care - Stephanie Hamm - 06/18/2024 4:25 PM EST Case Management Continued Stay Review: Pertinent Clinical impacting hospitalization, level of care update, if indicated : Not medically cleared. Continued on IV precedex, IV vitamin b1, and IV antibiotics. Discharge Planning: Discharge Barrier:medical stability Discharge Plan: discharge pending medical progress Choice list (with star ratings) provided / discussed, if indicated (Y or NA): n/a * Plan of Care - Charity Farmer RN - 06/18/2024 7:12 AM EST Plan of Care Summary: Pt intubated and sedated. Prop @30ml/hr. Febrile. Thick white secrections from mouth and ET tube. Frequent oral care provided. NGT tube feeding infusing. Continues on IV unasyn,thiamine. Mandujano and rectal tube patent. PHR for saftey and comfort. Plan of Care Reviewed With: patient Progress: no change * Plan of Care - Natalia Miller RRT - 06/17/2024 3:24 PM EST RESPIRATORY CARE NOTE 39 year old male w/ PMHx ETOH use disorder who presented from [facility] in [place] w/ CC of ETOH withdrawal delirium refractory to outpatient management. Admitted to CCU for further management. Patient was intubated 06/16 and remain intubated. Current Ventilator settings A/C 14, VT 450, FiO2 30% & 5 cm peep. Patient being suctioned for large amounts creamy reilly/yellow sputum. No SBT done secondary to sedation. Goal to liberate from mechanical ventilation when clinically able. Natalia Miller, JUDY * Plan of Care - Oly Riggins - 06/17/2024 2:43 PM EST Case Management Continued Stay Review: Pertinent Clinical impacting hospitalization, level of care update, if indicated : Discussed in MDR, remains intubated, on vent, Insulin drip, Propofol drip, TF- OGT, Mandujano , Flexiseal, IV Abx, IVF Discharge Barrier: medical stability Discharge Plan: Choice list (with star ratings) provided / discussed, if indicated (Y or NA): Met with Family at bedside, Sister An speaks fluent australian , An provided information. Lives at address of record with Father and 15 yo Son in [facility] w/ 4 JESSY, Father caring for patient's son while hospitalized Independent at baseline, no DME/VNA/STR Has been to detox at [place] and came from [facility] SW following Family can provide ride if needed No HCP CM will follow for discharge planning , plan TBD * Plan of Care - Alexandra rAndt LCSW - 06/17/2024 1:20 PM EST Social Work was consulted by Gabe Lorenzo MD for ETOH/Substance use. Pt is currently intubated and unable to participate in conversation. Plan: SW will continue to follow to address ETOH/Substance when pt is alert and oriented. Alexandra Arndt LCSW * Plan of Care - Tia Toney RN - 06/17/2024 6:14 AM EST Problem: Adult Inpatient Plan of Care Goal: Plan of Care Review Outcome: Ongoing (interventions implemented as appropriate) Flowsheets (Taken 06/17/2024 0611) Plan of Care Reviewed With: patient Plan of Care Summary: Pt remains orally intubated on vent. Adequately sedated on Fentanyl gtt and Propofol gtt. With draws to tactile stimuli and occ raises hands of bed. Bilat wrist restriants maintatined for pt safety. Propofol gtt titrated as per AUG. TF @ goal tolerating well Progress: no change * Plan of Care - Tia Toney RN - 06/17/2024 6:11 AM EST Problem: Fall Injury Risk Goal: Absence of Fall and Fall-Related Injury Outcome: Ongoing (interventions implemented as appropriate) Problem: Skin Injury Risk Increased Goal: Skin Health and Integrity Outcome: Ongoing (interventions implemented as appropriate) Problem: Restraint, Nonviolent Goal: Absence of Harm or Injury Outcome: Ongoing (interventions implemented as appropriate) Problem: Mechanical Ventilation Invasive Goal: Effective Communication Outcome: Ongoing (interventions implemented as appropriate) Goal: Mechanical Ventilation Liberation Outcome: Ongoing (interventions implemented as appropriate) Goal: Optimal Nutrition Delivery Outcome: Ongoing (interventions implemented as appropriate) Goal: Absence of Device-Related Skin and Tissue Injury Outcome: Ongoing (interventions implemented as appropriate) Goal: Absence of Ventilator-Induced Lung Injury Outcome: Ongoing (interventions implemented as appropriate) * Plan of Care - Rosemarie Ross RN - 06/16/2024 6:50 PM EST Pt found to be tachypnea into 50's and using accessory muscles. Mikey Avila SKID WRAPPER called to bedside. VBG ordered and done. Anesthesia called and pt intubated on 1 attempt by anesthesia. Pt also had OGT, mandujano catheter, and flexiseal placed as ordered. Pt noted to be febrile to 39.2, cultures sent as ordered and pt started on antibiotics. Pt also given tylenol for fever. Pt started on propofol and fentanyl for sedation and vent compliance. Pt given LR boluses x 2 today as ordered. Family at bedside and updated by RN and Mikey HOPE. Pt repositioned side to side [id number]. * Plan of Care - Anni Lakhwinderkendrick, RD - 06/16/2024 3:10 PM EST NUTRITION NOTE Interventions / Recommendations: Enteral Nutrition: Osmolite 1.5, start at 20 ml/hr and advance by 10 ml q4h until at goal rate of 40 ml/hr continuously via OGT Please reconsult for any changes in propofol rate Modular: 1 pkt ProSourceTF daily FWF per team TF+ProSource+Propofol provides 1901 kcal, 80 gm PRO, 195 gm CHO, 760 ml FW (TF FW + FWF for modular) Nutrition Education: N/A -pt not appropriate Assessment: Patient seen today for initial assessment. Reason For Assessment: consult 39 y/o male w/ PMHx ETOH use disorder who presented from [facility] w/ CC of ETOH withdrawal delirium refractory to outpatient management. Admitted to CCU for further management. Pt was intubated this morning for AWP due to AMS/tachypnea(50's) and increased WOB. Past Medical History: Diagnosis Date Alcohol use disorder History reviewed. No pertinent surgical history. Subjective Nutrition Assessment Nutrition consulted for tube feeding recommendations s/p intubation for AWP. Access: OG Not on pressors, MAP score > 65 mmHg. Pt is hemodynamically stable and appropriate for tube feeds Propofol running at 14.42 ml/hr provides 381 kcal/24hr Repletions: 10 meq KCl x 1, 40 meq KCl x2 100 meq KCl in NS x1 1 gm Ca Gluconate x2 Current Nutrition Order: NPO (06/15/24) I&O: 1100 / 600 Food Allergies: NKFA per EMR NFPE: muscle loss (mild to moderate clavicles), fat loss (mild orbitals) Wt Readings from Last 20 Encounters: 06/16/24 60.1 kg (132 lb 7.9 oz) Labs (06/16/24): Results from last 7 days Lab Units 06/16/24 1028 SODIUM mmol/L 138 POTASSIUM mmol/L 2.9* CHLORIDE mmol/L 109* CARBON DIOXIDE mmol/L 13* BUN mg/dL 9 CREATININE mg/dL 0.49* GLUCOSE mg/dL 87 CALCIUM mg/dL 6.4* Mg 1.8, Phos 3.3; ALT 43, AST 47, Lipase 199 POCT Gluc 106/77/97 Pertinent Medications: Unasyn, LR boluses, Thiamine, Pepcid, Folic acid, Lovenox, Valium, D5NS @ 60ml/hr, Fentanyl, Propofol Food and Drug Interactions: N/A GI: LBM 06/16/24 Type 7 watery, light brown Skin: DTI R ankle, not yet assessed by WOCN Edema: none noted Cultural/mandaeism/ethnic preferences addressed as able. Nutrition Diagnosis: 1. Inadequate Oral Intake related to Pulmonary Dysfunction as evidenced by NPO Status. Status: new Goal: Enteral Nutrition to provide at least 75% estimated needs upon follow up. Status: New BMI (Calculated): 19.56 BMI Assessment: BMI 18.5-24.9: normal Weight Used For Calculations: 60.1 kg (132 lb 7.9 oz) (bed scale) Estimated Needs: Energy Calorie Requirements: 3237-2547 kcal (27-32 kcal/kg) Protein (gms/day): 72-90 gm (1.2-1.5 gm/kg) Fluid Requirements: per team Refer to care plan for goals and progress Monitoring/Evaluation: Enteral Nutrition: Tolerate goal TF Electrolyte/Renal Profile: WNL Glucose/Endocrine Profile: WNL Gastrointestinal Profile: Bowel regularity Nutrition-Focused Physical Findings: Wound healing/Maintain skin integrity See flowsheets for additional information. Anni Do RD, LDN, [facility] Brooks Mullen : 1985 CSN: [id number] * Plan of Care - Molina Gan CRT - 06/16/2024 10:49 AM EST RESPIRATORY CARE NOTE 39 y/o male w/ PMHx ETOH use disorder who presented from [facility] w/ CC of ETOH withdrawal delirium refractory to outpatient management. Admitted to CCU for further management. Pt was intubated this morning for AWP due to AMS/tachypnea(50's) and increased WOB. Pt. is currently on A/C 24/450/+5/40%. Pt was suctioned for moderate reilly/yellow thick secretions. Will continue with above vent settings, but wean as tolerated with plan to extubate when medically appropriate. Molina Gan, DRINK BOX MECHANIC * Hospital Course - NATALIE Alves - 06/15/2024 11:12 PM EST ICU Course by System from 06/15/2024 to 06/25/24 Nervous Hx of AUD, unknown quantity of consumption or last drink given severe encephalopathy on admission. Presenting from [facility] with concern for alcohol withdrawal after he was found to be altered and tremulous. Received Ativan 6 mg IM without improvement prior to transport by EMS. A&Ox1 on arrival and noted to be tremulous with tongue fasciculations. Low concern for seizure activity contributing to ams, prolactin and CK (-). Received ~85 mg Valium and started on severe CIWA with phenobarbital for scores >30. Head CT limited by motion artifact but otherwise grossly unremarkable. Continued severe CIWA protocol with phenobarb. Given high dose thiamine and folic acid. Noted to have bilateral c onjunctivitis, treated with erythromycin ointment. Intubated 06/16 for worsening mentation and respiratory alkalosis. Sedated with propofol/fentanyl initially. Fentanyl D/C'd. Precedex added, weaned off Propofol as able. PRN APAP. Standing Valium changed to chlordiazepoxide then back to valium once extubated, now weaned off all benzodiazepines. Awake, follows commands. PT recommending discharge home with walker and assist from family, and outpatient PT. Medications to start on discharge - folic acid, thiamine, Zoloft Respiratory Initially presented oxygenating appropriately on 2L. Course complicated by worsening neurologic suppression, ultimately requiring intubation for severe metabolic alkalosis pH 7.64/. CXR with retrocardiac infiltrate suspicious for aspiration pneumonia. Failed SBT for tachypnea, increased WOB, and low Vt.. Successfully extubated on 06/20. Stable on room air. Circulatory No known Hx. Tachycardic and hypertensive iso alcohol W/D. Lactate deferred. HS trop flat. EKG withNSR, T wave inversions in V3-V5. VS improved on ICU admission. Given 2L IVF resuscitation. Hemodynamically stable. Digestive Presents with elevated alk phos 136, AST/ALT 88/66, tbili 1.5, lipase 199 - unclear if pt is havingabd pain given encephalopathy, though will treat empirically as pancreatitis 2nd to ETOH abuse, given LFTs downtrending on repeat OGT placed and TF started with intubation. UP: famotidine bid. Bowel regimen: on hold due to diarrhea, ? opiate withdrawal. Continue Imodium prn for diarrhea. Added Banatrol 1pkt 3 times a day. Diarrhea now resolved. Renal/Genitourinary No known Hx. Baseline Cr unknown. Labs on presentation notable for multiple electrolyte derangements including hypokalemia with K 2.9, hypomagnesemia, and hyponatremia likely iso chronic alcohol use.Also noted to have AG 19 which subsequently closed. Received 2L LR and electrolyte repletion in theED. Monitored electrolytes and repleted PRN. Developed severe AGMA with pH 7.65/18/19, AG 16, [id number], etiology unclear with ASA, APAP, LA, osmolar gap, and BUN all normal, could be related to significant diarrhea coupled with mild starvation ketoacidosis with BHB 1.0. Electrolyte derangements resolved. Mandujano removed following extubation. Endocrine/Metabolic No known Hx. At risk for stress hyperglycemia in the setting of acute illness. Glucose maintained on ICU glycemic protocol. No insulin requirement. Hematologic No known Hx. H&H slightly elevated on presentation. Thrombocytopenic with plts 99 likely iso chronic alcohol use. No evidence of active bleeding on exam. CBC and coags monitored. DVT prophylaxis with Lovenox. Infectious/Inflammatory Initially presented afebrile without leukocytosis. Course complicated worsening mentation leading to aspiration, febrile to 102.6, tachycardia, CXR with retrocardiac infiltrate. Mini RVP (-). Suspectsevere sepsis iso aspiration pneumonia. Blood NGTD. Sputum nml yayo. Unasyn from 06/16 to 06/21. * Plan of Care - Mariely Holman RN - 06/15/2024 6:00 PM EST Pt admitted to Icu from ED for active ETOH withdrawls. Pt drowsy on arrival but easily startled. Hypertensive, incoherent. Oriented to unit and plan of care. Labs sent as ordered. Sitter in place. Bed alarm in use. CIWA protocal ordered/followed. * Telehealth - Sal Adler MD - 06/15/2024 5:24 PM EST eICU Staffing Note Primary Critical Care Problem: Neurologic Deterioration ETOH withdrawal, severe, refractory. Briefly this is a 39M w/ PMHx ETOH use disorder who presented from [facility] w/ CC of ETOH withdrawal delirium refractory to outpatient management. Admitted to CCU for further management. He has limitedavailable history in our system and is unable to give significant details. CIWA score escalating through the last 12hrs, now with hallucinations. EMR reviewed in detail, patient reviewed via video monitoring. Discussed with bedside MEERA and we have agreed on the plan of care. See H and P for full details. Principal Problem: Toxic metabolic encephalopathy Active Problems: Alcohol withdrawal delirium (HCC) Hypokalemia Hypomagnesemia Hyponatremia Vitals: 06/15/24 1715 BP: 129/82 Pulse: 88 Resp: (!) 30 Temp: 37.4 ??C (99.3 ??F) SpO2: 99% Labs: Results from last 7 days Lab Units 06/15/24 0050 WBC 10*3/uL 7.4 HEMOGLOBIN g/dL 17.4* HEMATOCRIT % 46.9 PLATELETS 10*3/uL 99* Results from last 7 days Lab Units 06/15/24 1325 06/15/24 1007 06/15/24 0722 06/15/24 0050 SODIUM mmol/L 135 133* 135 134* POTASSIUM mmol/L 3.1* 3.2* 3.1* 2.9* CHLORIDE mmol/L 98 96* 96* 94* CARBON DIOXIDE mmol/L 23 22 23 21* BUN mg/dL 10 10 11 13 CREATININE mg/dL 0.75 0.79 0.68 0.93 GLUCOSE mg/dL 105* 142* 105* 115* CALCIUM mg/dL 8.7 8.7 8.6 9.3 MAGNESIUM mg/dL -- 1.9 -- 1.3* Results from last 7 days Lab Units 06/15/24 0050 ALBUMIN g/dL 4.2 TOTAL BILIRUBIN mg/dL 1.5* ALKALINE PHOSPHATASE U/L 136* ALT U/L 66* AST U/L 88* * ED to IP Acute Care Handoff - Ania Xavier RN - 06/15/2024 4:46 PM EST Nursing Handoff - ED to Inpatient This note accurately reflects the patient's condition at the time the note was created and does notcontain all nursing documentation and data. Chief Complaint: Chief Complaint Patient presents with Alcohol Intoxication Admitting Diagnosis: (F10.931) Delirium tremens (HCC) (primary encounter diagnosis) (E83.42) Hypomagnesemia (E87.6) Hypokalemia Vital Signs: Vital Signs for the past 1.5 hrs: BP Pulse Resp SpO2 Oxygen Therapy 06/15/24 1630 139/87 89 (!) 32 97 % None (Room air) 06/15/24 1530 147/95 94 (!) 23 100 % -- Assessments and Risk Scores: Cardiac WDL: WDL except, rhythm Rhythm: atrial rhythm Pain Score: 0 - No pain Cognitive/Neuro/Behavioral WDL: WDL except, level of consciousness Thomas Fall Risk Score: (!) 50 Colby Score: 23 Total CIWA-Ar Score: 33 DASA Score (1-3=low, 4-5=mod, 6-7=high risk): 2 Does the patient appear to lack capacity to make the decision to leave AND is physically capable ofleaving: No Patient Lines/Drains/Airways Status Active LDAs Name Placement date Placement time Site Days Peripheral IV 06/14/24 Anterior;Left Forearm 06/14/24 2300 Forearm less than 1 Peripheral IV 06/15/24 Anterior;Distal;Right Forearm 06/15/24 1326 Forearm less than 1 Orders: Critical Lab (within the last 2 hours): POTASSIUM: Low Critical 2.9 Special Considerations: 1:1 sitter at bedside for safety. Hallucinating, incoherant. Report given to CCU nurse Highest activity/mobility achieved this shift: Not out of bed this shift ED RN Contact Number: [phone] * ED Continuation of Care - Gabe Lorenzo MD - 06/15/2024 1:36 PM EST ED Continuation of Care 06/15/24 1:36 PM Sign out from Dr[address] Mccullough emergency physician Assessment and Plan: Patient is accepted in sign out from prior ED team. I was immediately available during the course of my shift for any acute emergency interventions and reassessments. Patient getting phenobarbital and Valium with some improvement still critically ill Serial exams patient is clinically improved to some extent but still with some delirium not actively hallucinating concern for severe alcohol withdrawal/DTs plan continue with phenobarbital Valium ICU level care due to high elevated CIWA score. Report was called ICU Amount and/or Complexity of Data Reviewed: Discussion with other providers: Care was discussed with the following providers: ICU/E-ICU (to discuss admission to ICU). Critical Care: Critical care time (minutes): 35 Critical care time exclusive of teaching time, separately billable procedures, and treating other patients Patient critically ill with the following condition(s): Patient here alcohol withdrawal requiring serial exams pulse ox evaluation frequent reevaluations/vital sign monitoring and airway and mental status check/neuro Critical care was time spent personally by me on the following activities: Development of treatmentplan, medical decision making, documenting the case, discussions with consultants and ordering/performing treatments/interventions Date of Service: 06/15/2024 5:00 PM Labs Reviewed RESPIRATORY CULTURE W/GRAM STAIN - Abnormal Result Value Culture Growth of normal oropharyngeal yayo Gram Stain Many White Blood Cells Seen (*) Gram Stain No epithelial cells seen (*) Gram Stain Few Gram Positive Cocci (*) Narrative: [facility] Received Date: MICRO NUMBER: [id number] SPECIMEN QUALITY: Adequate SOURCE: SPUTUM EXPECTORATED SPUTUM STATUS: FINAL CBC AUTO DIFFERENTIAL - Abnormal WBC 7.4 RBC 4.62 Hemoglobin 17.4 (*) Hematocrit 46.9 MCV 101.5 (*) MCH 37.7 (*) MCHC 37.1 (*) RDW 12.6 Platelets 99 (*) MPV Neutrophil % 71.3 Immature Grans % 0.3 Lymphocyte % 19.0 Monocyte % 8.6 Eosinophil % 0.4 Basophil % 0.4 Neutrophil # 5.30 Immature Grans # <0.03 Lymphocyte # 1.40 Monocyte # 0.60 Eosinophil # <0.03 Basophil # <0.03 nRBC % 0.0 nRBC # <0.01 COMPREHENSIVE METABOLIC PANEL - Abnormal NA 134 (*) K 2.9 (*) Cl 94 (*) CO2 21 (*) Anion Gap 19 (*) Glucose 115 (*) Creatinine 0.93 Calcium 9.3 Total Protein 7.9 Albumin 4.2 Bilirubin, Total 1.5 (*) Alkaline Phosphatase 136 (*) AST 88 (*) ALT 66 (*) BUN 13 eGFR >90 Globulin, Total 3.7 A/G Ratio 1.1 (*) MAGNESIUM - Abnormal MG 1.3 (*) BASIC METABOLIC PANEL - Abnormal NA 135 K 3.1 (*) Cl 96 (*) CO2 23 BUN 11 Creatinine 0.68 Glucose 105 (*) Calcium 8.6 Anion Gap 16 (*) eGFR >90 BASIC METABOLIC PANEL - Abnormal NA 133 (*) K 3.2 (*) Cl 96 (*) CO2 22 BUN 10 Creatinine 0.79 Glucose 142 (*) Calcium 8.7 Anion Gap 15 eGFR >90 BASIC METABOLIC PANEL - Abnormal NA 135 K 3.1 (*) Cl 98 CO2 23 BUN 10 Creatinine 0.75 Glucose 105 (*) Calcium 8.7 Anion Gap 14 eGFR >90 BASIC METABOLIC PANEL - Abnormal NA 133 (*) K 4.8 Cl 98 CO2 22 BUN 10 Creatinine 0.75 Glucose 101 (*) Calcium 8.3 (*) Anion Gap 13 eGFR >90 CBC AUTO DIFFERENTIAL - Abnormal WBC 7.0 RBC 4.29 Hemoglobin 15.9 Hematocrit 44.0 MCV 102.6 (*) MCH 37.1 (*) MCHC 36.1 (*) RDW 12.0 Platelets 85 (*) MPV Neutrophil % 73.4 Immature Grans % 0.6 Lymphocyte % 16.2 Monocyte % 8.4 Eosinophil % 1.0 Basophil % 0.4 Neutrophil # 5.13 Immature Grans # 0.04 (*) Lymphocyte # 1.10 Monocyte # 0.60 Eosinophil # 0.10 Basophil # <0.03 nRBC % 0.0 nRBC # <0.01 BASIC METABOLIC PANEL - Abnormal NA 137 K 2.8 (*) Cl 100 CO2 21 (*) BUN 10 Creatinine 0.67 Glucose 99 Calcium 8.7 Anion Gap 16 (*) eGFR >90 CBC - Abnormal WBC 7.7 RBC 4.15 (*) Hemoglobin 15.8 Hematocrit 42.4 MCV 102.2 (*) MCH 38.1 (*) MCHC 37.3 (*) RDW 12.2 Platelets 86 (*) MPV HEPATIC FUNCTION PANEL - Abnormal Total Protein 6.9 Albumin 3.7 Globulin, Total 3.2 Bilirubin, Total 1.2 Bilirubin, Direct 0.5 (*) Alkaline Phosphatase 112 AST 47 (*) ALT 43 (*) Bilirubin, Indirect 0.70 A/G Ratio 1.2 (*) BASIC METABOLIC PANEL - Abnormal NA 138 K 2.9 (*) Cl 109 (*) CO2 13 (*) BUN 9 Creatinine 0.49 (*) Glucose 87 Calcium 6.4 (*) Anion Gap 16 (*) eGFR >90 LIPASE - Abnormal Lipase 199 (*) BETAHYDROXYBUTYRATE - Abnormal Beta-Hydroxybutyrate 1.00 (*) BARBITURATE SCREEN, URINE - Abnormal Barbiturate Screen, Urine Presumptive Positive (*) BENZODIAZEPINE QUALITATIVE SCREEN, URINE - Abnormal Benzodiazepine Screen, Urine Presumptive Positive (*) METHADONE SCREEN W/CONFIRMATION, URINE - Abnormal Methadone Metabolite Screen, Urine POSITIVE (*) EDDP, Urine 1608 (*) Methadone, Urine 948 (*) Narrative: [facility] Received Date: BASIC METABOLIC PANEL - Abnormal NA 138 K 3.9 Cl 109 (*) CO2 17 (*) BUN 9 Creatinine 0.58 (*) Glucose 164 (*) Calcium 7.8 (*) Anion Gap 12 eGFR >90 MAGNESIUM - Abnormal MG 1.5 (*) URINALYSIS (URETHRAL CATHETER) W/REFLEX TO MICROSCOPIC - Abnormal Color, Urine Dark Yellow Clarity, Urine Clear Specific [place], Urine 1.028 pH, Urine 5.0 Protein, Urine 1+ (*) Glucose, Urine Negative Ketones, Urine Negative Bilirubin, Urine Negative Blood, Urine Negative Nitrite, Urine Negative Urobilinogen, Urine Normal Leukocyte Esterase, Urine 1+ (*) WBC, Urine 16 (*) RBC, Urine 7 (*) Hyaline Casts, Urine 0 Squamous Epithelial Cells, Urine <1 Bacteria, Urine Rare (*) Mucus, Urine Rare MAGNESIUM - Abnormal MG 2.7 (*) BASIC METABOLIC PANEL - Abnormal NA 137 K 3.3 (*) Cl 108 (*) CO2 18 (*) BUN 9 Creatinine 0.65 Glucose 114 (*) Calcium 7.9 (*) Anion Gap 11 eGFR >90 CBC - Abnormal WBC 7.9 RBC 3.42 (*) Hemoglobin 12.8 (*) Hematocrit 35.9 (*) MCV 105.0 (*) MCH 37.4 (*) MCHC 35.7 RDW 12.8 Platelets 71 (*) MPV 11.4 PHOSPHORUS - Abnormal Phosphorus 2.4 (*) BASIC METABOLIC PANEL - Abnormal NA 139 K 4.6 Cl 108 (*) CO2 21 (*) BUN 10 Creatinine 0.61 Glucose 107 (*) Calcium 8.0 (*) Anion Gap 10 eGFR >90 PHOSPHORUS - Abnormal Phosphorus 2.4 (*) LIPASE - Abnormal Lipase 150 (*) BASIC METABOLIC PANEL - Abnormal NA 136 K 4.1 Cl 106 CO2 18 (*) BUN 9 Creatinine 0.54 (*) Glucose 140 (*) Calcium 7.7 (*) Anion Gap 12 eGFR >90 CBC - Abnormal WBC 7.0 RBC 3.36 (*) Hemoglobin 12.2 (*) Hematocrit 36.1 (*) MCV 107.4 (*) MCH 36.3 (*) MCHC 33.8 RDW 12.9 Platelets 97 (*) MPV 10.7 CBC AUTO DIFFERENTIAL - Abnormal WBC 5.7 RBC 3.74 (*) Hemoglobin 13.7 Hematocrit 40.3 MCV 107.8 (*) MCH 36.6 (*) MCHC 34.0 RDW 12.4 Platelets 162 MPV 10.2 nRBC % 0.0 nRBC # <0.01 RENAL FUNCTION PANEL - Abnormal NA 139 K 4.1 Cl 105 CO2 21 (*) Anion Gap 13 Glucose 161 (*) BUN 9 Creatinine 0.61 Calcium 8.6 Phosphorus 3.8 Albumin 3.3 (*) eGFR >90 COMPREHENSIVE METABOLIC PANEL - Abnormal NA 139 K 4.0 Cl 107 CO2 23 Anion Gap 9 Glucose 161 (*) Creatinine 0.55 (*) Calcium 8.6 Total Protein 6.8 Albumin 3.2 (*) Bilirubin, Total 0.2 Alkaline Phosphatase 104 AST 20 ALT 16 BUN 11 eGFR >90 Globulin, Total 3.6 A/G Ratio 0.9 (*) CBC AUTO DIFFERENTIAL - Abnormal WBC 4.1 RBC 3.68 (*) Hemoglobin 13.5 Hematocrit 39.4 MCV 107.1 (*) MCH 36.7 (*) MCHC 34.3 RDW 11.7 Platelets 274 MPV 9.4 Neutrophil % 49.9 Immature Grans % 0.5 Lymphocyte % 21.5 Monocyte % 23.7 Eosinophil % 3.4 Basophil % 1.0 Neutrophil # 2.06 Immature Grans # <0.03 Lymphocyte # 0.90 Monocyte # 1.00 (*) Eosinophil # 0.10 Basophil # <0.03 nRBC % 0.0 nRBC # <0.01 BASIC METABOLIC PANEL - Abnormal NA 139 K 4.0 Cl 101 CO2 20 (*) BUN 12 Creatinine 0.58 (*) Glucose 110 (*) Calcium 9.3 Anion Gap 18 (*) eGFR >90 BASIC METABOLIC PANEL - Abnormal NA 138 K 3.7 Cl 105 CO2 21 (*) BUN 12 Creatinine 0.58 (*) Glucose 114 (*) Calcium 8.6 Anion Gap 12 eGFR >90 CBC - Abnormal WBC 6.4 RBC 3.59 (*) Hemoglobin 13.2 Hematocrit 37.8 (*) MCV 105.3 (*) MCH 36.8 (*) MCHC 34.9 RDW 11.8 Platelets 379 MPV 8.8 BASIC METABOLIC PANEL - Abnormal NA 137 K 4.0 Cl 106 CO2 20 (*) BUN 12 Creatinine 0.61 Glucose 153 (*) Calcium 8.5 (*) Anion Gap 11 eGFR >90 POCT GLUCOSE, INTERFACED - Abnormal Glucose, POCT 100 (*) POCT GLUCOSE, INTERFACED - Abnormal Glucose, POCT 101 (*) POCT GLUCOSE, INTERFACED - Abnormal Glucose, POCT 104 (*) POCT I-STAT VENOUS BLOOD GAS, INTERFACED - Abnormal Sample Type, POCT Venous pH, POCT 7.65 (*) pCO2, POCT 18.2 (*) pO2, POCT 53 (*) Base Excess, POCT -1 (*) HCO3, POCT 19.9 (*) TCO2, POCT 20 (*) Saturated O2, POCT 94 (*) FIO2, POCT 24 Patient Temp, POCT 38.1 Isaias's Test, POCT PASS POCT GLUCOSE, INTERFACED - Abnormal Glucose, POCT 106 (*) POCT I-STAT ARTERIAL BLOOD GAS, INTERFACED - Abnormal Sample Type, POCT Arterial pH, POCT 7.47 (*) pCO2, POCT 26.8 (*) pO2, POCT 116 (*) Base Excess, POCT -4 (*) HCO3, POCT 19.4 (*) TCO2, POCT 20 (*) Saturated O2, POCT 99 (*) FIO2, POCT 50 Tidal Volume, POCT 450 Isaias's Test, POCT PASS POCT I-STAT VENOUS BLOOD GAS, INTERFACED - Abnormal Sample Type, POCT Venous pH, POCT 7.42 (*) pCO2, POCT 25.5 (*) pO2, POCT 31 (*) Base Excess, POCT -8 (*) HCO3, POCT 16.5 (*) TCO2, POCT 17 (*) Saturated O2, POCT 62 (*) FIO2, POCT 40 Patient Temp, POCT 38.6 Tidal Volume, POCT 450 Isaias's Test, POCT N/A POCT GLUCOSE, INTERFACED - Abnormal Glucose, POCT 113 (*) POCT GLUCOSE, INTERFACED - Abnormal Glucose, POCT 108 (*) POCT GLUCOSE, INTERFACED - Abnormal Glucose, POCT 103 (*) POCT I-STAT VENOUS BLOOD GAS, INTERFACED - Abnormal Sample Type, POCT Venous pH, POCT 7.51 (*) pCO2, POCT 27.4 (*) pO2, POCT 62 (*) Base Excess, POCT -1 (*) HCO3, POCT 22.0 (*) TCO2, POCT 23 (*) Saturated O2, POCT 94 (*) FIO2, POCT 30 Tidal Volume, POCT 450 Isaias's Test, POCT N/A POCT I-STAT VENOUS BLOOD GAS, INTERFACED - Abnormal Sample Type, POCT Venous pH, POCT 7.43 (*) pCO2, POCT 33.0 (*) pO2, POCT 42 (*) Base Excess, POCT -3 (*) HCO3, POCT 21.8 (*) TCO2, POCT 23 (*) Saturated O2, POCT 79 (*) FIO2, POCT 30 Patient Temp, POCT 38.1 Isaias's Test, POCT N/A POCT GLUCOSE, INTERFACED - Abnormal Glucose, POCT 103 (*) POCT GLUCOSE, INTERFACED - Abnormal Glucose, POCT 102 (*) SMEAR REVIEW - Abnormal Platelet Estimate Decreased (*) RBC Morphology Present (*) Macrocytes 2+ (*) MANUAL DIFFERENTIAL - Abnormal Neutrophil %, Manual 61 Lymphocyte %, Manual 17 Monocyte %, Manual 12 Eosinophil %, Manual 5 Basophil %, Manual 1 Reactive Lymphocyte % 4 Total Neutrophil #, Manual 3.48 Total Lymph #, Manual 1.20 Monocyte #, Manual 0.68 Eosinophil #, Manual 0.29 Basophil #, Manual 0.06 Reactive Lymphocytes # 0.23 Platelet Estimate Adequate RBC Morphology Present (*) Anisocytosis 2+ (*) Macrocytes 2+ (*) Total Cells Counted 117 SMEAR REVIEW - Abnormal Platelet Estimate Adequate RBC Morphology Present (*) Macrocytes 2+ (*) SMEAR REVIEW - Abnormal Platelet Estimate Adequate RBC Morphology Present (*) Macrocytes 2+ (*) MAGNESIUM - Normal MG 1.9 MAGNESIUM - Normal MG 1.9 PHOSPHORUS - Normal Phosphorus 3.4 TROPONIN T HIGH SENSITIVITY - Normal Troponin T High Sensitivity <6 MAGNESIUM - Normal MG 1.8 PHOSPHORUS - Normal Phosphorus 3.3 PROTIME-INR - Normal PT 11.0 INR 1.0 LACTIC ACID, PLASMA - Normal Lactic Acid 1.0 CK - Normal CK 317 PROLACTIN - Normal Prolactin 9.10 SALICYLATE LEVEL - Normal Salicylate <1 ACETAMINOPHEN LEVEL - Normal Acetaminophen <5.0 OSMOLALITY - Normal Osmolality 280 COVID-19, FLU A/B & RSV RNA PCR, SYMPTOMATIC - Normal PCR, SARS CoV-2 RNA Not Detected Flu A RNA PCR Not Detected Flu B RNA PCR Not Detected RSV RNA PCR Not Detected Narrative: This test was developed, validated and its performance characteristics determined by [facility] [employer]. This test has not been cleared or approved by the U.S. Food and Drug Administration (FDA). FDA Policy for Diagnostic Tests for Coronavirus Disease-2019 during the Public Health Emergency issuedMar2019, is followed. CK - Normal CK 342 AMPHETAMINE SCREEN, URINE - Normal Amphetamine Screen, Urine Negative COCAINE SCREEN, URINE - Normal Cocaine Metabolite Screen, Urine Negative MARIJUANA (THC) SCREEN, URINE - Normal Marijuana Screen, Urine Negative MAGNESIUM - Normal MG 2.1 TRIGLYCERIDES - Normal Triglycerides 69 MAGNESIUM - Normal MG 1.8 PHOSPHORUS - Normal Phosphorus 3.4 MAGNESIUM - Normal MG 2.1 MAGNESIUM - Normal MG 2.1 PHOSPHORUS - Normal Phosphorus 3.3 MAGNESIUM - Normal MG 2.1 PHOSPHORUS - Normal Phosphorus 3.9 PHOSPHORUS - Normal Phosphorus 3.6 MAGNESIUM - Normal MG 2.1 POCT GLUCOSE, INTERFACED - Normal Glucose, POCT 89 POCT GLUCOSE, INTERFACED - Normal Glucose, POCT 78 POCT GLUCOSE, INTERFACED - Normal Glucose, POCT 77 POCT GLUCOSE, INTERFACED - Normal Glucose, POCT 97 POCT GLUCOSE, INTERFACED - Normal Glucose, POCT 99 BLOOD CULTURE Culture No growth after 5 days Narrative: [facility] Received Date: MICRO NUMBER: [id number] SPECIMEN QUALITY: Adequate SOURCE: BLOOD VENOUS, PERIPHERAL STATUS: FINAL COMMENT: Aerobic and anaerobic bottle received. BLOOD CULTURE Culture No growth after 5 days Narrative: [facility] Received Date: MICRO NUMBER: [id number] SPECIMEN QUALITY: Adequate SOURCE: BLOOD VENOUS, PERIPHERAL STATUS: FINAL COMMENT: Aerobic and anaerobic bottle received. MRSA/S AUREUS PCR, NASAL MRSA PCR, Nasal NOT DETECTED S. aureus PCR, Nasal NOT DETECTED Narrative: [facility] Received Date: OSMOLALITY GAP NA 137 BUN 10 Glucose 95 Osmolality 282 Osmolality Calculated 283 Osmolality Gap <10 COMPREHENSIVE DRUG SCREEN, URINE Comprehensive Drug Screen Urine DRUGS DETECTED Narrative: [facility] Received Date: MORPHINE AND CODEINE CONFIRMATION, URINE Codeine, Urine NEGATIVE Hydrocodone, Urine NEGATIVE Hydromorphone, Urine NEGATIVE Morphine, Urine NEGATIVE Norhydrocodone, Urine NEGATIVE Narrative: [facility] Received Date: PHENCYCLIDINE (PCP) SCREEN, URINE Phencyclidine Screen, Urine NEGATIVE Narrative: [facility] Received Date: PROPOXYPHENE SCREEN, URINE Propoxyphene Screen, Urine NEGATIVE Narrative: [facility] Received Date: UA (URETHRAL CATHETER) W/REFLEX TO MICROSCOPIC PANEL (HOLD CULTURE) Narrative: The following orders were created for panel order Urinalysis (Urethral Catheter) w/Reflex to Microscopic (Hold Culture) - PREFERRED. Procedure Abnormality Status --------- ------ Urinalysis (Urethral Cat...[[id number]] Abnormal Final result Urine Culture (Urethral ...[[id number]] Final result Please view results for these tests on the individual orders. URINE CULTURE (URETHRAL CATHETER), HOLD Extra Tube Hold for add-ons. POCT I-STAT ARTERIAL BLOOD GAS, WORKLIST POCT I-STAT VENOUS BLOOD GAS, WORKLIST POCT I-STAT VENOUS BLOOD GAS, WORKLIST POCT I-STAT VENOUS BLOOD GAS, WORKLIST ED Course as of 06/22/24 1051 Sat Jun 15, 2024 0313 Received patient in sign out. Briefly, 39 y/o male from [place] [facility] Over past 24 hrs has been confused and nonsensical with delirium. Last etoh use reportedly gallon of alcohol 4 days ago, pt unable to corroborate this. VS concerning for tachypnea and tachycardia. Labs concerning for hypokalemia, AGMA, elevated LFTs. Got phenobarb 260mg + 130 mg + valium 10mg + 10 mg. Last valium 0200. Last phenobarb 0200 Currently pending ICU placement but may be bed hold. [DS] 0316 CIWA score 1 @ 0300. Pt sleeping [DS] 0556 Patient is awake. He is now in overt alcohol withdrawal with tachycardia into the 1 teens, tremulousness, tongue fasciculations. He is alert and oriented x 3, knows he is in [place], that it is June, and appropriately tells me his correct birthday. Given his evidence of EtOH withdrawal, will readminister phenobarbital. So far it appears he may have been given approximately 10 mg/kg in separate doses according to the MAR. Will give the patient an additional to 60 mg which would equate to just under 5 mg/kg load (according to his reported height of 5'5 would be 60 kg therefore 305 mg). Will continue to monitor. Will not downgrade the patient to the floor at this time. [DS] 0713 Patient was reevaluated. He is sleeping comfortably and snoring. This may explain the tachypnea. He is maintaining his O2 sats. Will still send for CXR given tachypnea, rule out PNA or aspiration PNA. Will repeat his BMP given that he had significant hypokalemia and AGMA. Will give him an additional LR bolus given that he has been n.p.o. for quite some time overnight and had significant EtOHwithdrawal. [DS] 0840 Patient is reassessed he is still delirious knows he is in the hospital thinks he is at [facility] he thinks he but able to and preservers simple questions he is not actively hallucinating in front of me plan continue with alcohol withdrawal protocol [PZ] 1156 Patient seems somewhat improved with additional Valium his CIWA scores are reviewed patient has received relatively high doses of both phenobarbital and benzos overall clinical assessment still needs the ICU at this time [PZ] 1419 Patient signed out still requiring ICU [PZ] ED Course User Index [DS] Anaya Carias DO [PZ] MD Brooks Estrada : 1985 CSN: [id number] * Plan of Care - Angela Enriquez - 06/15/2024 11:20 AM EST Case Management Admission Note: Pertinent Clinical impacting hospitalization. PA / [facility]. Pt with AMS, agitated, keeps trying to crawl OOB, very anxious. Pt placed on 1:1. CIWA 1-21. K+ 2.9, Mg 1.3. Phenobarbital, valium, mg and KlorCon given. Patient Assessment: Unable to interview pt. Supports, HCP, Designated Caregiver, Guardian: No HCP on file. Initial Discharge Planning: Pt want to return to [facility]. SW consult placed. * Emergency Department Information Exchange - MILA - Mila Interface - 06/15/2024 12:23 AM EST [facility] NOTIFICATION 06/15/2024 00:22 BROOKS MULLEN : 1985 [facility]'s patient encounter information: MRN:[id number] Account Number:?[id number] Billing Account Number:?[id number] Criteria Met Traveling Patients Standard: 3 Different EDs within 90 days Security and Safety No Security Events were found. ED Care Guidelines There are currently no ED Care Guidelines for this patient. Please check your facility's medical records system. Prescription Drug Data No Prescription Drug Data was found. E.D. Visit Count (12 mo.) Facility Visits [facility] 1 [facility] 1 [facility] 1 Total 3 Note: Visits indicate total known visits. Recent Emergency Department Visit Summary Date Facility City State Type Diagnoses or Chief Complaint Jun 15, 2024 [facility] [place] Emergency Jun 13, 2024 [facility] Alcohol use, unspecified with intoxication, unspecified [facility] Alcohol Intoxication general Recent Inpatient Visit Summary No Recent Inpatient Visits were found. Care Team Provider Specialty Phone Fax Service Dates [facility] Clinic/Center: [facility] Current [facility] This patient has registered at the [facility] Emergency Department For more information visit: [email or web address] PLEASE NOTE: 1. Any care recommendations and other clinical information are provided as guidelines or for historical purposes only, and providers should exercise their own clinical judgment when providing care. 2. You may only use this information for purposes of treatment, payment or health care operations activities, and subject to the limitations of applicable [employer] Policies. 3. You should consult directly with the organization that provided a care guideline or other clinical history with any questions about additional information or accuracy or completeness of information provided. ? 2024 [employer] [place] documented in this encounter Plan of Treatment Scheduled Referrals Name Type Priority Associated Diagnoses Order Schedule Ambulatory referral to Physical Therapy Outpatient Referral Routine Delirium tremens (HCC) Expected: 06/25/2024, Expires: 12/23/2024 documented as of this encounter Procedures * Due to [place] state law, this organization might not be sharing negative HIV tests. Procedure Name Priority Date/Time Associated Diagnosis Comments MAGNESIUM STAT 06/25/2024 4:53 AM EST BASIC METABOLIC PANEL STAT 06/25/2024 4:53 AM EST SMEAR REVIEW Routine 06/24/2024 3:08 AM EST CBC Routine 06/24/2024 3:08 AM EST PHOSPHORUS Routine 06/24/2024 3:08 AM EST MAGNESIUM Routine 06/24/2024 3:08 AM EST BASIC METABOLIC PANEL Routine 06/24/2024 3:08 AM EST POCT GLUCOSE Routine 06/23/2024 11:19 AM EST POCT GLUCOSE Routine 06/23/2024 10:09 AM EST POCT GLUCOSE Routine 06/22/2024 12:03 PM EST PHOSPHORUS Routine 06/22/2024 2:54 AM EST MAGNESIUM Routine 06/22/2024 2:54 AM EST BASIC METABOLIC PANEL Routine 06/22/2024 2:54 AM EST SMEAR REVIEW [...] SMEAR REVIEW Routine 06/20/2024 3:35 AM EST CBC AUTO DIFFERENTIAL Routine 06/20/2024 3:35 AM EST PHOSPHORUS Routine 06/20/2024 3:35 AM EST MAGNESIUM Routine 06/20/2024 3:35 AM EST COMPREHENSIVE METABOLIC PANEL Routine 06/20/2024 3:35 AM EST CBC AUTO DIFFERENTIAL Routine 06/19/2024 3:40 AM EST MANUAL DIFFERENTIAL Routine 06/19/2024 3 :40 AM EST MAGNESIUM Routine 06/19/2024 3:40 AM EST RENAL FUNCTION PANEL Routine 06/19/2024 3:40 AM EST POCT GLUCOSE Routine 06/18/2024 8:19 PM EST SMEAR REVIEW Routine 06/18/2024 3:26 AM EST CBC Routine 06/18/2024 3:26 AM EST PHOSPHORUS Routine 06/18/2024 3:26 AM EST MAGNESIUM Routine 06/18/2024 3:26 AM EST BASIC METABOLIC PANEL Routine 06/18/2024 3:26 AM EST POCT I-STAT VENOUS BLOOD GAS Routine 06/17/2024 7:55 AM EST TRIGLYCERIDES Add-On 06/17/2024 7:52 AM EST PHOSPHORUS Timed 06/17/2024 7:52 AM EST MAGNESIUM Timed 06/17/2024 7:52 AM EST LIPASE Add-On 06/17/2024 7:52 AM EST BASIC METABOLIC PANEL Timed 06/17/2024 7:52 AM EST POCT GLUCOSE Routine 06/17/2024 4:16 AM EST POCT I-STAT VENOUS BLOOD GAS Routine 06/17/2024 4:15 AM EST CBC Timed 06/17/2024 12:06 AM EST PHOSPHORUS Timed 06/17/2024 12:06 AM EST MAGNESIUM Timed 06/17/2024 12:06 AM EST BASIC METABOLIC PANEL Timed 06/17/2024 12:06 AM EST POCT GLUCOSE Routine 06/17/2024 12:05 AM EST POCT GLUCOSE Routine 06/16/2024 9:06 PM EST UA (URETHRAL CATHETER) W/REFLEX TO MICROSCOPIC PANEL (HOLD CULTURE) Routine 06/16/2024 6:25 PM EST URINALYSIS (URETHRAL CATHETER) W/REFLEX TO MICROSCOPIC Routine 06/16/2024 6:25 PM EST URINE CULTURE (URETHRAL CATHETER), HOLD Routine 06/16/2024 6:25 PM EST MAGNESIUM Timed [...] METABOLIC PANEL STAT 06/16/2024 10:28 AM EST METHADONE SCREEN W/CONFIRMATION, URINE Add-On 06/16/2024 9:37 AM EST MORPHINE AND CODEINE CONFIRMATION, URINE Add-On 06/16/2024 9:37 AM EST COMPREHENSIVE DRUG SCREEN, URINE Routine 06/16/2024 9:37 AM EST BARBITURATE SCREEN, URINE Add-On 2024 9:37 AM EST PROPOXYPHENE SCREEN, URINE Add-On 06/16 9:37 AM EST MARIJUANA (THC) SCREEN, URINE Add-On 06/16/2024 9:37 AM EST OSMOLALITY GAP STAT 06/16/2024 9:37 AM EST PHENCYCLIDINE (PCP) SCREEN, URINE Add-On 06/16/2024 9:37 AM EST COCAINE SCREEN, URINE Add-On 06/16/2024 9:37 AM EST BENZODIAZEPINE QUALITATIVE SCREEN, URINE Add-On 06/16/2024 9:37 AM EST AMPHETAMINE SCREEN, URINE Add-On 2024 9:37 AM EST OSMOLALITY STAT 06/16/2024 9:37 AM EST ACETAMINOPHEN LEVEL STAT 06/16/2024 9 :37 AM EST SALICYLATE LEVEL Routine 06/16/2024 9:37 AM EST MVL QS - COVID-19, FLU A/B & RSV RNA PCR, SYMPTOMATIC Routine 06/16/2024 9:29 AM EST POCT I-STAT ARTERIAL BLOOD GAS Routine 06/16/2024 9:29 AM EST POCT GLUCOSE [...] 1 VW STAT 06/16/2024 8:20 AM EST LACTIC ACID, PLASMA STAT 06/16/2024 7 :34 AM EST POCT I-STAT VENOUS BLOOD GAS Routine 06/16/2024 7:21 AM EST POCT GLUCOSE Routine 06/16/2024 7:19 AM EST POCT GLUCOSE Routine 06/16/2024 4:36 AM EST PROTIME-INR Routine 06/16/2024 3:42 AM EST CBC Routine 06/16/2024 3:42 AM EST PHOSPHORUS Routine 06/16/2024 3:42 AM EST MAGNESIUM Routine 06/16/2024 3:42 AM EST LIPASE Add-On 06/16/2024 3:42 AM EST HEPATIC FUNCTION PANEL Routine 3:42 AM EST BASIC METABOLIC PANEL Routine [...] CONTRAST STAT 06/15/2024 1 :26 AM EST CBC AUTO DIFFERENTIAL STAT 06/15/2024 12:50 AM EST MAGNESIUM STAT 06/15/2024 12:50 AM EST COMPREHENSIVE METABOLIC PANEL STAT 06/15/2024 12:50 AM EST ECG 12-LEAD Routine 06/15/2024 12:36 AM EST HEART & VASCULAR - SCANNED 06/15/2024 documented in this encounter Results * Due to [place] state law, this organization might not be sharing negative HIV tests. * Magnesium (06/25/2024 4:53 AM EST) MG 2.0 1.6 - 2.4 mg/dL 06/25/2024 5:55 AM EST [facility] Blood Structure of peripheral vein / Unknown Venipuncture / Unknown 06/25/2024 4:53 AM EST 06/25/2024 5:26 AM EST us Mikey Rivas [facility] [employer] LAB BLOOD ORDER MADELYN Final Result [facility] [address] [place] [address], * (ABNORMAL) Basic metabolic panel (06/25/2024 4:53 AM EST) NA 137 135 - 145 mmol/L 06/25/2024 5:55 AM EST [facility] K 3.6 3.5 - 5.3 mmol/L 06/25/2024 5:55 AM EST [facility] Cl 105 98 - 107 mmol/L 06/25/2024 5:55 AM EST [facility] CO2 21(L) 22 - 32 mmol/L 06/25/2024 5:55 AM EST [facility] BUN 8 7 - 23 mg/dL 06/25/2024 5:55 AM EST [facility] Creatinine 0.59(L) 0.60 - 1.30 mg/dL 06/25/2024 5:55 AM EST [facility] Glucose 103(H) 65 - 99 mg/dL 06/25/2024 5:55 AM EST [facility] Calcium 8.8 8.6 - 10.5 mg/dL 06/25/2024 5:55 AM EST [facility] Anion Gap 11 5 - 15 06/25/2024 5:55 AM EST [facility] eGFR >90 >=60 mL/min/1 .73m2 06/25/2024 5:55 AM EST [facility] Comment:The estimated glomer ular [...] 06/25/2024 5:26 AM EST us Mikey Rivas SKID WRAPPER LAB BLOOD ORDER MADELYN Final Result Performing Organization Address [facility] de Phone Number [facility] [address] [place] [address], [place] * (ABNORMAL) Smear Review (06/24/2024 3:08 AM EST) Platelet Estimate Increase d(A) Adequate 06/24/2024 4:13 AM EST [facility] RBC Morphology Present( A) Normal, No clinically significant RBC morphology present (ICSH guidelines, 2015). 06/24/2024 4:13 AM EST [facility] Macrocytes 2+(A) Not Present 06/24/2024 4:13 AM EST [facility] Blood Structure of peripheral vein / Unknown Venipuncture / Unknown 06/24/2024 3:08 AM EST 06/24/2024 3:35 AM EST us Domonique Desai SKID WRAPPER LAB BLOOD ORDERABLES Final R esult Performing Organization Address [facility] Co de Phone Number [facility] [address] [place] [id number], [place] * (ABNORMAL) Basic Metabolic Panel (06/24/2024 3:08 AM EST) NA 138 135 - 145 mmol/L 06/24/2024 4:[address] [facility] K 3.1(L) 3.5 - 5.3 mmol/L 06/24/2024 4:21 AM [facility] Cl 104 98 - 107 mmol/L 06/24/2024 4:[address] [facility] CO2 20(L) 22 - 32 mmol/L 06/24/2024 4:[address] [facility] BUN 8 7 - 23 mg/dL 06/24/2024 4:[address] [facility] Creatinine 0.59(L) 0.60 - 1.30 mg/dL 06/24/2024 4:[address] [facility] Glucose 95 65 - 99 mg/dL 06/24/2024 4:21 AM [facility] Calcium 8.7 8.6 - 10.5 mg/dL 06/24/2024 4:[address] [facility] Anion Gap 14 5 - 15 06/24/2024 4:[address] [facility] eGFR >90 >=60 mL/min/1 .73m2 06/24/2024 4:21 AM [facility] Comment:The estimated glomer ular [...] EST 06/24/2024 3:35 AM EST Domonique Desai SKID WRAPPER LAB BLOOD ORDERABLES Final R esult Performing Organization Address City/[facility]/ZIP Co de Phone Number [facility] [address] [place] [address], [place] * Magnesium (06/24/2024 3:08 AM EST) MG 1.9 1.6 - 2.4 mg/dL 06/24/2024 4:20 AM EST [facility] Blood Structure of peripheral vein / Unknown Venipuncture / Unknown 06/24/2024 3:08 AM EST 06/24/2024 3:35 AM EST Domonique Desai SKID WRAPPER LAB BLOOD ORDERABLES Final R esult Performing Organization Address [facility] Co de Phone Number [facility] [address] [place] [id number], [place] * Phosphorus (06/24/2024 3:08 AM EST) Phosphorus 3.4 2.5 - 4.5 mg/dL 06/24/2024 4:20 AM EST [facility] Blood Structure of peripheral vein / Unknown Venipuncture / Unknown 06/24/2024 3:08 AM EST 06/24/2024 3:35 AM EST Domonique Desai SKID WRAPPER LAB BLOOD ORDERABLES Final R esult Performing Organization Address City/[facility] Co de Phone Number [facility] [address] [place] [id number], [place] * (ABNORMAL) CBC (06/24/2024 3:08 AM EST) WBC 7.4 3.8 - 10.8 10*3/uL 06/24/2024 4:13 AM EST [facility] RBC 3.84(L) 4.20 - 5.80 10*6/uL 06/24/2024 4:13 AM EST [facility] Hemoglobin 14.4 13.2 - 17.1 g/dL 06/24/2024 4:13 AM EST [facility] Hematocrit 39.7 38.5 - 50.0 % 06/24/2024 4:13 AM EST [facility] MCV 103.4(H) 80.0 - 100.0 fL 06/24/2024 4:13 AM EST [facility] MCH 37.5(H) 27.0 - 33.0 pg 06/24/2024 4:13 AM EST [facility] MCHC 36.3(H) 32.0 - 36.0 g/dL 06/24/2024 4:13 AM EST [facility] RDW 11.7 11.0 - 15.0 % 06/24/2024 4:13 AM EST [facility] Platelets 546(H) 140 - 400 10*3/uL 06/24/2024 4:13 AM EST [facility] MPV 8.8 7.5 - 12.5 fL 06/24/2024 4:13 AM EST [facility] Comment:A smear review has b een added. Clinician review and interpretation will be needed once the report is final. Blood Structure of peripheral vein / Unknown Venipuncture / Unknown 06/24/2024 3:08 AM EST 06/24/2024 3:35 AM EST us Domonique Desai NP LAB BLOOD ORDERABLES Final R esult [facility] [address] [place] [address], * (ABNORMAL) POCT Glucose, interfaced (06/23/2024 11:19 AM EST) Glucose, POCT 167(H) 70 - 99 mg/dL 06/23/2024 11:20 AM EST [facility] Comment: The machine washer has not determined the efficacy of this test in Critically ill patients. ??[facility] defines Critically ill patients for the [...] LAB POCT ORDERABLES - DEVICE Final Result [facility] [address] [id number], [place] * (ABNORMAL) POCT Glucose, interfaced (06/23/2024 10:09 AM EST) Glucose, POCT 206(H) 70 - 99 mg/dL 06/23/2024 10:09 AM EST [facility] Comment: The machine washer has not determined the efficacy of this test in Critically ill patients. ??[facility] defines Critically ill patients for the [...] confirmed with lab-based glucose values. Blood 06/23/2024 10:0 9 AM EST 06/23/2024 10:09 AM EST Alberto Rucker DO LAB POCT ORDERABLES - DEVICE Final Result Performing Organization Address [facility] de Phone Number DOMINICK Vital [facility] [address] [place] [address], [place] * (ABNORMAL) POCT Glucose, interfaced (06/22/2024 12:03 PM EST) Glucose, POCT 101(H) 70 - 99 mg/dL 06/22/2024 12:05 PM EST [facility] Comment: The machine washer has not determined the efficacy of this test in Critically ill patients. ??[facility] defines Critically ill patients for the [...] results confirmed with lab-based glucose values. Blood 06/22/2024 12:0 3 PM EST 06/22/2024 12:05 PM EST Alberto Rucker DO LAB POCT ORDERABLES - DEVICE Final Result Performing Organization Address [facility] de Phone Number SERGIOMS Amanuel [facility] [address] [place] [address], [place] * (ABNORMAL) Basic Metabolic Panel (06/22/2024 2:54 AM EST) NA 137 135 - 145 mmol/L 06/22/2024 3:56 AM EST [facility] K 4.0 3.5 - 5.3 mmol/L 06/22/2024 3:56 AM EST [facility] Cl 106 98 - 107 mmol/L 06/22/2024 3:56 AM EST [facility] CO2 20(L) 22 - 32 mmol/L 06/22/2024 3:56 AM EST [facility] BUN 12 7 - 23 mg/dL 06/22/2024 3:56 AM EST [facility] Creatinine 0.61 0.60 - 1.30 mg/dL 06/22/2024 3:56 AM EST [facility] Glucose 153(H) 65 - 99 mg/dL 06/22/2024 3:56 AM EST [facility] Calcium 8.5(L) 8.6 - 10.5 mg/dL 06/22/2024 3:56 AM EST [facility] Anion Gap 11 5 - 15 06/22/2024 3:56 AM EST [facility] eGFR >90 >=60 mL/min/1. 73m2 06/22/2024 3:56 AM EST [facility] Comment:The estimated glomer ular filtration [...] peripheral vein / Unknown Venipuncture / Unknown 06/22/2024 2:54 AM EST 06/22/2024 2:56 AM EST us Darrel Blackwell NP LAB BLOOD ORDERABLES Fi nal Result [facility] [address] [place] [address], [place] * Magnesium (06/22/2024 2:54 AM EST) MG 2.1 1.6 - 2.4 mg/dL 06/22/2024 3:56 AM EST [facility] Blood Structure of peripheral vein / Unknown Venipuncture / Unknown 06/22/2024 2:54 AM EST 06/22/2024 2:56 AM EST us Darrel Blackwell SKID WRAPPER LAB BLOOD ORDERABLES Fi nal Result Performing Organization Address City/[facility]/ZIP Co de Phone Number [facility] [address] [place] [address], [place] * Phosphorus (06/22/2024 2:54 AM EST) Phosphorus 3.6 2.5 - 4.5 mg/dL 06/22/2024 3:56 AM EST [facility] Blood Structure of peripheral vein / Unknown Venipuncture / Unknown 06/22/2024 2:54 AM EST 06/22/2024 2:56 AM EST Darrel Blackwell SKID WRAPPER LAB BLOOD ORDERABLES Fi nal Result Performing Organization Address City/[facility]/ZIP Co de Phone Number [facility] [address] [place] [phone], [place] * (ABNORMAL) Smear Review (06/21/2024 3:36 PM EST) Platelet Estimate Adequate Adequate 06/21/2024 4:17 PM EST [facility] RBC Morphology Present(A) Normal, No clinically significant RBC morphology present (ICSH guidelines, 2015). 06/21/2024 4:17 PM EST [facility] Macrocytes 2+(A) Not Present 06/21/2024 4:17 PM EST [facility] Blood Structure of peripheral vein / Unknown Venipuncture / Unknown 06/21/2024 3:36 PM EST 06/21/2024 3:39 PM EST us Chay ESTRADA LAB BLOOD ORDERABLES Rachel merlin Result [facility] [address] [place] [address], [place] * (ABNORMAL) CBC (06/21/2024 3:36 PM EST) WBC 6.4 3.8 - 10.8 10*3/uL 06/21/2024 4:17 PM EST [facility] RBC 3.59(L) 4.20 - 5.80 10*6/uL 06/21/2024 4:17 PM EST [facility] Hemoglobin 13.2 13.2 - 17.1 g/dL 06/21/2024 4:17 PM EST [facility] Hematocrit 37.8(L) 38.5 - 50.0 % 06/21/2024 4:17 PM EST [facility] MCV 105.3(H) 80.0 - 100.0 fL 06/21/2024 4:17 PM EST [facility] MCH 36.8(H) 27.0 - 33.0 pg 06/21/2024 4:17 PM EST [facility] MCHC 34.9 32.0 - 36.0 g/dL 06/21/2024 4:17 PM EST [facility] RDW 11.8 11.0 - 15.0 % 06/21/2024 4:17 PM EST [facility] Platelets 379 140 - 400 10*3/uL 06/21/2024 4:17 PM EST [facility] MPV 8.8 7.5 - 12.5 fL 06/21/2024 4:17 PM EST [facility] Comment:A smear review has b een added. Clinician review and interpretation will be needed once the report is final. Blood Structure of peripheral vein / Unknown Venipuncture / Unknown 06/21/2024 3:36 PM EST 06/21/2024 3:39 PM EST us Chay ESTRADA LAB BLOOD ORDERABLES Rachel boyer Result [facility] [address] [place] [address], * (ABNORMAL) Basic metabolic panel (06/21/2024 3:36 PM EST) NA 138 135 - 145 mmol/L 06/21/2024 4:10 PM EST [facility] K 3.7 3.5 - 5.3 mmol/L 06/21/2024 4:10 PM EST [facility] Cl 105 98 - 107 mmol/L 06/21/2024 4:10 PM EST [facility] CO2 21(L) 22 - 32 mmol/L 06/21/2024 4:10 PM EST [facility] BUN 12 7 - 23 mg/dL 06/21/2024 4:10 PM EST [facility] Creatinine 0.58(L) 0.60 - 1.30 mg/dL 06/21/2024 4:10 PM EST [facility] Glucose 114(H) 65 - 99 mg/dL 06/21/2024 4:10 PM EST [facility] Calcium 8.6 8.6 - 10.5 mg/dL 06/21/2024 4:10 PM EST [facility] Anion Gap 12 5 - 15 06/21/2024 4:10 PM EST [facility] eGFR >90 >=60 mL/min/1 .73m2 06/21/2024 4:10 PM EST [facility] Comment:The estimated glomer ular [...] peripheral vein / Unknown Venipuncture / Unknown 06/21/2024 3:36 PM EST 06/21/2024 3:39 PM EST Darrel Blackwell SKID WRAPPER LAB BLOOD ORDERABLES Fi nal Result Performing Organization Address [facility] de Phone Number [facility] [address] [place] [address], [place] * Phosphorus (06/21/2024 3:06 AM EST) Phosphorus 3.9 2.5 - 4.5 mg/dL 06/21/2024 3:42 AM EST [facility] Blood Structure of peripheral vein / Unknown Venipuncture / Unknown 06/21/2024 3:06 AM EST 06/21/2024 3:10 AM EST Gabe Robbins SKID WRAPPER LAB BLOOD ORDERABLES Final R esult Performing Organization Address [facility] Co de Phone Number [facility] [address] [place] [address], [place] * Magnesium (06/21/2024 3:06 AM EST) MG 2.1 1.6 - 2.4 mg/dL 06/21/2024 3:42 AM EST [facility] Blood Structure of peripheral vein / Unknown Venipuncture / Unknown 06/21/2024 3:06 AM EST 06/21/2024 3:10 AM EST us Gabe Robbins SKID WRAPPER LAB BLOOD ORDERABLES Final R esult [facility] [address] [place] [address], * (ABNORMAL) Basic Metabolic Panel (06/21/2024 3:06 AM EST) NA 139 135 - 145 mmol/L 06/21/2024 3:42 AM EST [facility] K 4.0 3.5 - 5.3 mmol/L 06/21/2024 3:42 AM EST [facility] Cl 101 98 - 107 mmol/L 06/21/2024 3:42 AM EST [facility] CO2 20(L) 22 - 32 mmol/L 06/21/2024 3:42 AM EST [facility] BUN 12 7 - 23 mg/dL 06/21/2024 3:42 AM EST [facility] Creatinine 0.58(L) 0.60 - 1.30 mg/dL 06/21/2024 3:42 AM EST [facility] Glucose 110(H) 65 - 99 mg/dL 06/21/2024 3:42 AM EST [facility] Calcium 9.3 8.6 - 10.5 mg/dL 06/21/2024 3:42 AM EST [facility] Anion Gap 18(H) 5 - 15 06/21/2024 3:42 AM EST [facility] eGFR >90 >=60 mL/min/1 .73m2 06/21/2024 3:42 AM EST [facility] Comment:The estimated glomer ular filtration [...] peripheral vein / Unknown Venipuncture / Unknown 06/21/2024 3:06 AM EST 06/21/2024 3:10 AM EST us Gabe Robbins NP LAB BLOOD ORDERABLES Final R esult Performing Organization Address [facility] Co de Phone Number [facility] [address] [place] [address], [place] * (ABNORMAL) POCT Glucose, interfaced (06/21/2024 1:13 AM EST) Glucose, POCT 102(H) 70 - 99 mg/dL 06/21/2024 1:14 AM EST [facility] Comment: The machine washer has not determined the efficacy of this test in Critically ill patients. ??[facility] defines Critically ill patients for the [...] results confirmed with lab-based glucose values. Blood 06/21/2024 1:13 AM EST 06/21/2024 1:14 AM EST us Jeison Hogue MD LAB POCT ORDERABLES - DEVICE Fin al Result Performing Organization Address [facility] Co de Phone Number [facility] [address] [place] [address], [place] * POCT Glucose, interfaced (06/20/2024 8:14 PM EST) Glucose, POCT 99 70 - 99 mg/dL 06/20/2024 8:15 PM EST [facility] Comment: The machine washer has not determined the efficacy of this test in Critically ill patients. ??[facility] defines Critically ill patients for the [...] results confirmed with lab-based glucose values. Blood 06/20/2024 8:14 PM EST 06/20/2024 8:15 PM EST us Jeison Hogue MD LAB POCT ORDERABLES - DEVICE Fin al Result Performing Organization Address City/[facility] Co de Phone Number [facility] [address] [place] [address], * (ABNORMAL) Smear Review (06/20/2024 3:35 AM EST) Pathologist [facility] Platelet Estimate Adequate Adequate 06/20/2024 5:40 AM EST [facility] RBC Morphology Present(A) Normal, No clinically significant RBC morphology present (ICSH guidelines, 2015). 06/20/2024 5:40 AM EST [facility] Macrocytes 2+(A) Not Present 06/20/2024 5:40 AM EST [facility] Blood Structure of peripheral vein / Unknown Venipuncture / Unknown 06/20/2024 3:35 AM EST 06/20/2024 4:12 AM EST us Darrel Blackwell NP LAB BLOOD ORDERABLES Fi nal Result Performing Organization Address City/[facility]/ZIP Co de Phone Number [facility] [address] [place] [address], [place] * Phosphorus (06/20/2024 3:35 AM EST) Phosphorus 3.3 2.5 - 4.5 mg/dL 06/20/2024 4:47 AM EST [facility] Blood Structure of peripheral vein / Unknown Venipuncture / Unknown 06/20/2024 3:35 AM EST 06/20/2024 4:11 AM EST us Darrel Blackwell SKID WRAPPER LAB BLOOD ORDERABLES Fi nal Result Performing Organization Address [facility] Co de Phone Number [facility] [address] [place] [address], [place] * Magnesium (06/20/2024 3:35 AM EST) MG 2.1 1.6 - 2.4 mg/dL 06/20/2024 4:47 AM EST [facility] Blood Structure of peripheral vein / Unknown Venipuncture / Unknown 06/20/2024 3:35 AM EST 06/20/2024 4:11 AM EST us Darrel Blackwell NP LAB BLOOD ORDERABLES Fi nal Result Performing Organization Address [facility] de Phone Number [facility] [address] [place] [address], [place] * (ABNORMAL) CBC Auto Differential (06/20/2024 3:35 AM EST) WBC 4.1 3.8 - 10.8 10*3/uL 06/20/2024 5:40 AM EST [facility] RBC 3.68(L) 4.20 - 5.80 10*6/uL 06/20/2024 5:40 AM EST [facility] Hemoglobin 13.5 13.2 - 17.1 g/dL 06/20/2024 5:40 AM [facility] Hematocrit 39.4 38.5 - 50.0 % 06/20/2024 5:[address] [facility] MCV 107.1(H) 80.0 - 100.0 fL 06/20/2024 5:[address] [facility] MCH 36.7(H) 27.0 - 33.0 pg 06/20/2024 5:40 AM [facility] MCHC 34.3 32.0 - 36.0 g/dL 06/20/2024 5:[address] [facility] RDW 11.7 11.0 - 15.0 % 06/20/2024 5:[address] [facility] Platelets 274 140 - 400 10*3/uL 06/20/2024 5:[address] [facility] MPV 9.4 7.5 - 12.5 fL 06/20/2024 5:[address] [facility] Neutrophil % 49.9 % 06/20/2024 5:[address] [facility] Immature Grans % 0.5 0.0 - 0.9 % 06/20/2024 5:[address] [facility] Lymphocyte % 21.5 % 06/20/2024 5:[address] [facility] Monocyte % 23.7 % 06/20/2024 5:[address] [facility] Eosinophil % 3.4 % 06/20/2024 5:[address] [facility] Basophil % 1.0 % 06/20/2024 5:[address] [facility] Neutrophil # 2.06 1.50 - 7.80 10*3/uL 06/20/2024 5:[address] [facility] Immature Grans # <0.03 <=0.03 10*3/uL 06/20/2024 5:40 AM EST [facility] Lymphocyte # 0.90 0.85 - 3.90 10*3/uL 06/20/2024 5:40 AM EST [facility] Monocyte # 1.00(H) 0.20 - 0.95 10*3/uL 06/20/2024 5:40 AM EST [facility] Eosinophil # 0.10 0.02 - 0.50 10*3/uL 06/20/2024 5:40 AM EST [facility] Basophil # <0.03 0.00 - 0.20 10*3/uL 06/20/2024 5:40 AM EST [facility] nRBC % 0.0 /100 WBCs 06/20/2024 5:40 AM EST [facility] nRBC # <0.01 <0.01 10*3/uL 06/20/2024 5:40 AM EST [facility] Blood Structure of peripheral vein / Unknown Venipuncture / Unknown 06/20/2024 3:35 AM EST 06/20/2024 4:12 AM EST us Darrel Blackwell NP LAB BLOOD ORDERABLES Fi nal Result [facility] [address] [id number], [place] * (ABNORMAL) Comprehensive metabolic panel (06/20/2024 3:35 AM EST) NA 139 135 - 145 mmol/L 06/20/2024 4:47 AM EST [facility] K 4.0 3.5 - 5.3 mmol/L 06/20/2024 4:47 AM EST [facility] Cl 107 98 - 107 mmol/L 06/20/2024 4:47 AM EST [facility] CO2 23 22 - 32 mmol/L 06/20/2024 4:[address] [facility] Anion Gap 9 5 - 15 06/20/2024 4:[address] [facility] Glucose 161(H) 65 - 99 mg/dL 06/20/2024 4:[address] [facility] Creatinine 0.55(L) 0.60 - 1.30 mg/dL 06/20/2024 4:[address] [facility] Calcium 8.6 8.6 - 10.5 mg/dL 06/20/2024 4:[address] [facility] Total Protein 6.8 6.0 - 8.0 g/dL 06/20/2024 4:[address] [facility] Albumin 3.2(L) 3.5 - 5.2 g/dL 06/20/2024 4:[address] [facility] Bilirubin, Total 0.2 0.2 - 1.2 mg/dL 06/20/2024 4:[address] [facility] Alkaline Phosphatase 104 35 - 129 U/L 06/20/2024 4:[address] [facility] AST 20 10 - 40 U/L 06/20/2024 4:[address] [facility] ALT 16 10 - 40 U/L 06/20/2024 4:[address] [facility] BUN 11 7 - 23 mg/dL 06/20/2024 4:[address] [facility] eGFR >90 >=60 mL/min/1 .73m2 06/20/2024 4:[address] [facility] Comment:The estimated glomer ular [...] - 4.2 g/dL 06/20/2024 4:47 AM EST [facility] A/G Ratio 0.9(L) 1.5 - 3.0 06/20/2024 4:47 AM EST [facility] Blood Structure of peripheral vein / Unknown Venipuncture / Unknown 06/20/2024 3:35 AM EST 06/20/2024 4:11 AM EST us Darrel Blackwell NP LAB BLOOD ORDERABLES Fi nal Result [facility] [address] [place] [address], [place] * (ABNORMAL) Manual Differential (06/19/2024 3:40 AM EST) Neutrophil %, Manual 61 % 06/19/2024 5:22 AM EST [facility] Comment:WBC: vacuolated poly s Lymphocyte %, Manual 17 % 06/19/2024 5:22 AM EST [facility] Monocyte %, Manual 12 % 06/19/2024 5:22 AM EST [facility] Eosinophil %, Manual 5 % 06/19/2024 5:22 AM EST [facility] Basophil %, Manual 1 % 06/19/2024 5:22 AM EST [facility] Reactive Lymphocyte % 4 0 - 6 % 06/19/2024 5:22 AM EST [facility] Total Neutrophil #, Manual 3.48 1.50 - 7.80 10*3/uL 06/19/2024 5:22 AM EST [facility] Total Lymph #, Manual 1.20 0.85 - 3.90 10*3/uL 06/19/2024 5:22 AM EST [facility] Monocyte #, Manual 0.68 0.20 - 0.95 10*3/uL 06/19/2024 5:22 AM EST [facility] Eosinophil #, Manual 0.29 0.02 - 0.50 10*3/uL 06/19/2024 5:22 AM EST [facility] Basophil #, Manual 0.06 0.00 - 0.20 10*3/uL 06/19/2024 5:22 AM EST [facility] Reactive Lymphocytes # 0.23 10*3/uL 06/19/2024 5:22 AM EST [facility] Platelet Estimate Adequate Adequate 06/19/2024 5:22 AM EST [facility] RBC Morphology Present(A) Normal, No clinically significant RBC morphology present (ICSH guidelines, 2015). 06/19/2024 5:22 AM EST [facility] Anisocytosis 2+(A) Not Present 06/19/2024 5:22 AM EST [facility] Macrocytes 2+(A) Not Present 06/19/2024 5:22 AM EST [facility] Total Cells Counted 117 06/19/2024 5:22 AM EST [facility] Blood Structure of peripheral vein / Unknown Venipuncture / Unknown 06/19/2024 3:40 AM EST 06/19/2024 3:48 AM EST us Winston ESTRADA LAB BLOOD ORDERABLES Fi nal Result [facility] [address] [place] [address], [place] * (ABNORMAL) Renal Function Panel (06/19/2024 3:40 AM EST) NA 139 135 - 145 mmol/L 06/19/2024 4:34 AM [facility] K 4.1 3.5 - 5.3 mmol/L 06/19/2024 4:[address] [facility] Cl 105 98 - 107 mmol/L 06/19/2024 4:[address] [facility] CO2 21(L) 22 - 32 mmol/L 06/19/2024 4:[address] [facility] Anion Gap 13 5 - 15 06/19/2024 4:[address] [facility] Glucose 161(H) 65 - 99 mg/dL 06/19/2024 4:[address] [facility] BUN 9 7 - 23 mg/dL 06/19/2024 4:[address] [facility] Creatinine 0.61 0.60 - 1.30 mg/dL 06/19/2024 4:[address] [facility] Calcium 8.6 8.6 - 10.5 mg/dL 06/19/2024 4:[address] [facility] Phosphorus 3.8 2.5 - 4.5 mg/dL 06/19/2024 4:[address] [facility] Albumin 3.3(L) 3.5 - 5.2 g/dL 06/19/2024 4:[address] [facility] eGFR >90 >=60 mL/min/1. 73m2 06/19/2024 4:[address] [facility] Comment:The estimated glomer ular [...] 3:40 AM EST 06/19/2024 3:48 AM EST Winston Yifan ESTRADA LAB BLOOD ORDERABLES Fi nal Result Performing Organization Address City/[facility] Co de Phone Number [facility] [address] [place] [address], [place] * Magnesium (06/19/2024 3:40 AM EST) MG 2.1 1.6 - 2.4 mg/dL 06/19/2024 4:34 AM EST [facility] Blood Structure of peripheral vein / Unknown Venipuncture / Unknown 06/19/2024 3:40 AM EST 06/19/2024 3:48 AM EST Winston Yifan ESTRADA LAB BLOOD ORDERABLES Fi nal Result Performing Organization Address [facility] de Phone Number [facility] [address] [place] [address], [place] * (ABNORMAL) CBC Auto Differential (06/19/2024 3:40 AM EST) WBC 5.7 3.8 - 10.8 10*3/uL 06/19/2024 5:22 AM EST [facility] RBC 3.74(L) 4.20 - 5.80 10*6/uL 06/19/2024 5:22 AM EST [facility] Hemoglobin 13.7 13.2 - 17.1 g/dL 06/19/2024 5:22 AM EST [facility] Hematocrit 40.3 38.5 - 50.0 % 06/19/2024 5:22 AM EST [facility] MCV 107.8(H) 80.0 - 100.0 fL 06/19/2024 5:22 AM EST [facility] MCH 36.6(H) 27.0 - 33.0 pg 06/19/2024 5:22 AM EST [facility] MCHC 34.0 32.0 - 36.0 g/dL 06/19/2024 5:22 AM EST [facility] RDW 12.4 11.0 - 15.0 % 06/19/2024 5:22 AM EST [facility] Platelets 162 140 - 400 10*3/uL 06/19/2024 5:22 AM EST [facility] MPV 10.2 7.5 - 12.5 fL 06/19/2024 5:22 AM EST [facility] nRBC % 0.0 /100 WBCs 06/19/2024 5:22 AM EST [facility] nRBC # <0.01 <0.01 10*3/uL 06/19/2024 5:22 AM EST [facility] Blood Structure of peripheral vein / Unknown Venipuncture / Unknown 06/19/2024 3:40 AM EST 06/19/2024 3:48 AM EST us Winston ESTRADA LAB BLOOD ORDERABLES Fi nal Result [facility] [address] [place] [address], [place] * (ABNORMAL) POCT Glucose, interfaced (06/18/2024 8:19 PM EST) Glucose, POCT 103(H) 70 - 99 mg/dL 06/18/2024 8:21 PM EST [facility], [facility] Comment: The machine washer has not determined the efficacy of this test in Critically ill patients. ??[facility] defines Critically ill patients for the [...] results confirmed with lab-based glucose values. Blood 06/18/2024 8:19 PM EST 06/18/2024 8:21 PM EST us Jeison Hogue MD LAB POCT ORDERABLES - DEVICE Fin al Result Performing Organization Address [facility] Co de Phone Number [facility] [address] [place] [address], [place] * (ABNORMAL) Smear Review (06/18/2024 3:26 AM EST) Pathologist [facility] Platelet Estimate Decrease d(A) Adequate 06/18/2024 4:06 AM EST [facility] RBC Morphology Present( A) Normal, No clinically significant RBC morphology present (ICSH guidelines, 2015). 06/18/2024 4:06 AM EST [facility] Macrocytes 2+(A) Not Present 06/18/2024 4:06 AM EST [facility] Blood Structure of peripheral vein / Unknown Venipuncture / Unknown 06/18/2024 3:26 AM EST 06/18/2024 3:40 AM EST us Gabe Robbins NP LAB BLOOD ORDERABLES Final R esult Performing Organization Address [facility] Co de Phone Number [facility] [address] [place] [address], [place] * (ABNORMAL) CBC (06/18/2024 3:26 AM EST) WBC 7.0 3.8 - 10.8 10*3/uL 06/18/2024 4:06 AM EST [facility] RBC 3.36(L) 4.20 - 5.80 10*6/uL 06/18/2024 4:06 AM EST [facility] Hemoglobin 12.2(L) 13.2 - 17.1 g/dL 06/18/2024 4:06 AM EST [facility] Hematocrit 36.1(L) 38.5 - 50.0 % 06/18/2024 4:06 AM EST [facility] MCV 107.4(H) 80.0 - 100.0 fL 06/18/2024 4:06 AM EST [facility] MCH 36.3(H) 27.0 - 33.0 pg 06/18/2024 4:06 AM EST [facility] MCHC 33.8 32.0 - 36.0 g/dL 06/18/2024 4:06 AM EST [facility] RDW 12.9 11.0 - 15.0 % 06/18/2024 4:06 AM EST [facility] Platelets 97(L) 140 - 400 10*3/uL 06/18/2024 4:06 AM EST [facility] MPV 10.7 7.5 - 12.5 fL 06/18/2024 4:06 AM EST [facility] Comment:A smear review has b een added. Clinician review and interpretation will be needed once the report is final. Blood Structure of peripheral vein / Unknown Venipuncture / Unknown 06/18/2024 3:26 AM EST 06/18/2024 3:40 AM EST us Gabe Robbins [employer] LAB BLOOD ORDERABLES Final R esult [facility] [address] [place] [address], [place] * Phosphorus (06/18/2024 3:26 AM EST) Phosphorus 3.4 2.5 - 4.5 mg/dL 06/18/2024 4:15 AM EST [facility] Blood Structure of peripheral vein / Unknown Venipuncture / Unknown 06/18/2024 3:26 AM EST 06/18/2024 3:40 AM EST Mikey Rivas [employer] LAB BLOOD ORDER MADELYN Final Result [facility] [address] [place] [address], [place] * Magnesium (06/18/2024 3:26 AM EST) Pathologist [facility] MG 1.8 1.6 - 2.4 mg/dL 06/18/2024 4:15 AM EST [facility] Blood Structure of peripheral vein / Unknown Venipuncture / Unknown 06/18/2024 3:26 AM EST 06/18/2024 3:40 AM EST Mikey Rivas [employer] LAB BLOOD ORDER MADELYN Final Result Performing Organization Address City/[facility] Co de Phone Number [facility] [address] [place] [address], [place] * (ABNORMAL) Basic Metabolic Panel (06/18/2024 3:26 AM EST) Pathologist [facility] NA 136 135 - 145 mmol/L 06/18/2024 4:15 AM EST [facility] K 4.1 3.5 - 5.3 mmol/L 06/18/2024 4:15 AM EST [facility] Cl 106 98 - 107 mmol/L 06/18/2024 4:15 AM EST [facility] CO2 18(L) 22 - 32 mmol/L 06/18/2024 4:15 AM EST [facility] BUN 9 7 - 23 mg/dL 06/18/2024 4:15 AM EST [facility] Creatinine 0.54(L) 0.60 - 1.30 mg/dL 06/18/2024 4:15 AM EST [facility] Glucose 140(H) 65 - 99 mg/dL 06/18/2024 4:15 AM EST [facility] Calcium 7.7(L) 8.6 - 10.5 mg/dL 06/18/2024 4:15 AM EST [facility] Anion Gap 12 5 - 15 06/18/2024 4:15 AM EST [facility] eGFR >90 >=60 mL/min/1 .73m2 06/18/2024 4:15 AM EST [facility] Comment:The estimated glomer ular [...] peripheral vein / Unknown Venipuncture / Unknown 06/18/2024 3:26 AM EST 06/18/2024 3:40 AM EST us Mikey Rivas [employer] LAB BLOOD ORDER MADELYN Final Result [facility] [address] [place] [address], * (ABNORMAL) POCT I-STAT Venous Blood Gas, interfaced (06/17/2024 7:55 AM EST) Sample Type, POCT Venous 06/17/2024 7:57 AM EST [facility] pH, POCT 7.43(H) 7.31 - 7.41 pH 06/17/2024 7:57 AM EST [facility] pCO2, POCT 33.0(L) 41 - 51 mm Hg 06/17/2024 7:57 AM EST [facility] pO2, POCT 42(H) 35 - 40 mm Hg 06/17/2024 7:57 AM EST [facility] Base Excess, POCT -3(L) 0 - 3 mmol/L 06/17/2024 7:57 AM EST [facility] HCO3, POCT 21.8(L) 23 - 28 mmol/L 06/17/2024 7:57 AM EST [facility] TCO2, POCT 23(L) 24 - 29 mmol/L 06/17/2024 7:57 AM EST [facility] Saturated O2, POCT 79(H) 70 - 75 % 06/17/2024 7:57 AM EST [facility] FIO2, POCT 30 % 06/17/2024 7:57 AM EST [facility] Patient Temp, POCT 38.1 degrees 06/17/2024 7:57 AM EST [facility] Isaias's Test, POCT N/A 06/17/2024 7:57 AM EST [facility] Blood 06/17/2024 7:55 AM EST 06/17/2024 7:57 AM EST us Jeison Hogue MD LAB POCT ORDERABLES - DEVICE Fin al Result [facility] [address] [place] [address], * Triglyceride (06/17/2024 7:52 AM EST) Triglycerides 69 <=149 mg/dL 06/17/2024 12:32 PM EST [facility] Blood Structure of peripheral vein / Unknown Venipuncture / Unknown 06/17/2024 7:52 AM EST 06/17/2024 7:55 AM EST Mikey Rivas SK[employer] WRAPPER LAB BLOOD ORDER MADELYN Final Result Performing Organization Address City/[facility]/ZIP Co de Phone Number [facility] [address] [place] [address], [place] * (ABNORMAL) Lipase (06/17/2024 7:52 AM EST) Lipase 150(H) 13 - 60 U/L 06/17/2024 12:32 PM EST [facility] Blood Structure of peripheral vein / Unknown Venipuncture / Unknown 06/17/2024 7:52 AM EST 06/17/2024 7:55 AM EST Mikey Rivas SK[employer]APPER LAB BLOOD ORDER MADELYN Final Result Performing Organization Address [facility] de Phone Number [facility] [address] [place] [id number], [place] * (ABNORMAL) Phosphorus (06/17/2024 7:52 AM EST) Phosphorus 2.4(L) 2.5 - 4.5 mg/dL 06/17/2024 9:00 AM EST [facility] Blood Structure of peripheral vein / Unknown Venipuncture / Unknown 06/17/2024 7:52 AM EST 06/17/2024 7:55 AM EST Marci Huitron PA LAB BLOOD ORDERABLES Final Res ult Performing Organization Address City/[facility] Co de Phone Number [facility] [address] [place] [id number], [place] * (ABNORMAL) Basic Metabolic Panel (06/17/2024 7:52 AM EST) NA 139 135 - 145 mmol/L 06/17/2024 9:01 AM [facility] K 4.6 3.5 - 5.3 mmol/L 06/17/2024 9:[address] [facility] Cl 108(H) 98 - 107 mmol/L 06/17/2024 9:[address] [facility] CO2 21(L) 22 - 32 mmol/L 06/17/2024 9:[address] [facility] BUN 10 7 - 23 mg/dL 06/17/2024 9:[address] [facility] Creatinine 0.61 0.60 - 1.30 mg/dL 06/17/2024 9:[address] [facility] Glucose 107(H) 65 - 99 mg/dL 06/17/2024 9:[address] [facility] Calcium 8.0(L) 8.6 - 10.5 mg/dL 06/17/2024 9:01 AM [facility] Anion Gap 10 5 - 15 06/17/2024 9:[address] [facility] eGFR >90 >=60 mL/min/1. 73m2 06/17/2024 9:[address] [facility] Comment:The estimated glomer ular [...] 7:52 AM EST 06/17/2024 7:55 AM EST Marci ESTRADA LAB BLOOD ORDERABLES Final Res ult Performing Organization Address City/[facility] Co de Phone Number [facility] [address] [place] [address], [place] * Magnesium (06/17/2024 7:52 AM EST) MG 2.1 1.6 - 2.4 mg/dL 06/17/2024 9:00 AM EST [facility] Blood Structure of peripheral vein / Unknown Venipuncture / Unknown 06/17/2024 7:52 AM EST 06/17/2024 7:55 AM EST Marci ESTRADA LAB BLOOD ORDERABLES Final Res ult Performing Organization Address [facility] de Phone Number [facility] [address] [place] [id number], [place] * (ABNORMAL) POCT Glucose, interfaced (06/17/2024 4:16 AM EST) Glucose, POCT 103(H) 70 - 99 mg/dL 06/17/2024 4:17 AM EST [facility] Comment: The machine washer has not determined the efficacy of this test in Critically ill patients. ??[facility] defines Critically ill patients for the [...] results confirmed with lab-based glucose values. Blood 06/17/2024 4:16 AM EST 06/17/2024 4:17 AM EST us Sal Adler MD LAB POCT ORDERABLES - DEVIC E Final Result [facility] [address] [place] [address], [place] * (ABNORMAL) POCT I-STAT Venous Blood Gas, interfaced (06/17/2024 4:15 AM EST) Sample Type, POCT Venous 06/17/2024 4:19 AM EST [facility] pH, POCT 7.51(H) 7.31 - 7.41 pH 06/17/2024 4:19 AM EST [facility] pCO2, POCT 27.4(L) 41 - 51 mm Hg 06/17/2024 4:19 AM EST [facility] pO2, POCT 62(H) 35 - 40 mm Hg 06/17/2024 4:19 AM EST [facility] Base Excess, POCT -1(L) 0 - 3 mmol/L 06/17/2024 4:19 AM EST [facility] HCO3, POCT 22.0(L) 23 - 28 mmol/L 06/17/2024 4:19 AM EST [facility] TCO2, POCT 23(L) 24 - 29 mmol/L 06/17/2024 4:19 AM EST [facility] Saturated O2, POCT 94(H) 70 - 75 % 06/17/2024 4:19 AM EST [facility] FIO2, POCT 30 % 06/17/2024 4:19 AM EST [facility] Tidal Volume, POCT 450 ml 06/17/2024 4:19 AM EST [facility] Isaias's Test, POCT N/A 06/17/2024 4:19 AM EST [facility] Blood 06/17/2024 4:15 AM EST 06/17/2024 4:18 AM EST Sal Adler MD LAB POCT ORDERABLES - DEVIC E Final Result Performing Organization Address City/[facility]/ZIP Co de Phone Number [facility] [address] [place] [address], [place] * (ABNORMAL) Magnesium (06/17/2024 12:06 AM EST) MG 2.7(H) 1.6 - 2.4 mg/dL 06/17/2024 1:00 AM EST [facility] Blood Structure of peripheral vein / Unknown Venipuncture / Unknown 06/17/2024 12:06 AM EST 06/17/2024 12:17 AM EST Marci ESTRADA LAB BLOOD ORDERABLES Final Res ult Performing Organization Address [facility] Co de Phone Number [facility] [address] [place] [address], [place] * (ABNORMAL) Phosphorus (06/17/2024 12:06 AM EST) Phosphorus 2.4(L) 2.5 - 4.5 mg/dL 06/17/2024 1:00 AM EST [facility] Blood Structure of peripheral vein / Unknown Venipuncture / Unknown 06/17/2024 12:06 AM EST 06/17/2024 12:17 AM EST Marci ESTRADA LAB BLOOD ORDERABLES Final Res ult Performing Organization Address City/[facility] Co de Phone Number [facility] [address] [place] [address], [place] * (ABNORMAL) CBC (06/17/2024 12:06 AM EST) WBC 7.9 3.8 - 10.8 10*3/uL 06/17/2024 12:23 AM EST [facility] RBC 3.42(L) 4.20 - 5.80 10*6/uL 06/17/2024 12:23 AM EST [facility] Hemoglobin 12.8(L) 13.2 - 17.1 g/dL 06/17/2024 12:23 AM [facility] Hematocrit 35.9(L) 38.5 - 50.0 % 06/17/2024 12:23 AM EST [facility] MCV 105.0(H) 80.0 - 100.0 fL 06/17/2024 12:[address] [facility] MCH 37.4(H) 27.0 - 33.0 pg 06/17/2024 12:23 AM [facility] MCHC 35.7 32.0 - 36.0 g/dL 06/17/2024 12:[address] [facility] RDW 12.8 11.0 - 15.0 % 06/17/2024 12:[address] [facility] Platelets 71(L) 140 - 400 10*3/uL 06/17/2024 12:[address] [facility] MPV 11.4 7.5 - 12.5 fL 06/17/2024 12:[address] [facility] Blood Structure of peripheral vein / Unknown Venipuncture / Unknown 06/17/2024 12:06 AM EST 06/17/2024 12:17 AM EST us Marci ESTRADA LAB BLOOD ORDERABLES Final Res ult [facility] [address] [place] [address], * (ABNORMAL) Basic metabolic panel (06/17/2024 12:06 AM EST) NA 137 135 - 145 mmol/L 06/17/2024 1:00 AM [facility] K 3.3(L) 3.5 - 5.3 mmol/L 06/17/2024 1:[address] [facility] Cl 108(H) 98 - 107 mmol/L 06/17/2024 1:[address] [facility] CO2 18(L) 22 - 32 mmol/L 06/17/2024 1:00 AM EST [facility] BUN 9 7 - 23 mg/dL 06/17/2024 1:[address] [facility] Creatinine 0.65 0.60 - 1.30 mg/dL 06/17/2024 1:[address] [facility] Glucose 114(H) 65 - 99 mg/dL 06/17/2024 1:[address] [facility] Calcium 7.9(L) 8.6 - 10.5 mg/dL 06/17/2024 1:00 AM [facility] Anion Gap 11 5 - 15 06/17/2024 1:[address] [facility] eGFR >90 >=60 mL/min/1. 73m2 06/17/2024 1:00 AM [facility] Comment:The estimated glomer ular [...] vein / Unknown Venipuncture / Unknown 06/17/2024 12:06 AM EST 06/17/2024 12:17 AM EST us Marci ESTRADA LAB BLOOD ORDERABLES Final Res ult Performing Organization Address [facility] Co de Phone Number [facility] [address] [place] [address], [place] * (ABNORMAL) POCT Glucose, interfaced (06/17/2024 12:05 AM EST) Glucose, POCT 108(H) 70 - 99 mg/dL 06/17/2024 12:07 AM EST [facility] [employer] [facility] Comment: The machine washer has not determined the efficacy of this test in Critically ill patients. ??[facility] defines Critically ill patients for the [...] results confirmed with lab-based glucose values. Blood 06/17/2024 12:0 5 AM EST 06/17/2024 12:07 AM EST us Sal Adler MD LAB POCT ORDERABLES - DEVIC E Final Result Performing Organization Address [facility] Co de Phone Number DOMINICK [employer] [facility], POC [address] [place] [address], [place] * (ABNORMAL) POCT Glucose, interfaced (06/16/2024 9:06 PM EST) Glucose, POCT 113(H) 70 - 99 mg/dL 06/16/2024 9:08 PM EST [facility] [employer] [facility], POC Comment: The machine washer has not determined the efficacy of this test in Critically ill patients. ??[facility] defines Critically ill patients for the [...] results confirmed with lab-based glucose values. Blood 06/16/2024 9:06 PM EST 06/16/2024 9:08 PM EST us Sal Adler MD LAB POCT ORDERABLES - DEVIC E Final Result Performing Organization Address City/[facility]/ZIP Co de Phone Number [facility] [address] [place] [address], [place] * Urine Culture (Urethral Catheter), HOLD (06/16/2024 6:25 PM EST) Extra Tube Hold for add-ons. 06/16/2024 11:05 PM EST [facility] Comment:Auto resulted. Urine Indwelling urinary catheter / Unknown Non-Blood Collection / Unknown 06/16/2024 6:25 PM EST 06/16/2024 6:45 PM EST us Mikey Rivas NP LAB URINE ORDER MADELYN Final Result Performing Organization Address City/[facility] Co de Phone Number [facility] [address] [place] [address], [place] * (ABNORMAL) Urinalysis (Urethral Catheter) w/Reflex to Microscopic (Hold Culture). (06/16/2024 6:25 PM EST) Color, Urine Dark Yellow Colorless, Light Yellow, Yellow, Dark Yellow 06/16/2024 7:12 PM EST [facility] Clarity, Urine Clear Clear 06/16/2024 7:12 PM EST [facility] Specific [place], Urine 1.028 1.005 - 1.030 06/16/2024 7:[address] [facility] pH, Urine 5.0 4.6 - 8.0 06/16/2024 7:[address] [facility] Protein, Urine 1+(A) Negative 06/16/2024 7:[address] [facility] Glucose, Urine Negative Negative 06/16/2024 7:[address] [facility] Ketones, Urine Negative Negative 06/16/2024 7:[address] [facility] Bilirubin, Urine Negative Negative 06/16/2024 7:[address] [facility] Blood, Urine Negative Negative 06/16/2024 7:[address] [facility] Nitrite, Urine Negative Negative 06/16/2024 7:[address] [facility] Urobilinogen, Urine Normal Normal 06/16/2024 7:[address] [facility] Leukocyte Esterase, Urine 1+(A) Negative 06/16/2024 7:[address] [facility] WBC, Urine 16(H) 0 - 2 /HPF 06/16/2024 7:[address] [facility] RBC, Urine 7(H) 0 - 2 /HPF 06/16/2024 7:[address] [facility] Hyaline Casts, Urine 0 0 - 2 /LPF 06/16/2024 7:[address] [facility] Squamous Epithelial Cells, Urine <1 /HPF 06/16/2024 7:[address] [facility] Bacteria, Urine Rare(A) None /HPF /HPF 06/16/2024 7:[address] [facility] Mucus, Urine Rare /LPF 06/16/2024 7:[address] [facility] Urine Indwelling urinary catheter / Unknown Non-Blood Collection / Unknown 06/16/2024 6:25 PM EST 06/16/2024 6:45 PM EST Mikey Rivas SKID WRAPPER LAB URINE ORDER MADELYN Final Result Performing Organization Address [facility] Co de Phone Number [facility] [address] [place] [address], * (ABNORMAL) Magnesium (06/16/2024 4:35 PM EST) Pathologist [facility] MG 1.5(L) 1.6 - 2.4 mg/dL 06/16/2024 5:28 PM EST [facility] Blood Structure of peripheral vein / Unknown Venipuncture / Unknown 06/16/2024 4:35 PM EST 06/16/2024 4:38 PM EST Mikey Rivas SKID WRAPPER LAB BLOOD ORDER MADELYN Final Result Performing Organization Address [facility] Co de Phone Number [facility] [address] [place] [address], [place] * (ABNORMAL) Basic metabolic panel (06/16/2024 4:35 PM EST) Pathologist [facility] NA 138 135 - 145 mmol/L 06/16/2024 5:38 PM EST [facility] K 3.9 3.5 - 5.3 mmol/L 06/16/2024 5:38 PM EST [facility] Cl 109(H) 98 - 107 mmol/L 06/16/2024 5:38 PM EST [facility] CO2 17(L) 22 - 32 mmol/L 06/16/2024 5:38 PM EST [facility] BUN 9 7 - 23 mg/dL 06/16/2024 5:38 PM EST [facility] Creatinine 0.58(L) 0.60 - 1.30 mg/dL 06/16/2024 5:38 PM EST [facility] Glucose 164(H) 65 - 99 mg/dL 06/16/2024 5:38 PM EST [facility] Calcium 7.8(L) 8.6 - 10.5 mg/dL 06/16/2024 5:38 PM EST [facility] Anion Gap 12 5 - 15 06/16/2024 5:38 PM EST [facility] eGFR >90 >=60 mL/min/1 .73m2 06/16/2024 5:38 PM EST [facility] Comment:The estimated glomer ular [...] vein / Unknown Venipuncture / Unknown 06/16/2024 4:35 PM EST 06/16/2024 4:38 PM EST us Mikey Rivas SKID WRAPPER LAB BLOOD ORDER MADELYN Final Result [facility] [address] [place] [address], * (ABNORMAL) POCT I-STAT Venous Blood Gas, interfaced (06/16/2024 11:48 AM EST) Sample Type, POCT Venous 06/16/2024 11:58 AM EST [facility], [facility] pH, POCT 7.42(H) 7.31 - 7.41 pH 06/16/2024 11:58 AM EST [facility], [facility] pCO2, POCT 25.5(L) 41 - 51 mm Hg 06/16/2024 11:58 AM EST [facility] pO2, POCT 31(L) 35 - 40 mm Hg 06/16/2024 11:58 AM EST [facility] Base Excess, POCT -8(L) 0 - 3 mmol/L 06/16/2024 11:58 AM EST [facility] HCO3, POCT 16.5(L) 23 - 28 mmol/L 06/16/2024 11:58 AM EST [facility] TCO2, POCT 17(L) 24 - 29 mmol/L 06/16/2024 11:58 AM EST [facility] Saturated O2, POCT 62(L) 70 - 75 % 06/16/2024 11:58 AM EST [facility] FIO2, POCT 40 % 06/16/2024 11:58 AM EST [facility], [facility] Patient Temp, POCT 38.6 degrees 06/16/2024 11:58 AM EST [facility] Tidal Volume, POCT 450 ml 06/16/2024 11:58 AM EST [facility] Isaias's Test, POCT N/A 06/16/2024 11:58 AM EST [facility] Blood 06/16/2024 11:4 8 AM EST 06/16/2024 11:58 AM EST us Sal Adler MD LAB POCT ORDERABLES - DEVIC E Final Result [facility] [address] [place] [address], * POCT Glucose, interfaced (06/16/2024 11:44 AM EST) [facility] Glucose, POCT 97 70 - 99 mg/dL 06/16/2024 11:45 AM EST [facility] Comment: The machine washer has not determined the efficacy of this test in Critically ill patients. ??[facility] defines Critically ill patients for the [...] results confirmed with lab-based glucose values. Blood 06/16/2024 11:4 4 AM EST 06/16/2024 11:45 AM EST us Sal Adler MD LAB POCT ORDERABLES - DEVIC E Final Result [facility], [facility] [address] [place] [address], [place] * POCT Glucose, interfaced (06/16/2024 11:41 AM EST) [facility] Glucose, POCT 77 70 - 99 mg/dL 06/16/2024 11:45 AM EST [facility], [facility] Comment: The machine washer has not determined the efficacy of this test in Critically ill patients. ??[facility] defines Critically ill patients for the [...] results confirmed with lab-based glucose values. Blood 06/16/2024 11:4 1 AM EST 06/16/2024 11:45 AM EST us Sal Adler MD LAB POCT ORDERABLES - DEVIC E Final Result Performing Organization Address [facility] Co de Phone Number [facility] [address] [place] [address], [place] * (ABNORMAL) Betahydroxybutyrate (06/16/2024 10:28 AM EST) Beta-Hydroxybu tyrate 1.00(H) <=0.27 mmol/L 06/16/2024 12:27 PM EST [facility] Blood Structure of peripheral vein / Unknown Venipuncture / Unknown 06/16/2024 10:28 AM EST 06/16/2024 10:28 AM EST Mikey Rivas SKID WRAPPER LAB BLOOD ORDER MADELYN Final Result Performing Organization Address [facility] Co de Phone Number [facility] [address] [place] [address], [place] * Creatine Kinase (06/16/2024 10:28 AM EST) CK 342 49 - 348 U/L 06/16/2024 11:00 AM EST [facility] Blood Structure of peripheral vein / Unknown Venipuncture / Unknown 06/16/2024 10:28 AM EST 06/16/2024 10:28 AM EST Mikey Rivas SKID WRAPPER LAB BLOOD ORDER MADELYN Final Result Performing Organization Address City/[facility]/ZIP Co de Phone Number [facility] [address] [place] [address], [place] * (ABNORMAL) Basic metabolic panel (06/16/2024 10:28 AM EST) NA 138 135 - 145 mmol/L 06/16/2024 11:00 AM EST [facility] K 2.9(LL) 3.5 - 5.3 mmol/L 06/16/2024 11:00 AM EST [facility] Cl 109(H) 98 - 107 mmol/L 06/16/2024 11:00 AM EST [facility] CO2 13(LL) 22 - 32 mmol/L 06/16/2024 11:00 AM EST [facility] BUN 9 7 - 23 mg/dL 06/16/2024 11:00 AM EST [facility] Creatinine 0.49(L) 0.60 - 1.30 mg/dL 06/16/2024 11:00 AM EST [facility] Glucose 87 65 - 99 mg/dL 06/16/2024 11:00 AM EST [facility] Calcium 6.4(LL) 8.6 - 10.5 mg/dL 06/16/2024 11:00 AM EST [facility] Anion Gap 16(H) 5 - 15 06/16/2024 11:[address] [facility] eGFR >90 >=60 mL/min/1 .73m2 06/16/2024 11:00 AM EST [facility] Comment:The estimated glomer ular filtration [...] 10:28 AM EST 06/16/2024 10:28 AM EST us Mikey Rivas SKID WRAPPER LAB BLOOD ORDER MADELYN Final Result [facility] [address] [place] [address], [place] * Propoxyphene Screen, Urine (06/16/2024 9:37 AM EST) Propoxyphene Screen, Urine NEGATIVE <300 ng/mL 06/17/2024 5:52 AM EST [facility] Comment: See Note 2 Note 1 This drug testing is for medical treatment only. ?? Analysis was performed as non-forensic testing and these results should be used only by healthcare providers to render diagnosis or treatment, or to monitor progress of medical conditions. For assistance with interpreting these drug results, please contact a [employer] Toxicology Specialist: [phone] ( ), M-F, 8am-6pm EST. Note [...] interpreting these drug results, please contact a [employer] Toxicology Specialist: [phone] ( ), M-F, 8am-6pm EST. Urine Catheter / Unknown Non-Blood Collection / Unknown 06/16/2024 9:37 AM EST 06/16/2024 9:55 AM EST Narrative [facility] - 06/17/2024 5:52 AM EST [facility] Received Date: Mikey Rivas SKID WRAPPER LAB URINE ORDER MADELYN Final Result [facility] [address] [facility] [address]rd Floor, [place] [address], [place] [phone] [facility] [address] [facility] 3rd Floor, [place] [address], [place] [phone] * (ABNORMAL) Methadone Screen w/Confirmation, Urine (06/16/2024 9:37 AM EST) Methadone Metabolite Screen, Urine POSITIVE( A) <100 ng/mL 06/19/2024 6:34 AM EST [facility] EDDP, Urine 1608(H) <100 ng/mL 06/19/2024 6:34 AM EST [facility] Comment: See Note 1 Methadone, Urine 948(H) <100 ng/mL 06/19/2024 6:34 AM EST [facility] Comment: See Note 1 See Note 2 Note 1 This test was developed and its analytical performance characteristics have been determined by [employer]. It has not been cleared or approved [...] interpreting these drug results, please contact a [employer] Toxicology Specialist: [phone] ( ), M-F, 8am-6pm EST. Urine Catheter / Unknown Non-Blood Collection / Unknown 06/16/2024 9:37 AM EST 06/16/2024 9:55 AM EST Lisa [facility] - 06/19/2024 6:34 AM EST [facility] Received Date: Mikey Rivas SKID WRAPPER LAB URINE ORDER MADELYN Final Result [facility] [address] [facility] [address]rd Floor, [place] [address], [place] [phone] scrible [facility] [address], [place] [address], [place] [phone] * (ABNORMAL) Benzodiazepine Qualitative Screen, Urine (06/16/2024 9:37 AM EST) Pathologist [facility] Benzodiazepine Screen, Urine Presumptive Positive(A) Negative 06/16/2024 1:30 PM EST [facility] Comment: Detection limit of 200 ng/mL of Nordiazepam. Drug results are to be used only for medical purposes. ??Unconfirmed screening results must not be used for non-medical purposes. Urine Catheter / Unknown Non-Blood Collection / Unknown 06/16/2024 9:37 AM EST 06/16/2024 9:55 AM EST Mikey Rivas SKID WRAPPER LAB URINE ORDER MADELYN Final Result Performing Organization Address [facility] Co de Phone Number [facility] [address] [place] [address], * (ABNORMAL) Barbiturate Screen, Urine (06/16/2024 9:37 AM EST) Barbiturate Screen, Urine Presumptive Positive(A) Negative 06/16/2024 1:30 PM EST [facility] Comment: Detection limit of [...] EST 06/16/2024 9:55 AM EST Mikey Rivas SKID WRAPPER LAB URINE ORDER MADELYN Final Result Performing Organization Address [facility] Co de Phone Number [facility] [address] [place] [address], [place] * Phencyclidine (PCP) Screen, Urine (06/16/2024 9:37 AM EST) Phencyclidine Screen, Urine NEGATIVE <25 ng/mL 06/17/2024 5:52 AM EST scrible [facility] Comment: See Note 2 Urine Catheter / Unknown Non-Blood Collection / Unknown 06/16/2024 9:37 AM EST 06/16/2024 9:55 AM EST Narrative [facility] - 06/17/2024 5:52 AM EST [facility] Received Date: Mikey Rivas SKID WRAPPER LAB URINE ORDER MADELYN Final Result [facility] [address] [facility] [address]rd Floor, [place] [address], [place] [phone] [facility] [address] [facility] 3rd Floor, [place] [address], [place] [phone] * Marijuana Qualitative Screen, Urine (06/16/2024 9:37 AM EST) Marijuana Screen, Urine Negative Negative 06/16/2024 1:30 PM EST [facility] Comment: Detection limit of 50 ng/mL of 79-Nua-[id number]-[id number]-2-carboxylic acid. Drug results are to be used only for medical purposes. ??Unconfirmed screening results must not be used for non-medical purposes. Urine Catheter / Unknown Non-Blood Collection / Unknown 06/16/2024 9:37 AM EST 06/16/2024 9:55 AM EST Mikey Rivas SKID WRAPPER LAB URINE ORDER MADELYN Final Result [facility] [address] [place] [address], * Morphine and Codeine Confirmation, Urine (06/16/2024 9:37 AM EST) Codeine, Urine NEGATIVE <50 ng/mL 06/19/2024 3:19 PM EST [facility] Comment: See Note 1 Hydrocodone, Urine NEGATIVE <50 ng/mL 06/19/2024 3:19 PM EST [facility] Comment: See Note 1 Hydromorphone, Urine NEGATIVE <50 ng/mL 06/19/2024 3:19 PM EST [facility] Comment: See Note 1 Morphine, Urine NEGATIVE <50 ng/mL 3:19 PM EST [facility] Comment: See Note 1 Norhydrocodone, Urine NEGATIVE <50 ng/mL 06/19/2024 3:19 PM EST [facility] Comment: See Note 1 See Note 2 Note 1 This test was developed and its analytical performance characteristics have been determined by [employer]. It has not been cleared or approved [...] interpreting these drug results, please contact a [employer] Toxicology Specialist: [phone] ( ), M-F, 8am-6pm EST. Urine Catheter / Unknown Non-Blood Collection / Unknown 06/16/2024 9:37 AM EST 06/16/2024 9:55 AM EST Narrative [facility] - 06/19/2024 3:19 PM EST [facility] Received Date: Mikey Rivas SKID WRAPPER LAB URINE ORDER MADELYN Final Result [facility] [address] [facility] [address]rd Floor, [place] [address], scrible [facility] [address], [place] [address], [place] [phone] * Cocaine Qualitative, Urine (06/16/2024 9:37 AM EST) Cocaine Metabolite Screen, Urine Negative Negative 06/16/2024 1:30 PM EST [facility] Comment: Detection limit of 300 ng/mL of Benzoylecgonine. Drug results are to be used only for medical purposes. ??Unconfirmed screening results must not be used for non-medical purposes. Urine Catheter / Unknown Non-Blood Collection / Unknown 06/16/2024 9:37 AM EST 06/16/2024 9:55 AM EST Mikey Rivas NP LAB URINE ORDER MADELYN Final Result Performing Organization Address City/[facility]/ZIP Co de Phone Number [facility] [address] [place] [address] * Amphetamine Qualitative, Urine (06/16/2024 9:37 AM EST) Pathologist [facility] Amphetamine Screen, Urine Negative Negative 06/16/2024 1:30 PM EST [facility] Comment: Detection limit of 1000 ng/mL of d-Methamphetamine. Drug results are to be used only for medical purposes. ??Unconfirmed screening results must not be used for non-medical purposes. Urine Catheter / Unknown Non-Blood Collection / Unknown 06/16/2024 9:37 AM EST 06/16/2024 9:55 AM EST Mikey Rivas NP LAB URINE ORDER MADELYN Final Result Performing Organization Address [facility] de Phone Number [facility] [address] [place] [address], * Comprehensive Drug Panel, Urine (06/16/2024 9:37 AM EST) [facility] Comprehensive Drug Screen Urine DRUGS DETECTED 06/16/2024 4:36 PM EST [facility] Comment: DIPHENHYDRAMINE PHENOBARBITAL METHADONE AND METABOLITE Urine Catheter / Unknown Non-Blood Collection / Unknown 06/16/2024 9:37 AM EST 06/16/2024 9:55 AM EST Narrative [facility] - 06/16/2024 4:36 PM EST [facility] Received Date:[id number] Cj Paz SKID WRAPPER LAB URINE ORDERABLES Final Resul t Performing Organization Address City/[facility]/ZIP Co de Phone Number [address], [place] [address], [facility] [address], [place] [address], * Osmolality, Serum (06/16/2024 9:37 AM EST) Osmolality 280 279 - 295 mOsm/kg 06/16/2024 10:46 AM EST [facility] Blood Structure of peripheral vein / Unknown Venipuncture / Unknown 06/16/2024 9:37 AM EST 06/16/2024 9:54 AM EST Cj Paz NP LAB BLOOD ORDERABLES Final Resul t Performing Organization Address City/[facility] Co de Phone Number [facility] [address] [place] [address], [place] * Acetaminophen Level (06/16/2024 9:37 AM EST) Acetaminophen <5.0 <10.0 ug/mL 06/16/2024 10:41 AM EST [facility] Comment:Expected Range with Therapeutic Dosin-30 ug/mL Blood Structure of peripheral vein / Unknown Venipuncture / Unknown 06/16/2024 9:37 AM EST 06/16/2024 9:54 AM EST us Cj Paz NP LAB BLOOD ORDERABLES Final Resul t Performing Organization Address City/[facility]/ZIP Co de Phone Number [facility] [address] [place] [address], [place] * Salicylate Level (06/16/2024 9:37 AM EST) Salicylate <1 <3 mg/dL 06/16/2024 10:41 AM EST [facility] Comment:Expected Range with Therapeutic Dosin-30 mg/dL Blood Structure of peripheral vein / Unknown Venipuncture / Unknown 06/16/2024 9:37 AM EST 06/16/2024 9:54 AM EST Cj Paz NP LAB BLOOD ORDERABLES Final Resul t Performing Organization Address [facility] Co de Phone Number [facility] [address] [place] [address], * Osmolality Gap (06/16/2024 9:37 AM EST) NA 137 135 - 145 mmol/L 06/16/2024 11:08 AM EST [facility] BUN 10 7 - 23 mg/dL 06/16/2024 11:08 AM EST [facility] Glucose 95 65 - 99 mg/dL 06/16/2024 11:08 AM [facility] Osmolality 282 279 - 295 mOsm/kg 06/16/2024 11:08 AM EST [facility] Osmolality Calculated 283 mOSM/kg 06/16/2024 11:08 AM EST [facility] Osmolality Gap <10 <10 mOSM/kg 06/16/2024 11:08 AM [facility] Blood Structure of peripheral vein / Unknown Venipuncture / Unknown 06/16/2024 9:37 AM EST 06/16/2024 9:54 AM EST us Cj Paz NP LAB BLOOD ORDERABLES Final Resul t Performing Organization Address [facility] Co de Phone Number [facility] [address] [place] [address], * (ABNORMAL) POCT I-STAT Arterial Blood Gas, interfaced (06/16/2024 9:29 AM EST) Sample Type, POCT Arterial 06/16/2024 9:32 AM EST [facility] pH, POCT 7.47(H) 7.35 - 7.45 06/16/2024 9:32 AM EST [facility] pCO2, POCT 26.8(L) 35 - 45 mmHg 06/16/2024 9:32 AM EST [facility] pO2, POCT 116(H) 80 - 105 mmHg 06/16/2024 9:32 AM EST [facility] Base Excess, POCT -4(L) 0 - 3 mmol/L 06/16/2024 9:32 AM EST [facility] HCO3, POCT 19.4(L) 21 - 28 mmol/L 06/16/2024 9:32 AM EST [facility] TCO2, POCT 20(L) 23 - 27 mmol/L 06/16/2024 9:32 AM EST [facility] Saturated O2, POCT 99(H) 95 - 98 % 06/16/2024 9:32 AM EST [facility] FIO2, POCT 50 % 06/16/2024 9:32 AM EST [facility] Tidal Volume, POCT 450 ml 06/16/2024 9:32 AM EST [facility] Isaias's Test, POCT PASS 06/16/2024 9:32 AM EST [facility] Blood 06/16/2024 9:29 AM EST 06/16/2024 9:32 AM EST us Sal Adler MD LAB POCT ORDERABLES - DEVIC E Final Result Performing Organization Address City/State/[facility] Co de Phone Number [facility] [address] [place] [address], * COVID-19, Flu A/B & RSV RNA PCR, Symptomatic (06/16/2024 9:29 AM EST) PCR, SARS CoV-2 RNA Not Detected Not Detected [employer] 06/16/2024 11:18 AM EST [facility] Comment:A Not Detected [...] Detected [employer] 06/16/2024 11:18 AM EST [facility] Comment:Negative results do not preclude infection and should not be used as the sole basis for diagnosis, treatment or other patient management decisions. Negative results must be combined with clinical observations, patient history, and/or epidemiological information. Flu B RNA PCR Not Detected Not Detected CEPGraphic IndiaID GENEXPERT 06/16/2024 11:18 AM EST [facility] Comment:Negative results do not preclude infection and should not be used as the sole basis for diagnosis, treatment or other patient management decisions. Negative results must be combined with clinical observations, patient history, and/or epidemiological information. RSV RNA PCR Not Detected Not Detected CEPID GENEXP[employer] 06/16/2024 11:18 AM EST [facility] Comment:Negative results do not preclude infection and should not be used as the sole basis for diagnosis, treatment or other patient management decisions. Negative results must be combined with clinical observations, patient history, and/or epidemiological information. Swab (Nares) Non-Blood Collection / Unknown 06/16/2024 9:29 AM EST 06/16/2024 9:54 AM EST Narrative [facility] - 06/16/2024 11:18 AM EST This test was developed, validated and its performance characteristics determined by [facility] Clinical Labs. This test has not been cleared or approved by the U.S. Food and Drug Administration (FDA). FDA Policy for Diagnostic Tests for Coronavirus Disease-2019 during the Public Health Emergency issued August 19, 2019, is followed. us Cj Paz NP LAB BODY FLUIDS AND STOOLS ORDER MADELYN Final Result [facility] [address] [place] [address], [place] * (ABNORMAL) POCT Glucose, interfaced (06/16/2024 9:28 AM EST) Glucose, POCT 106(H) 70 - 99 mg/dL 06/16/2024 9:29 AM EST [facility], [facility] Comment: The machine washer has not determined the efficacy of this test in Critically ill patients. ??[facility] defines Critically ill patients for the [...] results confirmed with lab-based glucose values. Blood 06/16/2024 9:28 AM EST 06/16/2024 9:29 AM EST us Sal Adler MD LAB POCT ORDERABLES - DEVIC E Final Result [facility], [facility] [address] [place] [address], * Blood Culture, Peripheral #2 (06/16/2024 9:00 AM EST) Culture No growth after 5 days 06/21/2024 1:31 PM EST [facility] Blood Structure of peripheral vein / Unknown Venipuncture / Unknown 06/16/2024 9:00 AM EST 06/16/2024 9:12 AM EST Narrative [facility] - 06/21/2024 1:31 PM EST [facility] Received Date: MICRO NUMBER: [id number] SPECIMEN QUALITY: Adequate SOURCE: BLOOD VENOUS, PERIPHERAL STATUS: FINAL COMMENT: Aerobic and anaerobic bottle received. Mikey Rivas NP LAB MICROBIOLOG Y - GENERAL ORDERABLES Final Result [facility] [address] [facility] 3rd Floor, [place] [address], [facility] [address] [facility] 3rd Floor, [place] [address], * Blood Culture, Peripheral #1 (06/16/2024 9:00 AM EST) Culture No growth after 5 days 06/21/2024 2:25 PM EST [facility] [place] Blood Structure of peripheral vein / Unknown Venipuncture / Unknown 06/16/2024 9:00 AM EST 06/16/2024 9:12 AM EST Narrative [facility] - 06/21/2024 2:25 PM EST [facility] Received Date: MICRO NUMBER: [id number] SPECIMEN QUALITY: Adequate SOURCE: BLOOD VENOUS, PERIPHERAL STATUS: FINAL COMMENT: Aerobic and anaerobic bottle received. us Mikey Rivas SKID WRAPPER LAB MICROBIOLOG Y - GENERAL ORDERABLES Final Result [facility] [address] [facility] [address] [facility], [place] [address], [facility] [place] [address] [facility] 3rd Floor, [place] [address], * Prolactin (06/16/2024 8:57 AM EST) Prolactin 9.10 4.04 - 15.20 ng/mL 06/16/2024 11:22 AM EST [facility] Blood Structure of peripheral vein / Unknown Venipuncture / Unknown 06/16/2024 8:57 AM EST 06/16/2024 9:12 AM EST us Mikey Rivas SKID WRAPPER LAB BLOOD ORDER MADELYN Final Result [facility] [address] [place] [address], [place] * Creatine Kinase (06/16/2024 8:57 AM EST) Pathologist [facility] CK 317 49 - 348 U/L 06/16/2024 9:36 AM EST [facility] Blood Structure of peripheral vein / Unknown Venipuncture / Unknown 06/16/2024 8:57 AM EST 06/16/2024 9:11 AM EST Mikey Rivas SKID WRAPPER LAB BLOOD ORDER MADELYN Final Result [facility] [address] [place] [address], * MRSA/S aureus PCR, Nasal (06/16/2024 8:44 AM EST) [facility] MRSA PCR, Nasal NOT DETECTED NOT DETECTED 06/17/2024 3:29 PM EST [facility] S. aureus PCR, Nasal NOT DETECTED NOT DETECTED 06/17/2024 3:29 PM EST [facility] Swab Nasal structure / Unknown Non-Blood Collection / Unknown 06/16/2024 8:44 AM EST 06/16/2024 9:12 AM EST Narrative [facility] - 06/17/2024 3:29 PM EST [facility] Received Date:[id number] Mikey Rivas SKID WRAPPER LAB BODY FLUIDS AND STOOLS ORDERABLES Final Result [facility] [address] [facility] 3rd Floor, [place] [address], [place] [phone] [facility] [place] [address] [facility] 3rd Floor, [place] [address], [place] [phone] * (ABNORMAL) Respiratory Culture w/Gram Stain (06/16/2024 8:41 AM EST) [facility] Culture Growth of normal oropharyngeal yayo 06/18/2024 2:14 PM EST [facility] Gram Stain Many White Blood Cells Seen(A) 06/18/2024 2:14 PM EST [facility] Gram Stain No epithelial cells seen(A) 06/18/2024 2:14 PM EST [facility] Gram Stain Few Gram Positive Cocci(A) 06/18/2024 2:14 PM EST [facility] Sputum Sputum / Unknown Non-Blood Collection / Unknown 06/16/2024 8:41 AM EST 06/16/2024 9:11 AM EST Narrative [facility] - 06/18/2024 2:14 PM EST [facility] Received Date: MICRO NUMBER: [id number] SPECIMEN QUALITY: Adequate SOURCE: SPUTUM EXPECTORATED SPUTUM STATUS: FINAL Mikey Rivas SKID WRAPPER LAB MICROBIOLOG Y - GENERAL ORDERABLES Final Result [facility] [address] [facility] 3rd Floor, [place] [address], [facility] [place] [address] [facility] 3rd Floor, [place] [address], * X-Ray Chest 1 View (06/16/2024 8:20 AM EST) Anatomical Region Laterality Modality Body Computed Radiogr [...] obtain the completed interpretation. ? Workstation ID: [id number] Narrative 06/16/2024 4:00 PM EST COMPARISON: ??One day ago FINDINGS AND Resulting Agency Comment [id number] Procedure Note Sal Goodman MD - 06/16/2024 [...] possible to obtain thecompleted interpretation. Workstation ID: [id number] us Betina Gallo SKID WRAPPER IMG XR PROCEDURES Final Result * Lactic Acid, Plasma (06/16/2024 7:34 AM EST) Lactic Acid 1.0 0.5 - 1.9 mmol/L 06/16/2024 8:06 AM EST [facility] Comment: Sepsis Screening: Initial Lactate Level >2.0 mmol/L - Repeat Lactate Level within 3 hours. Initial Lactate Level >4.0 mmol/L - Repeat Lactate Level within 3 hours, Initiate Septic Shock Protocol. Blood Structure of peripheral vein / Unknown Venipuncture / Unknown 06/16/2024 7:34 AM EST 06/16/2024 7:36 AM EST Mikey Rivas SKID WRAPPER LAB BLOOD ORDER MADELYN Final Result [facility] [address] [place] [address], * (ABNORMAL) POCT I-STAT Venous Blood Gas, interfaced (06/16/2024 7:21 AM EST) Pathologist [facility] Sample Type, POCT Venous 06/16/2024 8:28 AM EST [facility], [facility] pH, POCT 7.65(H) 7.31 - 7.41 pH 06/16/2024 8:28 AM EST [facility], [facility] pCO2, POCT 18.2(L) 41 - 51 mm Hg 06/16/2024 8:28 AM EST [facility], [facility] pO2, POCT 53(H) 35 - 40 mm Hg 06/16/2024 8:28 AM EST [facility], [facility] Base Excess, POCT -1(L) 0 - 3 mmol/L 06/16/2024 8:28 AM EST [facility], [facility] HCO3, POCT 19.9(L) 23 - 28 mmol/L 06/16/2024 8:28 AM EST [facility], [facility] TCO2, POCT 20(L) 24 - 29 mmol/L 06/16/2024 8:28 AM EST [facility], [facility] Saturated O2, POCT 94(H) 70 - 75 % 06/16/2024 8:28 AM EST [facility] FIO2, POCT 24 % 06/16/2024 8:28 AM EST [facility] Patient Temp, POCT 38.1 degrees 06/16/2024 8:28 AM EST [facility], [facility] Isaias's Test, POCT PASS 06/16/2024 8:28 AM EST [facility], [facility] Blood 06/16/2024 7:21 AM EST 06/16/2024 8:27 AM EST us Sal Adler MD LAB POCT ORDERABLES - DEVIC E Final Result Performing Organization Address City/State/[facility] Co de Phone Number [facility], [facility] [address] [place] [address], * POCT Glucose, interfaced (06/16/2024 7:19 AM EST) [facility] Glucose, POCT 78 70 - 99 mg/dL 06/16/2024 7:21 AM EST [facility], [facility] Comment: The machine washer has not determined the efficacy of this test in Critically ill patients. ??[facility] defines Critically ill patients for the [...] results confirmed with lab-based glucose values. Blood 06/16/2024 7:19 AM EST 06/16/2024 7:21 AM EST us Sal Adler MD LAB POCT ORDERABLES - DEVIC E Final Result Performing Organization Address [facility] Co de Phone Number [facility] [employer], POC [address] [place] [address], [place] * POCT Glucose, interfaced (06/16/2024 4:36 AM EST) [facility] Glucose, POCT 89 70 - 99 mg/dL 06/16/2024 4:37 AM EST [employer] [facility], POC Comment: The machine washer has not determined the efficacy of this test in Critically ill patients. ??[facility] defines Critically ill patients for the [...] results confirmed with lab-based glucose values. Blood 06/16/2024 4:36 AM EST 06/16/2024 4:37 AM EST us Sal Adler MD LAB POCT ORDERABLES - DEVIC E Final Result Performing Organization Address City/[facility] Co de Phone Number [employer] [facility], POC [address] [place] [address], * (ABNORMAL) Lipase (06/16/2024 3:42 AM EST) Lipase 199(H) 13 - 60 U/L 06/16/2024 9:31 AM EST [facility] Blood Structure of peripheral vein / Unknown Venipuncture / Unknown 06/16/2024 3:42 AM EST 06/16/2024 3:46 AM EST Mikey Rivas SKID WRAPPER LAB BLOOD ORDER MADELYN Final Result [facility] [address] [place] [address], [place] * Protime-INR (06/16/2024 3:42 AM EST) PT 11.0 9.6 - 12.4 Seconds 06/16/2024 4:19 AM EST [facility] INR 1.0 0.9 - 1.1 06/16/2024 4:19 AM EST [facility] Comment:The optimal therapeu tic INR range for patients treated with Vitamin K antagonists (VKAS, e.g., Warfarin) is 2.0 to 3.5. Discuss the desired range with your doctor/care team. Blood Structure of peripheral vein / Unknown Venipuncture / Unknown 06/16/2024 3:42 AM EST 06/16/2024 3:46 AM EST us Marci Huitron PA LAB BLOOD ORDERABLES Final Res ult [facility] [address] [place] [address], [place] * Phosphorus (06/16/2024 3:42 AM EST) Phosphorus 3.3 2.5 - 4.5 mg/dL 06/16/2024 4:27 AM EST [facility] Blood Structure of peripheral vein / Unknown Venipuncture / Unknown 06/16/2024 3:42 AM EST 06/16/2024 3:46 AM EST Marci Huitron PR LAB BLOOD ORDERABLES Final Res ult Performing Organization Address City/[facility] Co de Phone Number [facility] [address] [place] [address], [place] * Magnesium (06/16/2024 3:42 AM EST) MG 1.8 1.6 - 2.4 mg/dL 06/16/2024 4:27 AM EST [facility] Blood Structure of peripheral vein / Unknown Venipuncture / Unknown 06/16/2024 3:42 AM EST 06/16/2024 3:46 AM EST Marci Huitron PR LAB BLOOD ORDERABLES Final Res ult Performing Organization Address City/[facility] Co de Phone Number [facility] [address] [place] [address], [place] * (ABNORMAL) Hepatic Function Panel (06/16/2024 3:42 AM EST) Total Protein 6.9 6.0 - 8.0 g/dL 06/16/2024 4:27 AM EST [facility] Albumin 3.7 3.5 - 5.2 g/dL 06/16/2024 4:27 AM EST [facility] Globulin, Total 3.2 2.1 - 4.2 g/dL 06/16/2024 4:27 AM EST [facility] Bilirubin, Total 1.2 0.2 - 1.2 mg/dL 06/16/2024 4:27 AM EST [facility] Bilirubin, Direct 0.5(H) <=0.4 mg/dL 06/16/2024 4:27 AM EST [facility] Alkaline Phosphatase 112 35 - 129 U/L 06/16/2024 4:27 AM EST [facility] AST 47(H) 10 - 40 U/L 06/16/2024 4:27 AM EST [facility] ALT 43(H) 10 - 40 U/L 06/16/2024 4:27 AM EST [facility] Bilirubin, Indirect 0.70 <=0.70 mg/dL 06/16/2024 4:27 AM EST [facility] A/G Ratio 1.2(L) 1.5 - 3.0 06/16/2024 4:27 AM EST [facility] Blood Structure of peripheral vein / Unknown Venipuncture / Unknown 06/16/2024 3:42 AM EST 06/16/2024 3:46 AM EST us Marci ESTRADA LAB BLOOD ORDERABLES Final Res ult [facility] [address] [place] [address], * (ABNORMAL) CBC (06/16/2024 3:42 AM EST) WBC 7.7 3.8 - 10.8 10*3/uL 06/16/2024 4:43 AM EST [facility] RBC 4.15(L) 4.20 - 5.80 10*6/uL 06/16/2024 4:43 AM EST [facility] Hemoglobin 15.8 13.2 - 17.1 g/dL 06/16/2024 4:43 AM EST [facility] Hematocrit 42.4 38.5 - 50.0 % 06/16/2024 4:43 AM EST [facility] MCV 102.2(H) 80.0 - 100.0 fL 06/16/2024 4:43 AM EST [facility] MCH 38.1(H) 27.0 - 33.0 pg 06/16/2024 4:43 AM EST [facility] MCHC 37.3(H) 32.0 - 36.0 g/dL 06/16/2024 4:43 AM EST [facility] RDW 12.2 11.0 - 15.0 % 06/16/2024 4:43 AM EST [facility] Platelets 86(L) 140 - 400 10*3/uL 06/16/2024 4:43 AM EST [facility] MPV 06/16/2024 4:43 AM EST [facility] Comment:Test not performed. Blood Structure of peripheral vein / Unknown Venipuncture / Unknown 06/16/2024 3:42 AM EST 06/16/2024 3:46 AM EST us Marci ESTRADA LAB BLOOD ORDERABLES Final Res ult [facility] [address] [place] [address], * (ABNORMAL) Basic Metabolic Panel (06/16/2024 3:42 AM EST) NA 137 135 - 145 mmol/L 06/16/2024 4:30 AM EST [facility] K 2.8(LL) 3.5 - 5.3 mmol/L 06/16/2024 4:30 AM EST [facility] Cl 100 98 - 107 mmol/L 06/16/2024 4:30 AM EST [facility] CO2 21(L) 22 - 32 mmol/L 06/16/2024 4:30 AM EST [facility] BUN 10 7 - 23 mg/dL 06/16/2024 4:30 AM EST [facility] Creatinine 0.67 0.60 - 1.30 mg/dL 06/16/2024 4:30 AM EST [facility] Glucose 99 65 - 99 mg/dL 06/16/2024 4:30 AM EST [facility] Calcium 8.7 8.6 - 10.5 mg/dL 06/16/2024 4:30 AM EST [facility] Anion Gap 16(H) 5 - 15 06/16/2024 4:30 AM EST [facility] eGFR >90 >=60 mL/min/1 .73m2 06/16/2024 4:30 AM EST [facility] Comment:The estimated glomer ular [...] ESTRADA LAB BLOOD ORDERABLES Final Res ult [facility] [address] [place] [address], * (ABNORMAL) POCT Glucose, interfaced (06/16/2024 1:00 AM EST) Glucose, POCT 104(H) 70 - 99 mg/dL 06/16/2024 1:01 AM EST [facility], P[facility] Comment: The machine washer has not determined the efficacy of this test in Critically ill patients. ??[facility] defines Critically ill patients for the [...] results confirmed with lab-based glucose values. Blood 06/16/2024 1:00 AM EST 06/16/2024 1:01 AM EST us Sal Adler MD LAB POCT ORDERABLES - DEVIC E Final Result Performing Organization Address [facility] Co de Phone Number [facility], POC [address] [place] [address], [place] * (ABNORMAL) POCT Glucose, interfaced (06/15/2024 8:04 PM EST) [facility] Glucose, POCT 101(H) 70 - 99 mg/dL 06/15/2024 8:05 PM EST [facility] Comment: The machine washer has not determined the efficacy of this test in Critically ill patients. ??[facility] defines Critically ill patients for the [...] results confirmed with lab-based glucose values. Blood 06/15/2024 8:04 PM EST 06/15/2024 8:05 PM EST us Sal Adler MD LAB POCT ORDERABLES - DEVIC E Final Result Performing Organization Address City/[facility]/ZIP Co de Phone Number [facility], [facility] [address] [place] [address], [place] * ECG 12 lead (06/15/2024 5:49 PM EST) Ventricular Rate EKG 97 BPM MUSE EKG Atrial Rate 97 BPM MUSE EKG NE Interval 136 ms MUSE EKG QRS Interval 72 ms MUSE EKG QT Interval 390 ms MUSE EKG QTC Interval 495 ms MUSE EKG P [place] 67 degrees MUSE EKG R [place] 26 degrees MUSE EKG T Wave [place] -26 degrees MUSE EKG 06/15/2024 5:49 PM EST 06/16/2024 5:47 PM EST Impressions MUSE EKG - 06/16/2024 5:47 PM EST NORMAL SINUS RHYTHM ST-T ABNORMALITIES CONSIDER ISCHEMIA PROLONGED QTC ABNORMAL ECG Confirmed by Heath Williamson ([id number]) on 06/16/2024 5:47:05 PM [facility] ESTRADA ECG ORDERABLES Final Res ult MUSE EKG * Troponin T, High Sensitivity (06/15/2024 5:33 PM EST) Troponin T High Sensitivity <6 <=21 ng/L 06/15/2024 6:30 PM EST [facility] Comment: 3+ hemolysis; the result may be Falsely Decreased. Zg-Vxtlyije-E level of 52 ng/L or higher at [...] be evaluated in line with the 4th [place] Definition of AMI. Troponin baseline and serial [...] 5:33 PM EST 06/15/2024 5:40 PM EST us Quita ESTRADA LAB BLOOD ORDERABLES Rachel l Result [facility] [address] [place] [address], [place] * (ABNORMAL) CBC Auto Differential (06/15/2024 5:33 PM EST) WBC 7.0 3.8 - 10.8 10*3/uL 06/15/2024 5:59 PM EST [facility] RBC 4.29 4.20 - 5.80 10*6/uL 06/15/2024 5:59 PM EST [facility] Hemoglobin 15.9 13.2 - 17.1 g/dL 06/15/2024 5:59 PM EST [facility] Hematocrit 44.0 38.5 - 50.0 % 06/15/2024 5:59 PM EST [facility] MCV 102.6(H) 80.0 - 100.0 fL 06/15/2024 5:59 PM EST [facility] MCH 37.1(H) 27.0 - 33.0 pg 06/15/2024 5:59 PM EST [facility] MCHC 36.1(H) 32.0 - 36.0 g/dL 06/15/2024 5:59 PM EST [facility] RDW 12.0 11.0 - 15.0 % 06/15/2024 5:59 PM EST [facility] Platelets 85(L) 140 - 400 10*3/uL 06/15/2024 5:59 PM EST [facility] MPV 06/15/2024 5:[address] [facility] Comment:Test not performed. Neutrophil % 73.4 % 06/15/2024 5:[address] [facility] Immature Grans % 0.6 0.0 - 0.9 % 06/15/2024 5:[address] [facility] Lymphocyte % 16.2 % 06/15/2024 5:59 PM [facility] Monocyte % 8.4 % 06/15/2024 5:[address] [facility] Eosinophil % 1.0 % 06/15/2024 5:[address] [facility] Basophil % 0.4 % 06/15/2024 5:[address] [facility] Neutrophil # 5.13 1.50 - 7.80 10*3/uL 06/15/2024 5:[address] [facility] Immature Grans # 0.04(H) <=0.03 10*3/uL 06/15/2024 5:[address] [facility] Lymphocyte # 1.10 0.85 - 3.90 10*3/uL 06/15/2024 5:[address] [facility] Monocyte # 0.60 0.20 - 0.95 10*3/uL 06/15/2024 5:[address] [facility] Eosinophil # 0.10 0.02 - 0.50 10*3/uL 06/15/2024 5:[address] [facility] Basophil # <0.03 0.00 - 0.20 10*3/uL 06/15/2024 5:[address] [facility] nRBC % 0.0 /100 WBCs 06/15/2024 5:[address] [facility] nRBC # <0.01 <0.01 10*3/uL 06/15/2024 5:59 PM EST [facility] Blood Structure of peripheral vein / Unknown Venipuncture / Unknown 06/15/2024 5:33 PM EST 06/15/2024 5:40 PM EST [facility] ESTRADA LAB BLOOD ORDERABLES Rachel l Result Performing Organization Address City/[facility]/ZIP Co de Phone Number [facility] [address] [place] [address], [place] * Phosphorus (06/15/2024 5:33 PM EST) Phosphorus 3.4 2.5 - 4.5 mg/dL 06/15/2024 6:30 PM EST [facility] Comment:3+ hemolysis; the re sult may be Falsely Increased. Blood Structure of peripheral vein / Unknown Venipuncture / Unknown 06/15/2024 5:33 PM EST 06/15/2024 5:40 PM EST [facility] ESTRADA LAB BLOOD ORDERABLES Rachel l Result Performing Organization Address City/[facility] Co de Phone Number [facility] [address] [place] [address], [place] * Magnesium (06/15/2024 5:33 PM EST) MG 1.9 1.6 - 2.4 mg/dL 06/15/2024 6:30 PM EST [facility] Blood Structure of peripheral vein / Unknown Venipuncture / Unknown 06/15/2024 5:33 PM EST 06/15/2024 5:40 PM EST [facility] ESTRADA LAB BLOOD ORDERABLES Rachel l Result [facility] [address] [place] [address], [place] * (ABNORMAL) Basic metabolic panel (06/15/2024 5:33 PM EST) NA 133(L) 135 - 145 mmol/L 06/15/2024 6:31 PM EST [facility] K 4.8 3.5 - 5.3 mmol/L 06/15/2024 6:[address] [facility] Comment:3+ hemolysis; the re sult may be Falsely Increased. Cl 98 98 - 107 mmol/L 06/15/2024 6:31 PM EST [facility] CO2 22 22 - 32 mmol/L 06/15/2024 6:31 PM EST [facility] BUN 10 7 - 23 mg/dL 06/15/2024 6:[address] [facility] Creatinine 0.75 0.60 - 1.30 mg/dL 06/15/2024 6:[address] [facility] Glucose 101(H) 65 - 99 mg/dL 06/15/2024 6:31 PM EST [facility] Calcium 8.3(L) 8.6 - 10.5 mg/dL 06/15/2024 6:[address] [facility] Anion Gap 13 5 - 15 06/15/2024 6:[address] [facility] eGFR >90 >=60 mL/min/1. 73m2 06/15/2024 6:[address] [facility] Comment:The estimated glomer ular [...] EST [facility] ESTRADA LAB BLOOD ORDERABLES Rachel l Result Performing Organization Address [facility] Co de Phone Number [facility] [address] [place] [address], [place] * (ABNORMAL) POCT Glucose, interfaced (06/15/2024 5:06 PM EST) Glucose, POCT 100(H) 70 - 99 mg/dL 06/15/2024 5:07 PM EST [facility], [facility] Comment: The machine washer has not determined the efficacy of this test in Critically ill patients. ??[facility] defines Critically ill patients for the [...] results confirmed with lab-based glucose values. Blood 06/15/2024 5:06 PM EST 06/15/2024 5:07 PM EST us Sal Adler MD LAB POCT ORDERABLES - DEVIC E Final Result Performing Organization Address [facility]/ZIP Co de Phone Number [facility], POC [address] [place] [address], [place] * (ABNORMAL) BMP - Basic Metabolic Panel (06/15/2024 1:25 PM EST) NA 135 135 - 145 mmol/L 06/15/2024 2:10 PM EST [facility] K 3.1(L) 3.5 - 5.3 mmol/L 06/15/2024 2:10 PM EST [facility] Cl 98 98 - 107 mmol/L 06/15/2024 2:10 PM EST [facility] CO2 23 22 - 32 mmol/L 06/15/2024 2:10 PM EST [facility] BUN 10 7 - 23 mg/dL 06/15/2024 2:10 PM EST [facility] Creatinine 0.75 0.60 - 1.30 mg/dL 06/15/2024 2:10 PM EST [facility] Glucose 105(H) 65 - 99 mg/dL 06/15/2024 2:10 PM EST [facility] Calcium 8.7 8.6 - 10.5 mg/dL 06/15/2024 2:10 PM EST [facility] Anion Gap 14 5 - 15 06/15/2024 2:10 PM EST [facility] eGFR >90 >=60 mL/min/1. 73m2 06/15/2024 2:10 PM EST [facility] Comment:The estimated glomer ular filtration [...] vein / Unknown Venipuncture / Unknown 06/15/2024 1:25 PM EST 06/15/2024 1:31 PM EST us Gabe Lorenzo MD LAB BLOOD ORDERABLES Final Result [facility] [address] [place] [address], [place] * Magnesium (06/15/2024 10:07 AM EST) MG 1.9 1.6 - 2.4 mg/dL 06/15/2024 10:46 AM EST [facility] Blood Structure of peripheral vein / Unknown Venipuncture / Unknown 06/15/2024 10:07 AM EST 06/15/2024 10:11 AM EST us Gabe Lorenzo MD LAB BLOOD ORDERABLES Final Result [facility] [address] [place] [address], [place] * (ABNORMAL) BMP - Basic Metabolic Panel (06/15/2024 10:07 AM EST) Pathologist [facility] NA 133(L) 135 - 145 mmol/L 06/15/2024 10:47 AM EST [facility] K 3.2(L) 3.5 - 5.3 mmol/L 06/15/2024 10:47 AM EST [facility] Comment:1+ hemolysis, result may be falsely increased Cl 96(L) 98 - 107 mmol/L 06/15/2024 10:47 AM EST [facility] CO2 22 22 - 32 mmol/L 06/15/2024 10:47 AM EST [facility] BUN 10 7 - 23 mg/dL 06/15/2024 10:47 AM EST [facility] Creatinine 0.79 0.60 - 1.30 mg/dL 06/15/2024 10:47 AM EST [facility] Glucose 142(H) 65 - 99 mg/dL 06/15/2024 10:47 AM EST [facility] Calcium 8.7 8.6 - 10.5 mg/dL 06/15/2024 10:47 AM EST [facility] Anion Gap 15 5 - 15 06/15/2024 10:47 AM EST [facility] eGFR >90 >=60 mL/min/1. 73m2 06/15/2024 10:47 AM EST [facility] Comment:The estimated glomer ular [...] vein / Unknown Venipuncture / Unknown 06/15/2024 10:07 AM EST 06/15/2024 10:11 AM EST us Gabe Lorenzo MD LAB BLOOD ORDERABLES Final Result [facility] [address] [place] [address], * X-Ray Chest 1 View (06/15/2024 7:41 AM EST) Anatomical Region Laterality Modality Body Computed Radiogr aphy 06/15/2024 7:42 AM EST Impressions 06/15/2024 7:43 AM EST FINDINGS and IMPRESSION: No focal consolidation, pleural effusion or pneumothorax. Cardiomediastinal silhouette is unremarkable. The bones appear intact. COMMUNICATION: Per this written report. If this radiology report contains a blank impression section, it is an incomplete radiology report. ??Please contact the interpreting radiologist or applicable radiology division as soon as possible to obtain the completed interpretation. ? Workstation ID: [id number] Narrative 06/15/2024 7:43 AM EST COMPARISON: None ?? Resulting Agency Comment [id number] Procedure Note Vickie Fontana MD - 06/15/2024 COMPARISON: None IMPRESSION: FINDINGS and IMPRESSION: No focal consolidation, pleural effusion or pneumothorax.Cardiomediastinal silhouette is unremarkable. The bones appear intact. COMMUNICATION: Per this written report. If this radiology report contains a blank impression section, it is anincomplete radiology report. Please contact the interpreting radiologistor applicable radiology division as soon as possible to obtain thecompleted interpretation. Workstation ID: [id number] us Anaya Carias DO IMG XR PROCEDURES Final Re sult * (ABNORMAL) Basic Metabolic Panel (06/15/2024 7:22 AM EST) NA 135 135 - 145 mmol/L 06/15/2024 8:00 AM EST [facility] K 3.1(L) 3.5 - 5.3 mmol/L 06/15/2024 8:00 AM EST [facility] Cl 96(L) 98 - 107 mmol/L 06/15/2024 8:00 AM EST [facility] CO2 23 22 - 32 mmol/L 06/15/2024 8:00 AM EST [facility] BUN 11 7 - 23 mg/dL 06/15/2024 8:00 AM EST [facility] Creatinine 0.68 0.60 - 1.30 mg/dL 06/15/2024 8:00 AM EST [facility] Glucose 105(H) 65 - 99 mg/dL 06/15/2024 8:00 AM EST [facility] Calcium 8.6 8.6 - 10.5 mg/dL 06/15/2024 8:00 AM EST [facility] Anion Gap 16(H) 5 - 15 06/15/2024 8:00 AM EST [facility] eGFR >90 >=60 mL/min/1. 73m2 06/15/2024 8:00 AM EST [facility] Comment:The estimated glomer ular [...] vein / Unknown Venipuncture / Unknown 06/15/2024 7:22 AM EST 06/15/2024 7:28 AM EST us Anaya Carias DO LAB BLOOD ORDERABLES Final Result [facility] [address] [place] [id number], [place] * CT Head WO Contrast (06/15/2024 [...] obtain the completed interpretation. ? Workstation ID: [id number] Up-to-date CT equipment and radiation dose reduction [...] paranasal sinuses are well-aerated. Resulting Agency Comment [id number] Procedure Note Joseph Corona - 06/15/2024 EXAMINATION: [...] possible to obtain thecompleted interpretation. Workstation ID: [id number] Up-to-date CT equipment and radiation dose reduction techniques wereemployed. CTDIvol: 48.0 mGy. DLP: 868 mGy-cm. Edvin Beck MD [facility] [place] PROCEDURES Final Result * (ABNORMAL) Magnesium (06/15/2024 12:50 AM EST) MG 1.3(L) 1.6 - 2.4 mg/dL 06/15/2024 1:28 AM EST [facility] Blood Structure of peripheral vein / Unknown Venipuncture / Unknown 06/15/2024 12:50 AM EST 06/15/2024 12:58 AM EST us Edvin Beck MD LAB BLOOD ORDERABLES Final Res ult [facility] [address] [place] [address], [place] * (ABNORMAL) CMP - Comprehensive Metabolic Panel (06/15/2024 12:50 AM EST) NA 134(L) 135 - 145 mmol/L 06/15/2024 1:28 AM EST [facility] K 2.9(LL) 3.5 - 5.3 mmol/L 06/15/2024 1:28 AM EST [facility] Cl 94(L) 98 - 107 mmol/L 06/15/2024 1:28 AM EST [facility] CO2 21(L) 22 - 32 mmol/L 06/15/2024 1:28 AM EST [facility] Anion Gap 19(H) 5 - 15 06/15/2024 1:28 AM EST [facility] Glucose 115(H) 65 - 99 mg/dL 06/15/2024 1:28 AM EST [facility] Creatinine 0.93 0.60 - 1.30 mg/dL 06/15/2024 1:28 AM EST [facility] Calcium 9.3 8.6 - 10.5 mg/dL 06/15/2024 1:28 AM EST [facility] Total Protein 7.9 6.0 - 8.0 g/dL 06/15/2024 1:28 AM EST [facility] Albumin 4.2 3.5 - 5.2 g/dL 06/15/2024 1:28 AM EST [facility] Bilirubin, Total 1.5(H) 0.2 - 1.2 mg/dL 06/15/2024 1:28 AM EST [facility] Alkaline Phosphatase 136(H) 35 - 129 U/L 06/15/2024 1:28 AM EST [facility] AST 88(H) 10 - 40 U/L 06/15/2024 1:28 AM EST [facility] ALT 66(H) 10 - 40 U/L 06/15/2024 1:28 AM EST [facility] BUN 13 7 - 23 mg/dL 06/15/2024 1:28 AM EST [facility] eGFR >90 >=60 mL/min/1 .73m2 06/15/2024 1:28 AM EST [facility] Comment:The estimated glomer ular [...] in Diagnosing Kidney Disease . Globulin, Total 3.7 2.1 - 4.2 g/dL 06/15/2024 1:28 AM EST [facility] A/G Ratio 1.1(L) 1.5 - 3.0 06/15/2024 1:28 AM EST [facility] Blood Structure of peripheral vein / Unknown Venipuncture / Unknown 06/15/2024 12:50 AM EST 06/15/2024 12:58 AM EST us Edvin Beck MD LAB BLOOD ORDERABLES Final Res ult [facility] [address] [place] [address], [place] * (ABNORMAL) CBC Auto Differential (06/15/2024 12:50 AM EST) WBC 7.4 3.8 - 10.8 10*3/uL 06/15/2024 1:[address] [facility] RBC 4.62 4.20 - 5.80 10*6/uL 06/15/2024 1:[address] [facility] Hemoglobin 17.4(H) 13.2 - 17.1 g/dL 06/15/2024 1:[address] [facility] Hematocrit 46.9 38.5 - 50.0 % 06/15/2024 1:[address] [facility] MCV 101.5(H) 80.0 - 100.0 fL 06/15/2024 1:[address] [facility] MCH 37.7(H) 27.0 - 33.0 pg 06/15/2024 1:[address] [facility] MCHC 37.1(H) 32.0 - 36.0 g/dL 06/15/2024 1:[address] [facility] RDW 12.6 11.0 - 15.0 % 06/15/2024 1:[address] [facility] Platelets 99(L) 140 - 400 10*3/uL 06/15/2024 1:32 AM [facility] MPV 06/15/2024 1:[address] [facility] Comment:Test not performed. Neutrophil % 71.3 % 06/15/2024 1:[address] [facility] Immature Grans % 0.3 0.0 - 0.9 % 06/15/2024 1:[address] [facility] Lymphocyte % 19.0 % 06/15/2024 1:[address] [facility] Monocyte % 8.6 % 06/15/2024 1:32 AM EST [facility] Eosinophil % 0.4 % 06/15/2024 1:32 AM EST [facility] Basophil % 0.4 % 06/15/2024 1:32 AM EST [facility] Neutrophil # 5.30 1.50 - 7.80 10*3/uL 06/15/2024 1:32 AM EST [facility] Immature Grans # <0.03 <=0.03 10*3/uL 06/15/2024 1:32 AM EST [facility] Lymphocyte # 1.40 0.85 - 3.90 10*3/uL 06/15/2024 1:32 AM EST [facility] Monocyte # 0.60 0.20 - 0.95 10*3/uL 06/15/2024 1:32 AM EST [facility] Eosinophil # <0.03 0.02 - 0.50 10*3/uL 06/15/2024 1:32 AM EST [facility] Basophil # <0.03 0.00 - 0.20 10*3/uL 06/15/2024 1:32 AM EST [facility] nRBC % 0.0 /100 WBCs 06/15/2024 1:32 AM EST [facility] nRBC # <0.01 <0.01 10*3/uL 06/15/2024 1:32 AM EST [facility] Blood Structure of peripheral vein / Unknown Venipuncture / Unknown 06/15/2024 12:50 AM EST 06/15/2024 12:58 AM EST us Edvin Beck MD LAB BLOOD ORDERABLES Final Res ult [facility] [address] [place] [address], [place] * ECG 12 lead (06/15/2024 12:36 AM EST) Ventricular Rate EKG 94 BPM MUSE EKG Atrial Rate 94 BPM MUSE EKG NE Interval 114 ms MUSE EKG QRS Interval 74 ms MUSE EKG QT Interval 368 ms MUSE EKG QTC Interval 460 ms MUSE EKG P [place] -3 degrees MUSE EKG R [place] 40 degrees MUSE EKG T Wave [place] -44 degrees MUSE EKG 06/15/2024 12:3 6 AM EST 06/16/2024 5:46 PM EST Impressions MUSE EKG - 06/16/2024 5:46 PM EST NORMAL SINUS RHYTHM ST-T ABNORMALITIES CONSIDER ISCHEMIA ABNORMAL ECG NO PREVIOUS ECGS AVAILABLE Confirmed by Heath Williamson ([id number]) on 06/16/2024 5:46:19 PM us Planning Coordinator Jolie ALVARADO ECG ORDERABLES Final Resu lt MUSE EKG * HEART & VASCULAR - SCANNED (06/15/2024) Anatomical Region Laterality Modality Other us Onbase Scan Lav[place] SCANNED PROCEDURES Final Resu lt documented in this encounter Visit Diagnoses Diagnosis Toxic metabolic encephalopathy- Primary Delirium tremens (HCC) Alcohol withdrawal delirium Hypomagnesemia Disorders of magnesium metabolism Hypokalemia Hypopotassemia Toxic metabolic encephalopathy Alcohol withdrawal syndrome with complication (HCC) Alcohol withdrawal delirium (HCC) Alcohol withdrawal delirium Hypokalemia Hypopotassemia Hypomagnesemia Disorders of magnesium metabolism Hyponatremia Hyposmolality and/or hyponatremia Pancreatitis Acute pancreatitis Acute respiratory failure with hypoxia (HCC) documented in this encounter Admitting Diagnoses Diagnosis Toxic metabolic encephalopathy documented in this encounter Administered Medications Inactive Administered Medications - up to 3 most recent administrations Medication Order MAR Action Action Date Dose Rate Site acetaminophen (OFIRMEV) in 100 mL IVPB premix 1,000 mg 1,000 mg, intravenous, at 400 mL/hr, Administer over 15 Minutes, Once, On Romina 06/20/24 at 1615, 1 dose New Bag/Syringe 06/20/2024 4:18 PM EST 1,000 mg 400 mL/hr acetaminophen (OFIRMEV) in 100 mL IVPB premix 1,000 mg 1,000 mg, intravenous, at 400 mL/hr, Administer over 15 Minutes, Every 8 hours PRN, mild-moderate pain (1-6 on pain scale), fever >100.4, Starting on 06/22/24 at 1145, 4 doses, Until Mon06/24/24 at 0824 New Bag/Syringe 06/23/2024 8:13 AM EST 1,000 mg 400 mL/hr New Bag/Syringe 06/22/2024 12:02 PM EST 1,000 mg 400 mL/ hr acetaminophen (TYLENOL) 650 mg/20.3 mL solution 650 mg 650 mg, gastric tube, Every 6 hours PRN, fever, Starting on Mon06/16/24 at 0744, Until Mon06/18/24 at 2239 Given 06/18/2024 3:13 PM EST 650 mg Given 06/18/2024 9:04 AM EST 650 mg Given 06/18/2024 2:06 AM EST 650 mg acetaminophen (TYLENOL) 650 mg/20.3 mL solution 650 mg 650 mg, gastric tube, Every 6 hours PRN, fever, pain, Starting on Mon06/18/24 at 2239, Until Romina 06/20/24 at 1614 Given 06/19/2024 11:38 PM EST 650 mg Given 06/19/2024 1:41 PM EST 650 mg Given 06/19/2024 7:32 AM EST 650 mg acetaminophen (TYLENOL) tablet 650 mg 650 mg, oral, Every 6 hours PRN, Mild pain or 1-3 (on the numeric pain scale), Moderate pain or 4-6 (on the numeric pain scale), fever, Starting on Mon06/24/24 at 0824, Until Mon06/25/24 at 2018 Given 06/25/2024 11:49 AM EST 650 mg Given 06/25/2024 1:25 AM EST 650 mg Given 06/24/2024 5:09 PM EST 650 mg amino acids-protein hydrolysate (PROSOURCE TF20) 20 gram-80 kcal/60 mL liquid 60 mL 60 mL (1 packet), gastric tube, Daily, First dose on Mon06/17/24 at 0900, Until Discontinued, If given via tube feed, administer according to package instructions. For pre-op or procedure: Confirm with provider regarding administration., Modular: AMINO AC-PROTEIN HYDROLYS 20 GRAM-80 KCAL/60 ML TUBE FEED LIQUID PACK Given 06/20/2024 7:45 AM EST 60 mL Given 06/19/2024 7:32 AM EST 60 mL Given 06/18/2024 9:05 AM EST 60 mL ampicillin-sulbactam (UNASYN) 3 g in 0.9% NaCl 100 mL Mini-Bag Plus 3 g, intravenous, at 200 mL/hr, Administer over 30 Minutes, Every 6 hours scheduled, First dose on Mon06/16/24 at 0915, 20 doses, Last dose on Mon06/21/24 at 0600, Use with Mini-Bag Plus, Reason for Therapy: Bacterial Infection Suspected, Indication: Pneumonia New Bag/Syringe 06/21/2024 5:43 AM EST 3 g 200 mL /hr New Bag/Syringe 06/20/2024 11:18 PM EST 3 g 200 mL/ hr New Bag/Syringe 06/20/2024 5:10 PM EST 3 g 200 mL/h r banana ypatuh-EIJ-lmtoa (BANATROL TF) 5 gram-45 kcal/60 mL liquid 60 mL 60 mL (1 packet), gastric tube, 3 times daily, First dose on Mon06/18/24 at 1015, Until Discontinued, If given orally, mix with liquid of choice. To thicken mix each packet of Banatrol TF with 8 oz thin liquid first. For IDDSI Level 2: Mildly Thick (nectar), add 3 MILDLY THICK packs. For IDDSI Level 3: Moderately Thick (honey), add 3 MODERATELY THICK packs. If given via tube feed, administer according to package instructions. For pre-op or procedure: Confirm with provider regarding administration., Modular: BANANA [id number] 5 GRAM-45 KCAL/60 ML TUBE FEED LIQUID PACKET Given 06/19/2024 7:32 AM EST 60 mL Given 06/18/2024 8:27 PM EST 60 mL Given 06/18/2024 2:12 PM EST 60 mL banana poxzyg-PBX-sxlzn (BANATROL TF) 5 gram-45 kcal/60 mL liquid 60 mL 60 mL (1 packet), gastric tube, 3 times daily, First dose (after last modification) on Mon06/19/24 at 1500, Until Discontinued, If given orally, mix with liquid of choice. To thicken mix each packet of Banatrol TF with 8 oz thin liquid first. For IDDSI Level 2: Mildly Thick (nectar), add 3 MILDLY THICK packs. For IDDSI Level 3: Moderately Thick (honey), add 3 MODERATELY THICK packs. If given via tube feed, administer according to package instructions. For pre-op or procedure: Confirm with provider regarding administration., Modular: BANANA [id number] 5 GRAM-45 KCAL/60 ML TUBE FEED LIQUID PACKET Given 06/20/2024 7:45 AM EST 60 mL Given 06/19/2024 8:02 PM EST 60 mL Given 06/19/2024 3:07 PM EST 60 mL calcium gluconate 1 g in 0.9% NaCl 50 mL IVPB premix 1 g, intravenous, Administer over 0.5 Hours, Every 30 min, First dose on Mon06/16/24 at 1200, 2 doses, Last dose on Mon06/16/24 at 1230, Total dose = 2 g New Bag/Syringe 06/16/2024 12:24 PM EST 1 g New Bag/Syringe 06/16/2024 11:59 AM EST 1 g chlordiazePOXIDE (LIBRIUM) capsule 25 mg 25 mg, gastric tube, Every 6 hours scheduled, First dose on Mon06/18/24 at 1015, Until Discontinued Given 06/20/2024 5:42 AM EST 25 mg Given 06/19/2024 11:40 PM EST 25 mg Given 06/19/2024 4:34 PM EST 25 mg chlorhexidine (PERIDEX) 0.12% solution 15 mL 15 mL, mucous membrane, Every 12 hours scheduled, First dose on Mon06/16/24 at 2245, Until Discontinued Given 06/17/2024 8:50 AM EST 15 mL Given 06/16/2024 11:50 PM EST 15 mL cloNIDine (CATAPRES) tablet 0.2 mg 0.2 mg, gastric tube, 3 times daily, First dose on Mon06/17/24 at 1400, Until Discontinued, Hold for SBP less than 90 mmHg or HR less than 50 bpm. Given 06/18/2024 9:05 AM EST 0.2 mg Given 06/17/2024 9:43 PM EST 0.2 mg Given 06/17/2024 1:55 PM EST 0.2 mg cloNIDine (CATAPRES-TTS) 0.3 mg/24 hr patch 0.3 mg 0.3 mg (1 patch), transdermal, Administer over 7 Days, Weekly (Every Monday), First dose (after last modification) on Mon06/21/24 at 1115, Until Discontinued Patch Applied 06/21/2024 1:11 PM EST 0.3 mg Right Deltoid dexMEDEtomidine (PRECEDEX) 400 mcg in 0.9% NaCl 100 mL infusion solution 0.2-1.5 mcg/kg/hr ? 64.5 kg (3.225-24.1875 mL/hr, rounded to 3.23-24.19 mL/hr), intravenous, Titrated, Starting on Mon06/18/24 at 1015, Until Romina 06/20/24 at 1019, Please drop precedex to 1.0mcg/kg/hr @ 1130 on 06/19 Initiate infusion at 0.4 mcg/kg/hr. Titrate by 0.1 mcg/kg/hr every 30 minutes to RASS goal of -1. Do not exceed 1.5 mcg/kg/hr. TITRATION AND HOLDING PARAMETERS (MD/provider may specify alternative values): Reduce Infusion by 50% alert MD/provider immediately if: SBP < 100 mmHg MAP < 50 mmHg HR < 50 beats per minute, Duration: Use less than 48 hours, Select Indication: Patient is unable to participate in spontaneous breathing trial due to agitation upon sedation holiday/reduction (approved indication) Rate/Dose Change 06/20/2024 10:00 AM EST 0.7 mcg/kg/hr 11.29 mL/hr New Bag/Syringe 06/20/2024 9:22 AM EST 1.5 mcg/kg/hr 24.19 mL/hr Rate/Dose Verify 06/20/2024 9:00 AM EST 1.5 mcg/kg/hr 24.1 9 mL/hr dexMEDEtomidine (PRECEDEX) 400 mcg in 0.9% NaCl 100 mL infusion solution 0.2-1.5 mcg/kg/hr ? 62.8 kg (3.14-23.55 mL/hr), intravenous, Titrated, Starting on Mon06/21/24 at 0515, Until Mon06/23/24 at 0514, Initiate infusion at 0.5 mcg/kg/hr. Titrate by 0.1 mcg/kg/hr every 30 minutes to RASS goal of 0. Do not exceed 1.5 mcg/kg/hr. TITRATION AND HOLDING PARAMETERS (MD/provider may specify alternative values): Reduce Infusion by 50% alert MD/provider immediately if: SBP < 100 mmHg MAP < 50 mmHg HR < 50 beats per minute, Duration: Use less than 48 hours, Select Indication: Agitation in a non-intubated patient who requires frequent neurological assessment or has impending respiratory distress (approved indication) Rate/Dose Verify 06/23/2024 5:00 AM EST 0.6 mcg/kg/hr 9.42 mL/hr Rate/Dose Verify 06/23/2024 4:00 AM EST 0.6 mcg/kg/hr 9.42 mL/hr Rate/Dose Verify 06/23/2024 3:00 AM EST 0.6 mcg/kg/hr 9.42 mL/hr dexMEDEtomidine (PRECEDEX) 400 mcg in 0.9% NaCl 100 mL infusion solution 0.2-1.5 mcg/kg/hr ? 62.8 kg (3.14-23.55 mL/hr), intravenous, Titrated, Starting on Mon06/23/24 at 0630, Until Mon06/23/24 at 0942, Initiate infusion at 0.5 mcg/kg/hr. Titrate by 0.1 mcg/kg/hr every 30 minutes to RASS goal of 0. Do not exceed 1.5 mcg/kg/hr. TITRATION AND HOLDING PARAMETERS (MD/provider may specify alternative values): Reduce Infusion by 50% alert MD/provider immediately if: SBP < 100 mmHg MAP < 50 mmHg HR < 50 beats per minute, Duration: Use less than 48 hours, Select Indication: Agitation in a non-intubated patient who requires frequent neurological assessment or has impending respiratory distress (approved indication) Rate/Dose Change 06/23/2024 9:19 AM EST 0.4 mcg/kg/hr 6.28 mL/hr Rate/Dose Verify 06/23/2024 9:00 AM EST 0.5 mcg/kg/hr 7.85 mL/hr Rate/Dose Change 06/23/2024 8:33 AM EST 0.5 mcg/kg/hr 7.85 mL/hr dextrose 5% and lactated Ringer's (LR) premix infusion intravenous, at 75 mL/hr, Continuous, Starting on Mon06/21/24 at 1030, Until Mon06/23/24 at 0942 Rate/Dose Verify 06/23/2024 9:00 AM EST 75 mL/hr Rate/Dose Verify 06/23/2024 8:00 AM EST 75 mL/h r Rate/Dose Verify 06/23/2024 7:00 AM EST 75 mL/h r dextrose 5% and sodium chloride 0.45% (1/2 NS) premix infusion intravenous, at 125 mL/hr, Continuous, Starting on 06/15/24 at 0845, Until 06/15/24 at 1329 New Bag/Syringe 06/15/2024 11:20 AM EST 125 mL/hr New Bag/Syringe 06/15/2024 8:52 AM EST 125 mL/h r dextrose 5% and sodium chloride 0.9% (NS) premix infusion intravenous, at 30-120 mL/hr, Continuous PRN, NPO or are on PO clears for > 6 hours and have a blood glucose <80 OR if PO diet, enteral tube feeds, or parenteral feeds are held and/or D/Amando and have a blood glucose < 80 OR a hypoglycemic event (BG < 70 mg/dL) with an ordered diet OR while on IV insulin and NPO or clear liquid diet for any duration., Starting on 06/16/24 at 0950, Until 06/23/24 at 0942, Start at 60 mL/hr and titrate per protocol. While on insulin drip, maintain at 30 mL/hr and do not titrate., If current glucose is > 180 after x1 repeat check: Decrease dextrose infusion rate to 30 mL/hr. Insulin infusion does not need to be started., If current glucose is > 180 after x2 repeat check: Continue dextrose infusion at 30 mL/hr. Start insulin drip. Once insulin drip started, follow glycemic protocol and administer ordered dextrose infusion at a fixed rate if patient is receiving IV insulin while NPO and not on parenteral/enteral nutrition., If current glucose is 70-180 after x1 or more repeat check: Continue current dextrose infusion rate., If current glucose is < 70 after x1 or more repeat check: Double dextrose rate to a maximum of 120 mL/hr. Emergency dextrose should be given and notify provider. Rate/Dose Verify 06/16/2024 5:00 PM EST 60 mL/hr Rate/Dose Verify 06/16/2024 3:00 PM EST 60 mL/h r Rate/Dose Verify 06/16/2024 2:00 PM EST 60 mL/h r diazePAM (VALIUM) injection 10 mg 10 mg, intravenous, Once, On 06/15/24 at 0045, 1 dose Given 06/15/2024 12:45 AM EST 10 mg diazePAM (VALIUM) injection 10 mg 10 mg, intravenous, Once as needed, rescue therapy CIWA 16-20, Starting on 06/15/24 at 0044, 1 dose, Until 06/15/24 at 0203, Notify provider rescue medication given and request change of route to IV. Given 06/15/2024 2:03 AM EST 10 mg diazePAM (VALIUM) injection 10 mg 10 mg, intravenous, Once, On 06/15/24 at 0205, 1 dose Given 06/15/2024 2:05 AM EST 10 mg diazePAM (VALIUM) injection 10 mg 10 mg, intravenous, Every 2 hour PRN, CIWA 16-20, Starting on Romina 06/20/24 at 1041, Until 06/24/24 at 0953 Given 06/21/2024 10:44 AM EST 10 mg Given 06/21/2024 6:34 AM EST 10 mg Given 06/21/2024 4:10 AM EST 10 mg diazePAM (VALIUM) injection 20 mg 20 mg, intravenous, Once as needed, rescue therapy CIWA greater than 20, Starting on 06/15/24 at 0044, 1 dose, Until 06/15/24 at 1120, Notify provider rescue medication given and request change of route to IV. Given 06/15/2024 11:20 AM EST 20 mg diazePAM (VALIUM) injection 20 mg 20 mg, intravenous, Once, On 06/16/24 at 0415, 1 dose, Notify provider rescue medication given and request change of route to IV. Given 06/16/2024 4:23 AM EST 20 mg diazePAM (VALIUM) injection 20 mg 20 mg, intravenous, Every 1 hour PRN, CIWA greater than 20, Starting on Romina 06/20/24 at 1041, Until 06/24/24 at 0953 Given 06/20/2024 7:15 PM EST 20 mg Given 06/20/2024 1:56 PM EST 20 mg diazePAM (VALIUM) injection 5 mg 5 mg, intravenous, Every 8 hours scheduled, First dose on Romina 06/20/24 at 1400, Until Discontinued Given 06/24/2024 6:03 AM EST 5 mg Given 06/23/2024 9:58 PM EST 5 mg Given 06/23/2024 12:32 PM EST 5 mg diazePAM (VALIUM) injection 5 mg 5 mg, intravenous, Every 2 hour PRN, CIWA 8-15, Starting on Romina 06/20/24 at 1041, Until 06/24/24 at 0953 Given 06/21/2024 12:04 AM EST 5 mg diazePAM (VALIUM) tablet 10 mg 10 mg, oral, Every 2 hour PRN, CIWA 16-20, Starting on 06/15/24 at 0044, Until 06/15/24 at 1709 Given 06/15/2024 10:35 AM EST 10 mg Given 06/15/2024 8:52 AM EST 10 mg diazePAM (VALIUM) tablet 20 mg 20 mg, oral, Every 1 hour PRN, CIWA greater than 20, Starting on 06/15/24 at 0044, Until 06/15/24 at 1709 Given 06/15/2024 1:35 PM EST 20 mg diazePAM (VALIUM) tablet 5 mg 5 mg, oral, Every 2 hour PRN, CIWA 8-15, Starting on 06/15/24 at 0044, Until 06/15/24 at 1709 Given 06/15/2024 4:23 AM EST 5 mg diazePAM (VALIUM) tablet 5 mg 5 mg, gastric tube, Every 6 hours scheduled, First dose on 06/16/24 at 1200, Until Discontinued Given 06/18/2024 4:30 AM EST 5 mg Given 06/17/2024 10:42 PM EST 5 mg Given 06/17/2024 4:55 PM EST 5 mg diazePAM (VALIUM) tablet 5 mg 5 mg, oral, Every 2 hour PRN, CIWA 8-15, Starting on 06/24/24 at 0952, Until 06/25/24 at 0957 Given 06/25/2024 8:38 AM EST 5 mg Given 06/24/2024 7:34 PM EST 5 mg enoxaparin (LOVENOX) subcutaneous injection 40 mg 40 mg, subcutaneous, Daily, First dose on 06/15/24 at 1715, Until Discontinued Given 06/23/2024 4:00 PM EST 40 mg Right Lower Abdomen Given 06/22/2024 4:34 PM EST 40 mg Ri ght Lower Abdomen Given 06/21/2024 5:04 PM EST 40 mg Ri ght Lower Abdomen erythromycin (ILOTYCIN) 0.5% ophthalmic ointment 0.5 inch 0.5 inch, both eyes, Every 6 hours scheduled, First dose on 06/15/24 at 1800, 28 doses, Last dose on 06/22/24 at 1200 Given 06/22/2024 12:16 PM EST 0.5 inches Given 06/22/2024 5:21 AM EST 0.5 inches Given 06/21/2024 11:42 PM EST 0.5 inches famotidine (PEPCID) tablet 20 mg 20 mg, oral, 2 times daily, First dose on 06/16/24 at 0915, Until Discontinued Given 06/20/2024 7:45 AM EST 20 mg Given 06/19/2024 4:34 PM EST 20 mg Given 06/19/2024 7:32 AM EST 20 mg fentaNYL (PF) injection 100 mcg 100 mcg, intravenous, Every 5 min PRN, pain score greater than or equal to 4, or prior to painful procedures, Starting on 06/16/24 at 0738, Until 06/17/24 at 1051, Goal pain score less than or equal to 3. Assess pain every 4 hours. Initiate PRN orders first and if greater than 3 PRN doses are needed in 1 hour, then initiate continuous infusion or contact provider if no infusion is ordered. If infusion initiated, and 3 PRN doses given within 1 hour, increase continuous infusion as specified in infusion order administration instructions. May give up to the maximum dose within range and frequency specified. Start PRN doses at lowest dose or lowest previously effective dose. Assess pain, sedation, and respiratory rate prior to each opioid administration. Given 06/16/2024 8:08 AM EST 100 mcg fentaNYL (PF) injection 25 mcg 25 mcg, intravenous, Once, On Mon06/21/24 at 0245, 1 dose, Assess pain, sedation, and respiratory rate prior to each opioid administration. Given 06/21/2024 2:56 AM EST 25 mcg fentaNYL (PF) injection 25 mcg 25 mcg, intravenous, Once, On Mon06/21/24 at 0500, 1 dose, Assess pain, sedation, and respiratory rate prior to each opioid administration. Given 06/21/2024 5:01 AM EST 25 mcg fentaNYL 2000 mcg in 0.9% NaCl 100 mL infusion 25-100 mcg/hr (1.25-5 mL/hr), intravenous, Continuous PRN, See Administration Instructions, Starting on 06/16/24 at 0728, Until Mon06/17/24 at 1051, Goal pain score less than or equal to 3. Assess pain every 4 hours. Initiate PRN orders first and if greater than 3 PRN doses are needed in 1 hour, then initiate continuous infusion. If pain is greater than or equal to 4 after 3 total doses in any 1 hour after continuous infusion started, increase infusion rate by 25 mcg/hr every 1 hour until pain is less than or equal to 3. Ensure PRN doses are at least 50% of continuous infusion rate. Turn off infusion for daily interruption unless otherwise ordered. If infusion needs to be restarted, initiate infusion at 50% of the previous rate and titrate per PAD protocol. Assess pain, sedation, and respiratory rate as directed., Weaning Protocol if at goal RASS for 4 hours: Reduce fentanyl infusion by 25 mcg/hour every 4 hours if patient received 3 or less non -procedural PRN doses during the last 4 hours and is not receiving neuromuscular blockade, Turn off infusion daily? Yes Rate/Dose Verify 06/17/2024 10:00 AM EST 25 mcg/hr 1.25 mL/hr Rate/Dose Verify 06/17/2024 9:00 AM EST 25 mcg/hr 1.25 mL /hr Rate/Dose Verify 06/17/2024 8:00 AM EST 25 mcg/hr 1.25 mL /hr fentaNYL bolus from bag 25-100 mcg 25-100 mcg, intravenous, Every 5 min PRN, pain score greater than or equal to 4, or prior to painful procedures, Starting on Mon06/16/24 at 0738, Until Mon06/17/24 at 1051, For use only when a patient has a continuous infusion running. Goal pain score less than or equal to 3. Assess pain every 4 hours. Initiate PRN orders first and if greater than 3 PRN doses are needed in 1 hour, then initiate continuous infusion or contact provider if no infusion is ordered. If infusion initiated, and 3 PRN doses given within 1 hour, increase continuous infusion as specified in infusion order administration instructions. May give up to the maximum dose within range and frequency specified. Start PRN doses at lowest dose or lowest previously effective dose. Assess pain, sedation, and respiratory rate prior to each opioid administration. Bolus from Bag 06/17/2024 8:35 AM EST 25 mcg Bolus from Bag 06/17/2024 8:03 AM EST 25 mcg Bolus from Bag 06/16/2024 9:34 PM EST 50 mcg folic acid (FOLVITE) tablet 1 mg 1 mg, oral, Daily, First dose on Mon06/16/24 at 0900, Until Discontinued Given 06/20/2024 7:45 AM EST 1 mg Given 06/19/2024 7:32 AM EST 1 mg Given 06/18/2024 9:05 AM EST 1 mg folic acid (FOLVITE) tablet 1 mg 1 mg, oral, Daily, First dose on Mon06/23/24 at 0945, Until Discontinued Given 06/25/2024 8:38 AM EST 1 mg Given 06/24/2024 7:53 AM EST 1 mg folic acid 1 mg in 0.9% NaCl 100 mL IVPB 1 mg, intravenous, at 200 mL/hr, Administer over 30 Minutes, Daily, First dose on Mon06/21/24 at 0900, Until Discontinued Rate/Dose Verify 06/23/2024 8:00 AM EST 200 mL/hr New Bag/Syringe 06/23/2024 7:55 AM EST 1 mg 200 mL/h r New Bag/Syringe 06/22/2024 8:01 AM EST 1 mg 200 mL/h r haloperidol lactate (HALDOL) injection 5 mg 5 mg, intravenous, Every 6 hours PRN, agitation, delirium, Starting on Mon06/21/24 at 0801, Until Mon06/25/24 at 0957, QTc monitoring required for patients receiving doses greater than 35 mg/day. Given 06/22/2024 9:37 PM EST 5 mg Given 06/22/2024 7:46 AM EST 5 mg Given 06/21/2024 11:37 PM EST 5 mg ibuprofen (MOTRIN) tablet 400 mg 400 mg, oral, Every 6 hours PRN, Mild pain or 1-3 (on the numeric pain scale), Starting on Mon06/25/24 at 1422, Until Mon06/25/24 at 2018 Given 06/25/2024 2:27 PM EST 400 mg ibuprofen (MOTRIN) tablet 600 mg 600 mg, gastric tube, Once, On [place] 06/16/24 at 1800, 1 dose Given 06/16/2024 6:24 PM EST 600 mg ketorolac (TORADOL) injection 15 mg 15 mg, intravenous, Once, On 06/22/24 at 1630, 1 dose Given 06/22/2024 4:27 PM EST 15 mg lactated Ringer's (LR) bolus 1,000 mL 1,000 mL, intravenous, Once, On 06/15/24 at 0140, 1 dose New Bag/Syringe 06/15/2024 1:48 AM EST 1,000 mL lactated Ringer's (LR) bolus 1,000 mL 1,000 mL, intravenous, Once, On [facility] 06/15/24 at 0715, 1 dose New Bag/Syringe 06/15/2024 7:22 AM EST 1,000 mL lactated Ringer's (LR) bolus 1,000 mL 1,000 mL, intravenous, Once, On [place] 06/16/24 at 0915, 1 dose New Bag/Syringe 06/16/2024 9:41 AM EST 1,000 mL lactated Ringer's (LR) bolus 1,000 mL 1,000 mL, intravenous, at 2,000 mL/hr, Administer over 30 Minutes, Once, On [place] 06/16/24 at 1700, 1 dose New Bag/Syringe 06/16/2024 5:36 PM EST 1,000 mL 2000 mL/hr loperamide (IMODIUM) capsule 2 mg 2 mg, oral, 4 times daily PRN, diarrhea, Starting on Mon06/16/24 at 1233, Until Mon06/19/24 at 0943 Given 06/18/2024 9:05 AM EST 2 mg Given 06/17/2024 8:56 AM EST 2 mg loperamide (IMODIUM) capsule 2 mg 2 mg, oral, 4 times daily PRN, diarrhea, Starting on Mon06/24/24 at 0504, Until Mon06/25/24 at 2018 magnesium sulfate 2 g in SWFI 50 mL IVPB premix 2 g, intravenous, Once, On 06/15/24 at 0140, 1 dose, Total dose = 2 g New Bag/Syringe 06/15/2024 1:44 AM EST 2 g magnesium sulfate 2 g in SWFI 50 mL IVPB premix 2 g, intravenous, at 25 mL/hr, Administer over 2 Hours, Every 2 hours, First dose on 06/16/24 at 1800, 2 doses, Last dose on 06/16/24 at 2000, Total dose = 4 g New Bag/Syringe 06/16/2024 8:07 PM EST 2 g 25 mL/hr New Bag/Syringe 06/16/2024 6:24 PM EST 2 g 25 mL/hr melatonin tablet 9 mg 9 mg, oral, Nightly PRN, sleep, Starting on 06/24/24 at 0248, Until Mon06/25/24 at 2018 Given 06/24/2024 7:35 PM EST 9 mg Given 06/24/2024 2:59 AM EST 9 mg ondansetron (ZOFRAN) 4 mg/2 mL injection Pyxis Override Pull Starting on 06/22/24 at 1926, 1 dose, Until 06/22/24 at 1928, Created by cabinet override ondansetron (ZOFRAN) injection 4 mg 4 mg, intravenous, Once, On 06/22/24 at 1930, 1 dose Given 06/22/2024 7:28 PM EST 4 mg PHENobarbital injection 130 mg 130 mg, intravenous, Every 30 min PRN, If CIWA remains greater than 20 after 65 mg dose., Starting on 06/15/24 at 0100, Until 06/15/24 at 1709, Slow IV push--max rate 50 mg/min. If CIWA rises over 20, give PHENobarbital at the last effective dose and recheck CIWA in 30 min. If given IV, give via slow IV push. Do not exceed 50 mg/min. Given 06/15/2024 2:03 AM EST 130 m g PHENobarbital injection 130 mg 130 mg, intravenous, Once, On 06/15/24 at 0205, 1 dose, If given IV, give via slow IV push. Do not exceed 50 mg/min. Given 06/15/2024 2:05 AM EST 130 mg PHENobarbital injection 130 mg 130 mg, intravenous, Every 30 min PRN, If CIWA remains greater than 20 after 65 mg dose., Starting on 06/15/24 at 1709, Until Mon06/19/24 at 0943, Slow IV push--max rate 50 mg/min. If CIWA rises over 20, give PHENobarbital at the last effective dose and recheck CIWA in 30 min. If given IV, give via slow IV push. Do not exceed 50 mg/min. Given 06/15/2024 9:32 PM EST 130 m g Given 06/15/2024 7:44 PM EST 130 mg PHENobarbital injection 260 mg 260 mg, intravenous, Once, On 06/15/24 at 0105, 1 dose, If given IV, give via slow IV push. Do not exceed 50 mg/min. Given 06/15/2024 1:10 AM EST 260 mg PHENobarbital injection 260 mg 260 mg, intravenous, Once, On 06/15/24 at 0600, 1 dose, Day 1. Hold for sedation or respiratory rate less than 10. If given IV, give via slow IV push. Do not exceed 50 mg/min. Given 06/15/2024 6:04 AM EST 260 mg PHENobarbital injection 260 mg 260 mg, intravenous, Every 30 min PRN, If CIWA remains greater than 20 after 130 mg dose, Starting on 06/15/24 at 1709, Until 06/19/24 at 0943, Slow IV push--max rate 50 mg/min. If CIWA rises over 20, give PHENobarbital at the last effective dose and recheck CIWA in 30 min. If given IV, give via slow IV push. Do not exceed 50 mg/min. Given 06/16/2024 6:16 AM EST 260 m g Given 06/16/2024 5:01 AM EST 260 mg Given 06/16/2024 1:04 AM EST 260 mg PHENobarbital injection 32.5 mg 32.5 mg, intravenous, Every 30 min PRN, CIWA 8-20, Starting on 06/15/24 at 0100, Until 06/15/24 at 1709, Slow IV push--max rate 50 mg/min. If given IV, give via slow IV push. Do not exceed 50 mg/min. Given 06/15/2024 4:54 AM EST 32.5 mg PHENobarbital injection 32.5 mg 32.5 mg, intravenous, Every 30 min PRN, CIWA 8-20, Starting on 06/15/24 at 1709, Until 06/19/24 at 0943, Slow IV push--max rate 50 mg/min. If given IV, give via slow IV push. Do not exceed 50 mg/min. Given 06/15/2024 5:41 PM EST 32.5 mg PHENobarbital injection 65 mg 65 mg, intravenous, Every 30 min PRN, CIWA greater than 20, Starting on 06/15/24 at 0100, Until 06/15/24 at 1709, Slow IV push--max rate 50 mg/min. If given IV, give via slow IV push. Do not exceed 50 mg/min. Given 06/15/2024 3:55 PM EST 6 5 mg PHENobarbital injection 65 mg 65 mg, intravenous, Every 30 min PRN, CIWA greater than 20, Starting on 06/15/24 at 1709, Until 06/19/24 at 0943, Slow IV push--max rate 50 mg/min. If given IV, give via slow IV push. Do not exceed 50 mg/min. Given 06/15/2024 6:59 PM EST 6 5 mg Given 06/15/2024 6:06 PM EST 65 mg potassium chloride 10 mEq in 100 mL IVPB premix 10 mEq, intravenous, at 100 mL/hr, Administer over 60 Minutes, Every 1 hour, First dose on 06/15/24 at 0200, 4 doses, Last dose on Mon06/15/24 at 0500, Total dose = 40 mEq. For patients not on telemetry, do not exceed 10 mEq/hour. New Bag/Syringe 06/15/2024 4:58 AM EST 10 mEq 100 mL/hr New Bag/Syringe 06/15/2024 3:49 AM EST 10 mEq 100 mL/h r New Bag/Syringe 06/15/2024 2:48 AM EST 10 mEq 100 mL/h r potassium chloride 10 mEq in 100 mL IVPB premix 10 mEq, intravenous, at 100 mL/hr, Administer over 60 Minutes, Once, On Mon06/16/24 at 0600, 1 dose, Total dose = 10 mEq. For patients on telemetry. New Bag/Syringe 06/16/2024 5:52 AM EST 10 mEq 100 mL/hr potassium chloride 100 mEq in 0.9% NaCl 1,050 mL IVPB 100 mEq, intravenous, at 100 mL/hr, Once, On Mon06/16/24 at 0500, 1 dose, Type of Line: Peripheral, Cardiac Monitoring: Yes New Bag/Syringe 06/16/2024 6:37 AM EST 100 mEq 100 mL/hr potassium chloride 20 mEq/15 mL solution 40 mEq 40 mEq, gastric tube, Every 4 hours, First dose on Mon06/16/24 at 1130, 2 doses, Last dose on Mon06/16/24 at 1530, Do not administer full strength; must be diluted prior to administration. Given 06/16/2024 3:13 PM EST 40 mEq Given 06/16/2024 12:02 PM EST 40 mEq potassium chloride 20 mEq/15 mL solution 40 mEq 40 mEq, gastric tube, Every 4 hours, First dose on Mon06/17/24 at 0115, 2 doses, Last dose on Mon06/17/24 at 0515, Do not administer full strength; must be diluted prior to administration. Given 06/17/2024 4:48 AM EST 40 mEq Given 06/17/2024 1:10 AM EST 40 mEq potassium chloride 20 mEq/15 mL solution 40 mEq 40 mEq, gastric tube, Every 4 hours, First dose on Mon06/24/24 at 0500, 2 doses, Last dose on Mon06/24/24 at 0900, Do not administer full strength; must be diluted prior to administration. Pump Refill 06/24/2024 8:33 AM EST 40 mEq Given 06/24/2024 6:03 AM EST 40 mEq propofol (DIPRIVAN) 1,000 mg in 100 mL infusion 5-50 mcg/kg/min ? 60.1 kg (1.803-18.03 mL/hr, rounded to 1.8-18.03 mL/hr), intravenous, Continuous PRN, See Administration Instructions, Starting on Mon06/16/24 at 0728, Until [place] 06/20/24 at 1338, Light sedation to calm and awake (RASS -1 to 0). Assess RASS every 4 hours. Titrate by 5 mcg/kg/min every 5 minutes PRN RASS goal (Maximum of 50 mcg/kg/min). Turn off infusion for daily interruption unless otherwise ordered. If infusion needs to be restarted, initiate infusion at 50% of the previous rate and titrate per PAD protocol. Discard solution and tubing every 12 hours., Weaning Protocol if at goal RASS for 4 hours: Reduce propofol infusion by 5 mcg/kg/min every 4 hours if no dose increase during the last 4 hours and patient is not receiving neuromuscular blockade, Turn off infusion daily? Yes Rate/Dose Verify 06/20/2024 9:00 AM EST 20 mcg/kg/min 7.21 mL/hr Rate/Dose Change 06/20/2024 8:30 AM EST 20 mcg/kg/min 7.21 mL/hr Rate/Dose Change 06/20/2024 8:12 AM EST 10 mcg/kg/min 3.61 mL/hr propofoL (DIPRIVAN) 10 mg/mL injection Pyxis Override Pull Starting on Mon06/16/24 at 0739, 1 dose, Until Mon06/16/24 at 0752, Created by keyana lai sertraline (ZOLOFT) tablet 50 mg 50 mg, oral, Daily, First dose on Mon06/24/24 at 1200, Until Discontinued Given 06/25/2024 8:38 AM EST 50 mg Given 06/24/2024 12:26 PM EST 50 mg sodium chloride 0.9% flush 2.5-10 mL 2.5-10 mL, intravenous, See admin instructions, Starting on Mon06/15/24 at 1709, Until Mon06/25/24 at 2018, Flush each lumen with a pulsatile motion with a minimum of 2.5 mL before and after use. Please note which lumen(s) have been flushed in comments section. sodium chloride 0.9% flush 2.5-10 mL 2.5-10 mL, intravenous, Every 12 hours scheduled, First dose on Mon06/15/24 at 2100, Until Discontinued, Flush each lumen with a pulsatile motion with a minimum of 2.5 mL every 12 hours. Please note which lumen(s) have been flushed in comments section. Given 06/24/2024 9:00 PM EST 10 mL Given 06/24/2024 7:53 AM EST 10 mL Given 06/23/2024 9:58 PM EST 10 mL thiamine (VITAMIN B1) 500 mg in 0.9% NaCl 100 mL IVPB premix 500 mg, intravenous, Administer over 30 Minutes, Every 8 hours scheduled, First dose on Mon06/15/24 at 2200, 9 doses, Last dose on Mon06/18/24 at 1400 New Bag/Syringe 06/18/2024 1:30 PM EST 500 mg New Bag/Syringe 06/18/2024 5:03 AM EST 500 mg New Bag/Syringe 06/17/2024 9:43 PM EST 500 mg thiamine (VITAMIN B1) injection 100 mg 100 mg, intravenous, Daily, First dose on Mon06/15/24 at 0900, 3 doses, Last dose on 06/17/24 at 0900, For IV push, administer over 5 mins Given 06/15/2024 8:43 AM EST 100 mg thiamine (VITAMIN B1) injection 100 mg 100 mg, intravenous, Daily, First dose on Mon06/21/24 at 0900, 3 doses, Last dose on Mon06/23/24 at 0900, For IV push, administer over 5 mins Given 06/23/2024 7:55 AM EST 100 mg Given 06/22/2024 7:51 AM EST 100 mg Given 06/21/2024 8:12 AM EST 100 mg thiamine mononitrate (VITAMIN B1) tablet 100 mg 100 mg, gastric tube, Daily, First dose on Mon06/19/24 at 0900, Until Discontinued Given 06/20/2024 7:45 AM EST 100 mg Given 06/19/2024 10:23 AM EST 100 mg thiamine mononitrate (VITAMIN B1) tablet 100 mg 100 mg, oral, Daily, First dose on Mon06/24/24 at 0900, Until Discontinued Given 06/25/2024 8:38 AM EST 100 mg Given 06/24/2024 8:32 AM EST 100 mg documented in this encounter Active and Recently Administered Medications Times are shown in EST. Scheduled Medication Order 06/23/2024 06/24/2024 06/25/2024 diazePAM (VALIUM) injection 5 mg (CANCELED) 5 mg, intravenous, Every 8 hours scheduled, First dose on [place] 06/20/24 at 1400, Until Discontinued 0555 (Given - Provider: Demi Zepeda RN)7776 (Given - Provider: Jose F Bear RN)2279 (Given - Provider: Nancy Poole RN) 0603 (Given - Provider: Nancy Poole RN) enoxaparin (LOVENOX) subcutaneous injection 40 mg 40 mg, subcutaneous, Daily, First dose on Mon06/15/24 at 1715, Until Discontinued 1600 (Given - Provider: Jose F Bear RN) 1700 (Not Given - Provider: Jose F Bear RN - Reason: Patient/family refused) 1700 (Not Given - Provider: Anne Knox RN - Reason: Patient/family refused) folic acid (FOLVITE) tablet 1 mg 1 mg, oral, Daily, First dose on Mon06/23/24 at 0945, Until Discontinued 0945 (Not Given - Provider: Jose F Bear RN - Reason: Other - See Comment - Comment: IV folic acid given this morning, will start PO tomorrow) 0753 (Given - Provider: Jose F Bear RN) 0838 (Given - Provider: Anne Knox RN) folic acid 1 mg in 0.9% NaCl 100 mL IVPB (CANCELED) 1 mg, intravenous, at 200 mL/hr, Administer over 30 Minutes, Daily, First dose on Mon06/21/24 at 0900, Until Discontinued 0755 (New Bag/Syringe - Provider: Jose F Bear RN)0800 (Rate/Dose Verify - Provider: Jose F Bear RN)0825 (Stopped - Provider: Jose F Bear RN) potassium chloride 20 mEq/15 mL solution 40 mEq (COMPLETED) 40 mEq, gastric tube, Every 4 hours, First dose on Mon06/24/24 at 0500, 2 doses, Last dose on Mon06/24/24 at 0900, Do not administer full strength; must be diluted prior to administration. 0603 (Given - Provider: Nancy Poole RN)0833 (Pump Refill - Provider: Jose F Bear RN) sertraline (ZOLOFT) tablet 50 mg 50 mg, oral, Daily, First dose on Mon06/24/24 at 1200, Until Discontinued 1226 (Given - Provider: Jose F Bear RN) 0838 (Given - Provider: Anne Knox RN) sodium chloride 0.9% flush 2.5-10 mL(Linked Group 1) 2.5-10 mL, intravenous, See admin instructions, Starting on 06/15/24 at 1709, Until Tu06/25/24 at 2018, Flush each lumen with a pulsatile motion with a minimum of 2.5 mL before and after use. Please note which lumen(s) have been flushed in comments section. sodium chloride 0.9% flush 2.5-10 mL(Linked Group 1) 2.5-10 mL, intravenous, Every 12 hours scheduled, First dose on 06/15/24 at 2100, Until Discontinued, Flush each lumen with a pulsatile motion with a minimum of 2.5 mL every 12 hours. Please note which lumen(s) have been flushed in comments section. 0756 (Given - Provider: Jose F Bear, KENNEDY)2158 (Given - Provider: Nancy Poole RN) 0753 (Given - Provider: Jose F Bear, KENNEDY)2100 (Given - Provider: Sarah Shah RN) 0900 (Not Given - Provider: Anne Knox, KENNEDY - Reason: Patient/family refused) thiamine (VITAMIN B1) injection 100 mg (COMPLETED) 100 mg, intravenous, Daily, First dose on Mon06/21/24 at 0900, 3 doses, Last dose on Mon06/23/24 at 0900, For IV push, administer over 5 mins 0755 (Given - Provider: Jose F Bear, KENNEDY) thiamine mononitrate (VITAMIN B1) tablet 100 mg 100 mg, oral, Daily, First dose on Mon06/24/24 at 0900, Until Discontinued 0832 (Given - Provider: Jose F Bear, KENNEDY) 0838 (Given - Provider: Anne Knox, KENNEDY) Continuous Medication Order 06/23/2024 06/24/2024 06/25/2024 dexMEDEtomidine (PRECEDEX) 400 mcg in 0.9% NaCl 100 mL infusion solution () 0.2-1.5 mcg/kg/hr ? 62.8 kg (3.14-23.55 mL/hr), intravenous, Titrated, Starting on Mon06/21/24 at 0515, Until Mon06/23/24 at 0514, Initiate infusion at 0.5 mcg/kg/hr. Titrate by 0.1 mcg/kg/hr every 30 minutes to RASS goal of 0. Do not exceed 1.5 mcg/kg/hr. TITRATION AND HOLDING PARAMETERS (MD/provider may specify alternative values): Reduce Infusion by 50% alert MD/provider immediately if: SBP < 100 mmHg MAP < 50 mmHg HR < 50 beats per minute, Duration: Use less than 48 hours, Select Indication: Agitation in a non-intubated patient who requires frequent neurological assessment or has impending respiratory distress (approved indication) 0000 (Rate/Dose Verify - Provider: Demi Zepeda RN)0100 (Rate/Dose Verify - Provider: Demi Zepead RN)0200 (Rate/Dose Verify - Provider: Demi Zepeda RN)0259 (New Bag/Syringe - Provider: Demi Zepeda RN)0300 (Rate/Dose Verify - Provider: Demi Zepeda RN)0400 (Rate/Dose Verify - Provider: Demi Zepeda RN)0500 (Rate/Dose Verify - Provider: Demi Zepeda RN)0629 (Stopped - Provider: Demi Zepeda RN) dexMEDEtomidine (PRECEDEX) 400 mcg in 0.9% NaCl 100 mL infusion solution (CANCELED) 0.2-1.5 mcg/kg/hr ? 62.8 kg (3.14-23.55 mL/hr), intravenous, Titrated, Starting on 06/23/24 at 0630, Until 06/23/24 at 0942, Initiate infusion at 0.5 mcg/kg/hr. Titrate by 0.1 mcg/kg/hr every 30 minutes to RASS goal of 0. Do not exceed 1.5 mcg/kg/hr. TITRATION AND HOLDING PARAMETERS (MD/provider may specify alternative values): Reduce Infusion by 50% alert MD/provider immediately if: SBP < 100 mmHg MAP < 50 mmHg HR < 50 beats per minute, Duration: Use less than 48 hours, Select Indication: Agitation in a non-intubated patient who requires frequent neurological assessment or has impending respiratory distress (approved indication) 0630 (Continue on Transfer - Provider: Demi Zepeda RN - Comment: New order)0700 (Rate/Dose Verify - Provider: Jose F Bear RN)0800 (Rate/Dose Verify - Provider: Jose F Bear RN)0833 (Rate/Dose Change - Provider: Jose F Bear RN)0900 (Rate/Dose Verify - Provider: Jose F Bear RN)0919 (Rate/Dose Change - Provider: Jose F Bear RN)1006 (Stopped - Provider: Jose F Bear RN) dextrose 5% and lactated Ringer's (LR) premix infusion (CANCELED) intravenous, at 75 mL/hr, Continuous, Starting on Mon06/21/24 at 1030, Until Mon06/23/24 at 0942 0000 (Rate/Dose Verify - Provider: Demi Zepeda RN)0100 (Rate/Dose Verify - Provider: Demi Zepeda RN)0200 (Rate/Dose Verify - Provider: Demi Zepeda RN)0300 (Rate/Dose Verify - Provider: Demi Zepeda RN)0400 (Rate/Dose Verify - Provider: Demi Zepeda RN)0425 (New Bag/Syringe - Provider: Demi Zepeda RN)0500 (Rate/Dose Verify - Provider: Demi Zepeda RN)0600 (Rate/Dose Verify - Provider: Demi Zepeda RN)0700 (Rate/Dose Verify - Provider: Jose F Bear RN)0800 (Rate/Dose Verify - Provider: Jose F Bear RN)0900 (Rate/Dose Verify - Provider: Jose F Bear RN)1006 (Stopped - Provider: Jose F Bear RN) PRN Medication Order 06/23/2024 06/24/2024 06/25/2024 acetaminophen (OFIRMEV) in 100 mL IVPB premix 1,000 mg (CANCELED) 1,000 mg, intravenous, at 400 mL/hr, Administer over 15 Minutes, Every 8 hours PRN, mild-moderate pain (1-6 on pain scale), fever >100.4, Starting on 06/22/24 at 1145, 4 doses, Until 06/24/24 at 0824 0813 (New Bag/Syringe - Provider: Jose F Bear RN)0828 (Stopped - Provider: Jose F Bear RN) acetaminophen (TYLENOL) tablet 650 mg 650 mg, oral, Every 6 hours PRN, Mild pain or 1-3 (on the numeric pain scale), Moderate pain or 4-6 (on the numeric pain scale), fever, Starting on 06/24/24 at 0824, Until Tu06/25/24 at 2018 0832 (Given - Provider: Jose F Bear, KENNEDY)1709 (Given - Provider: Jose F Bear RN) 0125 (Given - Provider: Marry Madera RN)1149 (Given - Provider: Terri Marquez RN) diazePAM (VALIUM) tablet 5 mg (CANCELED) 5 mg, oral, Every 2 hour PRN, CIWA 8-15, Starting on Mon06/24/24 at 0952, Until Mon06/25/24 at 0957 1934 (Given - Provider: Sarah Shah, KENNEDY) 0838 (Given - Provider: Anne Knox, KENNEDY) ibuprofen (MOTRIN) tablet 400 mg 400 mg, oral, Every 6 hours PRN, Mild pain or 1-3 (on the numeric pain scale), Starting on Mon06/25/24 at 1422, Until Mon06/25/24 at 2018 1427 (Given - Provider: Anne Knox, KENNEDY) loperamide (IMODIUM) capsule 2 mg 2 mg, oral, 4 times daily PRN, diarrhea, Starting on Mon06/24/24 at 0504, Until Mon06/25/24 at 2018 melatonin tablet 9 mg 9 mg, oral, Nightly PRN, sleep, Starting on Mon06/24/24 at 0248, Until Mon06/25/24 at 2018 0259 (Given - Provider: Nancy Poole RN)1935 (Given - Provider: Sarah Shah, KENNEDY) Linked Groups Order Group 1: IV Peripheral Line Care (CANCELED) Until discontinued, Starting on 06/15/24 at 1710, Until Specified, Insert/Replace: 96 hours for non-flexion, sterile IVs, 48 hours for flexion IVs, and 24 hours for non-sterile field IVs, Blood Draw: With insertion only And sodium chloride 0.9% flush 2.5-10 mLJump to med 2.5-10 mL, intravenous, See admin instructions, Starting on 06/15/24 at 1709, Until Mon06/25/24 at 2018, Flush each lumen with a pulsatile motion with a minimum of 2.5 mL before and after use. Please note which lumen(s) have been flushed in comments section. And sodium chloride 0.9% flush 2.5-10 mLJump to med 2.5-10 mL, intravenous, Every 12 hours scheduled, First dose on 06/15/24 at 2100, Until Discontinued, Flush each lumen with a pulsatile motion with a minimum of 2.5 mL every 12 hours. Please note which lumen(s) have been flushed in comments section. documented in this encounter Additional Health Concerns Infection Onset Date Last Indicated Resolved Time R/O Respiratory Virus Infection 06/16/2024 06/16/2024 11:18 AM EST R/O Influenza 06/16/2024 06/16/2024 06/16/2024 11: 18 AM EST COVID-19 - Suspected infection 06/16/2024 06/16/2024 06/16/2024 11:18 AM EST documented as of this encounter Care Teams Instructor Private Relationship Specialty Start Date End Date Patient, Has No Pcp Or Ref DO NOT EDIT THIS RECORD VIA PROVIDER ON THE FLY PCP - [employer] 06/19/24 documented as of this encounter
== END 2024-06-27 14:10 | disposition home or self-care (01) ==
PROVIDERS: Visit Provider Nurse Practitioner Psychiatric/Mental Health
DX: F10.20 Alcohol dependence, uncomplicated (principal)
CPT/HCPCS: 99204

== ENCOUNTER → 2024-06-27 13:08 | Outpatient (BNVA) | payer MEDICAID, SELFPAY | PROVIDERS: Visit Provider Nurse Practitioner Psychiatric/Mental Health | DX: F10.20 Alcohol dependence, uncomplicated (principal); Z51.81 Encounter for therapeutic drug level monitoring; Z79.899 Other long term (current) drug therapy | CPT/HCPCS: 99212 ==

== ENCOUNTER → 2024-07-10 12:48 | Outpatient (BNVA) | payer MEDICAID, SELFPAY | PROVIDERS: Visit Provider Nurse Practitioner Psychiatric/Mental Health | DX: F10.20 Alcohol dependence, uncomplicated (principal) | CPT/HCPCS: 99212 ==

== ENCOUNTER 2024-07-29 13:22 | Outpatient (AMB) | payer MEDICAID, SELFPAY ==
--- NOTE | 2024-07-29 13:24 | A.OFFVISCC_ITS ---
Vital Signs 07/29/24 13:30 BP 130/80 Blood Pressure Location Rt brachial Position Sitting Respiration 19 Pulse 54 Pulse Source Pulse Oximeter Pulse Oximetry (%) 98 Intake Visit Reasons: MAT Office Allergies No Known Allergies Allergy (Verified 06/27/24 13:39) HPI HPI MAT Office: Details: Patient presents for AUD follow up Currently prescribed Naltrexone 50mg daily for for AUD Tolerating current dose and feels medication is helping with cravings Sleeping better with mirtazipine and gabapentin Review of Systems Const Reports as per HPI and Reports no additional complaints Physical Exam Vital Signs: Last Vital Signs Pulse 54 07/29/24 13:30 Resp 19 07/29/24 13:30 BP 130/80 07/29/24 13:30 Pulse Ox 98 07/29/24 13:30 Const General: cooperative Assessment & Plan Assessment & Plan (1) Alcohol use disorder, severe, dependence: Code(s): F10.20 - Alcohol dependence, uncomplicated Category: Medical Plan: * continue medications as prescribed * relapse prevention discussion --discussed researching recovery supports before next visit * aware provider will be transitioning out and assured care would continue uninterrupted. Medications: New sertraline 50 mg PO DAILY 90 tabs 1RF Changed From naltrexone take 1/2 tab daily for 3 days, then increase to one tab daily 50 mg PO DAILY 30 tabs 0RF To naltrexone 50 mg PO DAILY 90 tabs 1RF Refilled gabapentin 300 mg PO BEDTIME 90 caps 1RF
[2024-07-29 13:30] VITALS: BP 130/80; PULSE 54; RESP 19; O2SAT 98
--- OUTSIDE RECORDS SUMMARY | 2024-07-29 15:18 | XMS_ITS | Referral Summary ---
Author Organization [facility] Address [address] [place] [address] Care Team Providers Care Feeder Driver Name Role Phone Patient, Has No Pcp Or Ref Primary Care Provider Unavailable Encounters Date Type Department Care Team Description 06/15/2024 12:22 AM EST - 06/25/2024 6:18 PM EST Hospital Encounter [place] [address] Critical Care Unit [address] [place] [id number] Edvin Beck MD Sultan, Danielle A., Gabe Nobles MD Girgenrath, Tanya, MD Gallant, Joseph J., MD Jones, Evan W, MD Wong, William W., Delirium tremens (HCC) (Primary Dx); Hypomagnesemia; Hypokalemia; Toxic metabolic encephalopathy; Alcohol withdrawal syndrome with complication (HCC) Discharge Disposition: Home or Self Care () 06/16/2024 8:47 AM EST Anesthesia Event [place] [address] Critical Care Unit [address] [place] [id number] Aurora Beckett MD from Last 3 Months Allergies No known active allergies Medications folic acid (FOLVITE) 1 mg tablet Take 1 tablet (1 mg total) by mouth once a day. 30 tablet 06/26/2024 Active sertraline (ZOLOFT) 50 mg tablet Take 1 tablet (50 mg total) by mouth once a day. 30 tablet 06/26/2024 Active thiamine mononitrate (VITAMIN B1) 100 mg tablet Take 1 tablet (100 mg total) by mouth once a day. 30 tablet 06/26/2024 Active Active Problems No known active problems Resolved Problems Problem Noted Date Diagnosed Date Resolved Date Pancreatitis 06/16/2024 06/25/2024 Acute respiratory failure with hypoxia 06/16/2024 06/25/2024 Toxic metabolic encephalopathy 06/15/2024 06/25/2024 Alcohol withdrawal delirium 06/15/2024 06/25/2024 Hypokalemia 06/15/2024 06/25/2024 Hypomagnesemia 06/15/2024 06/25/2024 Hyponatremia 06/15/2024 06/25/2024 Immunizations Immunization Administration Dates Next Due INFLUENZA, SPLIT VIRUS, [...] Not on file Procedures * Due to [place] state law, this organization might not be [...] DUMMY PERFORMABLE Routine 025 8:15 AM EST [place] INSERT 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 * Magnesium (06/25/2024 4:53 AM EST) Only the most recent of14 resultswithin the time period is included. MG 2.0 1.6 - 2.4 mg/dL 06/25/2024 5:55 AM EST [facility] Blood Structure of peripheral vein / Unknown Venipuncture / Unknown 06/25/2024 4:53 AM EST 06/25/2024 5:26 AM EST us Mikey Rivas OFFICE ADMINISTRATION LAB BLOOD ORDER MADELYN Final Result [facility] [address] [place] [address], * (ABNORMAL) Basic metabolic panel (06/25/2024 4:53 AM EST) Only the most recent of15 resultswithin the time period is included. NA 137 135 - 145 mmol/L 06/25/2024 5:55 AM EST [facility] K 3.6 3.5 - 5.3 mmol/L 06/25/2024 5:55 AM EST [facility] Cl 105 98 - 107 mmol/L 06/25/2024 5:55 AM EST [facility] CO2 21(L) 22 - 32 mmol/L 06/25/2024 5:55 AM EST [facility] BUN 8 7 - 23 mg/dL 06/25/2024 5:55 AM EST [facility] Creatinine 0.59(L) 0.60 - 1.30 mg/dL 06/25/2024 5:55 AM EST [facility] Glucose 103(H) 65 - 99 mg/dL 06/25/2024 5:55 AM EST [facility] Calcium 8.8 8.6 - 10.5 mg/dL 06/25/2024 5:55 AM [facility] Anion Gap 11 5 - 15 06/25/2024 5:55 AM EST [facility] eGFR >90 >=60 mL/min/1 .73m2 06/25/2024 5:55 AM EST [facility] Comment:The estimated glomer ular [...] EST 06/25/2024 5:26 AM EST Mikey Rivas OFFICE ADMINISTRATION LAB BLOOD ORDER MADELYN Final Result Performing Organization Address City/[facility]/ZIP Co de Phone Number [facility] [address] [place] [id number], [place] * (ABNORMAL) Smear Review (06/24/2024 3:08 AM EST) Only the most recent of4 resultswithin the time period is included. Platelet Estimate Increase d(A) Adequate 06/24/2024 4:13 AM EST [facility] RBC Morphology Present( A) Normal, No clinically significant RBC morphology present (ICSH guidelines, 2015). 06/24/2024 4:13 AM EST [facility] Macrocytes 2+(A) Not Present 06/24/2024 4:13 AM EST [facility] Blood Structure of peripheral vein / Unknown Venipuncture / Unknown 06/24/2024 3:08 AM EST 06/24/2024 3:35 AM EST us Domonique Desai OFFICE ADMINISTRATION LAB BLOOD ORDERABLES Final R esult Performing Organization Address [facility] Co de Phone Number [facility] [address] [place] [phone], [place] * (ABNORMAL) CBC (06/24/2024 3:08 AM EST) Only the most recent of5 resultswithin the time period is included. WBC 7.4 3.8 - 10.8 10*3/uL 06/24/2024 4:13 AM EST [facility] RBC 3.84(L) 4.20 - 5.80 10*6/uL 06/24/2024 4:13 AM EST [facility] Hemoglobin 14.4 13.2 - 17.1 g/dL 06/24/2024 4:13 AM EST [facility] Hematocrit 39.7 38.5 - 50.0 % 06/24/2024 4:13 AM EST [facility] MCV 103.4(H) 80.0 - 100.0 fL 06/24/2024 4:13 AM EST [facility] MCH 37.5(H) 27.0 - 33.0 pg 06/24/2024 4:13 AM EST [facility] MCHC 36.3(H) 32.0 - 36.0 g/dL 06/24/2024 4:13 AM EST [facility] RDW 11.7 11.0 - 15.0 % 06/24/2024 4:13 AM EST [facility] Platelets 546(H) 140 - 400 10*3/uL 06/24/2024 4:13 AM EST [facility] MPV 8.8 7.5 - 12.5 fL 06/24/2024 4:13 AM EST [facility] Comment:A smear review has b een added. Clinician review and interpretation will be needed once the report is final. Blood Structure of peripheral vein / Unknown Venipuncture / Unknown 06/24/2024 3:08 AM EST 06/24/2024 3:35 AM EST Domonique Desai OFFICE ADMINISTRATION LAB BLOOD ORDERABLES Final R esult [facility] [address] [place] [address], * Phosphorus (06/24/2024 3:08 AM EST) Only the most recent of9 resultswithin the time period is included. Phosphorus 3.4 2.5 - 4.5 mg/dL 06/24/2024 4:20 AM EST [facility] Blood Structure of peripheral vein / Unknown Venipuncture / Unknown 06/24/2024 3:08 AM EST 06/24/2024 3:35 AM EST Domonique Desai OFFICE ADMINISTRATION LAB BLOOD ORDERABLES Final R esult Performing Organization Address [facility] Co de Phone Number [facility] [address] [place] [address], [place] * (ABNORMAL) POCT Glucose, interfaced (06/23/2024 11:19 AM EST) Only the most recent of17 resultswithin the time period is included. Glucose, POCT 167(H) 70 - 99 mg/dL 06/23/2024 11:20 AM EST [facility] Comment: The feather duster winder has not determined the efficacy of this test in Critically ill patients. ??[facility] defines Critically ill patients for the [...] 9 AM EST 06/23/2024 11:20 AM EST Alberto Rucker DO LAB POCT ORDERABLES - DEVICE Final Result Performing Organization Address [facility] Co de Phone Number [facility] [address] [place] [address], [place] * (ABNORMAL) CBC Auto Differential (06/20/2024 3:35 AM EST) Only the most recent of4 resultswithin the time period is included. WBC 4.1 3.8 - 10.8 10*3/uL 06/20/2024 5:40 AM EST [facility] RBC 3.68(L) 4.20 - 5.80 10*6/uL 06/20/2024 5:40 AM EST [facility] Hemoglobin 13.5 13.2 - 17.1 g/dL 06/20/2024 5:40 AM [facility] Hematocrit 39.4 38.5 - 50.0 % 06/20/2024 5:40 AM [facility] MCV 107.1(H) 80.0 - 100.0 fL 06/20/2024 5:40 AM [facility] MCH 36.7(H) 27.0 - 33.0 pg 06/20/2024 5:40 AM [facility] MCHC 34.3 32.0 - 36.0 g/dL 06/20/2024 5:40 AM [facility] RDW 11.7 11.0 - 15.0 % 06/20/2024 5:40 AM [facility] Platelets 274 140 - 400 10*3/uL 06/20/2024 5:40 AM [facility] MPV 9.4 7.5 - 12.5 fL 06/20/2024 5:40 AM [facility] Neutrophil % 49.9 % 06/20/2024 5:40 AM [facility] Immature Grans % 0.5 0.0 - 0.9 % 06/20/2024 5:40 AM [facility] Lymphocyte % 21.5 % 06/20/2024 5:40 AM [facility] Monocyte % 23.7 % 06/20/2024 5:40 AM [facility] Eosinophil % 3.4 % 06/20/2024 5:40 AM [facility] Basophil % 1.0 % 06/20/2024 5:40 AM [facility] Neutrophil # 2.06 1.50 - 7.80 10*3/uL 06/20/2024 5:40 AM [facility] Immature Grans # <0.03 <=0.03 10*3/uL 06/20/2024 5:40 AM EST [facility] Lymphocyte # 0.90 0.85 - 3.90 10*3/uL 06/20/2024 5:40 AM EST [facility] Monocyte # 1.00(H) 0.20 - 0.95 10*3/uL 06/20/2024 5:40 AM EST [facility] Eosinophil # 0.10 0.02 - 0.50 10*3/uL 06/20/2024 5:40 AM EST [facility] Basophil # <0.03 0.00 - 0.20 10*3/uL 06/20/2024 5:40 AM EST [facility] nRBC % 0.0 /100 WBCs 06/20/2024 5:40 AM EST [facility] nRBC # <0.01 <0.01 10*3/uL 06/20/2024 5:40 AM EST [facility] Blood Structure of peripheral vein / Unknown Venipuncture / Unknown 06/20/2024 3:35 AM EST 06/20/2024 4:12 AM EST us Darrel Blackwell OFFICE ADMINISTRATION LAB BLOOD ORDERABLES Fi nal Result [facility] [address] [place] [address], * (ABNORMAL) Comprehensive metabolic panel (06/20/2024 3:35 AM EST) Only the most recent of2 resultswithin the time period is included. NA 139 135 - 145 mmol/L 06/20/2024 4:47 AM EST [facility] K 4.0 3.5 - 5.3 mmol/L 06/20/2024 4:47 AM EST [facility] Cl 107 98 - 107 mmol/L 06/20/2024 4:47 AM [facility] CO2 23 22 - 32 mmol/L 06/20/2024 4:47 AM [facility] Anion Gap 9 5 - 15 06/20/2024 4:47 AM [facility] Glucose 161(H) 65 - 99 mg/dL 06/20/2024 4:47 AM [facility] Creatinine 0.55(L) 0.60 - 1.30 mg/dL 06/20/2024 4:47 AM [facility] Calcium 8.6 8.6 - 10.5 mg/dL 06/20/2024 4:47 AM [facility] Total Protein 6.8 6.0 - 8.0 g/dL 06/20/2024 4:47 AM [facility] Albumin 3.2(L) 3.5 - 5.2 g/dL 06/20/2024 4:47 AM [facility] Bilirubin, Total 0.2 0.2 - 1.2 mg/dL 06/20/2024 4:47 AM [facility] Alkaline Phosphatase 104 35 - 129 U/L 06/20/2024 4:47 AM [facility] AST 20 10 - 40 U/L 06/20/2024 4:47 AM [facility] ALT 16 10 - 40 U/L 06/20/2024 4:47 AM [facility] BUN 11 7 - 23 mg/dL 06/20/2024 4:47 AM [facility] eGFR >90 >=60 mL/min/1 .73m2 06/20/2024 4:47 AM [facility] Comment:The estimated glomer ular filtration [...] - 4.2 g/dL 06/20/2024 4:47 AM EST [facility] A/G Ratio 0.9(L) 1.5 - 3.0 06/20/2024 4:47 AM EST [facility] Blood Structure of peripheral vein / Unknown Venipuncture / Unknown 06/20/2024 3:35 AM EST 06/20/2024 4:11 AM EST Darrel Blackwell NP LAB BLOOD ORDERABLES Fi nal Result [facility] [address] [place] [address], * (ABNORMAL) Manual Differential (06/19/2024 3:40 AM EST) Neutrophil %, Manual 61 % 06/19/2024 5:22 AM EST [facility] Comment:WBC: vacuolated poly s Lymphocyte %, Manual 17 % 06/19/2024 5:22 AM EST [facility] Monocyte %, Manual 12 % 06/19/2024 5:22 AM EST [facility] Eosinophil %, Manual 5 % 06/19/2024 5:22 AM EST [facility] Basophil %, Manual 1 % 06/19/2024 5:22 AM EST [facility] Reactive Lymphocyte % 4 0 - 6 % 06/19/2024 5:22 AM EST [facility] Total Neutrophil #, Manual 3.48 1.50 - 7.80 10*3/uL 06/19/2024 5:22 AM EST [facility] Total Lymph #, Manual 1.20 0.85 - 3.90 10*3/uL 06/19/2024 5:22 AM EST [facility] Monocyte #, Manual 0.68 0.20 - 0.95 10*3/uL 06/19/2024 5:22 AM EST [facility] Eosinophil #, Manual 0.29 0.02 - 0.50 10*3/uL 06/19/2024 5:22 AM EST [facility] Basophil #, Manual 0.06 0.00 - 0.20 10*3/uL 06/19/2024 5:22 AM EST [facility] Reactive Lymphocytes # 0.23 10*3/uL 06/19/2024 5:22 AM EST [facility] Platelet Estimate Adequate Adequate 06/19/2024 5:22 AM EST [facility] RBC Morphology Present(A) Normal, No clinically significant RBC morphology present (ICSH guidelines, 2015). 06/19/2024 5:22 AM EST [facility] Anisocytosis 2+(A) Not Present 06/19/2024 5:22 AM EST [facility] Macrocytes 2+(A) Not Present 06/19/2024 5:22 AM EST [facility] Total Cells Counted 117 06/19/2024 5:22 AM EST [facility] Blood Structure of peripheral vein / Unknown Venipuncture / Unknown 06/19/2024 3:40 AM EST 06/19/2024 3:48 AM EST us Winston ESTRADA LAB BLOOD ORDERABLES Fi nal Result [facility] [address] [place] [address], [place] * (ABNORMAL) Renal Function Panel (06/19/2024 3:40 AM EST) NA 139 135 - 145 mmol/L 06/19/2024 4:34 AM [facility] K 4.1 3.5 - 5.3 mmol/L 06/19/2024 4:34 AM [facility] Cl 105 98 - 107 mmol/L 06/19/2024 4:34 AM [facility] CO2 21(L) 22 - 32 mmol/L 06/19/2024 4:34 AM [facility] Anion Gap 13 5 - 15 06/19/2024 4:34 AM [facility] Glucose 161(H) 65 - 99 mg/dL 06/19/2024 4:34 AM [facility] BUN 9 7 - 23 mg/dL 06/19/2024 4:34 AM [facility] Creatinine 0.61 0.60 - 1.30 mg/dL 06/19/2024 4:34 AM [facility] Calcium 8.6 8.6 - 10.5 mg/dL 06/19/2024 4:34 AM [facility] Phosphorus 3.8 2.5 - 4.5 mg/dL 06/19/2024 4:34 AM [facility] Albumin 3.3(L) 3.5 - 5.2 g/dL 06/19/2024 4:34 AM [facility] eGFR >90 >=60 mL/min/1. 73m2 06/19/2024 4:34 AM [facility] Comment:The estimated glomer ular filtration [...] EST us Winston ESTRADA LAB BLOOD ORDERABLES nal Result [facility] [address] [place] [address], [place] * (ABNORMAL) POCT I-STAT Venous Blood [...] - 29 mmol/L 06/17/2024 7:57 AM EST [facility] Saturated O2, POCT 79(H) 70 - 75 % 06/17/2024 7:57 AM EST [facility] FIO2, POCT 30 % 06/17/2024 7:57 AM EST [facility] Patient Temp, POCT 38.1 degrees 06/17/2024 7:57 AM EST [facility] Isaias's Test, POCT N/A 06/17/2024 7:57 AM EST [facility] Blood 06/17/2024 7:55 AM EST 06/17/2024 7:57 AM EST Jeison Hogue MD LAB POCT ORDERABLES - DEVICE Fin al Result Performing Organization Address City/[facility]/ZIP Co de Phone Number [facility] [address] [place] [address], [place] * Triglyceride (06/17/2024 7:52 AM EST) Triglycerides 69 <=149 mg/dL 06/17/2024 12:32 PM EST [facility] Blood Structure of peripheral vein / Unknown Venipuncture / Unknown 06/17/2024 7:52 AM EST 06/17/2024 7:55 AM EST Mikey Rivas NP LAB BLOOD ORDER MADELYN Final Result Performing Organization Address City/[facility]/ZIP Co de Phone Number [facility] [address] [place] [address], [place] * (ABNORMAL) Lipase (06/17/2024 7:52 AM EST) Only the most recent of2 resultswithin the time period is included. Lipase 150(H) 13 - 60 U/L 06/17/2024 12:32 PM EST [facility] Blood Structure of peripheral vein / Unknown Venipuncture / Unknown 06/17/2024 7:52 AM EST 06/17/2024 7:55 AM EST Mikey Iraj Merritt-Avila OFFICE ADMINISTRATION LAB BLOOD ORDER MADELYN Final Result [facility] [address] [place] [address], [place] * (ABNORMAL) Urinalysis (Urethral Catheter) w/Reflex to Microscopic (Hold Culture). (06/16/2024 6:25 PM EST) Color, Urine Dark Yellow Colorless, Light Yellow, Yellow, Dark Yellow 06/16/2024 7:12 PM EST [facility] Clarity, Urine Clear Clear 06/16/2024 7:12 PM EST [facility] Specific [place], Urine 1.028 1.005 - 1.030 06/16/2024 7:12 PM EST [facility] pH, Urine 5.0 4.6 - 8.0 06/16/2024 7:12 PM EST [facility] Protein, Urine 1+(A) Negative 06/16/2024 7:12 PM EST [facility] Glucose, Urine Negative Negative 06/16/2024 7:12 PM EST [facility] Ketones, Urine Negative Negative 06/16/2024 7:12 PM EST [facility] Bilirubin, Urine Negative Negative 06/16/2024 7:12 PM EST [facility] Blood, Urine Negative Negative 06/16/2024 7:12 PM EST [facility] Nitrite, Urine Negative Negative 06/16/2024 7:12 PM EST [facility] Urobilinogen, Urine Normal Normal 06/16/2024 7:12 PM EST [facility] Leukocyte Esterase, Urine 1+(A) Negative 06/16/2024 7:12 PM EST [facility] WBC, Urine 16(H) 0 - 2 /HPF 06/16/2024 7:12 PM EST [facility] RBC, Urine 7(H) 0 - 2 /HPF 06/16/2024 7:12 PM EST [facility] Hyaline Casts, Urine 0 0 - 2 /LPF 06/16/2024 7:12 PM EST [facility] Squamous Epithelial Cells, Urine <1 /HPF 06/16/2024 7:12 PM EST [facility] Bacteria, Urine Rare(A) None /HPF /HPF 06/16/2024 7:12 PM EST [facility] Mucus, Urine Rare /LPF 06/16/2024 7:12 PM EST [facility] Urine Indwelling urinary catheter / Unknown Non-Blood Collection / Unknown 06/16/2024 6:25 PM EST 06/16/2024 6:45 PM EST Mikey Rivas OFFICE ADMINISTRATION LAB URINE ORDER MADELYN Final Result Performing Organization Address City/[facility] Co de Phone Number [facility] [address] [place] [address], [place] * Urine Culture (Urethral Catheter), HOLD (06/16/2024 6:25 PM EST) Pathologist [facility] Extra Tube Hold for add-ons. 06/16/2024 11:05 PM EST [facility] Comment:Auto resulted. Urine Indwelling urinary catheter / Unknown Non-Blood Collection / Unknown 06/16/2024 6:25 PM EST 06/16/2024 6:45 PM EST Mikey Rivas OFFICE ADMINISTRATION LAB URINE ORDER MADELYN Final Result Performing Organization Address City/[facility]/ZIP Co de Phone Number [facility] [address] [place] [address], [place] * (ABNORMAL) Betahydroxybutyrate (06/16/2024 10:28 AM EST) Beta-Hydroxybu tyrate 1.00(H) <=0.27 mmol/L 06/16/2024 12:27 PM EST [facility] Blood Structure of peripheral vein / Unknown Venipuncture / Unknown 06/16/2024 10:28 AM EST 06/16/2024 10:28 AM EST Mikey Rivas OFFICE ADMINISTRATION LAB BLOOD ORDER MADELYN Final Result Performing Organization Address [facility] Co de Phone Number [facility] [address] [place] [address], [place] * Creatine Kinase (06/16/2024 10:28 AM EST) Only the most recent of2 resultswithin the time period is included. Pathologist [facility] CK [id number] - 348 U/L 06/16/2024 11:00 AM EST [facility] Blood Structure of peripheral vein / Unknown Venipuncture / Unknown 06/16/2024 10:28 AM EST 06/16/2024 10:28 AM EST Mikey Rivas OFFICE ADMINISTRATION LAB BLOOD ORDER MADELYN Final Result Performing Organization Address [facility] de Phone Number [facility] [address] [place] [address], * (ABNORMAL) Methadone Screen w/Confirmation, Urine (06/16/2024 9:37 AM EST) Pathologist [facility] Methadone Metabolite Screen, Urine POSITIVE( A) <100 ng/mL 06/19/2024 6:34 AM EST [employer] EDDP, Urine 1608(H) <100 ng/mL 06/19/2024 6:34 AM EST [employer] Comment: See Note 1 Methadone, Urine 948(H) <100 ng/mL 06/19/2024 6:34 AM EST [employer] Comment: See Note 1 See Note 2 Note 1 This test was developed and its analytical performance characteristics have been determined by [employer]. It has not been cleared or approved [...] interpreting these drug results, please contact a [employer] Toxicology Specialist: [phone] ( ), M-F, 8am-6pm EST. Urine Catheter / Unknown Non-Blood Collection / Unknown 06/16/2024 9:37 AM EST 06/16/2024 9:55 AM EST [facility] - 06/19/2024 6:34 AM EST [facility] Received Date: Mikey Rivas OFFICE ADMINISTRATION LAB URINE ORDER MADELYN Final Result HOSPITAL [facility] [address] [facility] 3rd Floor, [place] [address], [employer] [facility] [address] [facility] 3rd Floor, [place] [address], * Morphine and Codeine Confirmation, Urine (06/16/2024 9:37 AM EST) Codeine, Urine NEGATIVE <50 ng/mL 06/19/2024 3:19 PM EST [employer] Comment: See Note 1 Hydrocodone, Urine NEGATIVE <50 ng/mL 06/19/2024 3:19 PM EST [employer] Comment: See Note 1 Hydromorphone, Urine NEGATIVE <50 ng/mL 06/19/2024 3:19 PM EST [employer] Comment: See Note 1 Morphine, Urine NEGATIVE <50 ng/mL 3:19 PM EST [employer] Comment: See Note 1 Norhydrocodone, Urine NEGATIVE <50 ng/mL 06/19/2024 3:19 PM EST [employer] Comment: See Note 1 See Note 2 Note 1 This test was developed and its analytical performance characteristics have been determined by [employer]. It has not been cleared or approved [...] interpreting these drug results, please contact a [employer] Toxicology Specialist: [phone] ( ), M-F, 8am-6pm EST. Urine Catheter / Unknown Non-Blood Collection / Unknown 06/16/2024 9:37 AM EST 06/16/2024 9:55 AM EST Narrative [facility] 06/19/2024 3:19 PM EST [facility] Received Date:[id number] Mikey Rivas OFFICE ADMINISTRATION LAB URINE ORDER MADELYN Final Result Performing Organization Address City/[facility]/ZIP Co de Phone Number [facility] [place] [address], [place] [address], [employer] [address], [place] [address], * Comprehensive Drug Panel, Urine (06/16/2024 9:37 AM EST) [facility] Comprehensive Drug Screen Urine DRUGS DETECTED 06/16/2024 4:36 PM EST [employer] [facility] Comment: DIPHENHYDRAMINE PHENOBARBITAL METHADONE AND METABOLITE Urine Catheter / Unknown Non-Blood Collection / Unknown 06/16/2024 9:37 AM EST 06/16/2024 9:55 AM EST Narrative [facility] [place] - 06/16/2024 4:36 PM EST [facility] Received Date:[id number] Cj Paz OFFICE ADMINISTRATION LAB URINE ORDERABLES Final Resul t Performing Organization Address City/[facility]/ZIP Co de Phone Number [facility] [place] [address], [place] [address], [place] [phone] [employer] [facility] [address] [place] [address], [place] [address], * (ABNORMAL) Barbiturate Screen, Urine (06/16/2024 9:37 AM EST) Barbiturate Screen, Urine Presumptive Positive(A) Negative 06/16/2024 1:30 PM EST [facility] Comment: Detection limit of [...] EST 06/16/2024 9:55 AM EST Mikey Rivas OFFICE ADMINISTRATION LAB URINE ORDER MADELYN Final Result [facility] [address] [place] [address], * Propoxyphene Screen, Urine (06/16/2024 9:37 AM EST) Propoxyphene Screen, Urine NEGATIVE <300 ng/mL 06/17/2024 5:52 AM EST [employer] Comment: See Note 2 Note 1 This drug testing is for medical treatment only. ?? Analysis was performed as non-forensic testing and these results should be used only by healthcare providers to render diagnosis or treatment, or to monitor progress of medical conditions. For assistance with interpreting these drug results, please contact a [employer] Toxicology Specialist: [phone] ( ), M-F, 8am-6pm EST. Note [...] interpreting these drug results, please contact a [employer] Toxicology Specialist: [phone] ( ), M-F, 8am-6pm EST. Urine Catheter / Unknown Non-Blood Collection / Unknown 06/16/2024 9:37 AM EST 06/16/2024 9:55 AM EST Narrative [facility] [place] - 06/17/2024 5:52 AM EST [facility] Received Date: Mikey Rivas OFFICE ADMINISTRATION LAB URINE ORDER MADELYN Final Result Performing Organization Address City/[facility]/ZIP Co de Phone Number [facility] [place] [address] [facility] 3[address], [place] [address], [place] [phone] [facility] [address], [place] [address], [place] [phone] * Marijuana Qualitative Screen, Urine (06/16/2024 9:37 AM EST) Marijuana Screen, Urine Negative Negative 06/16/2024 1:30 PM EST [facility] Comment: Detection limit of 50 ng/mL of 38-Zpt-ezrpu-9-EJE-4-carboxylic acid. Drug results are to be used only for medical purposes. ??Unconfirmed screening results must not be used for non-medical purposes. Urine Catheter / Unknown Non-Blood Collection / Unknown 06/16/2024 9:37 AM EST 06/16/2024 9:55 AM EST Mikey Rivas OFFICE ADMINISTRATION LAB URINE ORDER MADELYN Final Result Performing Organization Address City/[facility]/ZIP Co de Phone Number [facility] [address] [place] [address], [place] * Osmolality Gap (06/16/2024 9:37 AM EST) NA 137 135 - 145 mmol/L 06/16/2024 11:08 AM EST [facility] BUN 10 7 - 23 mg/dL 06/16/2024 11:08 AM EST [facility] Glucose 95 65 - 99 mg/dL 06/16/2024 11:08 AM EST [facility] Osmolality 282 279 - 295 mOsm/kg 06/16/2024 11:08 AM EST [facility] Osmolality Calculated 283 mOSM/kg 06/16/2024 11:08 AM EST [facility] Osmolality Gap <10 <10 mOSM/kg 06/16/2024 11:08 AM EST [facility] Blood Structure of peripheral vein / Unknown Venipuncture / Unknown 06/16/2024 9:37 AM EST 06/16/2024 9:54 AM EST Cj Paz OFFICE ADMINISTRATION LAB BLOOD ORDERABLES Final Resul t [facility] [address] [place] [address], [place] * Phencyclidine (PCP) Screen, Urine (06/16/2024 9:37 AM EST) Phencyclidine Screen, Urine NEGATIVE <25 ng/mL 06/17/2024 5:52 AM EST [facility] Comment: See Note 2 Urine Catheter / Unknown Non-Blood Collection / Unknown 06/16/2024 9:37 AM EST 06/16/2024 9:55 AM EST Narrative [facility] 06/17/2024 5:52 AM EST [facility] Received Date: Mikey Rivas OFFICE ADMINISTRATION LAB URINE ORDER MADELYN Final Result [facility] [address] [facility] [address], [place] [address], [facility] [address] [facility] 3rd [address], [place] [address], * Cocaine Qualitative, Urine (06/16/2024 9:37 AM EST) Cocaine Metabolite Screen, Urine Negative Negative 06/16/2024 1:30 PM EST [facility] Comment: Detection limit of 300 ng/mL of Benzoylecgonine. Drug results are to be used only for medical purposes. ??Unconfirmed screening results must not be used for non-medical purposes. Urine Catheter / Unknown Non-Blood Collection / Unknown 06/16/2024 9:37 AM EST 06/16/2024 9:55 AM EST Mikey Rivas OFFICE ADMINISTRATION LAB URINE ORDER MADELYN Final Result Performing Organization Address [facility] Co de Phone Number [facility] [address] [place] [address], * (ABNORMAL) Benzodiazepine Qualitative Screen, Urine (06/16/2024 9:37 AM EST) Benzodiazepine Screen, Urine Presumptive Positive(A) Negative 06/16/2024 1:30 PM EST [facility] Comment: Detection limit of 200 ng/mL of Nordiazepam. Drug results are to be used only for medical purposes. ??Unconfirmed screening results must not be used for non-medical purposes. Urine Catheter / Unknown Non-Blood Collection / Unknown 06/16/2024 9:37 AM EST 06/16/2024 9:55 AM EST Mikey Rivas OFFICE ADMINISTRATION LAB URINE ORDER MADELYN Final Result Performing Organization Address [facility]/ZIP Co de Phone Number [facility] [address] [place] [address], * Amphetamine Qualitative, Urine (06/16/2024 9:37 AM EST) Amphetamine Screen, Urine Negative Negative 06/16/2024 1:30 PM EST [facility] Comment: Detection limit of 1000 ng/mL of d-Methamphetamine. Drug results are to be used only for medical purposes. ??Unconfirmed screening results must not be used for non-medical purposes. Urine Catheter / Unknown Non-Blood Collection / Unknown 06/16/2024 9:37 AM EST 06/16/2024 9:55 AM EST Mikey Rivas OFFICE ADMINISTRATION LAB URINE ORDER MADELYN Final Result Performing Organization Address [facility]/ZIP Co de Phone Number [facility] [address] [place] [address], [place] * Osmolality, Serum (06/16/2024 9:37 AM EST) Osmolality 280 279 - 295 mOsm/kg 06/16/2024 10:46 AM EST [facility] Blood Structure of peripheral vein / Unknown Venipuncture / Unknown 06/16/2024 9:37 AM EST 06/16/2024 9:54 AM EST Cj Paz NP LAB BLOOD ORDERABLES Final Resul t Performing Organization Address [facility] de Phone Number [facility] [address] [place] [address], [place] * Acetaminophen Level (06/16/2024 9:37 AM EST) Acetaminophen <5.0 <10.0 ug/mL 06/16/2024 10:41 AM EST [facility] Comment:Expected Range with Therapeutic Dosin-30 ug/mL Blood Structure of peripheral vein / Unknown Venipuncture / Unknown 06/16/2024 9:37 AM EST 06/16/2024 9:54 AM EST us Cj Paz NP LAB BLOOD ORDERABLES Final Resul t Performing Organization Address City/[facility] Co de Phone Number [facility] [address] [place] [address], * Salicylate Level (06/16/2024 9:37 AM EST) Salicylate <1 <3 mg/dL 06/16/2024 10:41 AM EST [facility] Comment:Expected Range with Therapeutic Dosin-30 mg/dL Blood Structure of peripheral vein / Unknown Venipuncture / Unknown 06/16/2024 9:37 AM EST 06/16/2024 9:54 AM EST us Cj Paz OFFICE ADMINISTRATION LAB BLOOD ORDERABLES Final Resul t [facility] [address] [place] [address], * COVID-19, Flu A/B & RSV RNA PCR, Symptomatic (06/16/2024 9:29 AM EST) PCR, SARS CoV-2 RNA Not Detected Not Detected [facility] 06/16/2024 11:18 AM EST [facility] Comment:A [...] Detected [facility] 06/16/2024 11:18 AM EST [facility] Comment:Negative results do not preclude infection and should not be used as the sole basis for diagnosis, treatment or other patient management decisions. Negative results must be combined with clinical observations, patient history, and/or epidemiological information. Flu B RNA PCR Not Detected Not Detected [facility] 06/16/2024 11:18 AM EST [facility] Comment:Negative results do not preclude infection and should not be used as the sole basis for diagnosis, treatment or other patient management decisions. Negative results must be combined with clinical observations, patient history, and/or epidemiological information. RSV RNA PCR Not Detected Not Detected [facility] 06/16/2024 11:18 AM EST [facility] Comment:Negative results do not preclude infection and should not be used as the sole basis for diagnosis, treatment or other patient management decisions. Negative results must be combined with clinical observations, patient history, and/or epidemiological information. Swab (Nares) Non-Blood Collection / Unknown 06/16/2024 9:29 AM EST 06/16/2024 9:54 AM EST Narrative [facility] - 06/16/2024 11:18 AM EST This test was developed, validated and its performance characteristics determined by [facility]. This test has not been cleared or approved by the U.S. Food and Drug Administration (FDA). FDA Policy for Diagnostic Tests for Coronavirus Disease-2019 during the Public Health Emergency issued August 19, 2019, is followed. Cj Paz NP LAB BODY FLUIDS AND STOOLS ORDER MADELYN Final Result [facility] [address] [place] [address], * (ABNORMAL) POCT I-STAT Arterial Blood Gas, interfaced (06/16/2024 9:29 AM EST) Sample Type, POCT Arterial 06/16/2024 9:32 AM EST [facility], POC pH, POCT 7.47(H) 7.35 - 7.45 06/16/2024 9:32 AM EST [facility], POC pCO2, POCT 26.8(L) 35 - 45 mmHg 06/16/2024 9:32 AM EST [facility], POC pO2, POCT 116(H) 80 - 105 mmHg 06/16/2024 9:32 AM EST [facility], POC Base Excess, POCT -4(L) 0 - 3 mmol/L 06/16/2024 9:32 AM EST [facility] HCO3, POCT 19.4(L) 21 - 28 mmol/L 06/16/2024 9:32 AM EST [facility] TCO2, POCT 20(L) 23 - 27 mmol/L 06/16/2024 9:32 AM EST [facility] Saturated O2, POCT 99(H) 95 - 98 % 06/16/2024 9:32 AM EST [facility] FIO2, POCT 50 % 06/16/2024 9:32 AM EST [facility] Tidal Volume, POCT 450 ml 06/16/2024 9:32 AM EST [facility] Isaias's Test, POCT PASS 06/16/2024 9:32 AM EST [facility] Blood 06/16/2024 9:29 AM EST 06/16/2024 9:32 AM EST us Sal Adler MD LAB POCT ORDERABLES - DEVIC E Final Result [facility] [address] [place] [address], * Blood Culture, Peripheral #2 (06/16/2024 9:00 AM EST) Only the most recent of2 resultswithin the time period is included. Culture No growth after 5 days 06/21/2024 1:31 PM EST [facility] Blood Structure of peripheral vein / Unknown Venipuncture / Unknown 06/16/2024 9:00 AM EST 06/16/2024 9:12 AM EST Narrative [facility] 06/21/2024 1:31 PM EST [facility] Received Date: MICRO NUMBER: [id number] SPECIMEN QUALITY: Adequate SOURCE: BLOOD VENOUS, PERIPHERAL STATUS: FINAL COMMENT: Aerobic and anaerobic bottle received. Mikey Rivas NP LAB MICROBIOLOG Y - GENERAL ORDERABLES Final Result [facility] [address] [facility] [address]rd [address], [place] [address], [place] [phone] [facility] [address] [facility] 3rd [address], [place] [address], [place] [phone] * Prolactin (06/16/2024 8:57 AM EST) Prolactin 9.10 4.04 - 15.20 ng/mL 06/16/2024 11:22 AM EST [facility] Blood Structure of peripheral vein / Unknown Venipuncture / Unknown 06/16/2024 8:57 AM EST 06/16/2024 9:12 AM EST Mikey Rivas OFFICE ADMINISTRATION LAB BLOOD ORDER MADELYN Final Result Performing Organization Address City/[facility]/ZIP Co de Phone Number [facility] [address] [place] [address], [place] * MRSA/S aureus PCR, Nasal (06/16/2024 8:44 AM EST) Pathologist [facility] MRSA PCR, Nasal NOT DETECTED NOT DETECTED 06/17/2024 3:29 PM EST [employer] [facility] S. aureus PCR, Nasal NOT DETECTED NOT DETECTED 06/17/2024 3:29 PM EST [employer] [facility] Swab Nasal structure / Unknown Non-Blood Collection / Unknown 06/16/2024 8:44 AM EST 06/16/2024 9:12 AM EST Narrative [facility] [place] [place] - 06/17/2024 3:29 PM EST [facility] Received Date:[id number] us Mikey Rivas OFFICE ADMINISTRATION LAB BODY FLUIDS AND STOOLS ORDERABLES Final Result [facility] [address] [facility] [address], [place] [address], [place] [phone] [employer] [employer] [address] [facility] 3rd [address], [place] [address], * (ABNORMAL) Respiratory Culture w/Gram Stain (06/16/2024 8:41 AM EST) Culture Growth of normal oropharyngeal yayo 06/18/2024 2:14 PM EST [facility] Gram Stain Many White Blood Cells Seen(A) 06/18/2024 2:14 PM EST [facility] Gram Stain No epithelial cells seen(A) 06/18/2024 2:14 PM EST [facility] Gram Stain Few Gram Positive Cocci(A) 06/18/2024 2:14 PM EST [facility] Sputum Sputum / Unknown Non-Blood Collection / Unknown 06/16/2024 8:41 AM EST 06/16/2024 9:11 AM EST Narrative [facility] [place] - 06/18/2024 2:14 PM EST [facility] Received Date: MICRO NUMBER: [id number] SPECIMEN QUALITY: Adequate SOURCE: SPUTUM EXPECTORATED SPUTUM STATUS: FINAL Mikey Rivas NP LAB MICROBIOLOG Y - GENERAL ORDERABLES Final Result [facility] [address] [facility] [address]rd [address], [place] [address], [facility] [address] [facility] [address], [place] [address], * X-Ray Chest 1 View (06/16/2024 8:20 [...] obtain the completed interpretation. ? Workstation ID: [id number] Narrative 06/16/2024 4:00 PM EST COMPARISON: ??One day ago FINDINGS AND Resulting Agency Comment [id number] Procedure Note Sal Goodman MD - 06/16/2024 [...] possible to obtain thecompleted interpretation. Workstation ID: [id number] Betina Gallo OFFICE ADMINISTRATION IMG XR PROCEDURES Final Result * HC EMERGENCY INTUBATION, AK INSERT EMERGENCY ENDOTRACH AIRWAY, AN ETT DUMMY [...] Aurora Beckett MD Anesthesiologist: Aurora Beckett MD NETWORK SUPPORT SPECIALIST: Rut Petersen CRNA Performed: anesthesiologist I was [...] - 1.9 mmol/L 06/16/2024 8:06 AM EST [facility] Comment: Sepsis Screening: Initial Lactate Level >2.0 mmol/L - Repeat Lactate Level within 3 hours. Initial Lactate Level >4.0 mmol/L - Repeat Lactate Level within 3 hours, Initiate Septic Shock Protocol. Blood Structure of peripheral vein / Unknown Venipuncture / Unknown 06/16/2024 7:34 AM EST 06/16/2024 7:36 AM EST Mikey Rivas OFFICE ADMINISTRATION LAB BLOOD ORDER MADELYN Final Result [facility] [address] [place] [address], * Protime-INR (06/16/2024 3:42 AM EST) PT 11.0 9.6 - 12.4 Seconds 06/16/2024 4:19 AM EST [facility] INR 1.0 0.9 - 1.1 06/16/2024 4:19 AM EST [facility] Comment:The optimal therapeu tic INR range for patients treated with Vitamin K antagonists (VKAS, e.g., Warfarin) is 2.0 to 3.5. Discuss the desired range with your doctor/care team. Blood Structure of peripheral vein / Unknown Venipuncture / Unknown 06/16/2024 3:42 AM EST 06/16/2024 3:46 AM EST us Marci [facility] LAB BLOOD ORDERABLES Final Res ult [facility] [address] [place] [address], * (ABNORMAL) Hepatic Function Panel (06/16/2024 3:42 AM EST) Total Protein 6.9 6.0 - 8.0 g/dL 06/16/2024 4:27 AM EST [facility] Albumin 3.7 3.5 - 5.2 g/dL 06/16/2024 4:27 AM EST [facility] Globulin, Total 3.2 2.1 - 4.2 g/dL 06/16/2024 4:27 AM EST [facility] Bilirubin, Total 1.2 0.2 - 1.2 mg/dL 06/16/2024 4:27 AM EST [facility] Bilirubin, Direct 0.5(H) <=0.4 mg/dL 06/16/2024 4:27 AM EST [facility] Alkaline Phosphatase 112 35 - 129 U/L 06/16/2024 4:27 AM EST [facility] AST 47(H) 10 - 40 U/L 06/16/2024 4:27 AM EST [facility] ALT 43(H) 10 - 40 U/L 06/16/2024 4:27 AM EST [facility] Bilirubin, Indirect 0.70 <=0.70 mg/dL 06/16/2024 4:27 AM EST [facility] A/G Ratio 1.2(L) 1.5 - 3.0 06/16/2024 4:27 AM EST [facility] Blood Structure of peripheral vein / Unknown Venipuncture / Unknown 06/16/2024 3:42 AM EST 06/16/2024 3:46 AM EST us Marci [facility] LAB BLOOD ORDERABLES Final Res ult [facility] [address] [place] [address], * ECG 12 lead (06/15/2024 5:49 PM EST) Only the most recent of2 resultswithin the time period is included. Ventricular Rate EKG 97 BPM MUSE EKG Atrial Rate 97 BPM MUSE EKG AK Interval 136 ms MUSE EKG QRS Interval 72 ms MUSE EKG QT Interval 390 ms MUSE EKG QTC Interval 495 ms MUSE EKG P [place] 67 degrees MUSE EKG R [place] 26 degrees MUSE EKG T Wave [place] -26 degrees MUSE EKG 06/15/2024 5:49 PM EST 06/16/2024 5:47 PM EST Impressions MUSE EKG - 06/16/2024 5:47 PM EST NORMAL SINUS RHYTHM ST-T ABNORMALITIES CONSIDER ISCHEMIA PROLONGED QTC ABNORMAL ECG Confirmed by Heath Williamson ([id number]) on 06/16/2024 5:47:05 PM us Quita Augustine PA ECG ORDERABLES Final Res ult MUSE EKG * Troponin T, High Sensitivity (06/15/2024 5:33 PM EST) Troponin T High Sensitivity <6 <=21 ng/L 06/15/2024 6:30 PM EST [facility] Comment: 3+ hemolysis; the result may be Falsely Decreased. Cr-Bwoziter-G level of 52 ng/L or higher at [...] be evaluated in line with the 4th [place] Definition of AMI. Troponin baseline and serial [...] [facility] LAB BLOOD ORDERABLES Rachel l Result [facility] [address] [place] [address], [place] * CT Head WO Contrast (06/15/2024 [...] obtain the completed interpretation. ? Workstation ID: [id number] Up-to-date CT equipment and radiation dose reduction [...] paranasal sinuses are well-aerated. Resulting Agency Comment [id number] Procedure Note Joseph Corona - 06/15/2024 EXAMINATION: [...] possible to obtain thecompleted interpretation. Workstation ID: [id number] Up-to-date CT equipment and radiation dose reduction techniques wereemployed. CTDIvol: 48.0 mGy. DLP: 868 mGy-cm. 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
--- OUTSIDE RECORDS SUMMARY | 2024-07-29 15:19 | XMS_ITS | Clinical Summary ---
Author Organization [facility] Address [address] [place] [address] Care Team Providers Care Rubber Compounder Formulator Name Role Phone Patient, Has No Pcp [...] Description 06/16/2024 8:47 AM EST Anesthesia Event [place] [id number] [facility] [address] [place] [address] Aurora Beckett MD 06/15/2024 12:22 AM EST - 06/25/2024 6:18 PM EST Hospital Encounter [place] [address] [facility] [address] [place] [address] Kiran, Vincent L., MD [place], Anaya A., DO Gabe Lorenzo MD Girgenrath, Tanya, MD Gallant, Joseph J., MD Jones, Evan W, MD Wong, William W., DO Delirium tremens (HCC) (Primary Dx); Hypomagnesemia; Hypokalemia; Toxic metabolic encephalopathy; Alcohol withdrawal syndrome with complication (HCC) Discharge Disposition: Home or Self Care () from Last 3 Months Immunizations Immunization Administration Dates Next Due INFLUENZA, [...] HIV Screening 1986 Hepatitis C Screening 1986 Varicella Vaccines (1 of 2 - 13+ 2-dose series) 1999 Hepatitis B Vaccines (1 of 3 - 19+ 3-dose series) 2005 Pneumococcal Vaccine: Pediat fabiana (0-5 Years) and At-Risk Patients (6-50 Years) (1 of 2 - PCV) 2005 COVID-19 Vaccine ( - season) 2024, 04/02/2021 Influenza Vaccine (#1) 2024 Alcohol/Substance Use Screening 06/05/2024 Depression Screening and Follow-Up 06/05/2024 Social Drivers of Health Annual Screening 06/05/2024 DTaP,Tdap,and Td Vaccines (2 - Td or Tdap) 05/18/2030 05/18/2020 RSV Vaccine (60+ years old a nd patients) (1 - 1-dose 75+ series) 2061 Procedures * Due to [place] state law, this organization might not be [...] DUMMY PERFORMABLE Routine 025 8:15 AM EST [place] [facility] [employer] Routine 06/16/2024 8:15 [...] Last 3 Months Results * Due to [place] state law, this organization might not be sharing negative HIV tests. * Magnesium (06/25/2024 4:53 AM EST) Only the most recent of14 resultswithin the time period is included. MG 2.0 1.6 - 2.4 mg/dL 06/25/2024 5:55 AM EST [facility] Blood Structure of peripheral vein / Unknown Venipuncture / Unknown 06/25/2024 4:53 AM EST 06/25/2024 5:26 AM EST Mikey Rivas BOTTLE MACHINE OPERATOR LAB BLOOD ORDER MADELYN Final Result [facility] [address] [place] [address], * (ABNORMAL) Basic metabolic panel (06/25/2024 4:53 AM EST) Only the most recent of15 resultswithin the time period is included. Pathologist [facility] NA 137 135 - 145 mmol/L 06/25/2024 5:55 AM EST [facility] K 3.6 3.5 - 5.3 mmol/L 06/25/2024 5:55 AM EST [facility] Cl 105 98 - 107 mmol/L 06/25/2024 5:55 AM EST [facility] CO2 21(L) 22 - 32 mmol/L 06/25/2024 5:55 AM EST [facility] BUN 8 7 - 23 mg/dL 06/25/2024 5:55 AM EST [facility] Creatinine 0.59(L) 0.60 - 1.30 mg/dL 06/25/2024 5:55 AM EST [facility] Glucose 103(H) 65 - 99 mg/dL 06/25/2024 5:55 AM EST [facility] Calcium 8.8 8.6 - 10.5 mg/dL 06/25/2024 5:55 AM EST [facility] Anion Gap 11 5 - 15 06/25/2024 5:55 AM EST [facility] eGFR >90 >=60 mL/min/1 .73m2 06/25/2024 5:55 AM EST [facility] Comment:The estimated glomer ular [...] EST 06/25/2024 5:26 AM EST Mikey Rivas BOTTLE MACHINE OPERATOR LAB BLOOD ORDER MADELYN Final Result Performing Organization Address City/[facility]/ZIP Co de Phone Number [facility] [address] [place] [phone], * (ABNORMAL) Smear Review (06/24/2024 3:08 AM EST) Only the most recent of4 resultswithin the time period is included. Platelet Estimate Increase d(A) Adequate 06/24/2024 4:13 AM EST [facility] RBC Morphology Present( A) Normal, No clinically significant RBC morphology present (ICSH guidelines, 2015). 06/24/2024 4:13 AM EST [facility] Macrocytes 2+(A) Not Present 06/24/2024 4:13 AM EST [facility] Blood Structure of peripheral vein / Unknown Venipuncture / Unknown 06/24/2024 3:08 AM EST 06/24/2024 3:35 AM EST Domonique Desai BOTTLE MACHINE OPERATOR LAB BLOOD ORDERABLES Final R esult [facility] [address] [place] [address], [place] * (ABNORMAL) CBC (06/24/2024 3:08 AM EST) Only the most recent of5 resultswithin the time period is included. WBC 7.4 3.8 - 10.8 10*3/uL 06/24/2024 4:13 AM EST [facility] RBC 3.84(L) 4.20 - 5.80 10*6/uL 06/24/2024 4:13 AM EST [facility] Hemoglobin 14.4 13.2 - 17.1 g/dL 06/24/2024 4:13 AM EST [facility] Hematocrit 39.7 38.5 - 50.0 % 06/24/2024 4:13 AM EST [facility] MCV 103.4(H) 80.0 - 100.0 fL 06/24/2024 4:13 AM EST [facility] MCH 37.5(H) 27.0 - 33.0 pg 06/24/2024 4:13 AM EST [facility] MCHC 36.3(H) 32.0 - 36.0 g/dL 06/24/2024 4:13 AM EST [facility] RDW 11.7 11.0 - 15.0 % 06/24/2024 4:13 AM EST [facility] Platelets 546(H) 140 - 400 10*3/uL 06/24/2024 4:13 AM EST [facility] MPV 8.8 7.5 - 12.5 fL 06/24/2024 4:13 AM EST [facility] Comment:A smear review has b een added. Clinician review and interpretation will be needed once the report is final. Blood Structure of peripheral vein / Unknown Venipuncture / Unknown 06/24/2024 3:08 AM EST 06/24/2024 3:35 AM EST Domonique Desai BOTTLE MACHINE OPERATOR LAB BLOOD ORDERABLES Final R [facility] Performing Organization Address [facility] de Phone Number [facility] [address] [place] [phone], [place] * Phosphorus (06/24/2024 3:08 AM EST) Only the most recent of9 resultswithin the time period is included. Phosphorus 3.4 2.5 - 4.5 mg/dL 06/24/2024 4:20 AM EST [facility] Blood Structure of peripheral vein / Unknown Venipuncture / Unknown 06/24/2024 3:08 AM EST 06/24/2024 3:35 AM EST Domonique Desai LAB BLOOD ORDERABLES Final [facility] Performing Organization Address [facility] de Phone Number [facility] [address] [place] [phone], [place] * (ABNORMAL) POCT Glucose, interfaced (06/23/2024 11:19 AM EST) Only the most recent of17 resultswithin the time period is included. Glucose, POCT 167(H) 70 - 99 mg/dL 06/23/2024 11:20 AM EST [facility] Comment: The fabrication engineer has not determined the efficacy of this test in Critically ill patients. ??[facility] defines Critically ill patients for the [...] LAB POCT ORDERABLES - DEVICE Final Result [facility] [address] [place] [address], [place] * (ABNORMAL) CBC Auto Differential (06/20/2024 3:35 AM EST) Only the most recent of4 resultswithin the time period is included. WBC 4.1 3.8 - 10.8 10*3/uL 06/20/2024 5:40 AM EST [facility] RBC 3.68(L) 4.20 - 5.80 10*6/uL 06/20/2024 5:40 AM EST [facility] Hemoglobin 13.5 13.2 - 17.1 g/dL 06/20/2024 5:40 AM EST [facility] Hematocrit 39.4 38.5 - 50.0 % 06/20/2024 5:40 AM EST [facility] MCV 107.1(H) 80.0 - 100.0 fL 06/20/2024 5:40 AM EST [facility] MCH 36.7(H) 27.0 - 33.0 pg 06/20/2024 5:40 AM EST [facility] MCHC 34.3 32.0 - 36.0 g/dL 06/20/2024 5:40 AM EST [facility] RDW 11.7 11.0 - 15.0 % 06/20/2024 5:40 AM EST [facility] Platelets 274 140 - 400 10*3/uL 06/20/2024 5:40 AM EST [facility] MPV 9.4 7.5 - 12.5 fL 06/20/2024 5:40 AM EST [facility] Neutrophil % 49.9 % 06/20/2024 5:40 AM [facility] Immature Grans % 0.5 0.0 - 0.9 % 06/20/2024 5:40 AM [facility] Lymphocyte % 21.5 % 06/20/2024 5:40 AM [facility] Monocyte % 23.7 % 06/20/2024 5:40 AM [facility] Eosinophil % 3.4 % 06/20/2024 5:40 AM [facility] Basophil % 1.0 % 06/20/2024 5:40 AM [facility] Neutrophil # 2.06 1.50 - 7.80 10*3/uL 06/20/2024 5:40 AM [facility] Immature Grans # <0.03 <=0.03 10*3/uL 06/20/2024 5:40 AM [facility] Lymphocyte # 0.90 0.85 - 3.90 10*3/uL 06/20/2024 5:40 AM [facility] Monocyte # 1.00(H) 0.20 - 0.95 10*3/uL 06/20/2024 5:40 AM [facility] Eosinophil # 0.10 0.02 - 0.50 10*3/uL 06/20/2024 5:40 AM [facility] Basophil # <0.03 0.00 - 0.20 10*3/uL 06/20/2024 5:40 AM [facility] nRBC % 0.0 /100 WBCs 06/20/2024 5:40 AM [facility] nRBC # <0.01 <0.01 10*3/uL 06/20/2024 5:40 AM [facility] Blood Structure of peripheral vein / Unknown Venipuncture / Unknown 06/20/2024 3:35 AM EST 06/20/2024 4:12 AM EST Darrel Blackwell NP LAB BLOOD ORDERABLES Fi nal Result [facility] [address] [place] [address], [place] * (ABNORMAL) Comprehensive metabolic panel (06/20/2024 3:35 AM EST) Only the most recent of2 resultswithin the time period is included. NA 139 135 - 145 mmol/L 06/20/2024 4:47 AM EST [facility] K 4.0 3.5 - 5.3 mmol/L 06/20/2024 4:47 AM EST [facility] Cl 107 98 - 107 mmol/L 06/20/2024 4:47 AM EST [facility] CO2 23 22 - 32 mmol/L 06/20/2024 4:47 AM EST [facility] Anion Gap 9 5 - 15 06/20/2024 4:47 AM EST [facility] Glucose 161(H) 65 - 99 mg/dL 06/20/2024 4:47 AM EST [facility] Creatinine 0.55(L) 0.60 - 1.30 mg/dL 06/20/2024 4:47 AM EST [facility] Calcium 8.6 8.6 - 10.5 mg/dL 06/20/2024 4:47 AM EST [facility] Total Protein 6.8 6.0 - 8.0 g/dL 06/20/2024 4:47 AM EST [facility] Albumin 3.2(L) 3.5 - 5.2 g/dL 06/20/2024 4:47 AM EST [facility] Bilirubin, Total 0.2 0.2 - 1.2 mg/dL 06/20/2024 4:47 AM EST [facility] Alkaline Phosphatase 104 35 - 129 U/L 06/20/2024 4:47 AM EST [facility] AST 20 10 - 40 U/L 06/20/2024 4:47 AM EST [facility] ALT 16 10 - 40 U/L 06/20/2024 4:47 AM EST [facility] BUN 11 7 - 23 mg/dL 06/20/2024 4:47 AM EST [facility] eGFR >90 >=60 mL/min/1 .73m2 06/20/2024 4:47 AM EST [facility] Comment:The estimated glomer ular [...] - 4.2 g/dL 06/20/2024 4:47 AM EST [facility] A/G Ratio 0.9(L) 1.5 - 3.0 06/20/2024 4:47 AM EST [facility] Blood Structure of peripheral vein / Unknown Venipuncture / Unknown 06/20/2024 3:35 AM EST 06/20/2024 4:11 AM EST us Darrel Blackwell NP LAB BLOOD ORDERABLES Fi nal Result [facility] [address] [place] [address], [place] * (ABNORMAL) Manual Differential (06/19/2024 3:40 AM EST) Neutrophil %, Manual 61 % 06/19/2024 5:22 AM [facility] Comment:WBC: vacuolated poly s Lymphocyte %, Manual 17 % 06/19/2024 5:22 AM EST [facility] Monocyte %, Manual 12 % 06/19/2024 5:22 AM EST [facility] Eosinophil %, Manual 5 % 06/19/2024 5:22 AM [facility] Basophil %, Manual 1 % 06/19/2024 5:22 AM EST [facility] Reactive Lymphocyte % 4 0 - 6 % 06/19/2024 5:22 AM [facility] Total Neutrophil #, Manual 3.48 1.50 - 7.80 10*3/uL 06/19/2024 5:22 AM [facility] Total Lymph #, Manual 1.20 0.85 - 3.90 10*3/uL 06/19/2024 5:22 AM [facility] Monocyte #, Manual 0.68 0.20 - 0.95 10*3/uL 06/19/2024 5:22 AM [facility] Eosinophil #, Manual 0.29 0.02 - 0.50 10*3/uL 06/19/2024 5:22 AM EST [facility] Basophil #, Manual 0.06 0.00 - 0.20 10*3/uL 06/19/2024 5:22 AM [facility] Reactive Lymphocytes # 0.23 10*3/uL 06/19/2024 5:22 AM [facility] Platelet Estimate Adequate Adequate 06/19/2024 5:22 AM [facility] RBC Morphology Present(A) Normal, No clinically significant RBC morphology present (ICSH guidelines, 2015). 06/19/2024 5:22 AM EST [facility] Anisocytosis 2+(A) Not Present 06/19/2024 5:22 AM EST [facility] Macrocytes 2+(A) Not Present 06/19/2024 5:22 AM EST [facility] Total Cells Counted 117 06/19/2024 5:22 AM EST [facility] Blood Structure of peripheral vein / Unknown Venipuncture / Unknown 06/19/2024 3:40 AM EST 06/19/2024 3:48 AM EST us Winston ESTRADA LAB BLOOD ORDERABLES Fi nal Result [facility] [address] [place] [address], [place] * (ABNORMAL) Renal Function Panel (06/19/2024 3:40 AM EST) NA 139 135 - 145 mmol/L 06/19/2024 4:34 AM EST [facility] K 4.1 3.5 - 5.3 mmol/L 06/19/2024 4:34 AM EST [facility] Cl 105 98 - 107 mmol/L 06/19/2024 4:34 AM EST [facility] CO2 21(L) 22 - 32 mmol/L 06/19/2024 4:34 AM EST [facility] Anion Gap 13 5 - 15 06/19/2024 4:34 AM EST [facility] Glucose 161(H) 65 - 99 mg/dL 06/19/2024 4:34 AM EST [facility] BUN 9 7 - 23 mg/dL 06/19/2024 4:34 AM EST [facility] Creatinine 0.61 0.60 - 1.30 mg/dL 06/19/2024 4:34 AM EST [facility] Calcium 8.6 8.6 - 10.5 mg/dL 06/19/2024 4:34 AM EST [facility] Phosphorus 3.8 2.5 - 4.5 mg/dL 06/19/2024 4:34 AM EST [facility] Albumin 3.3(L) 3.5 - 5.2 g/dL 06/19/2024 4:34 AM EST [facility] eGFR >90 >=60 mL/min/1. 73m2 06/19/2024 4:34 AM EST [facility] Comment:The estimated glomer ular [...] ESTRADA LAB BLOOD ORDERABLES Fi nal Result [facility] [address] [place] [address], * (ABNORMAL) POCT I-STAT Venous Blood Gas, interfaced (06/17/2024 7:55 AM EST) Only the most recent of4 resultswithin the time period is included. Sample Type, POCT Venous 06/17/2024 7:57 AM EST [facility] pH, POCT 7.43(H) 7.31 - 7.41 pH 06/17/2024 7:57 AM EST [facility] pCO2, POCT 33.0(L) 41 - 51 mm Hg 06/17/2024 7:57 AM EST [facility] pO2, POCT 42(H) 35 - 40 mm Hg 06/17/2024 7:57 AM EST [facility] Base Excess, POCT -3(L) 0 - 3 mmol/L 06/17/2024 7:57 AM EST [facility] HCO3, POCT 21.8(L) 23 - 28 mmol/L 06/17/2024 7:57 AM EST [facility] TCO2, POCT 23(L) 24 - 29 mmol/L 06/17/2024 7:57 AM EST [facility] Saturated O2, POCT 79(H) 70 - 75 % 06/17/2024 7:57 AM EST [facility] FIO2, POCT 30 % 06/17/2024 7:57 AM EST [facility] Patient Temp, POCT 38.1 degrees 06/17/2024 7:57 AM EST [facility] Isaias's Test, POCT N/A 06/17/2024 7:57 AM EST [facility] Blood 06/17/2024 7:55 AM EST 06/17/2024 7:57 AM EST us Jeison Hogue MD LAB POCT ORDERABLES - DEVICE Fin al Result [facility] [address] [place] [id number], * Triglyceride (06/17/2024 7:52 AM EST) Triglycerides 69 <=149 mg/dL 06/17/2024 12:32 PM EST [facility] Blood Structure of peripheral vein / Unknown Venipuncture / Unknown 06/17/2024 7:52 AM EST 06/17/2024 7:55 AM EST Mikey Rivas NP LAB BLOOD ORDER MADELYN Final Result Performing Organization Address [facility] de Phone Number [facility] [address] [place] [phone], [place] * (ABNORMAL) Lipase (06/17/2024 7:52 AM EST) Only the most recent of2 resultswithin the time period is included. Lipase 150(H) 13 - 60 U/L 06/17/2024 12:32 PM EST [facility] Blood Structure of peripheral vein / Unknown Venipuncture / Unknown 06/17/2024 7:52 AM EST 06/17/2024 7:55 AM EST Mikey Rivas NP LAB BLOOD ORDER MADELYN Final Result Performing Organization Address [facility] de Phone Number [facility] [address] [place] [phone], [place] * (ABNORMAL) Urinalysis (Urethral Catheter) w/Reflex to Microscopic (Hold Culture). (06/16/2024 6:25 PM EST) Color, Urine Dark Yellow Colorless, Light Yellow, Yellow, Dark Yellow 06/16/2024 7:12 PM EST [facility] Clarity, Urine Clear Clear 06/16/2024 7:12 PM EST [facility] Specific [place], Urine 1.028 1.005 - 1.030 06/16/2024 7:12 PM EST [facility] pH, Urine 5.0 4.6 - 8.0 06/16/2024 7:12 PM EST [facility] Protein, Urine 1+(A) Negative 06/16/2024 7:12 PM EST [facility] Glucose, Urine Negative Negative 06/16/2024 7:12 PM EST [facility] Ketones, Urine Negative Negative 06/16/2024 7:12 PM EST [facility] Bilirubin, Urine Negative Negative 06/16/2024 7:12 PM EST [facility] Blood, Urine Negative Negative 06/16/2024 7:12 PM EST [facility] Nitrite, Urine Negative Negative 06/16/2024 7:12 PM EST [facility] Urobilinogen, Urine Normal Normal 06/16/2024 7:12 PM EST [facility] Leukocyte Esterase, Urine 1+(A) Negative 06/16/2024 7:12 PM EST [facility] WBC, Urine 16(H) 0 - 2 /HPF 06/16/2024 7:12 PM EST [facility] RBC, Urine 7(H) 0 - 2 /HPF 06/16/2024 7:12 PM EST [facility] Hyaline Casts, Urine 0 0 - 2 /LPF 06/16/2024 7:12 PM EST [facility] Squamous Epithelial Cells, Urine <1 /HPF 06/16/2024 7:12 PM EST [facility] Bacteria, Urine Rare(A) None /HPF /HPF 06/16/2024 7:12 PM EST [facility] Mucus, Urine Rare /LPF 06/16/2024 7:12 PM EST [facility] Urine Indwelling urinary catheter / Unknown Non-Blood Collection / Unknown 06/16/2024 6:25 PM EST 06/16/2024 6:45 PM EST us Mikey Rivas NP LAB URINE ORDER MADELYN Final Result [facility] [address] [place] [address], * Urine Culture (Urethral Catheter), HOLD (06/16/2024 6:25 PM EST) Extra Tube Hold for add-ons. 06/16/2024 11:05 PM EST [facility] Comment:Auto resulted. Urine Indwelling urinary catheter / Unknown Non-Blood Collection / Unknown 06/16/2024 6:25 PM EST 06/16/2024 6:45 PM EST Mikey Rivas BOTTLE MACHINE OPERATOR LAB URINE ORDER MADELYN Final Result Performing Organization Address City/[facility]/ZIP Co de Phone Number [facility] [address] [place] [address], * (ABNORMAL) Betahydroxybutyrate (06/16/2024 10:28 AM EST) Beta-Hydroxybu tyrate 1.00(H) <=0.27 mmol/L 06/16/2024 12:27 PM EST [facility] Blood Structure of peripheral vein / Unknown Venipuncture / Unknown 06/16/2024 10:28 AM EST 06/16/2024 10:28 AM EST Mikey Rivas BOTTLE MACHINE OPERATOR LAB BLOOD ORDER MADELYN Final Result [facility] [address] [place] [address], * Creatine Kinase (06/16/2024 10:28 AM EST) Only the most recent of2 resultswithin the time period is included. CK 342 49 - 348 U/L 06/16/2024 11:00 AM EST [facility] Blood Structure of peripheral vein / Unknown Venipuncture / Unknown 06/16/2024 10:28 AM EST 06/16/2024 10:28 AM EST Mikey Rivas BOTTLE MACHINE OPERATOR LAB BLOOD ORDER MADELYN Final Result [facility] [address] [place] [address], [place] * (ABNORMAL) Methadone Screen w/Confirmation, Urine (06/16/2024 9:37 AM EST) Methadone Metabolite Screen, Urine POSITIVE( A) <100 ng/mL 06/19/2024 6:34 AM EST [facility] EDDP, Urine 1608(H) <100 ng/mL 06/19/2024 6:34 AM EST [facility] Comment: See Note 1 Methadone, Urine 948(H) <100 ng/mL 06/19/2024 6:34 AM EST [facility] Comment: See Note 1 See Note 2 Note 1 This test was developed and its analytical performance characteristics have been determined by [facility]. It has not been cleared or approved [...] interpreting these drug results, please contact a [facility] Toxicology Specialist: [phone] ( ), M-F, 8am-6pm EST. Urine Catheter / Unknown Non-Blood Collection / Unknown 06/16/2024 9:37 AM EST 06/16/2024 9:55 AM EST Narrative [facility] - 06/19/2024 6:34 AM EST [facility] Received Date: Mikey Rivas BOTTLE MACHINE OPERATOR LAB URINE ORDER MADELYN Final Result [facility]IE[facility] [address], [place] [address], [place] [phone] [facility] [address], [place] [address], [place] [phone] * Morphine and Codeine Confirmation, Urine (06/16/2024 9:37 AM EST) Codeine, Urine NEGATIVE <50 ng/mL 06/19/2024 3:19 PM EST [facility] Comment: See Note 1 Hydrocodone, Urine NEGATIVE <50 ng/mL 06/19/2024 3:19 PM EST [facility] Comment: See Note 1 Hydromorphone, Urine NEGATIVE <50 ng/mL 06/19/2024 3:19 PM EST [facility] Comment: See Note 1 Morphine, Urine NEGATIVE <50 ng/mL 3:19 PM EST [facility] Comment: See Note 1 Norhydrocodone, Urine NEGATIVE <50 ng/mL 06/19/2024 3:19 PM EST [facility] Comment: See Note 1 See Note 2 Note 1 This test was developed and its analytical performance characteristics have been determined by [facility]. It has not been cleared or approved [...] interpreting these drug results, please contact a [facility] Toxicology Specialist: [phone] ( ), M-F, 8am-6pm EST. Urine Catheter / Unknown Non-Blood Collection / Unknown 06/16/2024 9:37 AM EST 06/16/2024 9:55 AM EST Narrative [facility] - 06/19/2024 3:19 PM EST [facility] Received Date: Mikey Rivas NP LAB URINE ORDER MADELYN Final Result [facility] [address], [place] [address], [facility] [address] [facility] [address], [place] [address], [place] [phone] * Comprehensive Drug Panel, Urine (06/16/2024 9:37 AM EST) Comprehensive Drug Screen Urine DRUGS DETECTED 06/16/2024 4:36 PM EST [place] [facility] Comment: DIPHENHYDRAMINE PHENOBARBITAL METHADONE AND METABOLITE Urine Catheter / Unknown Non-Blood Collection / Unknown 06/16/2024 9:37 AM EST 06/16/2024 9:55 AM EST Narrative [facility] - 06/16/2024 4:36 PM EST [facility] Received Date:[id number] jC Paz BOTTLE MACHINE OPERATOR LAB URINE ORDERABLES Final Resul t [facility] [address], [place] [address], [place] [phone] [place] [facility] [address] [facility] [address], [place] [address], [place] [phone] * (ABNORMAL) Barbiturate Screen, Urine (06/16/2024 9:37 AM EST) Pathologist [facility] Barbiturate Screen, Urine Presumptive Positive(A) Negative 06/16/2024 1:30 PM EST [facility] Comment: Detection limit of [...] EST 06/16/2024 9:55 AM EST Mikey Rivas BOTTLE MACHINE OPERATOR LAB URINE ORDER MADELYN Final Result [facility] [address] [place] [address], [place] * Propoxyphene Screen, Urine (06/16/2024 9:37 AM EST) Propoxyphene Screen, Urine NEGATIVE <300 ng/mL 06/17/2024 5:52 AM EST [facility] Comment: See Note 2 Note 1 This drug testing is for medical treatment only. ?? Analysis was performed as non-forensic testing and these results should be used only by healthcare providers to render diagnosis or treatment, or to monitor progress of medical conditions. For assistance with interpreting these drug results, please contact a [facility] Toxicology Specialist: [phone] ( ), M-F, 8am-6pm EST. Note [...] interpreting these drug results, please contact a [facility] Toxicology Specialist: [phone] ( ), M-F, 8am-6pm EST. Urine Catheter / Unknown Non-Blood Collection / Unknown 06/16/2024 9:37 AM EST 06/16/2024 9:55 AM EST Narrative [facility] - 06/17/2024 5:52 AM EST [facility] Received Date: Mikey Rivas BOTTLE MACHINE OPERATOR LAB URINE ORDER MADELYN Final Result [facility] [address] [facility] [address], [place] [address], [place] [phone] [place] [facility] [address] [facility] [address], [place] [address], [place] [phone] * Marijuana Qualitative Screen, Urine (06/16/2024 9:37 AM EST) Marijuana Screen, Urine Negative Negative 06/16/2024 1:30 PM EST [facility] Comment: Detection limit of 50 ng/mL of 26-Pxr-ituhc-5-EHG-1-carboxylic acid. Drug results are to be used only for medical purposes. ??Unconfirmed screening results must not be used for non-medical purposes. Urine Catheter / Unknown Non-Blood Collection / Unknown 06/16/2024 9:37 AM EST 06/16/2024 9:55 AM EST us Mikey Rivas BOTTLE MACHINE OPERATOR LAB URINE ORDER MADELYN Final Result Performing Organization Address City/[facility]/ZIP Co de Phone Number [facility] [address] [place] [address], * Osmolality Gap (06/16/2024 9:37 AM EST) NA 137 135 - 145 mmol/L 06/16/2024 11:08 AM EST [facility] BUN 10 7 - 23 mg/dL 06/16/2024 11:08 AM [facility] Glucose 95 65 - 99 mg/dL 06/16/2024 11:08 AM [facility] Osmolality 282 279 - 295 mOsm/kg 06/16/2024 11:08 AM [facility] Osmolality Calculated 283 mOSM/kg 06/16/2024 11:08 AM EST [facility] Osmolality Gap <10 <10 mOSM/kg 06/16/2024 11:08 AM EST [facility] Blood Structure of peripheral vein / Unknown Venipuncture / Unknown 06/16/2024 9:37 AM EST 06/16/2024 9:54 AM EST us Cj Paz BOTTLE MACHINE OPERATOR LAB BLOOD ORDERABLES Final Resul t Performing Organization Address City/[facility]/ZIP Co de Phone Number [facility] [address] [place] [address], * Phencyclidine (PCP) Screen, Urine (06/16/2024 9:37 AM EST) Phencyclidine Screen, Urine NEGATIVE <25 ng/mL 06/17/2024 5:52 AM EST [place] [facility] Comment: See Note 2 Urine Catheter / Unknown Non-Blood Collection / Unknown 06/16/2024 9:37 AM EST 06/16/2024 9:55 AM EST Narrative [facility] - 06/17/2024 5:52 AM EST [facility] Received Date: Mikey Rivas BOTTLE MACHINE OPERATOR LAB URINE ORDER MADELYN Final Result [facility] [address] [facility] [address], [place] [address], [place] [phone] [place] [facility] [address] [facility] [address], [place] [address], [place] [phone] * Cocaine Qualitative, Urine (06/16/2024 9:37 AM EST) Cocaine Metabolite Screen, Urine Negative Negative 06/16/2024 1:30 PM EST [facility] Comment: Detection limit of 300 ng/mL of Benzoylecgonine. Drug results are to be used only for medical purposes. ??Unconfirmed screening results must not be used for non-medical purposes. Urine Catheter / Unknown Non-Blood Collection / Unknown 06/16/2024 9:37 AM EST 06/16/2024 9:55 AM EST Mikey iRvas BOTTLE MACHINE OPERATOR LAB URINE ORDER MADELYN Final Result [facility] [address] [place] [address], * (ABNORMAL) Benzodiazepine Qualitative Screen, Urine (06/16/2024 9:37 AM EST) Benzodiazepine Screen, Urine Presumptive Positive(A) Negative 06/16/2024 1:30 PM EST [facility] Comment: Detection limit of 200 ng/mL of Nordiazepam. Drug results are to be used only for medical purposes. ??Unconfirmed screening results must not be used for non-medical purposes. Urine Catheter / Unknown Non-Blood Collection / Unknown 06/16/2024 9:37 AM EST 06/16/2024 9:55 AM EST Mikey Rivas BOTTLE MACHINE OPERATOR LAB URINE ORDER MADELYN Final Result Performing Organization Address [facility]/ZIP Co de Phone Number [facility] [address] [place] [address], [place] * Amphetamine Qualitative, Urine (06/16/2024 9:37 AM EST) Amphetamine Screen, Urine Negative Negative 06/16/2024 1:30 PM EST [facility] Comment: Detection limit of 1000 ng/mL of d-Methamphetamine. Drug results are to be used only for medical purposes. ??Unconfirmed screening results must not be used for non-medical purposes. Urine Catheter / Unknown Non-Blood Collection / Unknown 06/16/2024 9:37 AM EST 06/16/2024 9:55 AM EST Mikey Rivas BOTTLE MACHINE OPERATOR LAB URINE ORDER MADELYN Final Result Performing Organization Address City/[facility]/ZIP Co de Phone Number [facility] [address] [place] [address], [place] * Osmolality, Serum (06/16/2024 9:37 AM EST) Osmolality 280 279 - 295 mOsm/kg 06/16/2024 10:46 AM EST [facility] Blood Structure of peripheral vein / Unknown Venipuncture / Unknown 06/16/2024 9:37 AM EST 06/16/2024 9:54 AM EST Cj Paz NP LAB BLOOD ORDERABLES Final Resul t Performing Organization Address [facility] de Phone Number [facility] [address] [place] [address], [place] * Acetaminophen Level (06/16/2024 9:37 AM EST) Acetaminophen <5.0 <10.0 ug/mL 06/16/2024 10:41 AM EST [facility] Comment:Expected Range with Therapeutic Dosin-30 ug/mL Blood Structure of peripheral vein / Unknown Venipuncture / Unknown 06/16/2024 9:37 AM EST 06/16/2024 9:54 AM EST Cj Paz NP LAB BLOOD ORDERABLES Final Resul t Performing Organization Address [facility] Phone Number [facility] [address] [place] [address], [place] * Salicylate Level (06/16/2024 9:37 AM EST) Salicylate <1 <3 mg/dL 06/16/2024 10:41 AM EST [facility] Comment:Expected Range with Therapeutic Dosin-30 mg/dL Blood Structure of peripheral vein / Unknown Venipuncture / Unknown 06/16/2024 9:37 AM EST 06/16/2024 9:54 AM EST Cj Paz NP LAB BLOOD ORDERABLES Final Resul t Performing Organization Address [facility] de Phone Number [facility] [address] [place] [address], [place] * COVID-19, Flu A/B & RSV RNA PCR, Symptomatic (06/16/2024 9:29 AM EST) PCR, SARS CoV-2 RNA Not Detected Not Detected [facility] 06/16/2024 11:18 AM EST [facility] Comment:A Not Detected (Nega [...] Detected [facility] 06/16/2024 11:18 AM EST [facility] Comment:Negative results do not preclude infection and should not be used as the sole basis for diagnosis, treatment or other patient management decisions. Negative results must be combined with clinical observations, patient history, and/or epidemiological information. Flu B RNA PCR Not Detected Not Detected [employer] Health[employer] GENEXPERT 06/16/2024 11:18 AM EST [facility] Comment:Negative results do not preclude infection and should not be used as the sole basis for diagnosis, treatment or other patient management decisions. Negative results must be combined with clinical observations, patient history, and/or epidemiological information. RSV RNA PCR Not Detected Not Detected [facility] 06/16/2024 11:18 AM EST [facility] Comment:Negative results do not preclude infection and should not be used as the sole basis for diagnosis, treatment or other patient management decisions. Negative results must be combined with clinical observations, patient history, and/or epidemiological information. Swab (Nares) Non-Blood Collection / Unknown 06/16/2024 9:29 AM EST 06/16/2024 9:54 AM EST Narrative [facility] - 06/16/2024 11:18 AM EST This test was developed, validated and its performance characteristics determined by [facility] Clinical Labs. This test has not been cleared or approved by the U.S. Food and Drug Administration (FDA). FDA Policy for Diagnostic Tests for Coronavirus Disease-2019 during the Public Health Emergency issued August 19, 2019, is followed. us Cj Paz NP LAB BODY FLUIDS AND STOOLS ORDER MADELYN Final Result [facility] [address] [place] [address], [place] * (ABNORMAL) POCT I-STAT Arterial Blood Gas, interfaced (06/16/2024 9:29 AM EST) Sample Type, POCT Arterial 06/16/2024 9:32 AM EST [facility] pH, POCT 7.47(H) 7.35 - 7.45 06/16/2024 9:32 AM EST [facility] pCO2, POCT 26.8(L) 35 - 45 mmHg 06/16/2024 9:32 AM EST [facility] pO2, POCT 116(H) 80 - 105 mmHg 06/16/2024 9:32 AM EST [facility] Base Excess, POCT -4(L) 0 - 3 mmol/L 06/16/2024 9:32 AM EST [facility] HCO3, POCT 19.4(L) 21 - 28 mmol/L 06/16/2024 9:32 AM EST [facility] TCO2, POCT 20(L) 23 - 27 mmol/L 06/16/2024 9:32 AM EST [facility] Saturated O2, POCT 99(H) 95 - 98 % 06/16/2024 9:32 AM EST [facility] FIO2, POCT 50 % 06/16/2024 9:32 AM EST [facility] Tidal Volume, POCT 450 ml 06/16/2024 9:32 AM EST [facility], [facility] Isaias's Test, POCT PASS 06/16/2024 9:32 AM EST [facility] Blood 06/16/2024 9:29 AM EST 06/16/2024 9:32 AM EST us Sal Adler MD LAB POCT ORDERABLES - DEVIC E Final Result [facility] [address] [place] [address], [place] * Blood Culture, Peripheral #2 (06/16/2024 9:00 AM EST) Only the most recent of2 resultswithin the time period is included. Culture No growth after 5 days 06/21/2024 1:31 PM EST [place] [facility] Blood Structure of peripheral vein / Unknown Venipuncture / Unknown 06/16/2024 9:00 AM EST 06/16/2024 9:12 AM EST Narrative [facility] - 06/21/2024 1:31 PM EST [facility] Received Date: MICRO NUMBER: [id number] SPECIMEN QUALITY: Adequate SOURCE: BLOOD VENOUS, PERIPHERAL STATUS: FINAL COMMENT: Aerobic and anaerobic bottle received. Mikey Rivas BOTTLE MACHINE OPERATOR LAB MICROBIOLOG Y - GENERAL ORDERABLES Final Result Performing Organization Address City/[facility] Co de Phone Number [employer] [place] [address], [place] [address], [place] [facility] [address] [facility] [address], [place] [address], * Prolactin (06/16/2024 8:57 AM EST) Prolactin 9.10 4.04 - 15.20 ng/mL 06/16/2024 11:22 AM EST [facility] Blood Structure of peripheral vein / Unknown Venipuncture / Unknown 06/16/2024 8:57 AM EST 06/16/2024 9:12 AM EST Mikey Rivas BOTTLE MACHINE OPERATOR LAB BLOOD ORDER MADELYN Final Result Performing Organization Address City/[facility]/ZIP Co de Phone Number [facility] [address] [place] [address], [place] * MRSA/S aureus PCR, Nasal (06/16/2024 8:44 AM EST) MRSA PCR, Nasal NOT DETECTED NOT DETECTED 06/17/2024 3:29 PM EST [facility] S. aureus PCR, Nasal NOT DETECTED NOT DETECTED 06/17/2024 3:29 PM EST [facility] Swab Nasal structure / Unknown Non-Blood Collection / Unknown 06/16/2024 8:44 AM EST 06/16/2024 9:12 AM EST Narrative [employer] [facility] - 06/17/2024 3:29 PM EST [facility] Received Date:[id number] Mikey Rivas BOTTLE MACHINE OPERATOR LAB BODY FLUIDS AND STOOLS ORDERABLES Final Result [facility] [address], [place] [address], [facility] [address] [facility] [address], [place] [address], [place] [phone] * (ABNORMAL) Respiratory Culture w/Gram Stain (06/16/2024 8:41 AM EST) Pathologist [facility] Culture Growth of normal oropharyngeal yayo 06/18/2024 2:14 PM EST [place] [facility] Gram Stain Many White Blood Cells Seen(A) 06/18/2024 2:14 PM EST [facility] Gram Stain No epithelial cells seen(A) 06/18/2024 2:14 PM EST [facility] Gram Stain Few Gram Positive Cocci(A) 06/18/2024 2:14 PM EST [facility] Sputum Sputum / Unknown Non-Blood Collection / Unknown 06/16/2024 8:41 AM EST 06/16/2024 9:11 AM EST Narrative [employer] [facility] - 06/18/2024 2:14 PM EST [facility] Received Date:[id number] MICRO NUMBER: [id number] SPECIMEN QUALITY: Adequate SOURCE: SPUTUM EXPECTORATED SPUTUM STATUS: FINAL us Mikey Rivas BOTTLE MACHINE OPERATOR LAB MICROBIOLOG Y - GENERAL ORDERABLES Final Result [facility] [address], [place] [address], [place] [phone] [place] ROMINA JERRY [address], [address] [place] [address], [place] [phone] * X-Ray Chest 1 View (06/16/2024 8:20 [...] obtain the completed interpretation. ? Workstation ID: [id number] Narrative 06/16/2024 4:00 PM EST COMPARISON: ??One day ago FINDINGS AND Resulting Agency Comment [id number] Procedure Note Sal Goodman MD - 06/16/2024 [...] possible to obtain thecompleted interpretation. Workstation ID: [id number] us Betina Gallo BOTTLE MACHINE OPERATOR IMG XR PROCEDURES Final Result * HC EMERGENCY INTUBATION, [place] INSERT EMERGENCY ENDOTRACH AIRWAY, AN ETT DUMMY [...] Aurora Beckett MD Anesthesiologist: Aurora Beckett MD CHIEF WRITER: Rut Petersen CRNA Performed: anesthesiologist I was [...] - 1.9 mmol/L 06/16/2024 8:06 AM EST [facility] Comment: Sepsis Screening: Initial Lactate Level >2.0 mmol/L - Repeat Lactate Level within 3 hours. Initial Lactate Level >4.0 mmol/L - Repeat Lactate Level within 3 hours, Initiate Septic Shock Protocol. Blood Structure of peripheral vein / Unknown Venipuncture / Unknown 06/16/2024 7:34 AM EST 06/16/2024 7:36 AM EST Mikey Rivas BOTTLE MACHINE OPERATOR LAB BLOOD ORDER MADELYN Final Result Performing Organization Address [facility] Co de Phone Number [facility] [address] [place] [address], [place] * Protime-INR (06/16/2024 3:42 AM EST) Pathologist [facility] PT 11.0 9.6 - 12.4 Seconds 06/16/2024 4:19 AM EST [facility] INR 1.0 0.9 - 1.1 06/16/2024 4:19 AM EST [facility] Comment:The optimal therapeu tic INR range for patients treated with Vitamin K antagonists (VKAS, e.g., Warfarin) is 2.0 to 3.5. Discuss the desired range with your doctor/care team. Blood Structure of peripheral vein / Unknown Venipuncture / Unknown 06/16/2024 3:42 AM EST 06/16/2024 3:46 AM EST Marci Huitron PA LAB BLOOD ORDERABLES Final Res ult Performing Organization Address [facility] Co de Phone Number [facility] [address] [place] [address], [place] * (ABNORMAL) Hepatic Function Panel (06/16/2024 3:42 AM EST) Total Protein 6.9 6.0 - 8.0 g/dL 06/16/2024 4:27 AM EST [facility] Albumin 3.7 3.5 - 5.2 g/dL 06/16/2024 4:27 AM EST [facility] Globulin, Total 3.2 2.1 - 4.2 g/dL 06/16/2024 4:27 AM EST [facility] Bilirubin, Total 1.2 0.2 - 1.2 mg/dL 06/16/2024 4:27 AM EST [facility] Bilirubin, Direct 0.5(H) <=0.4 mg/dL 06/16/2024 4:27 AM EST [facility] Alkaline Phosphatase 112 35 - 129 U/L 06/16/2024 4:27 AM EST [facility] AST 47(H) 10 - 40 U/L 06/16/2024 4:27 AM EST [facility] ALT 43(H) 10 - 40 U/L 06/16/2024 4:27 AM EST [facility] Bilirubin, Indirect 0.70 <=0.70 mg/dL 06/16/2024 4:27 AM EST [facility] A/G Ratio 1.2(L) 1.5 - 3.0 06/16/2024 4:27 AM EST [facility] Blood Structure of peripheral vein / Unknown Venipuncture / Unknown 06/16/2024 3:42 AM EST 06/16/2024 3:46 AM EST us Marci ESTRADA LAB BLOOD ORDERABLES Final Res ult [facility] [address] [place] [address], * ECG 12 lead (06/15/2024 5:49 PM EST) Only the most recent of2 resultswithin the time period is included. Ventricular Rate EKG 97 BPM MUSE EKG Atrial Rate 97 BPM MUSE EKG WA Interval 136 ms MUSE EKG QRS Interval 72 ms MUSE EKG QT Interval 390 ms MUSE EKG QTC Interval 495 ms MUSE EKG P Euless 67 degrees MUSE EKG R Euless 26 degrees MUSE EKG T Wave Euless -26 degrees MUSE EKG 06/15/2024 5:49 PM EST 06/16/2024 5:47 PM EST Impressions MUSE EKG - 06/16/2024 5:47 PM EST NORMAL SINUS RHYTHM ST-T ABNORMALITIES CONSIDER ISCHEMIA PROLONGED QTC ABNORMAL ECG Confirmed by Heath Williamson ([id number]) on 06/16/2024 5:47:05 PM Quit[facility] ESTRADA ECG ORDERABLES Final Res ult Performing Organization Address [facility] Co de Phone Number MUSE EKG * Troponin T, High Sensitivity (06/15/2024 5:33 PM EST) Troponin T High Sensitivity <6 <=21 ng/L 06/15/2024 6:30 PM EST [facility] Comment: 3+ hemolysis; the result may be Falsely Decreased. Yv-Blahlkwz-O level of 52 ng/L or higher at [...] be evaluated in line with the 4th Rociada Definition of AMI. Troponin baseline and serial [...] ESTRADA LAB BLOOD ORDERABLES Rachel l Result [facility] [address] [place] [address], [place] * CT Head WO Contrast (06/15/2024 [...] obtain the completed interpretation. ? Workstation ID: [id number] Up-to-date CT equipment and radiation dose reduction [...] paranasal sinuses are well-aerated. Resulting Agency Comment [id number] Procedure Note Joseph Corona - 06/15/2024 EXAMINATION: [...] possible to obtain thecompleted interpretation. Workstation ID: [id number] Up-to-date CT equipment and radiation dose reduction techniques wereemployed. CTDIvol: 48.0 mGy. DLP: 868 mGy-cm. Edvin Beck MD IMG CT PROCEDURES Final Result * HEART & VASCULAR - SCANNED (06/15/2024) Anatomical Region Laterality Modality Other us Onbase Scan Lavelle SCANNED PROCEDURES Final Resu lt from Last [address] [address] Advance Directives Documents on File Type Date Recorded Patient Charging Machine Operator Expl anation Health Care Proxy 06/25/2024 2:59 PM 06-25 * Full Code (Latest Code Status on File) Date Activated Date Inactivated Comments 06/15/2024 5:11 PM 06/25/2024 8:23 PM Care Teams Rubber Compounder Formulator Relationship Specialty Start Date End Date Patient, Has No Pcp Or Ref DO NOT EDIT THIS RECORD VIA PROVIDER ON THE FLY PCP - General Bulk Sugar Handler 06/19/24
--- OUTSIDE RECORDS SUMMARY | 2024-07-29 15:19 | XMS_ITS | Clinical Summary ---
Author Organization [facility] Address [address] [place] [address] Phone Care Team Providers Care Jukebox Routeman Name Role Phone Physician, Pcp Unknown Primary Care Provider Vivian vailable Allergies No known active allergies Medications No known medications Encounters Date Type Department Care Team Description 06/12/2024 3:46 PM EST - 06/12/2024 3:57 PM EST Emergency [facility] Emergency [address] [place] [address] Discharge Disposition: Home or Self Care from Last 3 Months Social History Tobacco Use Types Packs/Day Years Used Date Smoking Tobacco: Never Assessed Sex and Gender Information Value Date Recorded Sex Assigned at Not on file Legal Sex Male 12:48 PM EST Gender Identity Not on file Sexual [...] patient's age to complete this topic Meningococcal B Vacine Aged Out No lo nger eligible based on patient's age to complete [...] on patient's age to complete this topic Insurance MEDICAID - [place] Care Teams Jukebox Routeman Relationship Specialty Start Date End Date Physician, Pcp Unknown PCP - General 06/12/24
== END 2024-07-29 13:54 | disposition home or self-care (01) ==
PROVIDERS: Visit Provider Nurse Practitioner Psychiatric/Mental Health
DX: F10.20 Alcohol dependence, uncomplicated (principal)
CPT/HCPCS: 99214

== ENCOUNTER → 2024-07-29 13:22 | Outpatient (BNVA) | payer MEDICAID, SELFPAY | PROVIDERS: Visit Provider Nurse Practitioner Psychiatric/Mental Health | DX: F10.20 Alcohol dependence, uncomplicated (principal) | CPT/HCPCS: 99212 ==

== ENCOUNTER 2024-09-13 15:34 | Outpatient (AMB) | payer MEDICAID, SELFPAY ==
--- OUTSIDE RECORDS SUMMARY | 2024-09-13 15:36 | XMS_ITS | Clinical Summary ---
Author Organization [facility] Address [address] [place] [address] Phone Care Team Providers Care Mitochondrial Disorders Counselor Name Role Phone Physician, Pcp Unknown Primary Care Provider Vivian vailable Allergies No known active allergies Medications No known medications Social History Tobacco Use Types Packs/Day Years [...] 5 season) 2024 04/23/2021, 04/02/2021 Influenza Vaccine (Season Ended) 2025 DTaP,Tdap,and Td Vaccines (2 - Td or [...] age to complete this topic Meningococcal B Vaccine Aged Out No l onger eligible based on patient's age to complete [...] topic Insurance MEDICAID - [place] Care Teams Mitochondrial Disorders Counselor Relationship Specialty Start Date End Date Physician, Pcp Unknown PCP - General 06/12/24
--- OUTSIDE RECORDS SUMMARY | 2024-09-13 15:36 | XMS_ITS | Referral Summary ---
Author Organization [facility] Address [address] [place] [address] Care Team Providers Care Manufacturing Operator Name Role Phone Patient, Has No Pcp Or Ref Primary Care Provider Unavailable Encounters Date Type Department Care Team Description 06/15/2024 12:22 AM EST - 06/25/2024 6:18 PM EST Hospital Encounter [place] [address] Critical Care Unit [address] [place] [id number] Edvin Beck MD Sultan, Danielle A., Gabe Nobles MD Girgenrath, Tanya, MD Gallant, Joseph J., MD Jones, Evan W, MD Wong, William W., Delirium tremens (Primary Dx); Hypomagnesemia; Hypokalemia; Toxic metabolic encephalopathy; Alcohol withdrawal syndrome with complication Discharge Disposition: Home or Self Care () 06/16/2024 8:47 AM EST Anesthesia Event [place] [address] Critical Care Unit [address] [place] [id number] Aurroa Beckett MD from Last 3 Months Allergies [...] Not on file Procedures * Due to [place] state law, this organization might not be [...] DUMMY PERFORMABLE Routine 025 8:15 AM EST [place] [employer]ERG[facility]Y ENDOTRACH [employer]WAY Routine 06/16/2024 8:15 [...] Last 3 Months Results * Due to [place] state law, this organization might not be sharing negative HIV tests. * Magnesium (06/25/2024 4:53 AM EST) Only the most recent of14 resultswithin the time period is included. MG 2.0 1.6 - 2.4 mg/dL 06/25/2024 5:55 AM EST [facility] Blood Structure of peripheral vein / Unknown Venipuncture / Unknown 06/25/2024 4:53 AM EST 06/25/2024 5:26 AM EST us Mikey Rivas CARD SETTER LAB BLOOD ORDER MADELYN Final Result [facility] [address] [place] [address], * (ABNORMAL) Basic metabolic panel (06/25/2024 4:53 AM EST) Only the most recent of15 resultswithin the time period is included. NA 137 135 - 145 mmol/L 06/25/2024 5:55 AM EST [facility] K 3.6 3.5 - 5.3 mmol/L 06/25/2024 5:55 AM [facility] Cl 105 98 - 107 mmol/L 06/25/2024 5:55 AM [facility] CO2 21(L) 22 - 32 mmol/L 06/25/2024 5:55 AM [facility] BUN 8 7 - 23 mg/dL 06/25/2024 5:55 AM [facility] Creatinine 0.59(L) 0.60 - 1.30 mg/dL 06/25/2024 5:55 AM [facility] Glucose 103(H) 65 - 99 mg/dL 06/25/2024 5:55 AM [facility] Calcium 8.8 8.6 - 10.5 mg/dL 06/25/2024 5:55 AM [facility] Anion Gap 11 5 - 15 06/25/2024 5:55 AM [facility] eGFR >90 >=60 mL/min/1 .73m2 06/25/2024 5:55 AM [facility] Comment:The estimated glomer ular [...] EST 06/25/2024 5:26 AM EST Mikey Rivas NP LAB BLOOD ORDER MADELYN Final Result Performing Organization Address [facility]/ZIP Co de Phone Number [facility] [address] [place] [phone], [place] * (ABNORMAL) Smear Review (06/24/2024 3:08 AM EST) Only the most recent of4 resultswithin the time period is included. Platelet Estimate Increase d(A) Adequate 06/24/2024 4:13 AM EST [facility] RBC Morphology Present( A) Normal, No clinically significant RBC morphology present (ICSH guidelines, 2015). 06/24/2024 4:13 AM EST [facility] Macrocytes 2+(A) Not Present 06/24/2024 4:13 AM EST [facility] Blood Structure of peripheral vein / Unknown Venipuncture / Unknown 06/24/2024 3:08 AM EST 06/24/2024 3:35 AM EST us Domonique Desai CARD SETTER LAB BLOOD ORDERABLES Final R esult Performing Organization Address [facility] Co de Phone Number [facility] [address] [place] [phone], [place] * (ABNORMAL) CBC (06/24/2024 3:08 AM EST) Only the most recent of5 resultswithin the time period is included. WBC 7.4 3.8 - 10.8 10*3/uL 06/24/2024 4:13 AM EST [facility] RBC 3.84(L) 4.20 - 5.80 10*6/uL 06/24/2024 4:13 AM EST [facility] Hemoglobin 14.4 13.2 - 17.1 g/dL 06/24/2024 4:13 AM EST [facility] Hematocrit 39.7 38.5 - 50.0 % 06/24/2024 4:13 AM EST [facility] MCV 103.4(H) 80.0 - 100.0 fL 06/24/2024 4:13 AM EST [facility] MCH 37.5(H) 27.0 - 33.0 pg 06/24/2024 4:13 AM EST [facility] MCHC 36.3(H) 32.0 - 36.0 g/dL 06/24/2024 4:13 AM EST [facility] RDW 11.7 11.0 - 15.0 % 06/24/2024 4:13 AM EST [facility] Platelets 546(H) 140 - 400 10*3/uL 06/24/2024 4:13 AM EST [facility] MPV 8.8 7.5 - 12.5 fL 06/24/2024 4:13 AM EST [facility] Comment:A smear review has b een added. Clinician review and interpretation will be needed once the report is final. Blood Structure of peripheral vein / Unknown Venipuncture / Unknown 06/24/2024 3:08 AM EST 06/24/2024 3:35 AM EST Domonique Desai CARD SETTER LAB BLOOD ORDERABLES Final R livan [facility] [address] [place] [address], * Phosphorus (06/24/2024 3:08 AM EST) Only the most recent of9 resultswithin the time period is included. Phosphorus 3.4 2.5 - 4.5 mg/dL 06/24/2024 4:20 AM EST [facility] Blood Structure of peripheral vein / Unknown Venipuncture / Unknown 06/24/2024 3:08 AM EST 06/24/2024 3:35 AM EST Domonique Desai CARD SETTER LAB BLOOD ORDERABLES Final R esult Performing Organization Address City/[facility]/ZIP Co de Phone Number [facility] [address] [place] [address], [place] * (ABNORMAL) POCT Glucose, interfaced (06/23/2024 11:19 AM EST) Only the most recent of17 resultswithin the time period is included. Glucose, POCT 167(H) 70 - 99 mg/dL 06/23/2024 11:20 AM EST [facility] Comment: The farm equipment assembler has not determined the efficacy of this test in Critically ill patients. ??[facility] defines Critically ill patients for the [...] - DEVICE Final Result Performing Organization Address [facility] Co de Phone Number [facility] [address] [place] [address], [place] * (ABNORMAL) CBC Auto Differential (06/20/2024 3:35 AM EST) Only the most recent of4 resultswithin the time period is included. WBC 4.1 3.8 - 10.8 10*3/uL 06/20/2024 5:40 AM EST [facility] RBC 3.68(L) 4.20 - 5.80 10*6/uL 06/20/2024 5:40 AM EST [facility] Hemoglobin 13.5 13.2 - 17.1 g/dL 06/20/2024 5:40 AM [facility] Hematocrit 39.4 38.5 - 50.0 % 06/20/2024 5:40 AM [facility] MCV 107.1(H) 80.0 - 100.0 fL 06/20/2024 5:40 AM [facility] MCH 36.7(H) 27.0 - 33.0 pg 06/20/2024 5:40 AM [facility] MCHC 34.3 32.0 - 36.0 g/dL 06/20/2024 5:40 AM [facility] RDW 11.7 11.0 - 15.0 % 06/20/2024 5:40 AM [facility] Platelets 274 140 - 400 10*3/uL 06/20/2024 5:40 AM [facility] MPV 9.4 7.5 - 12.5 fL 06/20/2024 5:40 AM [facility] Neutrophil % 49.9 % 06/20/2024 5:40 AM [facility] Immature Grans % 0.5 0.0 - 0.9 % 06/20/2024 5:40 AM [facility] Lymphocyte % 21.5 % 06/20/2024 5:40 AM [facility] Monocyte % 23.7 % 06/20/2024 5:40 AM [facility] Eosinophil % 3.4 % 06/20/2024 5:40 AM [facility] Basophil % 1.0 % 06/20/2024 5:40 AM [facility] Neutrophil # 2.06 1.50 - 7.80 10*3/uL 06/20/2024 5:40 AM [facility] Immature Grans # <0.03 <=0.03 10*3/uL 06/20/2024 5:40 AM EST [facility] Lymphocyte # 0.90 0.85 - 3.90 10*3/uL 06/20/2024 5:40 AM EST [facility] Monocyte # 1.00(H) 0.20 - 0.95 10*3/uL 06/20/2024 5:40 AM EST [facility] Eosinophil # 0.10 0.02 - 0.50 10*3/uL 06/20/2024 5:40 AM EST [facility] Basophil # <0.03 0.00 - 0.20 10*3/uL 06/20/2024 5:40 AM EST [facility] nRBC % 0.0 /100 WBCs 06/20/2024 5:40 AM EST [facility] nRBC # <0.01 <0.01 10*3/uL 06/20/2024 5:40 AM EST [facility] Blood Structure of peripheral vein / Unknown Venipuncture / Unknown 06/20/2024 3:35 AM EST 06/20/2024 4:12 AM EST us Darrel Blackwell NP LAB BLOOD ORDERABLES Fi nal Result [facility] [address] [place] [address], [place] * (ABNORMAL) Comprehensive metabolic panel (06/20/2024 3:35 AM EST) Only the most recent of2 resultswithin the time period is included. NA 139 135 - 145 mmol/L 06/20/2024 4:47 AM EST [facility] K 4.0 3.5 - 5.3 mmol/L 06/20/2024 4:47 AM EST [facility] Cl 107 98 - 107 mmol/L 06/20/2024 4:47 AM [facility] CO2 23 22 - 32 mmol/L 06/20/2024 4:47 AM [facility] Anion Gap 9 5 - 15 06/20/2024 4:47 AM [facility] Glucose 161(H) 65 - 99 mg/dL 06/20/2024 4:47 AM [facility] Creatinine 0.55(L) 0.60 - 1.30 mg/dL 06/20/2024 4:47 AM [facility] Calcium 8.6 8.6 - 10.5 mg/dL 06/20/2024 4:47 AM [facility] Total Protein 6.8 6.0 - 8.0 g/dL 06/20/2024 4:47 AM [facility] Albumin 3.2(L) 3.5 - 5.2 g/dL 06/20/2024 4:47 AM [facility] Bilirubin, Total 0.2 0.2 - 1.2 mg/dL 06/20/2024 4:47 AM [facility] Alkaline Phosphatase 104 35 - 129 U/L 06/20/2024 4:47 AM [facility] AST 20 10 - 40 U/L 06/20/2024 4:47 AM [facility] ALT 16 10 - 40 U/L 06/20/2024 4:47 AM [facility] BUN 11 7 - 23 mg/dL 06/20/2024 4:47 AM [facility] eGFR >90 >=60 mL/min/1 .73m2 06/20/2024 4:47 AM [facility] Comment:The estimated glomer ular [...] - 4.2 g/dL 06/20/2024 4:47 AM EST [facility] A/G Ratio 0.9(L) 1.5 - 3.0 06/20/2024 4:47 AM EST [facility] Blood Structure of peripheral vein / Unknown Venipuncture / Unknown 06/20/2024 3:35 AM EST 06/20/2024 4:11 AM EST us Darrel Blackwell CARD SETTER LAB BLOOD ORDERABLES Fi nal Result [facility] [address] [place] [address], [place] * (ABNORMAL) Manual Differential (06/19/2024 3:40 AM EST) Neutrophil %, Manual 61 % 06/19/2024 5:22 AM EST [facility] Comment:WBC: vacuolated poly s Lymphocyte %, Manual 17 % 06/19/2024 5:22 AM EST [facility] Monocyte %, Manual 12 % 06/19/2024 5:22 AM EST [facility] Eosinophil %, Manual 5 % 06/19/2024 5:22 AM EST [facility] Basophil %, Manual 1 % 06/19/2024 5:22 AM EST [facility] Reactive Lymphocyte % 4 0 - 6 % 06/19/2024 5:22 AM EST [facility] Total Neutrophil #, Manual 3.48 1.50 - 7.80 10*3/uL 06/19/2024 5:22 AM EST [facility] Total Lymph #, Manual 1.20 0.85 - 3.90 10*3/uL 06/19/2024 5:22 AM EST [facility] Monocyte #, Manual 0.68 0.20 - 0.95 10*3/uL 06/19/2024 5:22 AM EST [facility] Eosinophil #, Manual 0.29 0.02 - 0.50 10*3/uL 06/19/2024 5:22 AM EST [facility] Basophil #, Manual 0.06 0.00 - 0.20 10*3/uL 06/19/2024 5:22 AM EST [facility] Reactive Lymphocytes # 0.23 10*3/uL 06/19/2024 5:22 AM EST [facility] Platelet Estimate Adequate Adequate 06/19/2024 5:22 AM EST [facility] RBC Morphology Present(A) Normal, No clinically significant RBC morphology present (ICSH guidelines, 2015). 06/19/2024 5:22 AM EST [facility] Anisocytosis 2+(A) Not Present 06/19/2024 5:22 AM EST [facility] Macrocytes 2+(A) Not Present 06/19/2024 5:22 AM EST [facility] Total Cells Counted 117 06/19/2024 5:22 AM EST [facility] Blood Structure of peripheral vein / Unknown Venipuncture / Unknown 06/19/2024 3:40 AM EST 06/19/2024 3:48 AM EST us Winston ESTRADA LAB BLOOD ORDERABLES Fi nal Result [facility] [address] [place] [address], [place] * (ABNORMAL) Renal Function Panel (06/19/2024 3:40 AM EST) NA 139 135 - 145 mmol/L 06/19/2024 4:34 AM [facility] K 4.1 3.5 - 5.3 mmol/L 06/19/2024 4:34 AM [facility] Cl 105 98 - 107 mmol/L 06/19/2024 4:34 AM [facility] CO2 21(L) 22 - 32 mmol/L 06/19/2024 4:34 AM [facility] Anion Gap 13 5 - 15 06/19/2024 4:34 AM [facility] Glucose 161(H) 65 - 99 mg/dL 06/19/2024 4:34 AM [facility] BUN 9 7 - 23 mg/dL 06/19/2024 4:34 AM [facility] Creatinine 0.61 0.60 - 1.30 mg/dL 06/19/2024 4:34 AM [facility] Calcium 8.6 8.6 - 10.5 mg/dL 06/19/2024 4:34 AM [facility] Phosphorus 3.8 2.5 - 4.5 mg/dL 06/19/2024 4:34 AM [facility] Albumin 3.3(L) 3.5 - 5.2 g/dL 06/19/2024 4:34 AM [facility] eGFR >90 >=60 mL/min/1. 73m2 06/19/2024 4:34 AM [facility] Comment:The estimated glomer ular [...] ESTRADA LAB BLOOD ORDERABLES Fi nal Result [facility] [address] [place] [address], [place] * (ABNORMAL) POCT I-STAT Venous Blood [...] POCT 30 % 06/17/2024 7:57 AM EST [facility] Patient Temp, POCT 38.1 degrees 06/17/2024 7:57 AM EST [facility] Isaias's Test, POCT N/A 06/17/2024 7:57 AM EST [facility] Blood 06/17/2024 7:55 AM EST 06/17/2024 7:57 AM EST Jeison Hogue MD LAB POCT ORDERABLES - DEVICE Fin al Result Performing Organization Address City/[facility]/ZIP Co de Phone Number [facility] [address] [place] [address], [place] * Triglyceride (06/17/2024 7:52 AM EST) Triglycerides 69 <=149 mg/dL 06/17/2024 12:32 PM EST [facility] Blood Structure of peripheral vein / Unknown Venipuncture / Unknown 06/17/2024 7:52 AM EST 06/17/2024 7:55 AM EST Mikey Rivas NP LAB BLOOD ORDER MADELYN Final Result Performing Organization Address City/[facility]/ZIP Co de Phone Number [facility] [address] [place] [address], [place] * (ABNORMAL) Lipase (06/17/2024 7:52 AM EST) Only the most recent of2 resultswithin the time period is included. Lipase 150(H) 13 - 60 U/L 06/17/2024 12:32 PM EST [facility] Blood Structure of peripheral vein / Unknown Venipuncture / Unknown 06/17/2024 7:52 AM EST 06/17/2024 7:55 AM EST Mikey Iraj Merritt-Avila CARD SETTER LAB BLOOD ORDER MADELYN Final Result [facility] [address] [place] [address], [place] * (ABNORMAL) Urinalysis (Urethral Catheter) w/Reflex to Microscopic (Hold Culture). (06/16/2024 6:25 PM EST) Color, Urine Dark Yellow Colorless, Light Yellow, Yellow, Dark Yellow 06/16/2024 7:12 PM EST [facility] Clarity, Urine Clear Clear 06/16/2024 7:12 PM EST [facility] Specific Drummond, Urine 1.028 1.005 - 1.030 06/16/2024 7:12 PM EST [facility] pH, Urine 5.0 4.6 - 8.0 06/16/2024 7:12 PM EST [facility] Protein, Urine 1+(A) Negative 06/16/2024 7:12 PM EST [facility] Glucose, Urine Negative Negative 06/16/2024 7:12 PM EST [facility] Ketones, Urine Negative Negative 06/16/2024 7:12 PM EST [facility] Bilirubin, Urine Negative Negative 06/16/2024 7:12 PM EST [facility] Blood, Urine Negative Negative 06/16/2024 7:12 PM EST [facility] Nitrite, Urine Negative Negative 06/16/2024 7:12 PM EST [facility] Urobilinogen, Urine Normal Normal 06/16/2024 7:12 PM EST [facility] Leukocyte Esterase, Urine 1+(A) Negative 06/16/2024 7:12 PM EST [facility] WBC, Urine 16(H) 0 - 2 /HPF 06/16/2024 7:12 PM EST [facility] RBC, Urine 7(H) 0 - 2 /HPF 06/16/2024 7:12 PM EST [facility] Hyaline Casts, Urine 0 0 - 2 /LPF 06/16/2024 7:12 PM EST [facility] Squamous Epithelial Cells, Urine <1 /HPF 06/16/2024 7:12 PM EST [facility] Bacteria, Urine Rare(A) None /HPF /HPF 06/16/2024 7:12 PM EST [facility] Mucus, Urine Rare /LPF 06/16/2024 7:12 PM EST [facility] Urine Indwelling urinary catheter / Unknown Non-Blood Collection / Unknown 06/16/2024 6:25 PM EST 06/16/2024 6:45 PM EST Mikey Rivas CARD SETTER LAB URINE ORDER MADELYN Final Result Performing Organization Address City/[facility]/ZIP Co de Phone Number [facility] [address] [place] [id number], [place] * Urine Culture (Urethral Catheter), HOLD (06/16/2024 6:25 PM EST) Pathologist [facility] Extra Tube Hold for add-ons. 06/16/2024 11:05 PM EST [facility] Comment:Auto resulted. Urine Indwelling urinary catheter / Unknown Non-Blood Collection / Unknown 06/16/2024 6:25 PM EST 06/16/2024 6:45 PM EST Mikey Rivas CARD SETTER LAB URINE ORDER MADELYN Final Result Performing Organization Address City/[facility]/ZIP Co de Phone Number [facility] [address] [place] [address], [place] * (ABNORMAL) Betahydroxybutyrate (06/16/2024 10:28 AM EST) Beta-Hydroxybu tyrate 1.00(H) <=0.27 mmol/L 06/16/2024 12:27 PM EST [facility] Blood Structure of peripheral vein / Unknown Venipuncture / Unknown 06/16/2024 10:28 AM EST 06/16/2024 10:28 AM EST Mikey Rivas CARD SETTER LAB BLOOD ORDER MADELYN Final Result Performing Organization Address [facility] de Phone Number [facility] [address] [place] [address], [place] * Creatine Kinase (06/16/2024 10:28 AM EST) Only the most recent of2 resultswithin the time period is included. Pathologist [facility] CK 342 49 - 348 U/L 06/16/2024 11:00 AM EST [facility] Blood Structure of peripheral vein / Unknown Venipuncture / Unknown 06/16/2024 10:28 AM EST 06/16/2024 10:28 AM EST Mikey Rivas CARD SETTER LAB BLOOD ORDER MADELYN Final Result Performing Organization Address [facility] Phone Number [facility] [address] [place] [address], [place] * (ABNORMAL) Methadone Screen w/Confirmation, Urine (06/16/2024 9:37 AM EST) Pathologist [facility] Methadone Metabolite Screen, Urine POSITIVE( A) <100 ng/mL 06/19/2024 6:34 AM EST [facility], Urine 1608(H) <100 ng/mL 06/19/2024 6:34 AM EST [facility] Comment: See Note 1 Methadone, Urine 948(H) <100 ng/mL 06/19/2024 6:34 AM EST [facility] Comment: See Note 1 See Note 2 Note 1 This test was developed and its analytical performance characteristics have been determined by [employer]. It has not been cleared or approved [...] interpreting these drug results, please contact a [employer] Toxicology Specialist: [phone] ( ), M-F, 8am-6pm EST. Urine Catheter / Unknown Non-Blood Collection / Unknown 06/16/2024 9:37 AM EST 06/16/2024 9:55 AM EST [facility] - 06/19/2024 6:34 AM EST [facility] Received Date: Mikey Rivas CARD SETTER LAB URINE ORDER MADELYN Final Result [facility] [address], [place] [address], [facility] [address], [place] [address], * Morphine and Codeine Confirmation, Urine (06/16/2024 9:37 AM EST) Codeine, Urine NEGATIVE <50 ng/mL 06/19/2024 3:19 PM EST [facility] Comment: See Note 1 Hydrocodone, Urine NEGATIVE <50 ng/mL 06/19/2024 3:19 PM EST [facility] Comment: See Note 1 Hydromorphone, Urine NEGATIVE <50 ng/mL 06/19/2024 3:19 PM EST [facility] Comment: See Note 1 Morphine, Urine NEGATIVE <50 ng/mL 3:19 PM EST [facility] Comment: See Note 1 Norhydrocodone, Urine NEGATIVE <50 ng/mL 06/19/2024 3:19 PM EST [facility] Comment: See Note 1 See Note 2 Note 1 This test was developed and its analytical performance characteristics have been determined by [employer]. It has not been cleared or approved [...] interpreting these drug results, please contact a [employer] Toxicology Specialist: [phone] ( ), M-F, 8am-6pm EST. Urine Catheter / Unknown Non-Blood Collection / Unknown 06/16/2024 9:37 AM EST 06/16/2024 9:55 AM EST Narrative [id number]19/[facility]24 3:19 PM EST [facility] Received Date:[id number] Mikey Rivas CARD SETTER LAB URINE ORDER MADELYN Final Result [facility] [address], [place] [address], [place] [phone] [facility] [address], [place] [address], [place] [phone] * Comprehensive Drug Panel, Urine (06/16/2024 9:37 AM EST) [facility] Comprehensive Drug Screen Urine DRUGS DETECTED 06/16/2024 4:36 PM EST Degreed [facility] Comment: DIPHENHYDRAMINE PHENOBARBITAL METHADONE AND METABOLITE Urine Catheter / Unknown Non-Blood Collection / Unknown 06/16/2024 9:37 AM EST 06/16/2024 9:55 AM EST Narrative Sonda41 [place] - 06/16/2024 4:36 PM EST [facility] Received Date:[id number] Cj Paz CARD SETTER LAB URINE ORDERABLES Final Resul t [facility] [place] [address], [place] [address], [place] [phone] Degreed [facility] [address], [place] [address], * (ABNORMAL) Barbiturate Screen, Urine (06/16/2024 9:37 AM EST) Barbiturate Screen, Urine Presumptive Positive(A) Negative 06/16/2024 1:30 PM EST [facility] Comment: Detection limit of [...] EST 06/16/2024 9:55 AM EST Mikey Rivas CARD SETTER LAB URINE ORDER MADELYN Final Result [facility] [address] [place] [address], [place] * Propoxyphene Screen, Urine (06/16/2024 9:37 AM EST) Propoxyphene Screen, Urine NEGATIVE <300 ng/mL 06/17/2024 5:52 AM EST [facility] Comment: See Note 2 Note 1 This drug testing is for medical treatment only. ?? Analysis was performed as non-forensic testing and these results should be used only by healthcare providers to render diagnosis or treatment, or to monitor progress of medical conditions. For assistance with interpreting these drug results, please contact a [employer] Toxicology Specialist: [phone] ( ), M-F, 8am-6pm EST. Note [...] interpreting these drug results, please contact a [employer] Toxicology Specialist: [phone] ( ), M-F, 8am-6pm EST. Urine Catheter / Unknown Non-Blood Collection / Unknown 06/16/2024 9:37 AM EST 06/16/2024 9:55 AM EST Narrative [facility] [place] - 06/17/2024 5:52 AM EST [facility] Received Date: Mikey Rivas CARD SETTER LAB URINE ORDER MADELYN Final Result [facility] [place] [address] [facility] 3rd Floor, [place] [address], [place] [phone] Suda [facility] [address], [place] [address], [place] [phone] * Marijuana Qualitative Screen, Urine (06/16/2024 9:37 AM EST) Marijuana Screen, Urine Negative Negative 06/16/2024 1:30 PM EST [facility] Comment: Detection limit of 50 ng/mL of 41-Vwk-tedto-8-MAD-2-carboxylic acid. Drug results are to be used only for medical purposes. ??Unconfirmed screening results must not be used for non-medical purposes. Urine Catheter / Unknown Non-Blood Collection / Unknown 06/16/2024 9:37 AM EST 06/16/2024 9:55 AM EST Mikey Rivas CARD SETTER LAB URINE ORDER MADELYN Final Result [facility] [address] [place] [address], * Osmolality Gap (06/16/2024 9:37 AM EST) NA 137 135 - 145 mmol/L 06/16/2024 11:08 AM EST [facility] CLINICAL PATHOLOGY LABORATORY BUN 10 7 - 23 mg/dL 06/16/2024 11:08 AM EST [facility] CLINICAL PATHOLOGY LABORATORY Glucose 95 65 - 99 mg/dL 06/16/2024 11:08 AM EST [facility] CLINICAL PATHOLOGY LABORATORY Osmolality 282 279 - 295 mOsm/kg 06/16/2024 11:08 AM EST [facility] PATHOLOG[facility] Osmolality Calculated 283 mOSM/kg 06/16/2024 11:08 AM EST [facility] CLINICAL PATHOLOGY LABORATORY Osmolality Gap <10 <10 mOSM/kg 06/16/2024 11:08 AM EST [facility] Blood Structure of peripheral vein / Unknown Venipuncture / Unknown 06/16/2024 9:37 AM EST 06/16/2024 9:54 AM EST Cj Paz CARD SETTER LAB BLOOD ORDERABLES Final Resul t [facility] CLINICAL PATHOLOGY LABORATORY [address] [place] [address], * Phencyclidine (PCP) Screen, Urine (06/16/2024 9:37 AM EST) Phencyclidine Screen, Urine NEGATIVE <25 ng/mL 06/17/2024 5:52 AM EST Suda [facility] Comment: See Note 2 Urine Catheter / Unknown Non-Blood Collection / Unknown 06/16/2024 9:37 AM EST 06/16/2024 9:55 AM EST Narrative [facility] [place] - 06/17/2024 5:52 AM EST [facility] Received Date: Mikey Rivas CARD SETTER LAB URINE ORDER MADELYN Final Result [facility] [address] [facility] 3rd Floor, [place] [address], [place] [phone] Suda [facility] 200 [facility] 3rd Floor, [place] [address], [place] [phone] * Cocaine Qualitative, Urine (06/16/2024 9:37 AM EST) Cocaine Metabolite Screen, Urine Negative Negative 06/16/2024 1:30 PM EST [facility] Comment: Detection limit of 300 ng/mL of Benzoylecgonine. Drug results are to be used only for medical purposes. ??Unconfirmed screening results must not be used for non-medical purposes. Urine Catheter / Unknown Non-Blood Collection / Unknown 06/16/2024 9:37 AM EST 06/16/2024 9:55 AM EST Mikey Rivas CARD SETTER LAB URINE ORDER MADELYN Final Result Performing Organization Address [facility] Co de Phone Number [facility] [address] [place] [address], * (ABNORMAL) Benzodiazepine Qualitative Screen, Urine (06/16/2024 9:37 AM EST) Benzodiazepine Screen, Urine Presumptive Positive(A) Negative 06/16/2024 1:30 PM EST [facility] Comment: Detection limit of 200 ng/mL of Nordiazepam. Drug results are to be used only for medical purposes. ??Unconfirmed screening results must not be used for non-medical purposes. Urine Catheter / Unknown Non-Blood Collection / Unknown 06/16/2024 9:37 AM EST 06/16/2024 9:55 AM EST Mikey Rivas CARD SETTER LAB URINE ORDER MADELYN Final Result Performing Organization Address [facility]/ZIP Co de Phone Number [facility] [address] [place] [address], [place] * Amphetamine Qualitative, Urine (06/16/2024 9:37 AM EST) Amphetamine Screen, Urine Negative Negative 06/16/2024 1:30 PM EST [facility] Comment: Detection limit of 1000 ng/mL of d-Methamphetamine. Drug results are to be used only for medical purposes. ??Unconfirmed screening results must not be used for non-medical purposes. Urine Catheter / Unknown Non-Blood Collection / Unknown 06/16/2024 9:37 AM EST 06/16/2024 9:55 AM EST Mikey Rivas CARD SETTER LAB URINE ORDER MADELYN Final Result Performing Organization Address [facility] Co de Phone Number [facility] CLINICAL PATHOLOGY LABORATORY [address] [place] [address], [place] * Osmolality, Serum (06/16/2024 9:37 AM EST) Osmolality 280 279 - 295 mOsm/kg 06/16/2024 10:46 AM EST [facility] CLINICAL PATHOLOGY LABORATORY Blood Structure of peripheral vein / Unknown Venipuncture / Unknown 06/16/2024 9:37 AM EST 06/16/2024 9:54 AM EST Cj Paz NP LAB BLOOD ORDERABLES Final Resul t Performing Organization Address [facility] Phone Number [facility] CLINICAL PATHOLOGY LABORATORY [address] [place] [address], [place] * Acetaminophen Level (06/16/2024 9:37 AM EST) Acetaminophen <5.0 <10.0 ug/mL 06/16/2024 10:41 AM EST [facility] CLINICAL PATHOLOGY LABORATORY Comment:Expected Range with Therapeutic Dosin-30 ug/mL Blood Structure of peripheral vein / Unknown Venipuncture / Unknown 06/16/2024 9:37 AM EST 06/16/2024 9:54 AM EST us Cj Paz NP LAB BLOOD ORDERABLES Final Resul t Performing Organization Address [facility] Co de Phone Number [facility] CLINICAL PATHOLOGY LABORATORY [address] [place] [address], [place] * Salicylate Level (06/16/2024 9:37 AM EST) Salicylate <1 <3 mg/dL 06/16/2024 10:41 AM EST [facility] CL[facility]ICAL PATHOLOGY LABORATORY Comment:Expected Range with Therapeutic Dosin-30 mg/dL Blood Structure of peripheral vein / Unknown Venipuncture / Unknown 06/16/2024 9:37 AM EST 06/16/2024 9:54 AM EST us Cj Paz CARD SETTER LAB BLOOD ORDERABLES Final Resul t [facility] PATHOLOGY LABORATORY [address] [place] [address], * COVID-19, Flu A/B & RSV RNA PCR, Symptomatic (06/16/2024 9:29 AM EST) PCR, SARS CoV-2 RNA Not Detected Not Detected [facility] 06/16/2024 11:18 AM EST [facility] CLINICAL PATHOLOGY LABORATORY Comment:A Not Detected (Nega [...] Detected [facility] [facility] 06/16/2024 11:18 AM EST [facility] CLINICAL PATHOLOGY LABORATORY Comment:Negative results do not preclude infection and should not be used as the sole basis for diagnosis, treatment or other patient management decisions. Negative results must be combined with clinical observations, patient history, and/or epidemiological information. Flu B RNA PCR Not Detected Not Detected [facility] 06/16/2024 11:18 AM EST [facility] CLINICAL PATHOLOGY LABORATORY Comment:Negative results do not preclude infection and should not be used as the sole basis for diagnosis, treatment or other patient management decisions. Negative results must be combined with clinical observations, patient history, and/or epidemiological information. RSV RNA PCR Not Detected Not Detected [facility] GENEXPERT 06/16/2024 11:18 AM EST [facility] CLINICAL PATHOLOGY LABORATORY Comment:Negative results do not preclude infection and should not be used as the sole basis for diagnosis, treatment or other patient management decisions. Negative results must be combined with clinical observations, patient history, and/or epidemiological information. Swab (Nares) Non-Blood Collection / Unknown 06/16/2024 9:29 AM EST 06/16/2024 9:54 AM EST Narrative [facility] CLINICAL PATHOLOGY LABORATORY - 06/16/2024 11:18 AM EST This test was developed, validated and its performance characteristics determined by [facility] Clinical Labs. This test has not been cleared or approved by the U.S. Food and Drug Administration (FDA). FDA Policy for Diagnostic Tests for Coronavirus Disease-2019 during the Public Health Emergency issued August 19, 2019, is followed. us Cj Paz NP LAB BODY FLUIDS AND STOOLS ORDER MADELYN Final Result [facility] CLINICAL PATHOLOGY LABORATORY [address] [place] [address], * (ABNORMAL) POCT I-STAT Arterial Blood Gas, interfaced (06/16/2024 9:29 AM EST) Sample Type, POCT Arterial 06/16/2024 9:32 AM EST [facility], POC pH, POCT 7.47(H) 7.35 - 7.45 06/16/2024 9:32 AM EST [facility], POC pCO2, POCT 26.8(L) 35 - 45 mmHg 06/16/2024 9:32 AM EST [facility], POC pO2, POCT 116(H) 80 - 105 mmHg 06/16/2024 9:32 AM EST [facility], POC Base Excess, POCT -4(L) 0 - 3 mmol/L 06/16/2024 9:32 AM EST [facility], POC HCO3, POCT 19.4(L) 21 - 28 mmol/L 06/16/2024 9:32 AM EST [facility] TCO2, POCT 20(L) 23 - 27 mmol/L 06/16/2024 9:32 AM EST [facility] Saturated O2, POCT 99(H) 95 - 98 % 06/16/2024 9:32 AM EST [facility] FIO2, POCT 50 % 06/16/2024 9:32 AM EST [facility] Tidal Volume, POCT 450 ml 06/16/2024 9:32 AM EST [facility], POC Isaias's Test, POCT PASS 06/16/2024 9:32 AM EST [facility], POC Blood 06/16/2024 9:29 AM EST 06/16/2024 9:32 AM EST us Sal Adler MD LAB POCT ORDERABLES - DEVIC E Final Result Performing Organization Address City/State/[facility] Co de Phone Number [facility], POC [address] [place] [address], * Blood Culture, Peripheral #2 (06/16/2024 9:00 AM EST) Only the most recent of2 resultswithin the time period is included. Culture No growth after 5 days 06/21/2024 1:31 PM EST Suda [facility] Blood Structure of peripheral vein / Unknown Venipuncture / Unknown 06/16/2024 9:00 AM EST 06/16/2024 9:12 AM EST Narrative [facility] 06/21/2024 1:31 PM EST [facility] Received Date: MICRO NUMBER: [id number] SPECIMEN QUALITY: Adequate SOURCE: BLOOD VENOUS, PERIPHERAL STATUS: FINAL COMMENT: Aerobic and anaerobic bottle received. Mikey Rivas NP LAB MICROBIOLOG Y - GENERAL ORDERABLES Final Result [facility] [address] [facility] 3rd Floor, [place] [address], [place] [phone] [facility] [employer] [facility] 200 [facility] 3rd Floor, [place] [address], [place] [phone] * Prolactin (06/16/2024 8:57 AM EST) Prolactin 9.10 4.04 - 15.20 ng/mL 06/16/2024 11:22 AM EST [facility] Blood Structure of peripheral vein / Unknown Venipuncture / Unknown 06/16/2024 8:57 AM EST 06/16/2024 9:12 AM EST Mikey Rivas CARD SETTER LAB BLOOD ORDER MADELYN Final Result Performing Organization Address [facility]/ZIP Co de Phone Number [facility] [address] [place] [address], * MRSA/S aureus PCR, Nasal (06/16/2024 8:44 AM EST) Pathologist [facility] MRSA PCR, Nasal NOT DETECTED NOT DETECTED 06/17/2024 3:29 PM EST Suda [facility] S. aureus PCR, Nasal NOT DETECTED NOT DETECTED 06/17/2024 3:29 PM EST [facility] Swab Nasal structure / Unknown Non-Blood Collection / Unknown 06/16/2024 8:44 AM EST 06/16/2024 9:12 AM EST Narrative [facility] [place] - 06/17/2024 3:29 PM EST [facility] Received Date:[id number] us Mikey Rivas CARD SETTER LAB BODY FLUIDS AND STOOLS ORDERABLES Final Result [facility] [address] [facility] 3rd Floor, [place] [address], [place] [phone] [facility] [employer] [facility] 200 [facility] 3rd Floor, [place] [address], [place] [phone] * (ABNORMAL) Respiratory Culture w/Gram Stain (06/16/2024 8:41 AM EST) Culture Growth of normal oropharyngeal yayo 06/18/2024 2:14 PM EST [facility] Gram Stain Many White Blood Cells Seen(A) 06/18/2024 2:14 PM EST [email or web address] Gram Stain No epithelial cells seen(A) 06/18/2024 2:14 PM EST [facility] [employer] [facility] Gram Stain Few Gram Positive Cocci(A) 06/18/2024 2:14 PM EST [facility] [employer] [facility] Sputum Sputum / Unknown Non-Blood Collection / Unknown 06/16/2024 8:41 AM EST 06/16/2024 9:11 AM EST Narrative [facility] - 06/18/2024 2:14 PM EST [facility] Received Date: MICRO NUMBER: [id number] SPECIMEN QUALITY: Adequate SOURCE: SPUTUM EXPECTORATED SPUTUM STATUS: FINAL Mikey Rivas CARD SETTER LAB MICROBIOLOG Y - GENERAL ORDERABLES Final Result [facility] [address] [facility] 3rd Floor, [place] [address], Suda [facility] 200 [facility] 3rd Floor, [place] [address], * X-Ray Chest 1 View (06/16/2024 8:20 AM EST) Only the most recent of2 resultswithin the time period is included. Anatomical Region Laterality Modality Body Computed Radiogr aphy 06/16/2024 3:59 PM EST Impressions 06/16/2024 4:00 PM EST Devices: New ETT 2.5 cm above the mraiam. New OGT with tip in the lateral [...] obtain the completed interpretation. ? Workstation ID: [id number] Narrative 06/16/2024 4:00 PM EST COMPARISON: ??One day ago FINDINGS AND Resulting Agency Comment [id number] Procedure Note Sal Goodman MD - 06/16/2024 [...] possible to obtain thecompleted interpretation. Workstation ID: [id number] Betina Gallo CARD SETTER IMG XR PROCEDURES Final Result * HC EMERGENCY INTUBATION, [place] INSERT EMERGENCY ENDOTRACH AIRWAY, AN ETT DUMMY [...] Aurora Beckett MD Anesthesiologist: Aurora Beckett MD DIVING FISHER: Rut Petersen CRNA Performed: anesthesiologist I was [...] - 1.9 mmol/L 06/16/2024 8:06 AM EST [facility] CL[facility] PATHOLOGY LABORATORY Comment: Sepsis Screening: Initial Lactate Level >2.0 mmol/L - Repeat Lactate Level within 3 hours. Initial Lactate Level >4.0 mmol/L - Repeat Lactate Level within 3 hours, Initiate Septic Shock Protocol. Blood Structure of peripheral vein / Unknown Venipuncture / Unknown 06/16/2024 7:34 AM EST 06/16/2024 7:36 AM EST Mikey Rivas CARD SETTER LAB BLOOD ORDER MADELYN Final Result [facility] CL[facility]ICAL PATHOLOGY LABORATORY [address] [place] [address], * Protime-INR (06/16/2024 3:42 AM EST) PT 11.0 9.6 - 12.4 Seconds 06/16/2024 4:19 AM EST [facility] CL[facility]ICAL PATHOLOGY LABORATORY INR 1.0 0.9 - 1.1 06/16/2024 4:19 AM EST [facility] CL[facility]ICAL PATHOLOGY LABORATORY Comment:The optimal therapeu tic INR range for patients treated with Vitamin K antagonists (VKAS, e.g., Warfarin) is 2.0 to 3.5. Discuss the desired range with your doctor/care team. Blood Structure of peripheral vein / Unknown Venipuncture / Unknown 06/16/2024 3:42 AM EST 06/16/2024 3:46 AM EST us Marci ESTRADA LAB BLOOD ORDERABLES Final Res ult [facility]OR[facility]ORY [address] [place] [address], * (ABNORMAL) Hepatic Function Panel (06/16/2024 3:42 AM EST) Total Protein 6.9 6.0 - 8.0 g/dL 06/16/2024 4:27 AM EST [facility]ICAL PATHOLOGY LABORATORY Albumin 3.7 3.5 - 5.2 g/dL 06/16/2024 4:27 AM EST [facility] Globulin, Total 3.2 2.1 - 4.2 g/dL 06/16/2024 4:27 AM EST [facility] Bilirubin, Total 1.2 0.2 - 1.2 mg/dL 06/16/2024 4:27 AM EST [facility] Bilirubin, Direct 0.5(H) <=0.4 mg/dL 06/16/2024 4:27 AM EST [facility] PATHOLOGY LABORAT[facility] Alkaline Phosphatase 112 35 - 129 U/L 06/16/2024 4:27 AM EST [facility] AST 47(H) 10 - 40 U/L 06/16/2024 4:27 AM EST [facility] CL[facility]ICAL PATHOLOGY LABORAT[facility] ALT 43(H) 10 - 40 U/L 06/16/2024 4:27 AM EST [facility] Bilirubin, Indirect 0.70 <=0.70 mg/dL 06/16/2024 4:27 AM EST [facility] PATHOLOGY LABOR[facility] A/G Ratio 1.2(L) 1.5 - 3.0 06/16/2024 4:27 AM EST [facility] CL[facility]ICAL PATHOLOGY LABORAT[facility] Blood Structure of peripheral vein / Unknown Venipuncture / Unknown 06/16/2024 3:42 AM EST 06/16/2024 3:46 AM EST Marci ESTRADA LAB BLOOD ORDERABLES Final Res ult [facility] CL[facility]ICAL PATHOLOGY LABORATORY [address] [place] [address], * ECG 12 lead (06/15/2024 5:49 PM EST) Only the most recent of2 resultswithin the time period is included. Ventricular Rate EKG 97 BPM MUSE EKG Atrial Rate 97 BPM MUSE EKG [place] Interval 136 ms MUSE EKG QRS Interval 72 ms MUSE EKG QT Interval 390 ms MUSE EKG QTC Interval 495 ms MUSE EKG P [place] 67 degrees MUSE EKG R [place] 26 degrees MUSE EKG T Wave [place] -26 degrees MUSE EKG 06/15/2024 5:49 PM EST 06/16/2024 5:47 PM EST Impressions MUSE EKG - 06/16/2024 5:47 PM EST NORMAL SINUS RHYTHM ST-T ABNORMALITIES CONSIDER ISCHEMIA PROLONGED QTC ABNORMAL ECG Confirmed by Heath Williamson ([id number]) on 06/16/2024 5:47:05 PM us Quita Augustine PA ECG ORDERABLES Final Res ult MUSE EKG * Troponin T, High Sensitivity (06/15/2024 5:33 PM EST) Troponin T High Sensitivity <6 <=21 ng/L 06/15/2024 6:30 PM EST [facility] PATH[facility] LAB[facility] Comment: 3+ hemolysis; the result may be Falsely Decreased. Fq-Esuxjsip-N level of 52 ng/L or higher at [...] be evaluated in line with the 4th [place] Definition of AMI. Troponin baseline and serial [...] ESTRADA LAB BLOOD ORDERABLES Rachel l Result [facility] PATHOLOGY LABORATORY [address] [place] [id number], [place] * CT Head WO Contrast (06/15/2024 [...] obtain the completed interpretation. ? Workstation ID: [id number] Up-to-date CT equipment and radiation dose reduction [...] paranasal sinuses are well-aerated. Resulting Agency Comment [id number] Procedure Note Joseph Corona - 06/15/2024 EXAMINATION: [...] possible to obtain thecompleted interpretation. Workstation ID: [id number] Up-to-date CT equipment and radiation dose reduction techniques wereemployed. CTDIvol: 48.0 mGy. DLP: 868 mGy-cm. Edvin Beck MD IM CT PROCEDURES Final Result * HEART & VASCULAR - SCANNED (06/15/2024) Anatomical Region Laterality Modality Other Onbase Scan [place] SCANNED PROCEDURES Final Resu lt from Last [address] [place] [address] [id number] Advance Directives Documents on File Type Date Recorded Patient Jumpbasting Canvas Baster Expl [facility] Care Proxy 06/25/2024 2:59 PM 06-25 * Full Code (Latest Code Status on File) Date Activated Date Inactivated Comments 06/15/2024 5:11 PM 06/25/2024 8:23 PM Care Teams Manufacturing Operator Relationship Specialty Start Date End Date Patient, Has No Pcp Or Ref DO NOT EDIT THIS RECORD VIA PROVIDER ON THE FLY PCP - General Delivery Rn 06/19/24
--- OUTSIDE RECORDS SUMMARY | 2024-09-13 15:37 | XMS_ITS | Clinical Summary ---
Author Organization [facility] Address [address] [place] [address] Care Team Providers Care Communications Planner Name Role Phone Patient, Has No Pcp [...] Description 06/16/2024 8:47 AM EST Anesthesia Event [facility] [address] [facility] [address] [place] [address] Aurora Beckett MD 06/15/2024 12:22 AM EST - 06/25/2024 6:18 PM EST Hospital Encounter [facility] [address] [facility] [address] [place] [address] Kiran, Vincent L., MD [place], Anaya A., DO Gabe Lorenzo MD Girgenrath, Tanya, MD Gallant, Joseph J., MD Jones, Evan W, MD Wong, William W., DO Delirium tremens (Primary Dx); Hypomagnesemia; Hypokalemia; Toxic [...] of 2 - PCV) 2005 COVID-19 Vaccine (3 - 2023- season) 2024, 04/02/2021 Alcohol/Substance Use Screening 06/05/2024 Depression Screening and Follow-Up 06/05/2024 Social Drivers of Health Annual Screening 06/05/2024 Influenza Vaccine (Season Ended) 2025 DTaP,Tdap,and Td Vaccines (2 - Td or Tdap) 05/18/2030 05/18/2020 RSV Vaccine (60+ years old a nd patients) (1 - 1-dose 75+ series) 2061 Procedures * Due to [place] state law, this organization might not be [...] DUMMY PERFORMABLE Routine 025 8:15 AM EST 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 * Magnesium (06/25/2024 4:53 AM EST) Only the most recent of14 resultswithin the time period is included. MG 2.0 1.6 - 2.4 mg/dL 06/25/2024 5:55 AM EST [facility] Blood Structure of peripheral vein / Unknown Venipuncture / Unknown 06/25/2024 4:53 AM EST 06/25/2024 5:26 AM EST us Mikey Rivas DINKEY ENGINE FIRER LAB BLOOD ORDER MADELYN Final Result [facility] [address] [place] [address], * (ABNORMAL) Basic metabolic panel (06/25/2024 4:53 AM EST) Only the most recent of15 resultswithin the time period is included. NA 137 135 - 145 mmol/L 06/25/2024 5:55 AM EST [facility] K 3.6 3.5 - 5.3 mmol/L 06/25/2024 5:55 AM EST [facility] Cl 105 98 - 107 mmol/L 06/25/2024 5:55 AM EST [facility] CO2 21(L) 22 - 32 mmol/L 06/25/2024 5:55 AM EST [facility] BUN 8 7 - 23 mg/dL 06/25/2024 5:55 AM EST [facility] Creatinine 0.59(L) 0.60 - 1.30 mg/dL 06/25/2024 5:55 AM EST [facility] Glucose 103(H) 65 - 99 mg/dL 06/25/2024 5:55 AM EST [facility] Calcium 8.8 8.6 - 10.5 mg/dL 06/25/2024 5:55 AM EST [facility] Anion Gap 11 5 - 15 06/25/2024 5:55 AM EST [facility] eGFR >90 >=60 mL/min/1 .73m2 06/25/2024 5:55 AM EST [facility] Comment:The estimated glomer [...] EST 06/25/2024 5:26 AM EST Mikey Rivas DINKEY ENGINE FIRER LAB BLOOD ORDER MADELYN Final Result Performing Organization Address [facility] Co de Phone Number [facility] [address] [place] [phone], * (ABNORMAL) Smear Review (06/24/2024 3:08 AM EST) Only the most recent of4 resultswithin the time period is included. Platelet Estimate Increase d(A) Adequate 06/24/2024 4:13 AM EST [facility] RBC Morphology Present( A) Normal, No clinically significant RBC morphology present (ICSH guidelines, 2015). 06/24/2024 4:13 AM EST [facility] Macrocytes 2+(A) Not Present 06/24/2024 4:13 AM EST [facility] Blood Structure of peripheral vein / Unknown Venipuncture / Unknown 06/24/2024 3:08 AM EST 06/24/2024 3:35 AM EST us Domonique Desai DINKEY ENGINE FIRER LAB BLOOD ORDERABLES Final R esult [facility] [address] [place] [address], [place] * (ABNORMAL) CBC (06/24/2024 3:08 AM EST) Only the most recent of5 resultswithin the time period is included. WBC 7.4 3.8 - 10.8 10*3/uL 06/24/2024 4:13 AM EST [facility] RBC 3.84(L) 4.20 - 5.80 10*6/uL 06/24/2024 4:13 AM EST [facility] Hemoglobin 14.4 13.2 - 17.1 g/dL 06/24/2024 4:13 AM EST [facility] Hematocrit 39.7 38.5 - 50.0 % 06/24/2024 4:13 AM EST [facility] MCV 103.4(H) 80.0 - 100.0 fL 06/24/2024 4:13 AM EST [facility] MCH 37.5(H) 27.0 - 33.0 pg 06/24/2024 4:13 AM EST [facility] MCHC 36.3(H) 32.0 - 36.0 g/dL 06/24/2024 4:13 AM EST [facility] RDW 11.7 11.0 - 15.0 % 06/24/2024 4:13 AM EST [facility] Platelets 546(H) 140 - 400 10*3/uL 06/24/2024 4:13 AM EST [facility] MPV 8.8 7.5 - 12.5 fL 06/24/2024 4:13 AM EST [facility] Comment:A smear review has b een added. Clinician review and interpretation will be needed once the report is final. Blood Structure of peripheral vein / Unknown Venipuncture / Unknown 06/24/2024 3:08 AM EST 06/24/2024 3:35 AM EST Domonique Desai DINKEY ENGINE FIRER LAB BLOOD ORDERABLES Final R [facility] Performing Organization Address [facility] de Phone Number [facility] [address] [place] [address], [place] * Phosphorus (06/24/2024 3:08 AM EST) Only the most recent of9 resultswithin the time period is included. Phosphorus 3.4 2.5 - 4.5 mg/dL 06/24/2024 4:20 AM EST [facility] Blood Structure of peripheral vein / Unknown Venipuncture / Unknown 06/24/2024 3:08 AM EST 06/24/2024 3:35 AM EST Domonique Desai DINKEY ENGINE FIRER LAB BLOOD ORDERABLES Final [facility] Performing Organization Address [facility] de Phone Number [facility] [address] [place] [id number], [place] * (ABNORMAL) POCT Glucose, interfaced (06/23/2024 11:19 AM EST) Only the most recent of17 resultswithin the time period is included. Glucose, POCT 167(H) 70 - 99 mg/dL 06/23/2024 11:20 AM EST [facility] Comment: The beam department supervisor has not determined the efficacy of this test in Critically ill patients. ??[facility] defines Critically ill patients for the [...] LAB POCT ORDERABLES - DEVICE Final Result [facility] [address] [place] [address], [place] * (ABNORMAL) CBC Auto Differential (06/20/2024 3:35 AM EST) Only the most recent of4 resultswithin the time period is included. WBC 4.1 3.8 - 10.8 10*3/uL 06/20/2024 5:40 AM EST [facility] RBC 3.68(L) 4.20 - 5.80 10*6/uL 06/20/2024 5:40 AM EST [facility] Hemoglobin 13.5 13.2 - 17.1 g/dL 06/20/2024 5:40 AM EST [facility] Hematocrit 39.4 38.5 - 50.0 % 06/20/2024 5:40 AM EST [facility] MCV 107.1(H) 80.0 - 100.0 fL 06/20/2024 5:40 AM EST [facility] MCH 36.7(H) 27.0 - 33.0 pg 06/20/2024 5:40 AM EST [facility] MCHC 34.3 32.0 - 36.0 g/dL 06/20/2024 5:40 AM EST [facility] RDW 11.7 11.0 - 15.0 % 06/20/2024 5:40 AM EST [facility] Platelets 274 140 - 400 10*3/uL 06/20/2024 5:40 AM EST [facility] MPV 9.4 7.5 - 12.5 fL 06/20/2024 5:40 AM [facility] Neutrophil % 49.9 % 06/20/2024 5:40 AM [facility] Immature Grans % 0.5 0.0 - 0.9 % 06/20/2024 5:40 AM [facility] Lymphocyte % 21.5 % 06/20/2024 5:40 AM [facility] Monocyte % 23.7 % 06/20/2024 5:40 AM [facility] Eosinophil % 3.4 % 06/20/2024 5:40 AM [facility] Basophil % 1.0 % 06/20/2024 5:40 AM [facility] Neutrophil # 2.06 1.50 - 7.80 10*3/uL 06/20/2024 5:40 AM [facility] Immature Grans # <0.03 <=0.03 10*3/uL 06/20/2024 5:40 AM [facility] Lymphocyte # 0.90 0.85 - 3.90 10*3/uL 06/20/2024 5:40 AM [facility] Monocyte # 1.00(H) 0.20 - 0.95 10*3/uL 06/20/2024 5:40 AM [facility] Eosinophil # 0.10 0.02 - 0.50 10*3/uL 06/20/2024 5:40 AM [facility] Basophil # <0.03 0.00 - 0.20 10*3/uL 06/20/2024 5:40 AM [facility] nRBC % 0.0 /100 WBCs 06/20/2024 5:40 AM [facility] nRBC # <0.01 <0.01 10*3/uL 06/20/2024 5:40 AM [facility] Blood Structure of peripheral vein / Unknown Venipuncture / Unknown 06/20/2024 3:35 AM EST 06/20/2024 4:12 AM EST us Darrel Blackwell NP LAB BLOOD ORDERABLES Fi nal Result [facility] [address] [place] [address], [place] * (ABNORMAL) Comprehensive metabolic panel (06/20/2024 3:35 AM EST) Only the most recent of2 resultswithin the time period is included. NA 139 135 - 145 mmol/L 06/20/2024 4:47 AM EST [facility] K 4.0 3.5 - 5.3 mmol/L 06/20/2024 4:47 AM EST [facility] Cl 107 98 - 107 mmol/L 06/20/2024 4:47 AM EST [facility] CO2 23 22 - 32 mmol/L 06/20/2024 4:47 AM EST [facility] Anion Gap 9 5 - 15 06/20/2024 4:47 AM EST [facility] Glucose 161(H) 65 - 99 mg/dL 06/20/2024 4:47 AM EST [facility] Creatinine 0.55(L) 0.60 - 1.30 mg/dL 06/20/2024 4:47 AM EST [facility] Calcium 8.6 8.6 - 10.5 mg/dL 06/20/2024 4:47 AM EST [facility] Total Protein 6.8 6.0 - 8.0 g/dL 06/20/2024 4:47 AM EST [facility] Albumin 3.2(L) 3.5 - 5.2 g/dL 06/20/2024 4:47 AM EST [facility] Bilirubin, Total 0.2 0.2 - 1.2 mg/dL 06/20/2024 4:47 AM EST [facility] Alkaline Phosphatase 104 35 - 129 U/L 06/20/2024 4:47 AM EST [facility] AST 20 10 - 40 U/L 06/20/2024 4:47 AM EST [facility] ALT 16 10 - 40 U/L 06/20/2024 4:47 AM EST [facility] BUN 11 7 - 23 mg/dL 06/20/2024 4:47 AM EST [facility] eGFR >90 >=60 mL/min/1 .73m2 06/20/2024 4:47 AM EST [facility] Comment:The estimated glomer ular [...] - 4.2 g/dL 06/20/2024 4:47 AM EST [facility] A/G Ratio 0.9(L) 1.5 - 3.0 06/20/2024 4:47 AM EST [facility] Blood Structure of peripheral vein / Unknown Venipuncture / Unknown 06/20/2024 3:35 AM EST 06/20/2024 4:11 AM EST us Darrel Blackwell NP LAB BLOOD ORDERABLES Fi nal Result [facility] [address] [place] [address], [place] * (ABNORMAL) Manual Differential (06/19/2024 3:40 AM EST) Neutrophil %, Manual 61 % 06/19/2024 5:22 AM [facility] Comment:WBC: vacuolated poly s Lymphocyte %, Manual 17 % 06/19/2024 5:22 AM EST [facility] Monocyte %, Manual 12 % 06/19/2024 5:22 AM EST [facility] Eosinophil %, Manual 5 % 06/19/2024 5:22 AM [facility] Basophil %, Manual 1 % 06/19/2024 5:22 AM [facility] Reactive Lymphocyte % 4 0 - 6 % 06/19/2024 5:22 AM [facility] Total Neutrophil #, Manual 3.48 1.50 - 7.80 10*3/uL 06/19/2024 5:22 AM [facility] Total Lymph #, Manual 1.20 0.85 - 3.90 10*3/uL 06/19/2024 5:22 AM [facility] Monocyte #, Manual 0.68 0.20 - 0.95 10*3/uL 06/19/2024 5:22 AM [facility] Eosinophil #, Manual 0.29 0.02 - 0.50 10*3/uL 06/19/2024 5:22 AM [facility] Basophil #, Manual 0.06 0.00 - 0.20 10*3/uL 06/19/2024 5:22 AM [facility] Reactive Lymphocytes # 0.23 10*3/uL 06/19/2024 5:22 AM [facility] Platelet Estimate Adequate Adequate 06/19/2024 5:22 AM [facility] RBC Morphology Present(A) Normal, No clinically significant RBC morphology present (ICSH guidelines, 2015). 06/19/2024 5:22 AM [facility] Anisocytosis 2+(A) Not Present 06/19/2024 5:22 AM EST [facility] Macrocytes 2+(A) Not Present 06/19/2024 5:22 AM EST [facility] Total Cells Counted 117 06/19/2024 5:22 AM EST [facility] Blood Structure of peripheral vein / Unknown Venipuncture / Unknown 06/19/2024 3:40 AM EST 06/19/2024 3:48 AM EST us Winston ESTRADA LAB BLOOD ORDERABLES Fi nal Result [facility] [address] [place] [address], [place] * (ABNORMAL) Renal Function Panel (06/19/2024 3:40 AM EST) NA 139 135 - 145 mmol/L 06/19/2024 4:34 AM EST [facility] K 4.1 3.5 - 5.3 mmol/L 06/19/2024 4:34 AM EST [facility] Cl 105 98 - 107 mmol/L 06/19/2024 4:34 AM EST [facility] CO2 21(L) 22 - 32 mmol/L 06/19/2024 4:34 AM EST [facility] Anion Gap 13 5 - 15 06/19/2024 4:34 AM EST [facility] Glucose 161(H) 65 - 99 mg/dL 06/19/2024 4:34 AM EST [facility] BUN 9 7 - 23 mg/dL 06/19/2024 4:34 AM EST [facility] Creatinine 0.61 0.60 - 1.30 mg/dL 06/19/2024 4:34 AM EST [facility] Calcium 8.6 8.6 - 10.5 mg/dL 06/19/2024 4:34 AM EST [facility] Phosphorus 3.8 2.5 - 4.5 mg/dL 06/19/2024 4:34 AM EST [facility] Albumin 3.3(L) 3.5 - 5.2 g/dL 06/19/2024 4:34 AM EST [facility] eGFR >90 >=60 mL/min/1. 73m2 06/19/2024 4:34 AM EST [facility] Comment:The estimated glomer [...] AM EST 06/19/2024 3:48 AM EST us Winsotn ESTRADA LAB BLOOD ORDERABLES Fi nal Result [facility] [address] [place] [address], * (ABNORMAL) POCT I-STAT Venous Blood Gas, interfaced (06/17/2024 7:55 AM EST) Only the most recent of4 resultswithin the time period is included. Sample Type, POCT Venous 06/17/2024 7:57 AM EST [facility] pH, POCT 7.43(H) 7.31 - 7.41 pH 06/17/2024 7:57 AM EST [facility] pCO2, POCT 33.0(L) 41 - 51 mm Hg 06/17/2024 7:57 AM EST [facility] pO2, POCT 42(H) 35 - 40 mm Hg 06/17/2024 7:57 AM EST [facility] Base Excess, POCT -3(L) 0 - 3 mmol/L 06/17/2024 7:57 AM EST [facility] HCO3, POCT 21.8(L) 23 - 28 mmol/L 06/17/2024 7:57 AM EST [facility] TCO2, POCT 23(L) 24 - 29 mmol/L 06/17/2024 7:57 AM EST [facility] Saturated O2, POCT 79(H) 70 - 75 % 06/17/2024 7:57 AM EST [facility] FIO2, POCT 30 % 06/17/2024 7:57 AM EST [facility] Patient Temp, POCT 38.1 degrees 06/17/2024 7:57 AM EST [facility] Isaias's Test, POCT N/A 06/17/2024 7:57 AM EST [facility] Blood 06/17/2024 7:55 AM EST 06/17/2024 7:57 AM EST us Jeison Hogue MD LAB POCT ORDERABLES - DEVICE Fin al Result [facility] [address] [place] [address], * Triglyceride (06/17/2024 7:52 AM EST) Triglycerides 69 <=149 mg/dL 06/17/2024 12:32 PM EST [facility] Blood Structure of peripheral vein / Unknown Venipuncture / Unknown 06/17/2024 7:52 AM EST 06/17/2024 7:55 AM EST Mikey Rivas DINKEY ENGINE FIRER LAB BLOOD ORDER MADELYN Final Result Performing Organization Address [facility] de Phone Number [facility] [address] [place] [id number], [place] * (ABNORMAL) Lipase (06/17/2024 7:52 AM EST) Only the most recent of2 resultswithin the time period is included. Lipase 150(H) 13 - 60 U/L 06/17/2024 12:32 PM EST [facility] Blood Structure of peripheral vein / Unknown Venipuncture / Unknown 06/17/2024 7:52 AM EST 06/17/2024 7:55 AM EST Mikey Rivas DINKEY ENGINE FIRER LAB BLOOD ORDER MADELYN Final Result Performing Organization Address [facility] de Phone Number [facility] [address] [place] [phone], [place] * (ABNORMAL) Urinalysis (Urethral Catheter) w/Reflex to Microscopic (Hold Culture). (06/16/2024 6:25 PM EST) Color, Urine Dark Yellow Colorless, Light Yellow, Yellow, Dark Yellow 06/16/2024 7:12 PM EST [facility] Clarity, Urine Clear Clear 06/16/2024 7:12 PM EST [facility] Specific [place], Urine 1.028 1.005 - 1.030 06/16/2024 7:12 PM EST [facility] pH, Urine 5.0 4.6 - 8.0 06/16/2024 7:12 PM EST [facility] Protein, Urine 1+(A) Negative 06/16/2024 7:12 PM EST [facility] Glucose, Urine Negative Negative 06/16/2024 7:12 PM EST [facility] Ketones, Urine Negative Negative 06/16/2024 7:12 PM EST [facility] Bilirubin, Urine Negative Negative 06/16/2024 7:12 PM EST [facility] Blood, Urine Negative Negative 06/16/2024 7:12 PM EST [facility] Nitrite, Urine Negative Negative 06/16/2024 7:12 PM EST [facility] Urobilinogen, Urine Normal Normal 06/16/2024 7:12 PM EST [facility] Leukocyte Esterase, Urine 1+(A) Negative 06/16/2024 7:12 PM EST [facility] WBC, Urine 16(H) 0 - 2 /HPF 06/16/2024 7:12 PM EST [facility] RBC, Urine 7(H) 0 - 2 /HPF 06/16/2024 7:12 PM EST [facility] Hyaline Casts, Urine 0 0 - 2 /LPF 06/16/2024 7:12 PM EST [facility] Squamous Epithelial Cells, Urine <1 /HPF 06/16/2024 7:12 PM EST [facility] Bacteria, Urine Rare(A) None /HPF /HPF 06/16/2024 7:12 PM EST [facility] Mucus, Urine Rare /LPF 06/16/2024 7:12 PM EST [facility] Urine Indwelling urinary catheter / Unknown Non-Blood Collection / Unknown 06/16/2024 6:25 PM EST 06/16/2024 6:45 PM EST us Mikey Riavs NP LAB URINE ORDER MADELYN Final Result [facility] [address] [place] [address], [place] * Urine Culture (Urethral Catheter), HOLD (06/16/2024 6:25 PM EST) Extra Tube Hold for add-ons. 06/16/2024 11:05 PM EST [facility] Comment:Auto resulted. Urine Indwelling urinary catheter / Unknown Non-Blood Collection / Unknown 06/16/2024 6:25 PM EST 06/16/2024 6:45 PM EST Mikey Rivas DINKEY ENGINE FIRER LAB URINE ORDER MADELYN Final Result Performing Organization Address City/[facility] Co de Phone Number [facility] [address] [place] [address], * (ABNORMAL) Betahydroxybutyrate (06/16/2024 10:28 AM EST) Beta-Hydroxybu tyrate 1.00(H) <=0.27 mmol/L 06/16/2024 12:27 PM EST [facility] Blood Structure of peripheral vein / Unknown Venipuncture / Unknown 06/16/2024 10:28 AM EST 06/16/2024 10:28 AM EST Mikey Rivas DINKEY ENGINE FIRER LAB BLOOD ORDER MADELYN Final Result Performing Organization Address City/[facility]/ZIP Co de Phone Number [facility] [address] [place] [address], * Creatine Kinase (06/16/2024 10:28 AM EST) Only the most recent of2 resultswithin the time period is included. CK 342 49 - 348 U/L 06/16/2024 11:00 AM EST [facility] Blood Structure of peripheral vein / Unknown Venipuncture / Unknown 06/16/2024 10:28 AM EST 06/16/2024 10:28 AM EST Mikey Rivas DINKEY ENGINE FIRER LAB BLOOD ORDER MADELYN Final Result [facility] [address] [place] [address], * (ABNORMAL) Methadone Screen w/Confirmation, Urine (06/16/2024 9:37 AM EST) Methadone Metabolite Screen, Urine POSITIVE( A) <100 ng/mL 06/19/2024 6:34 AM EST [facility], Urine 1608(H) <100 ng/mL 06/19/2024 6:34 AM EST [facility] Comment: See Note 1 Methadone, Urine 948(H) <100 ng/mL 06/19/2024 6:34 AM EST [facility] Comment: See Note 1 See Note 2 Note 1 This test was developed and its analytical performance characteristics have been determined by [facility]. It has not been cleared or approved [...] interpreting these drug results, please contact a [facility] Toxicology Specialist: [phone] ( ), M-F, 8am-6pm EST. Urine Catheter / Unknown Non-Blood Collection / Unknown 06/16/2024 9:37 AM EST 06/16/2024 9:55 AM EST Narrative [facility] - 06/19/2024 6:34 AM EST [facility] Received Date: Mikey Rivas [employer] LAB URINE ORDER MADELYN Final Result [facility] [address], [place] [address], [place] [phone] [employer] [facility] [address], [place] [address], [place] [phone] * Morphine and Codeine Confirmation, Urine (06/16/2024 9:37 AM EST) Codeine, Urine NEGATIVE <50 ng/mL 06/19/2024 3:19 PM EST [facility] Comment: See Note 1 Hydrocodone, Urine NEGATIVE <50 ng/mL 06/19/2024 3:19 PM EST [facility] Comment: See Note 1 Hydromorphone, Urine NEGATIVE <50 ng/mL 06/19/2024 3:19 PM EST [facility] Comment: See Note 1 Morphine, Urine NEGATIVE <50 ng/mL 3:19 PM EST [facility] Comment: See Note 1 Norhydrocodone, Urine NEGATIVE <50 ng/mL 06/19/2024 3:19 PM EST [facility] Comment: See Note 1 See Note 2 Note 1 This test was developed and its analytical performance characteristics have been determined by [facility]. It has not been cleared or approved [...] interpreting these drug results, please contact a [facility] T[facility] Specialist: [phone] ( ), M-F, 8am-6pm EST. Urine Catheter / Unknown Non-Blood Collection / Unknown 06/16/2024 9:37 AM EST 06/16/2024 9:55 AM EST Narrative [facility] - 06/19/2024 3:19 PM EST [facility] Received Date: Mikey Rivas NP LAB URINE ORDER MADELYN Final Result [facility] [address] [facility] [address], [place] [address], [place] [phone] [facility] [address] [facility] [address], [place] [address], [place] [phone] * Comprehensive Drug Panel, Urine (06/16/2024 9:37 AM EST) Comprehensive Drug Screen Urine DRUGS DETECTED 06/16/2024 4:36 PM EST [facility] Comment: DIPHENHYDRAMINE PHENOBARBITAL METHADONE AND METABOLITE Urine Catheter / Unknown Non-Blood Collection / Unknown 06/16/2024 9:37 AM EST 06/16/2024 9:55 AM EST Narrative [facility] - 06/16/2024 4:36 PM EST [facility] Received Date:[id number] Cj Paz DINKEY ENGINE FIRER LAB URINE ORDERABLES Final Resul t [facility] [address] [facility] 3rd Floor, [place] [address], [place] [phone] [employer] [facility] [address] [facility] [address] [facility], [place] [address], [place] [phone] * (ABNORMAL) Barbiturate Screen, Urine (06/16/2024 9:37 AM EST) Pathologist [facility] Barbiturate Screen, Urine Presumptive Positive(A) Negative 06/16/2024 1:30 PM EST [facility] Comment: Detection limit of [...] EST 06/16/2024 9:55 AM EST Mikey Rivas DINKEY ENGINE FIRER LAB URINE ORDER MADELYN Final Result [facility] [address] [place] [id number], * Propoxyphene Screen, Urine (06/16/2024 9:37 AM EST) Propoxyphene Screen, Urine NEGATIVE <300 ng/mL 06/17/2024 5:52 AM EST [facility] Comment: See Note 2 Note 1 This drug testing is for medical treatment only. ?? Analysis was performed as non-forensic testing and these results should be used only by healthcare providers to render diagnosis or treatment, or to monitor progress of medical conditions. For assistance with interpreting these drug results, please contact a [facility] Specialist: [phone] ( ), M-F, 8am-6pm EST. Note [...] interpreting these drug results, please contact a [facility]ist: [phone] ( ), M-F, 8am-6pm EST. Urine Catheter / Unknown Non-Blood Collection / Unknown 06/16/2024 9:37 AM EST 06/16/2024 9:55 AM EST Narrative [facility] - 06/17/2024 5:52 AM EST [facility] Received Date: Mikey Rivas DINKEY ENGINE FIRER LAB URINE ORDER MADELYN Final Result [facility] [address] [facility] 3rd Floor, [place] [address], [place] [phone] [employer] [facility] [address] [facility] 3rd Floor, [place] [address], [place] [phone] * Marijuana Qualitative Screen, Urine (06/16/2024 9:37 AM EST) Marijuana Screen, Urine Negative Negative 06/16/2024 1:30 PM EST [facility] Comment: Detection limit of 50 ng/mL of 90-Jbc-qtvpm-2-WSK-9-carboxylic acid. Drug results are to be used only for medical purposes. ??Unconfirmed screening results must not be used for non-medical purposes. Urine Catheter / Unknown Non-Blood Collection / Unknown 06/16/2024 9:37 AM EST 06/16/2024 9:55 AM EST Mikey Rivas DINKEY ENGINE FIRER LAB URINE ORDER MADELYN Final Result Performing Organization Address City/[facility]/ZIP Co de Phone Number [facility] [address] [place] [address], * Osmolality Gap (06/16/2024 9:37 AM EST) NA 137 135 - 145 mmol/L 06/16/2024 11:08 AM [facility] BUN 10 7 - 23 mg/dL 06/16/2024 11:08 AM [facility] Glucose 95 65 - 99 mg/dL 06/16/2024 11:08 AM [facility] Osmolality 282 279 - 295 mOsm/kg 06/16/2024 11:08 AM [facility] Osmolality Calculated 283 mOSM/kg 06/16/2024 11:08 AM EST [facility] Osmolality Gap <10 <10 mOSM/kg 06/16/2024 11:08 AM EST [facility] Blood Structure of peripheral vein / Unknown Venipuncture / Unknown 06/16/2024 9:37 AM EST 06/16/2024 9:54 AM EST Cj Paz DINKEY ENGINE FIRER LAB BLOOD ORDERABLES Final Resul t Performing Organization Address City/[facility]/ZIP Co de Phone Number [facility] [address] [place] [address], * Phencyclidine (PCP) Screen, Urine (06/16/2024 9:37 AM EST) Phencyclidine Screen, Urine NEGATIVE <25 ng/mL 06/17/2024 5:52 AM EST [facility] Comment: See Note 2 Urine Catheter / Unknown Non-Blood Collection / Unknown 06/16/2024 9:37 AM EST 06/16/2024 9:55 AM EST Narrative [facility] - 06/17/2024 5:52 AM EST [facility] Received Date: Mikey Rivas DINKEY ENGINE FIRER LAB URINE ORDER MADELYN Final Result [facility] [address] [facility] [address], [place] [address], [place] [phone] [employer] [facility] [address] [facility] 3rd Floor, [place] [address], [place] [phone] * Cocaine Qualitative, Urine (06/16/2024 9:37 AM EST) Cocaine Metabolite Screen, Urine Negative Negative 06/16/2024 1:30 PM EST [facility] Comment: Detection limit of 300 ng/mL of Benzoylecgonine. Drug results are to be used only for medical purposes. ??Unconfirmed screening results must not be used for non-medical purposes. Urine Catheter / Unknown Non-Blood Collection / Unknown 06/16/2024 9:37 AM EST 06/16/2024 9:55 AM EST Mikey Rivas DINKEY ENGINE FIRER LAB URINE ORDER MADELYN Final Result [facility] [address] [place] [address], * (ABNORMAL) Benzodiazepine Qualitative Screen, Urine (06/16/2024 9:37 AM EST) Benzodiazepine Screen, Urine Presumptive Positive(A) Negative 06/16/2024 1:30 PM EST [facility] Comment: Detection limit of 200 ng/mL of Nordiazepam. Drug results are to be used only for medical purposes. ??Unconfirmed screening results must not be used for non-medical purposes. Urine Catheter / Unknown Non-Blood Collection / Unknown 06/16/2024 9:37 AM EST 06/16/2024 9:55 AM EST Mikey Rivas DINKEY ENGINE FIRER LAB URINE ORDER MADELYN Final Result Performing Organization Address [facility] de Phone Number [facility] [address] [place] [address], * Amphetamine Qualitative, Urine (06/16/2024 9:37 AM EST) Amphetamine Screen, Urine Negative Negative 06/16/2024 1:30 PM EST [facility] Comment: Detection limit of 1000 ng/mL of d-Methamphetamine. Drug results are to be used only for medical purposes. ??Unconfirmed screening results must not be used for non-medical purposes. Urine Catheter / Unknown Non-Blood Collection / Unknown 06/16/2024 9:37 AM EST 06/16/2024 9:55 AM EST Mikey Rivas NP LAB URINE ORDER MADELYN Final Result Performing Organization Address [facility] Co de Phone Number [facility] [address] [place] [address], [place] * Osmolality, Serum (06/16/2024 9:37 AM EST) Osmolality 280 279 - 295 mOsm/kg 06/16/2024 10:46 AM EST [facility] Blood Structure of peripheral vein / Unknown Venipuncture / Unknown 06/16/2024 9:37 AM EST 06/16/2024 9:54 AM EST Cj Jackson DINKEY ENGINE FIRER LAB BLOOD ORDERABLES Final Resul t Performing Organization Address [facility] de Phone Number [facility] [address] [place] [address], [place] * Acetaminophen Level (06/16/2024 9:37 AM EST) Acetaminophen <5.0 <10.0 ug/mL 06/16/2024 10:41 AM EST [facility] Comment:Expected Range with Therapeutic Dosin-30 ug/mL Blood Structure of peripheral vein / Unknown Venipuncture / Unknown 06/16/2024 9:37 AM EST 06/16/2024 9:54 AM EST Cj Paz NP LAB BLOOD ORDERABLES Final Resul t Performing Organization Address [facility] Phone Number [facility] [address] [place] [address], [place] * Salicylate Level (06/16/2024 9:37 AM EST) Salicylate <1 <3 mg/dL 06/16/2024 10:41 AM EST [facility] Comment:Expected Range with Therapeutic Dosin-30 mg/dL Blood Structure of peripheral vein / Unknown Venipuncture / Unknown 06/16/2024 9:37 AM EST 06/16/2024 9:54 AM EST Cj Paz NP LAB BLOOD ORDERABLES Final Resul t Performing Organization Address [facility] de Phone Number [facility] [address] [place] [address], [place] * COVID-19, Flu A/B & RSV RNA PCR, Symptomatic (06/16/2024 9:29 AM EST) PCR, SARS CoV-2 RNA Not Detected Not Detected [employer] 06/16/2024 11:18 AM EST [facility] Comment:A Not Detected [...] A RNA PCR Not Detected Not Detected CEPWeblanceID GENEXPERT 06/16/2024 11:18 AM EST [facility] Comment:Negative results do not preclude infection and should not be used as the sole basis for diagnosis, treatment or other patient management decisions. Negative results must be combined with clinical observations, patient history, and/or epidemiological information. Flu B RNA PCR Not Detected Not Detected CEPWeblanceID GENEXPERT 06/16/2024 11:18 AM EST [facility] Comment:Negative results do not preclude infection and should not be used as the sole basis for diagnosis, treatment or other patient management decisions. Negative results must be combined with clinical observations, patient history, and/or epidemiological information. RSV RNA PCR Not Detected Not Detected CEPWeblanceID GENEXPERT 06/16/2024 11:18 AM EST [facility] Comment:Negative results do not preclude infection and should not be used as the sole basis for diagnosis, treatment or other patient management decisions. Negative results must be combined with clinical observations, patient history, and/or epidemiological information. Swab (Nares) Non-Blood Collection / Unknown 06/16/2024 9:29 AM EST 06/16/2024 9:54 AM EST Narrative [facility] - 06/16/2024 11:18 AM EST This test was developed, validated and its performance characteristics determined by [facility]. This test has not been cleared or approved by the U.S. Food and Drug Administration (FDA). FDA Policy for Diagnostic Tests for Coronavirus Disease-2019 during the Public Health Emergency issued August 19, 2019, is followed. Cj Paz NP LAB BODY FLUIDS AND STOOLS ORDER MADELYN Final Result [facility] [address] [place] [address], [place] * (ABNORMAL) POCT I-STAT Arterial Blood Gas, interfaced (06/16/2024 9:29 AM EST) Sample Type, POCT Arterial 06/16/2024 9:32 AM EST [facility] pH, POCT 7.47(H) 7.35 - 7.45 06/16/2024 9:32 AM EST [facility] pCO2, POCT 26.8(L) 35 - 45 mmHg 06/16/2024 9:32 AM EST [facility] pO2, POCT 116(H) 80 - 105 mmHg 06/16/2024 9:32 AM EST [facility] Base Excess, POCT -4(L) 0 - 3 mmol/L 06/16/2024 9:32 AM EST [facility] HCO3, POCT 19.4(L) 21 - 28 mmol/L 06/16/2024 9:32 AM EST [facility] TCO2, POCT 20(L) 23 - 27 mmol/L 06/16/2024 9:32 AM EST [facility] Saturated O2, POCT 99(H) 95 - 98 % 06/16/2024 9:32 AM EST [facility] FIO2, POCT 50 % 06/16/2024 9:32 AM EST [facility] Tidal Volume, POCT 450 ml 06/16/2024 9:32 AM EST [facility] Isaias's Test, POCT PASS 06/16/2024 9:32 AM EST [facility] Blood 06/16/2024 9:29 AM EST 06/16/2024 9:32 AM EST us Sal Adler MD LAB POCT ORDERABLES - DEVIC E Final Result [facility] [address] [place] [address], [place] * Blood Culture, Peripheral #2 (06/16/2024 9:00 AM EST) Only the most recent of2 resultswithin the time period is included. Culture No growth after 5 days 06/21/2024 1:31 PM EST [employer] [facility] Blood Structure of peripheral vein / Unknown Venipuncture / Unknown 06/16/2024 9:00 AM EST 06/16/2024 9:12 AM EST Narrative [facility] - 06/21/2024 1:31 PM EST [facility] Received Date: MICRO NUMBER: [id number] SPECIMEN QUALITY: Adequate SOURCE: BLOOD VENOUS, PERIPHERAL STATUS: FINAL COMMENT: Aerobic and anaerobic bottle received. Mikey Rivas DINKEY ENGINE FIRER LAB MICROBIOLOG Y - GENERAL ORDERABLES Final Result [facility] [address] [facility] 3rd [address], [place] [address], [place] [phone] [employer] [facility] [address] [facility] 3rd Floor, [place] [address], [place] [phone] * Prolactin (06/16/2024 8:57 AM EST) Prolactin 9.10 4.04 - 15.20 ng/mL 06/16/2024 11:22 AM EST [facility] Blood Structure of peripheral vein / Unknown Venipuncture / Unknown 06/16/2024 8:57 AM EST 06/16/2024 9:12 AM EST Mikey Rivas DINKEY ENGINE FIRER LAB BLOOD ORDER MADELYN Final Result [facility] [address] [place] [address], [place] * MRSA/S aureus PCR, Nasal (06/16/2024 8:44 AM EST) MRSA PCR, Nasal NOT DETECTED NOT DETECTED 06/17/2024 3:29 PM EST [employer] [facility] S. aureus PCR, Nasal NOT DETECTED NOT DETECTED 06/17/2024 3:29 PM EST [employer] [facility] Swab Nasal structure / Unknown Non-Blood Collection / Unknown 06/16/2024 8:44 AM EST 06/16/2024 9:12 AM EST Narrative [facility] - 06/17/2024 3:29 PM EST [facility] Received Date:[id number] Mikey Rivas DINKEY ENGINE FIRER LAB BODY FLUIDS AND STOOLS ORDERABLES Final Result Performing Organization Address City/State/[facility] Co de Phone Number [facility] [address] [facility] [address], [place] [address], [place] [phone] [facility] [address] [facility] 3rd Floor, [place] [address], [place] [phone] * (ABNORMAL) Respiratory Culture w/Gram Stain (06/16/2024 8:41 AM EST) Pathologist [facility] Culture Growth of normal oropharyngeal yayo 06/18/2024 2:14 PM EST [employer] [facility] Gram Stain Many White Blood Cells Seen(A) 06/18/2024 2:14 PM EST [facility] Gram Stain No epithelial cells seen(A) 06/18/2024 2:14 PM EST [facility] Gram Stain Few Gram Positive Cocci(A) 06/18/2024 2:14 PM EST [facility] Sputum Sputum / Unknown Non-Blood Collection / Unknown 06/16/2024 8:41 AM EST 06/16/2024 9:11 AM EST Narrative [facility] - 06/18/2024 2:14 PM EST [facility] Received Date:[id number] MICRO NUMBER: [id number] SPECIMEN QUALITY: Adequate SOURCE: SPUTUM EXPECTORATED SPUTUM STATUS: FINAL us Mikey Rivas DINKEY ENGINE FIRER LAB MICROBIOLOG Y - GENERAL ORDERABLES Final Result [facility] [address], [place] [address], [place] [phone] [employer] ROMINA JERRY [address], [address] [facility] [address], [place] [phone] * X-Ray Chest 1 View (06/16/2024 8:20 [...] obtain the completed interpretation. ? Workstation ID: [id number] Narrative 06/16/2024 4:00 PM EST COMPARISON: ??One day ago FINDINGS AND Resulting Agency Comment [id number] Procedure Note Sal Goodman MD - 06/16/2024 [...] possible to obtain thecompleted interpretation. Workstation ID: [id number] Betina Gallo DINKEY ENGINE FIRER IMG XR PROCEDURES Final Result * HC EMERGENCY INTUBATION, DE INSERT EMERGENCY ENDOTRACH AIRWAY, AN ETT DUMMY [...] Aurora Beckett MD Anesthesiologist: Aurora Beckett MD PATCHER HELPER: Rut Petersen CRNA Performed: anesthesiologist I was [...] - 1.9 mmol/L 06/16/2024 8:06 AM EST [facility] Comment: Sepsis Screening: Initial Lactate Level >2.0 mmol/L - Repeat Lactate Level within 3 hours. Initial Lactate Level >4.0 mmol/L - Repeat Lactate Level within 3 hours, Initiate Septic Shock Protocol. Blood Structure of peripheral vein / Unknown Venipuncture / Unknown 06/16/2024 7:34 AM EST 06/16/2024 7:36 AM EST Mikey Rivas DINKEY ENGINE FIRER LAB BLOOD ORDER MADELYN Final Result Performing Organization Address [facility] Co de Phone Number [facility] [address] [place] [address], * Protime-INR (06/16/2024 3:42 AM EST) Pathologist [facility] PT 11.0 9.6 - 12.4 Seconds 06/16/2024 4:19 AM EST [facility] INR 1.0 0.9 - 1.1 06/16/2024 4:19 AM EST [facility] Comment:The optimal therapeu tic INR range for patients treated with Vitamin K antagonists (VKAS, e.g., Warfarin) is 2.0 to 3.5. Discuss the desired range with your doctor/care team. Blood Structure of peripheral vein / Unknown Venipuncture / Unknown 06/16/2024 3:42 AM EST 06/16/2024 3:46 AM EST Marci Huitron PA LAB BLOOD ORDERABLES Final Res ult Performing Organization Address [facility] Co de Phone Number [facility] [address] [place] [address], * (ABNORMAL) Hepatic Function Panel (06/16/2024 3:42 AM EST) Pathologist [facility] Total Protein 6.9 6.0 - 8.0 g/dL 06/16/2024 4:27 AM EST [facility] Albumin 3.7 3.5 - 5.2 g/dL 06/16/2024 4:27 AM EST [facility] Globulin, Total 3.2 2.1 - 4.2 g/dL 06/16/2024 4:27 AM EST [facility] Bilirubin, Total 1.2 0.2 - 1.2 mg/dL 06/16/2024 4:27 AM EST [facility] Bilirubin, Direct 0.5(H) <=0.4 mg/dL 06/16/2024 4:27 AM EST [facility] Alkaline Phosphatase 112 35 - 129 U/L 06/16/2024 4:27 AM EST [facility] AST 47(H) 10 - 40 U/L 06/16/2024 4:27 AM EST [facility] ALT 43(H) 10 - 40 U/L 06/16/2024 4:27 AM EST [facility] Bilirubin, Indirect 0.70 <=0.70 mg/dL 06/16/2024 4:27 AM EST [facility] A/G Ratio 1.2(L) 1.5 - 3.0 06/16/2024 4:27 AM EST [facility] Blood Structure of peripheral vein / Unknown Venipuncture / Unknown 06/16/2024 3:42 AM EST 06/16/2024 3:46 AM EST us Marci ESTRADA LAB BLOOD ORDERABLES Final Res ult [facility] [address] [place] [address], * ECG 12 lead (06/15/2024 5:49 PM EST) Only the most recent of2 resultswithin the time period is included. Ventricular Rate EKG 97 BPM MUSE EKG Atrial Rate 97 BPM MUSE EKG DE Interval 136 ms MUSE EKG QRS Interval 72 ms MUSE EKG QT Interval 390 ms MUSE EKG QTC Interval 495 ms MUSE EKG P [place] 67 degrees MUSE EKG R [place] 26 degrees MUSE EKG T Wave [place] -26 degrees MUSE EKG 06/15/2024 5:49 PM EST 06/16/2024 5:47 PM EST Impressions MUSE EKG - 06/16/2024 5:47 PM EST NORMAL SINUS RHYTHM ST-T ABNORMALITIES CONSIDER ISCHEMIA PROLONGED QTC ABNORMAL ECG Confirmed by Heath Williamson ([id number]) on 06/16/2024 5:47:05 PM Quita ESTRADA ECG ORDERABLES Final Res ult Performing Organization Address [facility]/ZIP Co de Phone Number MUSE EKG * Troponin T, High Sensitivity (06/15/2024 5:33 PM EST) Troponin T High Sensitivity <6 <=21 ng/L 06/15/2024 6:30 PM EST [facility] Comment: 3+ hemolysis; the result may be Falsely Decreased. El-Vhvkjhqb-A level of 52 ng/L or higher at [...] be evaluated in line with the 4th Gilbert Definition of AMI. Troponin baseline and serial [...] ORDERABLES Rachel l Result Performing Organization Address [facility]/ZIP Co de Phone Number [facility] [address] [place] [address], [place] * CT Head WO Contrast (06/15/2024 [...] obtain the completed interpretation. ? Workstation ID: [id number] Up-to-date CT equipment and radiation dose reduction [...] paranasal sinuses are well-aerated. Resulting Agency Comment [id number] Procedure Note Joseph Corona - 06/15/2024 EXAMINATION: [...] possible to obtain thecompleted interpretation. Workstation ID: [id number] Up-to-date CT equipment and radiation dose reduction techniques wereemployed. CTDIvol: 48.0 mGy. DLP: 868 mGy-cm. us Edvin Beck MD IMG CT PROCEDURES Final Result * HEART & VASCULAR - SCANNED (06/15/2024) Anatomical Region Laterality Modality Other us Onbase Scan Lavelle SCANNED PROCEDURES Final Resu lt from Last [address] [address] Advance Directives Documents on File Type Date Recorded Patient Machine Whitener Expl anation Health Care Proxy 06/25/2024 2:59 PM 06-25 * Full Code (Latest Code Status on File) Date Activated Date Inactivated Comments 06/15/2024 5:11 PM 06/25/2024 8:23 PM Care Teams Communications Planner Relationship Specialty Start Date End Date Patient, Has No Pcp Or Ref DO NOT EDIT THIS RECORD VIA PROVIDER ON THE FLY PCP - General Reshipping Clerk 06/19/24
--- NOTE | 2024-09-13 16:06 | MHC.OFFVIS ---
Vital Signs 09/13/24 16:10 Height 5 ft 4 in Weight 172 lb BMI 29.5 Pulse Oximetry (%) 99 Oxygen Delivery Method Room Air Intake Visit Reasons: MAT Office Allergies No Known Allergies Allergy (Verified 09/13/24 16:10) HPI HPI MAT Office: Details: He is doing well He is taking Suboxone [facility] Medical History (Updated 09/13/24 @ 17:35 by Amirah Kuhn MD) Opioid use disorder Review of Systems Const All systems reviewed & are unremarkable except as noted in HPI and below Physical Exam Vital Signs: Last Vital Signs Pulse Ox 99 09/13/24 16:10 Oxygen Delivery Method Room Air 09/13/24 16:10 BMI result Body Mass Index 29.5 Const General: cooperative Results AMB 14 Panel Urine Drug Screen Urine Marijuana (THC) Negative Last Edit by Malika Ramirez CMA on 09/13/24 16:19 Urine Cocaine Negative Last Edit by Malika Ramirez CMA on 09/13/24 16:19 Urine Morphine Negative Last Edit by Malika Ramirez CMA on 09/13/24 16:19 Urine Methamphetamine Negative Last Edit by Malika Ramirez CMA on 09/13/24 16:19 Urine Amphetamine Negative Last Edit by Malika Ramirez CMA on 09/13/24 16:19 Urine Benzodiazepine Negative Last Edit by Malika Ramirez CMA on 09/13/24 16:19 Urine Barbiturates Negative Last Edit by Malika Ramirez CMA on 09/13/24 16:19 Urine Methadone Negative Last Edit by Malika Ramirez CMA on 09/13/24 16:19 Urine Buprenorphine Negative Last Edit by Malika Ramirez CMA on 09/13/24 16:19 Urine Tricyclic Antidepressant Negative Last Edit by Malika Ramirez CMA on 09/13/24 16:19 Urine MDMA Negative Last Edit by Malika Ramirez CMA on 09/13/24 16:19 Urine Oxycodone Negative Last Edit by Malika Ramirez CMA on 09/13/24 16:19 Urine Phencyclidine Negative Last Edit by Malika Ramirez CMA on 09/13/24 16:19 Urine Propoxyphene Negative Last Edit by Malika Ramirez CMA on 09/13/24 16:19 Results Reviewed Results Reviewed: Laboratory Last Values POC Urine Buprenorphine Negative 09/13/24 16:11 POC Urine Morphine Negative 09/13/24 16:11 POC Urine Oxycodone Negative 09/13/24 16:11 POC Urine Methadone Negative 09/13/24 16:11 POC Urine Propoxyphene Negative 09/13/24 16:11 POC Urine Barbiturates Negative 09/13/24 16:11 POC U Tricyclic Antidpr Negative 09/13/24 16:11 POC Urine PCP Negative 09/13/24 16:11 POC Ur Amphetamines Negative 09/13/24 16:11 POC Ur Methamphetamine Negative 09/13/24 16:11 POC Urine MDMA Negative 09/13/24 16:11 POC Ur Benzodiazepine Negative 09/13/24 16:11 POC Urine Cocaine Negative 09/13/24 16:11 POC Ur Marijuana (THC) Negative 09/13/24 16:11 Assessment & Plan Assessment & Plan (1) Alcohol use disorder, severe, dependence: Code(s): F10.20 - Alcohol dependence, uncomplicated Category: Medical Plan: na Orders: Orders AMB 14 Panel Urine Drug Screen Today Z51.81 - Encounter for therapeutic drug level monitoring Medications: New naltrexone 50 mg PO DAILY 30 tabs 3RF 30 days Scribe Plan - Not visible on output: Naltrexone as ordered Coding Level of Care Code Est Pt Level 3 (83844) Diagnoses Alcohol use disorder, severe, dependence F10.20
[2024-09-13 16:10] VITALS: O2SAT 99; BMI 29.5
== END 2024-09-13 16:30 | disposition home or self-care (01) ==
LOC: HO.HCC 15:34
PROVIDERS: Visit Provider Internal Medicine
DX: Z51.81 Encounter for therapeutic drug level monitoring (principal); F10.20 Alcohol dependence, uncomplicated
CPT/HCPCS: 99213

== ENCOUNTER → 2024-09-13 15:34 | Outpatient (BNVA) | payer MEDICAID, SELFPAY | PROVIDERS: Visit Provider Internal Medicine | DX: F10.20 Alcohol dependence, uncomplicated (principal); Z51.81 Encounter for therapeutic drug level monitoring; Z79.899 Other long term (current) drug therapy | CPT/HCPCS: 80307; 99212 ==